=== PATIENT | female | born 1940 | race Caucasian/White ===

== ENCOUNTER 2017-11-23 08:22 | Day surgery (SDC) | payer MEDICARE, OTHER ==
[~2017-11-23] VITALS: Ht 154.9 cm; Wt 75.7 kg
[~2017-11-23 08:22] MED LIST: ACET500T33 PO; ALEN70TA5 PO; AMLO10TA6 PO; ASPI-482 PO; ATEN25TA PO; CALC-98 PO; CARV3.122 PO; CYAN50004 PO; DOCU100C28 PO; FERR325T14 PO; FERROUS GLUCON325 M1 PO; FLUT16SP NS; FURO20TA3 PO; HYDROmorphone 2 MG/ML VIAL IV PRN; IV RINGERS,LACTATED 1000ML 1,000 ML IV SCH; LEVO75TA5 PO; LIDOCAINE 1% PF 2 ML VIAL. ID PRN; LORA10TA3 PO; MAGN250T2 PO; MORPHINE SULFATE 2 MG/ML VIAL. IV PRN; OMEP20CA9 PO; ONDANSETRON PF 4 MG/2 ML VIAL. IV PRN; POTA10TA12 PO; PROCHLORPERAZINE 10 MG/2 ML VIAL. IV PRN; TRAM50TA PO; TYLENOL ARTHRITIS PO; fentaNYL PF VIAL 100 MCG/2 ML VIAL IV PRN
--- NOTE | 2017-11-23 08:47 | DISCH ---
DISCHARGE INSTRUCTIONS Condition on Discharge Condition on Discharge: Stable Activity After Discharge Activity Instructions for Disc: Activity as tolerated Other activity instructions: wiggle fingers Bathing Instructions: Shower-keep dressing dry Weight Bearing Status after Di: No restrictions, As tolerated Diet after Discharge Diet after Discharge: Cardiac Diet Texture: Regular Liquid Texture: Thin Liquid Swallowing Supervision: None needed Wound Incision Care Wound/Incision Care: Ice to area for comfort, Keep wound/cast CDI, Change dressing Contacting the DR. after DC Call your doctor for: Concerns you may have Follow-Up Follow up with: Kimmie in 2 wks IBIS CAMPBELL II, MD Nov 23, 2017 08:47
[2017-11-23] MEDS ORDERED: BUPIVACAINE MPF 0.5% 30 ML VIAL. ONE (08:54)
[2017-11-23] MEDS ORDERED: LIDOCAINE 1% PF 30 ML VIAL. ONE (08:54)
[2017-11-23] MEDS ORDERED: fentaNYL PF VIAL 100 MCG/2 ML VIAL ONE (09:22)
[2017-11-23] MEDS ORDERED: MIDAZOLAM HCL/PF 2 MG/2 ML VIAL. ONE (09:22)
[2017-11-23] MEDS ORDERED: DEXAMETHASONE SOD PHOS 20 MG/5 ML VIAL. ONE (09:22)
[2017-11-23] MEDS ORDERED: ONDANSETRON PF 4 MG/2 ML VIAL. ONE (09:22)
[2017-11-23] MEDS ORDERED: PROPOFOL 20 ML IV ONE (09:22)
[2017-11-23] MEDS ORDERED: SEVOFLURANE 16 TO 30 MINUTES. IH ONE (10:32)
--- NOTE | 2017-11-23 10:46 | PDOC4 ---
Operative Note Operative Note Date of Procedure: 11/24/07 Surgeon: Elfego Campbell Pre-operative Diagnosis: Left carpal tunnel syndrome Post-operative diagnosis: Same Procedure performed: Open left carpal tunnel release Anesthesia: Gen. Findings: Normal-appearing median nerve Tourniquet time: 10min Blood loss: 2mL Reason for procedure: Patient is very pleasant female who is several weeks out from her open right carpal tunnel release with myself for her bilateral carpal tunnel syndrome that was consistent with her clinical and electromyographic examination. She had tried and failed conservative therapies including anti- inflammatories, wrist splints and injections. These provided her only temporary relief and despite these interventions, she felt like her symptoms were worsening and therefore we had a discussion of the risks, benefits, and alternatives and she wished to proceed with surgery on her left side Description of procedure: Patient was greeted in the preoperative holding area by myself for the correct extremity was verified and marked. She is taken back to the operative suite and antibiotics were started as she was brought back. Once in the operating room, she was transferred gently supine to the operating room table and secured to bed with all pressure points padded and had successful induction of a general anesthetic. We attached the arm board attachment to the operating room table. Nonsterile tourniquet was applied to her left upper extremity. Left upper extremity was prepped and draped in our usual sterile fashion. We conducted our standard preoperative timeout. I then made an incision from her distal wrist crease and do her hand through a palmar wrist crease. I incised skin with a scalpel and dissected subcutaneous tissues tissue and cauterized bleeders with bipolar cautery. I used a small curved hemostat to dissect down to the palmar fascia. This was incised in line with the skin incision. I then placed myself retaining retractor and identified the transverse carpal ligament and release this sharply with a scalpel. I then introduced a Ragnell retractor and the distal extent of the incision, spread above and below small portion of the remainder of the transverse carpal ligament and transected this with a tenotomy scissors. I then repeated this maneuver and an ulnar directed fashion to release the distal antebrachial fascia in the proximal portion of the incision. After this, I used the tip of the tenotomy scissors to palpate along the course of the nerve to ensure that accomplished a complete release. I then irrigated out the operative field, and closed skin with 3-0 nylon in a horizontal mattress fashion. The arm was cleansed and dried after injected about 6 mL of a local anesthetic mixture. Xeroform, sterile gauze, sterile soft roll and an [place] wrap were then applied for a bulky soft tissue dressing. Tourniquet was let down, patient was awakened from anesthesia and transferred gently supine to the recovery room cart and taken to PACU in a stable and extubated condition. All counts correct 2 prior to wound closure. Postoperative plan is to leave the dressing in place for 2-3 days. I encouraged active range of motion in her fingers. I discussed postop instructions with her family, these were also provided written form. She will follow up with me in 2 weeks, sooner should a problem arise. ELFEGO CAMPBELL II, MD Nov 23, 2017 10:46
[2017-11-23] MEDS ORDERED: HYDR-971 PO (10:59)
[2017-11-23] MEDS ORDERED: ONDA4TAB10 SL (11:00)
[2017-11-23] MEDS ORDERED: DOCU-109 PO (11:00)
[2017-11-23] MEDS ORDERED: HYDROcodone/APAP 5/325MG 1 TAB TABLET ONE (11:14)
[2017-11-23 11:25] VITALS: BP 138/96
[2017-11-23] MEDS ORDERED: HYDROcodone/APAP 5/325MG 1 TAB TABLET PO ONE (11:30)
== END 2017-11-23 11:58 | disposition home or self-care (01) ==
LOC: SURG 08:22
PROVIDERS: ATTEND Orthopaedic Surgery Sports Medicine
DX: G56.02 Carpal tunnel syndrome, left upper limb (principal); M19.042 Primary osteoarthritis, left hand; M19.041 Primary osteoarthritis, right hand; I10 Essential (primary) hypertension; E03.9 Hypothyroidism, unspecified; Z88.0 Allergy status to penicillin; Z98.42 Cataract extraction status, left eye; Z98.41 Cataract extraction status, right eye; Z79.899 Other long term (current) drug therapy; Z88.8 Allergy status to other drugs, medicaments and biological substances; Z88.1 Allergy status to other antibiotic agents; Z91.040 Latex allergy status; Z98.890 Other specified postprocedural states; Z87.891 Personal history of nicotine dependence
CPT/HCPCS: 64721; A7015; J1100; J1956; J2250; J2405; J2704; J3010; J3490; J7120

== ENCOUNTER → 2018-05-08 | Outpatient (CLI) | payer MEDICARE, OTHER ==
[~2018-05-08] MED LIST changes: -ALEN70TA5 PO; +ALEN70TA6 PO; -AMLO10TA6 PO; +AMLO10TA8 PO; +CARV3.1210 PO; -CARV3.122 PO; +DOCU-109 PO; +HYDR-3164 PO; -HYDROmorphone 2 MG/ML VIAL IV PRN; -IV RINGERS,LACTATED 1000ML 1,000 ML IV SCH; -LIDOCAINE 1% PF 2 ML VIAL. ID PRN; -MORPHINE SULFATE 2 MG/ML VIAL. IV PRN; +OMEP20CA10 PO; -OMEP20CA9 PO; +ONDA4TAB10 SL; -ONDANSETRON PF 4 MG/2 ML VIAL. IV PRN; -PROCHLORPERAZINE 10 MG/2 ML VIAL. IV PRN; -fentaNYL PF VIAL 100 MCG/2 ML VIAL IV PRN
--- NOTE | 2018-05-08 11:33 | CARD ---
MR#: [id number] Date of Study: 05/08/2018 Ordering Physician: CODY RIDDLE, Referring Physician: CODY RIDDLE, Tech: Tracey Cole PATRICE APPROVED REPORT EXAM: Two-dimensional and M-mode echocardiogram with Doppler and color Doppler. Other Information Quality : Good INDICATION Pulmonary Hypertention 2D DIMENSIONS RVDd3.3 (2.9-3.5cm)Left Atrium(2D)3.6 (1.6-4.0cm) IVSd1.2 (0.7-1.1cm)Aortic Root(2D)2.9 (2.0-3.7cm) LVDd4.5 (3.9-5.9cm)LVOT Diameter2.2 (1.8-2.4cm) PWd1.2 (0.7-1.1cm)LVDs3.0 (2.5-4.0cm) FS (%) 34.0 %SV58.9 ml LVEF(%)63.0 (>50%) Aortic Valve AoV Peak Cholo.217.1cm/sAoV VTI41.5cm AO Peak GR.18.9mmHgLVOT Peak Cholo.179.1cm/s AO Mean GR.9mmHgAVA (VMAX)3.18cm2 SUE (VTI)3.22ad0CZ P 1/2 Rylw670ov Mitral Valve MV E Nwhxomxp507.6cm/sMV DECEL LXYX757en MV A Dpslbrzj843.5cm/sE/A Ratio0.9 Tricuspid Valve TR P. Metcwnrd795dp/sRAP ODFWEPPC1qxXi TR Peak Gr.78tlKoYEFX41htTg Pulmonary Vein S1 Feysymby37.0cm/sD2 Dgdpcdlq94.1cm/s LEFT VENTRICLE The left ventricle is normal size. There is mild concentric left ventricular hypertrophy. The left ve ntricular systolic function is normal and the ejection fraction is within normal range. The Ejection Fraction is 55-60%. There is normal LV segmental wall motion. Transmitral Doppler flow pattern is Gra de I-abnormal relaxation pattern. RIGHT VENTRICLE The right ventricle is normal size. The right ventricular systolic function is normal. ATRIA The left atrium size is normal. The right atrium size is normal. The interatrial septum is intact wit h no evidence for an atrial septal defect or patent foramen ovale as noted on 2-D or Doppler imaging. AORTIC VALVE The aortic valve is calcified but opens well. Doppler and Color Flow revealed trace to mild aortic re gurgitation. There is no significant aortic valvular stenosis. MITRAL VALVE The mitral valve is calcified but opens well. Mitral annular calcification is moderate. The anterior mitral valve is redundant. There is no mitral valve stenosis. Doppler and Color-flow revealed trace t o mild mitral regurgitation. TRICUSPID VALVE The tricuspid valve is normal in structure and function. Doppler and Color Flow revealed mild to mode rate tricuspid regurgitation. There is moderate pulmonary hypertension. The PA pressure was estimated at 55 mmHg. There is no tricuspid valve stenosis. PULMONIC VALVE The pulmonic valve is not well visualized. Doppler and Color Flow revealed trace pulmonic valvular re gurgitation. There is no pulmonic valvular stenosis. GREAT VESSELS The aortic root is normal in size. The ascending aorta is normal in size. The IVC is dilated and rosalba apses >50% with inspiration. PERICARDIAL EFFUSION There is no evidence of significant pericardial effusion. Critical Notification Critical Value: No <Conclusion> The left ventricular systolic function is normal and the ejection fraction is within normal range. Th e Ejection Fraction is 55-60%. There is normal LV segmental wall motion. Doppler and Color Flow revealed mild to moderate tricuspid regurgitation. There is moderate pulmonary hypertension. The PA pressure was estimated at 55 mmHg. Signed by : Biju Gilliam, Electronically Approved : 05/08/2018 11:33:02
== END | disposition home or self-care (01) ==
LOC: ECHO 10:08
PROVIDERS: ATTEND Internal Medicine Cardiovascular Disease
DX: I08.1 Rheumatic disorders of both mitral and tricuspid valves (principal); I27.20 Pulmonary hypertension, unspecified; I25.10 Atherosclerotic heart disease of native coronary artery without angina pectoris; R00.8 Other abnormalities of heart beat
CPT/HCPCS: 93306

== ENCOUNTER 2019-01-20 12:50 | Emergency (ER) | payer MEDICARE, OTHER ==
[~2019-01-20] VITALS: Ht 154.9 cm; Wt 78.9 kg
[~2019-01-20 12:50] MED LIST changes: +OMEP-229 PO; -OMEP20CA10 PO; -POTA10TA12 PO; +POTASSIUM CHLO10 ME1 PO
[2019-01-20 13:16] LABS: BILIRUBIN,URINE NEGATIVE (NEG); CLARITY,URINE CLEAR; COLOR,URINE YELLOW; NITRITE,URINE NEGATIVE (NEG); PROTEIN,URINE NEGATIVE (NEG-TRACE); UROBILINOGEN,URINE 0.2 mg/dL (0.2 mg/dL)
[2019-01-20 13:26] LABS: BASO # 0.1 x10^3/uL (0.0-0.2); BASO % 1 % (0-3); EOS # 0.3 x10^3/uL (0.0-0.7); EOS % 4 % (0-3); HEMATOCRIT 32.8 % (36.0-47.0); HEMOGLOBIN 10.6 g/dL (12.0-15.5); LYMPH # 1.2 x10^3/uL (1.0-4.8); LYMPH % 15 % (24-48); MEAN CORPUSCULAR HEMOGLOBIN 31 pg (25-35); MEAN CORPUSCULAR HGB CONC 32 g/dL (31-37); MEAN CORPUSCULAR VOLUME 97 fL (79-100); MONO # 0.5 x10^3/uL (0.0-1.1); MONO % 7 % (0-9); NEUT # 5.8 x10^3/uL (1.8-7.7); NEUT % 73 % (31-73); PLATELET COUNT 412 x10^3/uL (140-400); RED BLOOD COUNT 3.39 x10^6/uL (3.50-5.40); RED CELL DISTRIBUTION WIDTH 15.5 % (11.5-14.5)
[2019-01-20 13:33] LABS: BACTERIA,URINE MANY /HPF (0-FEW); RBC,URINE RARE /HPF (0-2); SQUAMOUS EPITHELIAL CELL,UR OCC /LPF
[2019-01-20 13:38] LABS: CALCIUM 8.6 mg/dL (8.5-10.1); CREATININE 0.7 mg/dL (0.6-1.0); GFR 80.7; POTASSIUM 4.1 mmol/L (3.5-5.1)
[2019-01-20 13:44] LABS: ALBUMIN 3.3 g/dL (3.4-5.0); ALBUMIN/GLOBULIN RATIO 0.8 (1.0-1.7); TOTAL BILIRUBIN 0.2 mg/dL (0.2-1.0); TOTAL PROTEIN 7.3 g/dL (6.4-8.2)
--- NOTE | 2019-01-20 14:05 | PHYS DOC ---
Past Medical History Past Medical History: Anemia, CHF, GERD, Hypertension, Hypothyroid Additional Past Medical Histor: "leaky heart valve" Past Surgical History: Other Additional Past Surgical Histo: cataract, ear Alcohol Use: None Drug Use: None Adult General Chief Complaint Chief Complaint: SHORTNESS OF BREATH HPI HPI Patient is a 78 year old female presents with epigastric pain radiating to her back. Symptom onset began 2 days ago. Pain is continuous worse with supine and after eating along with mid upper abdominal pain worse with palpation. Patient also reports nausea and states she has not been able to eat for the past 2 days. No vomiting. No hematemesis coffee-ground emesis or melena. Denies history of CAD. No fever chills or sweats. Patient does report mild dyspnea. No fever, cough, sore throat. Previous cholecystectomy. [] Review of Systems Review of Systems ROS as per HPI All other systems were reviewed and found to be within normal limits, except as documented in this note. Current Medications Current Medications Current Medications Medications (Trade) Dose Ordered Sig/Farhan Start Time Stop Time Status Last Admin Dose Admin Furosemide (Lasix) 40 mg 1X ONCE 01/20/19 15:30 01/20/19 15:31 DC 01/20/19 15:33 40 MG Allergies Allergies Allergies Coded Allergies Type Severity Reaction Last Updated Verified Penicillins Allergy Intermediate Hives 11/23/17 Yes clindamycin Allergy Intermediate THROAT CLOSING 11/23/17 Yes erythromycin base Allergy Intermediate 11/23/17 Yes latex Allergy Intermediate itching, broke out w/ hives 11/23/17 Yes metoprolol Allergy Intermediate 11/23/17 Yes Physical Exam Physical Exam Constitutional: Well developed, well nourished, no acute distress, non-toxic appearance. [] HENT: Normocephalic, atraumatic, bilateral external ears normal, oropharynx moist, nose normal. [] Eyes: PERRLA, EOMI, conjunctiva normal, no discharge. [] Neck: Normal range of motion, no tenderness. [] Cardiovascular:Heart rate regular rhythm, no murmur [] Lungs & Thorax: Bilateral breath sounds clear to auscultation. [] Abdomen: Bowel sounds normal, soft, epigastric tenderness. [] Skin: Warm, dry. [] Back: No tenderness. [] Extremities: No tenderness, no edema. [] Neurologic: Alert and oriented X 3, normal motor function, normal sensory function, no focal deficits noted. [] Psychologic: Affect normal, judgement normal, mood normal. [] Current Patient Data Vital Signs Vital Signs Date Time Temp Pulse Resp B/P (MAP) Pulse Ox O2 Delivery O2 Flow Rate FiO2 01/20/19 16:00 75 149/69 (95) 01/20/19 15:30 24 93 Nasal Cannula 2.0 01/20/19 13:03 97.6 97.6 Lab Values Laboratory Tests Test 01/20/19 13:00 01/20/19 13:17 Urine Collection Type Unknown Urine Color Yellow Urine Clarity Clear Urine pH 7.0 Urine Specific [place] 1.015 Urine Protein Negative mg/dL (NEG-TRACE) Urine Glucose (UA) Negative mg/dL (NEG) Urine Ketones (Stick) Negative mg/dL (NEG) Urine Blood Negative (NEG) Urine Nitrite Negative (NEG) Urine Bilirubin Negative (NEG) Urine Urobilinogen Dipstick 0.2 mg/dL (0.2 mg/dL) Urine Leukocyte Esterase Small (NEG) Urine RBC Rare /HPF (0-2) Urine WBC 1-4 /HPF (0-4) Urine Squamous Epithelial Cells Occ /LPF Urine Bacteria Many /HPF (0-FEW) White Blood Count 8.0 x10^3/uL (4.0-11.0) Red Blood Count 3.39 x10^6/uL (3.50-5.40) L Hemoglobin 10.6 g/dL (12.0-15.5) L Hematocrit 32.8 % (36.0-47.0) L Mean Corpuscular Volume 97 fL (79-100) Mean Corpuscular Hemoglobin 31 pg (25-35) Mean Corpuscular Hemoglobin Concent 32 g/dL (31-37) Red Cell Distribution Width 15.5 % (11.5-14.5) H Platelet Count 412 x10^3/uL (140-400) H Neutrophils (%) (Auto) 73 % (31-73) Lymphocytes (%) (Auto) 15 % (24-48) L Monocytes (%) (Auto) 7 % (0-9) Eosinophils (%) (Auto) 4 % (0-3) H Basophils (%) (Auto) 1 % (0-3) Neutrophils # (Auto) 5.8 x10^3/uL (1.8-7.7) Lymphocytes # (Auto) 1.2 x10^3/uL (1.0-4.8) Monocytes # (Auto) 0.5 x10^3/uL (0.0-1.1) Eosinophils # (Auto) 0.3 x10^3/uL (0.0-0.7) Basophils # (Auto) 0.1 x10^3/uL (0.0-0.2) Sodium Level 141 mmol/L (136-145) Potassium Level 4.1 mmol/L (3.5-5.1) Chloride Level 105 mmol/L (98-107) Carbon Dioxide Level 24 mmol/L (21-32) Anion Gap 12 (6-14) Blood Urea Nitrogen 15 mg/dL (7-20) Creatinine 0.7 mg/dL (0.6-1.0) Estimated GFR (Cockcroft-Gault) 80.7 BUN/Creatinine Ratio 21 (6-20) H Glucose Level 102 mg/dL (70-99) H Lactic Acid Level 1.0 mmol/L (0.4-2.0) Calcium Level 8.6 mg/dL (8.5-10.1) Total Bilirubin 0.2 mg/dL (0.2-1.0) Aspartate Amino Transferase (AST) 22 U/L (15-37) Alanine Aminotransferase (ALT) 21 U/L (14-59) Alkaline Phosphatase 191 U/L (46-116) H Troponin I Quantitative < 0.017 ng/mL (0.000-0.055) AY-Aha-R-Type Natriuretic Peptide 743 pg/mL (0-449) H Total Protein 7.3 g/dL (6.4-8.2) Albumin 3.3 g/dL (3.4-5.0) L Albumin/Globulin Ratio 0.8 (1.0-1.7) L Laboratory Tests 01/20/19 13:17 Laboratory Tests 01/20/19 13:17 EKG EKG [EKG: reviewed] Radiology/Procedures Radiology/Procedures [CXR; gestational markings consistent with congestive heart failure. Right clavicle fx.] Course & Med Decision Making Course & Med Decision Making Pertinent Labs and Imaging studies reviewed. (See chart for details) [IV lasix with motion of symptoms. Patient requesting discharge home. Will increase daily Lasix for the next 2 days with recommendations of daily weights with PCP follow-up. Return precautions reviewed.] Dragon Disclaimer Dragon Disclaimer This electronic medical record was generated, in whole or in part, using a voice recognition dictation system. Departure Departure Impression: Primary Impression: Congestive heart failure, acute Disposition: ADMITTED INPATIENT Condition: STABLE Referrals: NATALIE GONCALVES APRN (PCP) JENNIFER LOPEZ DO Jan 20, 2019 14:05
--- NOTE | 2019-01-20 14:05 | RAD ---
CHEST AP ONLY Clinical Indication: Shortness of air Comparison: AP chest February 23, 2015. Findings: Atherosclerotic and tortuous thoracic aorta. Stable mild cardiomegaly. Interstitial markings are upper limits of normal but unchanged and therefore may be chronic. There is minimal bibasilar atelectasis or scarring. There is no pneumothorax. No pleural effusion is appreciated. Irregularity of the distal right clavicle. Cannot exclude fracture. Correlate to any point tenderness. IMPRESSION: 1. Interstitial markings are upper limits of normal but unchanged. Considerations include recurrent interstitial edema versus chronic interstitial changes. 2. Irregularity of the distal right clavicle. Electronically signed by: Liborio Dodson MD (01/20/2019 2:02 PM) [id number]
[2019-01-20] MEDS ORDERED: FUROSEMIDE 40 MG/4 ML VIAL. IVP ONE (15:30)
[2019-01-20 16:00] VITALS: BP 149/69
--- NOTE | 2019-01-22 13:54 | EKG ---
[facility] [address] [place] [address] Test Date: 2019-01-20 Test Time: 13:02:01 Pat Name: NASH PAULSON Department: Room: Gender: F [employer]: : 1940 Requested By: JENNIFER LOPEZ Order Number: [id number] Reading MD: Biju Gilliam MD Measurements Intervals [place] Rate: 86 P: 90 AL: 144 QRS: -10 QRSD: 78 T: 44 QT: 356 QTc: 429 Interpretive Statements SINUS RHYTHM ATRIAL PREMATURE COMPLEX(ES) NON-SPECIFIC ST/T CHANGES Electronically Signed On 01-23-2019 10:53:41 [employer]ERIC[employer]URIST by Biju Gilliam MD
== END 2019-01-20 16:32 | disposition home or self-care (01) ==
LOC: ER 12:50
DX: I11.0 Hypertensive heart disease with heart failure (principal); I50.9 Heart failure, unspecified; K21.9 Gastro-esophageal reflux disease without esophagitis; E03.9 Hypothyroidism, unspecified; Z88.0 Allergy status to penicillin; Z88.1 Allergy status to other antibiotic agents; Z91.040 Latex allergy status
CPT/HCPCS: 36415; 71045; 80053; 81001; 83605; 83880; 84484; 85025; 87086; 87186; 93005; 96374; 99285; J1940

== ENCOUNTER → 2019-02-26 | Outpatient (CLI) | payer MEDICARE, OTHER ==
[2019-02-14 14:16] VITALS: BP 115/55
[~2019-02-26] MED LIST changes: +AMOX1TAB61 PO; +CONTRAST GIVEN. MC PRN; +DILT120C99 PO; +FLUC200T PO; +LACT1CAP19 PO; +OM3-1CAP PO; -OMEP-229 PO; +OMEP20CA16 PO; +OXYQ113. VG
[2019-02-26] MEDS: IOHEXOL 300 MG/ML 100ML VIAL. IV ONE (11:30)
[2019-02-26] MEDS: IOHEXOL 240 MG/ML 50ML VIAL. PO ONE (11:30)
--- NOTE | 2019-02-26 13:32 | RAD ---
EXAM: CT Abdomen and Pelvis with IV contrast CLINICAL HISTORY: Follow up, diverticulitis, post placement COMPARISON: 02/12/2019, 02/07/2019, 02/03/2019 TECHNIQUE: Helical CT of the abdomen and pelvis was performed following the administration of intravenous contrast Axial, coronal and sagittal reformatted images were generated. PQRS compliance statement - One or more of the following individualized dose reduction techniques were utilized for this study: 1. Automated exposure control 2. Adjustment of the mA and/or kV according to patient size 3. Use of iterative reconstruction technique FINDINGS: Lower chest: Dependent opacities in the lingula and left lung base likely atelectasis. Coronary artery and mitral annular calcifications are seen. Trace right pleural effusion. Abdomen and Pelvis: A drain is seen in the left lower quadrant adjacent to the descending/sigmoid colon. No definite associated loculated fluid collection or free intraperitoneal gas is seen. The previously seen collection has since resolved. Extensive colonic diverticulosis without evidence for acute diverticulitis.No bowel obstruction. Pessary device is seen. Bladder is unremarkable. The liver, spleen, adrenal glands and pancreas are normal. Symmetric nephrograms. Subcentimeter hypodense left interpolar renal lesion is too small to accurately characterize. No hydronephrosis or hydroureter. Aortic calcifications are seen. No abdominal or pelvic ascites. No abdominal or pelvic lymphadenopathy. Small segment of small bowel is seen within a right inguinal hernia. Bones: Osseous structures are stable height loss of the L2 vertebral body IMPRESSION: 1. Interval resolution of the known left lower quadrant pericolonic collection. The previously seen sigmoid diverticulitis is also since essentially resolved. 2. Trace right pleural effusion, intervally decreased. Electronically signed by: Ravinder Cota MD (02/26/2019 1:29 PM) [id number]
== END | disposition home or self-care (01) ==
LOC: CT 10:38
PROVIDERS: ATTEND Surgery
DX: K57.20 Diverticulitis of large intestine with perforation and abscess without bleeding (principal); K40.90 Unilateral inguinal hernia, without obstruction or gangrene, not specified as recurrent; I25.10 Atherosclerotic heart disease of native coronary artery without angina pectoris; I70.0 Atherosclerosis of aorta; I10 Essential (primary) hypertension; Z90.89 Acquired absence of other organs
CPT/HCPCS: 74177; Q9966; Q9967

== ENCOUNTER → 2019-05-01 | Outpatient (CLI) | payer MEDICARE, OTHER ==
[2019-02-14 14:16] VITALS: BP 115/55
[~2019-05-01] MED LIST changes: -CONTRAST GIVEN. MC PRN
--- NOTE | 2019-05-01 16:34 | RAD ---
HAND BILAT 3V, FOOT BILAT 3V History: Polyarthralgia. Right foot: Bone demineralization. Mild degenerative changes at the first MTP joint. Limited visualization of the DIP joints but there also appear to be some degenerative changes. Focal loss of cortical definition at the lateral fifth metatarsal head, possibly a small erosion. No evidence of acute fracture. No aggressive bone destruction. No definite soft tissue abnormality. Small calcaneal spur. Left foot: Mild degenerative changes at the first MTP joint with hallux valgus. There are also some degenerative changes at DIP joints. Similar to the contralateral foot, there is loss of definition of the lateral cortex of the fifth metatarsal head. No aggressive bone destruction. No evidence of acute fracture. Bone demineralization. IMPRESSION: 1. Degenerative changes of both feet. 2. Mild loss of cortex at the lateral fifth metatarsal head bilaterally, uncertain significance but conceivably due to marginal erosion as can be seen with inflammatory arthropathy. However, note that no other inflammatory type changes are seen. Right hand: Bone demineralization. Severe narrowing of the first, second, third and fourth MCP joints. Milder degenerative change and IP joints. Severe degenerative change at the first carpometacarpal joint. Milder degenerative change at the wrist, particularly the scaphomultangular joint. There is some lucency at the proximal hamate bone suspicious for an erosion. Small lucency or erosion is seen at the adjacent medial proximal capitate bone. Left hand: Bone demineralization. Severe narrowing of the second and third MP joints, milder narrowing of the other MP joints and IP joints. At least mild degenerative changes of the first carpometacarpal joint. Narrowing of the joint space between the lunate and the hamate. Broad chronic appearing smooth erosion of the medial distal radius, with settling of the medial ulnar head into the defect. No evidence of acute fracture. IMPRESSION: 1. Severe bone demineralization. 2. Small erosions at the proximal hamate and capitate of the right wrist, could be related to inflammatory arthropathy such as rheumatoid arthritis. 3. Broad erosion at the distal medial left radius, could also be related to inflammatory arthropathy such as rheumatoid arthritis. 4. Narrowing of the MP joints bilaterally is nonspecific. This could be related to inflammatory/rheumatoid arthritis. 5. Narrowing of the left lunate and hamate joint. Electronically signed by: Vicente Patrick MD (05/01/2019 4:31 PM) [id number]
== END ==
LOC: RAD 11:30
PROVIDERS: ATTEND Internal Medicine Rheumatology
DX: M81.0 Age-related osteoporosis without current pathological fracture (principal); M85.88 Other specified disorders of bone density and structure, other site
CPT/HCPCS: 73130; 73630

== ENCOUNTER 2019-05-24 12:35 | Inpatient (IN) | payer MEDICARE, OTHER ==
[~2019-05-24] VITALS: Ht 154.9 cm; Wt 87.1 kg
[2019-05-24 13:12] LABS: BASO % 1 % (0-3); EOS # 0.1 x10^3/uL (0.0-0.7); EOS % 2 % (0-3); HEMOGLOBIN 12.3 g/dL (12.0-15.5); LYMPH # 0.7 x10^3/uL (1.0-4.8); LYMPH % 18 % (24-48); MEAN CORPUSCULAR HEMOGLOBIN 31 pg (25-35); MEAN CORPUSCULAR HGB CONC 32 g/dL (31-37); MEAN CORPUSCULAR VOLUME 94 fL (79-100); MONO # 0.2 x10^3/uL (0.0-1.1); MONO % 6 % (0-9); NEUT # 2.8 x10^3/uL (1.8-7.7); NEUT % 74 % (31-73); PLATELET COUNT 213 x10^3/uL (140-400); RED BLOOD COUNT 4.03 x10^6/uL (3.50-5.40); RED CELL DISTRIBUTION WIDTH 18.1 % (11.5-14.5); WHITE BLOOD COUNT 3.7 x10^3/uL (4.0-11.0)
--- NOTE | 2019-05-24 13:14 | EKG ---
[facility] [address] [place] [address] Test Date: 2019-05-24 Test Time: 13:03:23 Pat Name: NASH PAULSON Department: Room: Gender: F [employer]: : 1940 Requested By: GERA CHE Order Number: [id number] Reading MD: Biju Gilliam MD Measurements Intervals [place] Rate: 86 P: 0 ID: 100 QRS: -14 QRSD: 72 T: 49 QT: 346 QTc: 417 Interpretive Statements SINUS RHYTHM ATRIAL PREMATURE COMPLEX NON-SPECIFIC ST/T CHANGES Electronically Signed On 05-24-2019 14:39:45 CDT by Biju Gilliam MD
[2019-05-24 13:21] LABS: CALCIUM 8.7 mg/dL (8.5-10.1); CREATININE 0.6 mg/dL (0.6-1.0); GFR 96.4
--- NOTE | 2019-05-24 13:21 | RAD ---
Examination: CHEST AP ONLY History: Shortness of breath Comparison: 02/03/2019 AP view of the chest. Findings: AP portable upright frontal view of the chest was obtained. The cardiomediastinal silhouette is normal. Subtle pulmonary interstitial thickening is again seen. There is no pneumothorax. Small pleural effusions are present. Minimal adjacent atelectasis at the right lung base is noted. No acute bone abnormality. IMPRESSION: Small pleural effusions with minimal adjacent atelectasis. Borderline pulmonary vasculature. Electronically signed by: Howie Metcalf MD (05/24/2019 1:18 PM) [id number]
[2019-05-24 13:27] LABS: ALBUMIN 2.8 g/dL (3.4-5.0); ALBUMIN/GLOBULIN RATIO 0.6 (1.0-1.7); TOTAL BILIRUBIN 0.3 mg/dL (0.2-1.0); TOTAL PROTEIN 7.2 g/dL (6.4-8.2)
[2019-05-24 14:08] LABS: INFLUENZA A PATIENT NEGATIVE (NEGATIVE)
[2019-05-24 14:09] LABS: INFLUENZA B PATIENT POSITIVE (NEGATIVE)
--- NOTE | 2019-05-24 14:09 | PHYS DOC ---
Past Medical History Past Medical History: Anemia, CHF, GERD, Hypertension, Hypothyroid Additional Past Medical Histor: "leaky heart valve" Past Surgical History: Other Additional Past Surgical Histo: cataract, ear Smoking Status: Never Smoker Alcohol Use: None Drug Use: None Adult General Chief Complaint Chief Complaint: SHORTNESS OF BREATH HPI HPI Patient is a 78 year old female who presents to ED with CC of fever, cough and SOB. EMS say that patient is on 4 L oxygen and is at 94 % oxygen saturation. Patient says that she took Tylenol 1000mg this morning. Patient says that she has cough and SOB for a few days. Patient says she has history of cardiac disease, CHF and lung disease. Patient says she is a former smoker. Review of Systems Review of Systems Patient does complain of fever, cough, shortness of breath. Patient denies nausea, vomiting, diarrhea, dysuria, abdominal pain, chest pain. All other systems were reviewed and found to be within normal limits, except as documented in this note. Allergies Allergies Allergies Coded Allergies Type Severity Reaction Last Updated Verified clindamycin Allergy Severe THROAT CLOSING 02/07/19 Yes Penicillins Allergy Intermediate Hives 02/03/19 Yes erythromycin base Allergy Intermediate 02/03/19 Yes latex Allergy Intermediate itching, broke out w/ hives 02/03/19 Yes metoprolol Allergy Intermediate 02/03/19 Yes Physical Exam Physical Exam Constitutional: Well developed, well nourished, no acute distress, non-toxic appearance. [] HENT: Normocephalic, atraumatic Eyes: PERRLA, EOMI Neck: Normal range of motion Cardiovascular:Heart rate regular rhythm Lungs & Thorax: Bilateral rhonchi Abdomen: Soft, nontender, nondistended, no focal abdominal tenderness Extremities: No tenderness, ROM intac Neurologic: Alert and oriented X 3 Current Patient Data Vital Signs Vital Signs Date Time Temp Pulse Resp B/P (MAP) Pulse Ox O2 Delivery O2 Flow Rate FiO2 05/24/19 13:00 98.2 96 20 160/70 (100) 93 Nasal Cannula 3.0 98.2 Lab Values Laboratory Tests Test 05/24/19 12:55 05/24/19 13:33 White Blood Count 3.7 x10^3/uL (4.0-11.0) L Red Blood Count 4.03 x10^6/uL (3.50-5.40) Hemoglobin 12.3 g/dL (12.0-15.5) Hematocrit 38.0 % (36.0-47.0) Mean Corpuscular Volume 94 fL (79-100) Mean Corpuscular Hemoglobin 31 pg (25-35) Mean Corpuscular Hemoglobin Concent 32 g/dL (31-37) Red Cell Distribution Width 18.1 % (11.5-14.5) H Platelet Count 213 x10^3/uL (140-400) Neutrophils (%) (Auto) 74 % (31-73) H Lymphocytes (%) (Auto) 18 % (24-48) L Monocytes (%) (Auto) 6 % (0-9) Eosinophils (%) (Auto) 2 % (0-3) Basophils (%) (Auto) 1 % (0-3) Neutrophils # (Auto) 2.8 x10^3/uL (1.8-7.7) Lymphocytes # (Auto) 0.7 x10^3/uL (1.0-4.8) L Monocytes # (Auto) 0.2 x10^3/uL (0.0-1.1) Eosinophils # (Auto) 0.1 x10^3/uL (0.0-0.7) Basophils # (Auto) 0.0 x10^3/uL (0.0-0.2) Sodium Level 134 mmol/L (136-145) L Potassium Level 4.0 mmol/L (3.5-5.1) Chloride Level 102 mmol/L (98-107) Carbon Dioxide Level 21 mmol/L (21-32) Anion Gap 11 (6-14) Blood Urea Nitrogen 14 mg/dL (7-20) Creatinine 0.6 mg/dL (0.6-1.0) Estimated GFR (Cockcroft-Gault) 96.4 BUN/Creatinine Ratio 23 (6-20) H Glucose Level 95 mg/dL (70-99) Lactic Acid Level 1.1 mmol/L (0.4-2.0) Calcium Level 8.7 mg/dL (8.5-10.1) Total Bilirubin 0.3 mg/dL (0.2-1.0) Aspartate Amino Transferase (AST) 27 U/L (15-37) Alanine Aminotransferase (ALT) 16 U/L (14-59) Alkaline Phosphatase 200 U/L (46-116) H Troponin I Quantitative < 0.017 ng/mL (0.000-0.055) JS-Zjs-[id number]-Type Natriuretic Peptide 576 pg/mL (0-449) H Total Protein 7.2 g/dL (6.4-8.2) Albumin 2.8 g/dL (3.4-5.0) L Albumin/Globulin Ratio 0.6 (1.0-1.7) L Influenza Type A Antigen Negative (NEGATIVE) Influenza Type B Antigen Positive (NEGATIVE) Laboratory Tests 05/24/19 12:55 Laboratory Tests 05/24/19 12:55 EKG EKG EKG interpretation: HR: 86 Sinus rhythm Regular intervals Left axis deviation Nonspecific ST changes [] Radiology/Procedures Radiology/Procedures [] Impressions: Chest xray shows borderline vascular congestion. Small pleural effusion seen. Course & Med Decision Making Course & Med Decision Making Pertinent Labs and Imaging studies reviewed. (See chart for details) Ordered labs, chest x-ray, EKG, flu screen, troponin Chest x-ray shows borderline vascular congestion and small pleural effusions. Labs are within normal limits. Troponin is negative. IV antibiotic started in the ED secondary to patient's presentation and symptoms. Also will test patient for the coronavirus as she has fever, cough and shortness of breath. Patient has flu be positive. Patient needs oxygen due to hypoxia and so patient will be admitted for further evaluation and treatment. There have been many cases where there has been coinfection with coronavirus and influenza. Discussed case with Dr. Wang who accepts admission. Discussed results and plan of care with patient. Dragon Disclaimer Dragon Disclaimer This electronic medical record was generated, in whole or in part, using a voice recognition dictation system. Departure Departure Impression: Primary Impression: Acute dyspnea Additional Impressions: Hypoxia Influenza B Disposition: ADMITTED INPATIENT Condition: GUARDED Referrals: NATALIE GONCALVES APRN (PCP) Problem Qualifiers GERA CHE DO May 24, 2019 14:09
--- NOTE | 2019-05-24 14:37 | PDOC1 ---
History and Physical Date of Admission Date of Admission DATE: 05/24/19 TIME: 14:27 Identification/Chief Complaint Chief Complaint Fevers Source Source: Patient History of Present Illness History of Present Illness Ms Salgado is a 78 yo F w/ PMHx CHF, ex-smoker (quit 2007), GERD, HTN, Hypothyroidism, anemia who presents with complaint of feeling feverish for a week and a slight cough starting 2 days ago. Temp was 100.8F today and she awakened short of breath today and came to ED. She tooke 1000mg acetaminophen before arrival. She did a phone visit with her PCP and was given keflex earlier this week for presumptive otitis media. Of note she was diagnosed with rheumatoid arthritis 3 weeks ago and started on weekly methotrexate to treat this. Labs: WBC 3.7, Hb 12.3, Na 134, K 4, BUN 14, Cr 0.6, Glucose 95. Albumin 2.8, BNP 576. Trop 0. Lactate 1.1. Positive for Influenza B. COVID-19 CRITERIA: The patient was evaluated during the global COVID-19 pandemic, and that diagnosis was suspected/considered upon their initial presentation. Their evaluation, treatment and testing was consistent with current guidelines for patients who present with complaints or symptoms that may be related to COVID-19. In ED noted with CXR with pulmonary vascular congestion EKG - Sinus rhythm, Regular intervals, Left axis deviation, Nonspecific ST changes Past Medical History Cardiovascular: CHF, HTN Pulmonary: No pertinent hx CENTRAL NERVOUS SYSTEM: Carpal Tunnel Syndrome GI: Constipation, GERD Heme/Onc: Anemia NOS Hepatobiliary: No pertinent hx Psych: No pertinent hx Musculoskeletal: Osteoarthritis Rheumatologic: No pertinent hx Infectious disease: No pertinent hx Endocrine: Hypothyroidism, Osteopenia Past Surgical History Past Surgical History: Cataract Removal, Other Family History Family History: Coronary Artery Disease Social History Smoke: Quit (2007) ALCOHOL: none Drugs: None Current Problem List Problem List Problems Medical Problems: (1) Acute dyspnea Status: Acute (2) Hypoxia Status: Acute (3) Influenza B Status: Acute Current Medications Current Medications Active Scripts Active Reported Diflucan (Fluconazole) 200 Mg Tablet 1 Tab PO DAILY 7 Days Augmentin 875-125 Tablet (Amoxicillin/Potassium Clav) 1 Each Tablet 1 Tab PO BID 5 Days Diltiazem 24HR Cd (Diltiazem Hcl) 120 Mg Cap.er.24h 1 Cap PO DAILY 30 Days Culturelle (Lactobacillus Rhamnosus Gg) 1 Each Cap.sprink 1 Cap PO DAILY 30 Days Trimo-Kaminski Jelly (Oxyquinoline/Sod.lauryl Sulfat) 113.4 Gm Jelly.appl 1 Appful VG TWICE WEEKLY 7 Days Eye Gillespie Advantage Softgel (Om3-Dha/Epa/D3/Lutein/Zeazanth) 1 Each Capsule 1 Each PO BID Zofran Odt (Ondansetron) 4 Mg Tab.rapdis 1 Tab SL Q8HRS Colace (Docusate Sodium) 100 Mg Capsule 1 Cap PO TID Ferrous Sulfate 325 Mg Tablet 1 Tab PO TID Fluticasone Propionate Nasal Mentone (Fluticasone Propionate) 16 Gm Mentone.susp 2 [place]one NS PRN DAILY PRN Loratadine 10 Mg Tablet 1 Tab PO PRN DAILY PRN Tramadol Hcl 50 Mg Tablet 50 Mg PO PRN BID PRN [Tylenol Arthritis] 1 Tab 2 Tab PO BID Vitamin B-12 (Cyanocobalamin (Vitamin B-12)) 5,000 Mcg Tab.rapdis 5,000 Mcg PO QODAY Calcium + Vitamin D Tablet (Calcium Carbonate/Vitamin D3) 1 Each Tablet 1 Each PO DAILY Omeprazole 20 Mg Capsule.dr 1 Cap PO DAILY Levothyroxine Sodium 75 Mcg Tablet 1 Tab PO DAILY Allergies Allergies: Coded Allergies: clindamycin (Verified Allergy, Severe, THROAT CLOSING, 02/07/19) Penicillins (Verified Allergy, Intermediate, Hives, 02/03/19) erythromycin base (Verified Allergy, Intermediate, 02/03/19) latex (Verified Allergy, Intermediate, itching, broke out w/ hives, 02/03/19) metoprolol (Verified Allergy, Intermediate, 02/03/19) ROS General: YES: Chills, Night Sweats, Fatigue, Malaise; No: Appetite, Other PSYCHOLOGICAL ROS: YES: Anxiety; No: Behavioral Disorder, Concentration difficultie, Decreased libido, Depression, Disorientation, Hallucinations, Hostility, Irritablity, Memory difficulties, Mood Swings, Obsessive thoughts, Physical abuse, Sexual abuse, Sleep disturbances, Suicidal ideation, Other Eyes: No Blurry vision, No Decreased vision, No Double vision, No Dry eyes, No Excessive tearing, No Eye Pain, No Itchy Eyes, No Loss of vision, No Photophobia , No Scotomata, No Uses contacts, No Uses glasses, No Other HEENT: No: Heacaches, Visual Changes, Hearing change, Nasal congestion, Nasal discharge, Oral lesions, Sinus pain, Sore Throat, Epistaxis, Sneezing, Snoring, Tinnitus, Vertigo, Vocal changes, Other ALLERGY AND IMMUNOLOGY: No: Hives, Insect Bite Sensitivity, Itchy/Watery Eyes, Nasal Congestion, Post Nasal Drip, Seasonal Allergies, Other Hematological and Lymphatic: No: Bleeding Problems, Blood Clots, Blood Transfusions, Brusing, Night Sweats, Pallor, Swollen Lymph Nodes, Other ENDOCRINE: No: Breast Changes, Galactorrhea, Hair Pattern Changes, Hot Flashes, Malaise/lethargy, Mood Swings, Palpitations, Polydipsia/polyuria, Skin Changes, Temperature Intolerance, Unexpected Weight Changes, Other Breast: No New/Changing Breast Lumps, No Nipple changes, No Nipple discharge, No Other Respiratory: YES: Cough, Shortness of breath, SOB with excertion; No: Hemoptysis, Orthopnea, Pleuritic Pain, Sputum Changes, Stridor, Tachypnea, Wheezing, Other Cardiovascular: No Chest Pain, No Palpitations, No Orthopnea, No Paroxysmal Noc. Dyspnea, No Edema, No Lt Headedness, No Other Gastrointestinal: Yes Nausea; No Vomiting, No Abdominal Pain, No Diarrhea, No Constipation, No Melena, No Hematochezia, No Other Genitourinary: No Dysuria, No Frequency, No Incontinence, No Hematuria, No Retention, No Discharge, No Urgency, No Pain, No Flank Pain, No Other, No , No , No , No , No , No , No Musculoskeletal: No Gait Disturbance, No Joint Pain, No Joint Stiffness, No Joint Swelling, No Muscle Pain, No Muscular Weakness, No Pain In:, No Swelling In:, No Other Neurological: No Behavorial Changes, No Bowel/Bladder ControlChng, No Confusion, No Dizziness, No Gait Disturbance, No Headaches, No Impaired Coord/balance, No Memory Loss, No Numbness/Tingling, No Seizures, No Speech Problems, No Tremors, No Visual Changes, No Weakness, No Other Skin: No Dry Skin, No Eczema, No Hair Changes, No Lumps, No Mole Changes, No Mottling, No Nail Changes, No Pruritus, No Rash, No Skin Lesion Changes, No Other, No Acne Physical Exam General: Alert, Oriented X3, Cooperative, mild distress HEENT: Atraumatic, PERRLA, EOMI, Mucous membr. moist/pink Lungs: Other (Bilateral wheezing and mild rhonchi) Heart: S1S2, RRR, no thrills, no rubs, no gallops, no murmurs Abdomen: Normal bowel sounds, Soft, No tenderness, No hepatosplenomegaly, No masses Extremities: No clubbing, No cyanosis, No edema, Normal pulses, No tenderness/swelling Skin: No rashes, No breakdown, No significant lesion Neuro: Normal gait, Normal speech, Strength at 5/5 X4 ext, Normal tone, Sensation intact, Cranial nerves 3-12 NL, Reflexes 2+ Psych/Mental Status: Mental status NL, Mood NL Vitals Vitals Vital Signs Date Time Temp Pulse Resp B/P (MAP) Pulse Ox O2 Delivery O2 Flow Rate FiO2 05/24/19 13:00 98.2 96 20 160/70 (100) 93 Nasal Cannula 3.0 98.2 Labs Labs Laboratory Tests Test 05/24/19 12:55 05/24/19 13:33 White Blood Count 3.7 x10^3/uL (4.0-11.0) Red Blood Count 4.03 x10^6/uL (3.50-5.40) Hemoglobin 12.3 g/dL (12.0-15.5) Hematocrit 38.0 % (36.0-47.0) Mean Corpuscular Volume 94 fL (79-100) Mean Corpuscular Hemoglobin 31 pg (25-35) Mean Corpuscular Hemoglobin Concent 32 g/dL (31-37) Red Cell Distribution Width 18.1 % (11.5-14.5) Platelet Count 213 x10^3/uL (140-400) Neutrophils (%) (Auto) 74 % (31-73) Lymphocytes (%) (Auto) 18 % (24-48) Monocytes (%) (Auto) 6 % (0-9) Eosinophils (%) (Auto) 2 % (0-3) Basophils (%) (Auto) 1 % (0-3) Neutrophils # (Auto) 2.8 x10^3/uL (1.8-7.7) Lymphocytes # (Auto) 0.7 x10^3/uL (1.0-4.8) Monocytes # (Auto) 0.2 x10^3/uL (0.0-1.1) Eosinophils # (Auto) 0.1 x10^3/uL (0.0-0.7) Basophils # (Auto) 0.0 x10^3/uL (0.0-0.2) Sodium Level 134 mmol/L (136-145) Potassium Level 4.0 mmol/L (3.5-5.1) Chloride Level 102 mmol/L (98-107) Carbon Dioxide Level 21 mmol/L (21-32) Anion Gap 11 (6-14) Blood Urea Nitrogen 14 mg/dL (7-20) Creatinine 0.6 mg/dL (0.6-1.0) Estimated GFR (Cockcroft-Gault) 96.4 BUN/Creatinine Ratio 23 (6-20) Glucose Level 95 mg/dL (70-99) Lactic Acid Level 1.1 mmol/L (0.4-2.0) Calcium Level 8.7 mg/dL (8.5-10.1) Total Bilirubin 0.3 mg/dL (0.2-1.0) Aspartate Amino Transf (AST/SGOT) 27 U/L (15-37) Alanine Aminotransferase (ALT/SGPT) 16 U/L (14-59) Alkaline Phosphatase 200 U/L (46-116) Troponin I Quantitative < 0.017 ng/mL (0.000-0.055) PF-[id number]-Type Natriuretic Peptide 576 pg/mL (0-449) Total Protein 7.2 g/dL (6.4-8.2) Albumin 2.8 g/dL (3.4-5.0) Albumin/Globulin Ratio 0.6 (1.0-1.7) Influenza Type A Antigen Negative (NEGATIVE) Influenza Type B Antigen Positive (NEGATIVE) Laboratory Tests Test 05/24/19 12:55 05/24/19 13:33 White Blood Count 3.7 x10^3/uL (4.0-11.0) Red Blood Count 4.03 x10^6/uL (3.50-5.40) Hemoglobin 12.3 g/dL (12.0-15.5) Hematocrit 38.0 % (36.0-47.0) Mean Corpuscular Volume 94 fL (79-100) Mean Corpuscular Hemoglobin 31 pg (25-35) Mean Corpuscular Hemoglobin Concent 32 g/dL (31-37) Red Cell Distribution Width 18.1 % (11.5-14.5) Platelet Count 213 x10^3/uL (140-400) Neutrophils (%) (Auto) 74 % (31-73) Lymphocytes (%) (Auto) 18 % (24-48) Monocytes (%) (Auto) 6 % (0-9) Eosinophils (%) (Auto) 2 % (0-3) Basophils (%) (Auto) 1 % (0-3) Neutrophils # (Auto) 2.8 x10^3/uL (1.8-7.7) Lymphocytes # (Auto) 0.7 x10^3/uL (1.0-4.8) Monocytes # (Auto) 0.2 x10^3/uL (0.0-1.1) Eosinophils # (Auto) 0.1 x10^3/uL (0.0-0.7) Basophils # (Auto) 0.0 x10^3/uL (0.0-0.2) Sodium Level 134 mmol/L (136-145) Potassium Level 4.0 mmol/L (3.5-5.1) Chloride Level 102 mmol/L (98-107) Carbon Dioxide Level 21 mmol/L (21-32) Anion Gap 11 (6-14) Blood Urea Nitrogen 14 mg/dL (7-20) Creatinine 0.6 mg/dL (0.6-1.0) Estimated GFR (Cockcroft-Gault) 96.4 BUN/Creatinine Ratio 23 (6-20) Glucose Level 95 mg/dL (70-99) Lactic Acid Level 1.1 mmol/L (0.4-2.0) Calcium Level 8.7 mg/dL (8.5-10.1) Total Bilirubin 0.3 mg/dL (0.2-1.0) Aspartate Amino Transf (AST/SGOT) 27 U/L (15-37) Alanine Aminotransferase (ALT/SGPT) 16 U/L (14-59) Alkaline Phosphatase 200 U/L (46-116) Troponin I Quantitative < 0.017 ng/mL (0.000-0.055) YA-Lyi-F-Type Natriuretic Peptide 576 pg/mL (0-449) Total Protein 7.2 g/dL (6.4-8.2) Albumin 2.8 g/dL (3.4-5.0) Albumin/Globulin Ratio 0.6 (1.0-1.7) Influenza Type A Antigen Negative (NEGATIVE) Influenza Type B Antigen Positive (NEGATIVE) Images Images CXR - AP portable upright frontal view of the chest was obtained. The cardiomediastinal silhouette is normal. Subtle pulmonary interstitial thickening is again seen. There is no pneumothorax. Small pleural effusions are present. Minimal adjacent atelectasis at the right lung base is noted. No acute bone abnormality. IMPRESSION: Small pleural effusions with minimal adjacent atelectasis. Borderline pulmonary vasculature. VTE Prophylaxis Ordered VTE Prophylaxis Devices: Yes VTE Pharmacological Prophylaxi: Yes Assessment/Plan Assessment/Plan A/P: Acute hypoxic respiratory failure - likely 2/2 influenza. Concern for COVID 19 in ED, was tested. Down-titrate O2 as tolerated Influenza B - start tamiflu, will give supportive measures otherwise Shortness of breath - likely related to influenza. 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 COVID-19 CRITERIA: The patient was evaluated during the global COVID-19 pandemic, and that diagnosis was suspected/considered upon their initial presentation. Their evaluation, treatment and testing was consistent with current guidelines for patients who present with complaints or symptoms that may be related to COVID-19. KALYN LONG MD May 24, 2019 14:37
[2019-05-24] MEDS ORDERED: ONDANSETRON PF 4 MG/2 ML VIAL. IV PRN (15:15)
[2019-05-24 15:30] VITALS: BP 162/77
[2019-05-24] MEDS ORDERED: POTA10TA6 PO (16:32)
[2019-05-24] MEDS ORDERED: PSYL0.4C2 PO (16:32)
[2019-05-24] MEDS ORDERED: DILT180C2 PO (16:32)
[2019-05-24] MEDS ORDERED: MAGN250T9 PO (16:32)
[2019-05-24] MEDS ORDERED: FOLI20CA PO (16:32)
[2019-05-24] MEDS ORDERED: FURO-69 PO (16:32)
[2019-05-24] MEDS ORDERED: METH2.5T PO (16:32)
[2019-05-24] MEDS ORDERED: traMADol 50 MG TABLET PO PRN (16:45)
[2019-05-24] MEDS: OSELTAMIVIR 30 MG CAPSULE PO SCH ×2 (17:53→20:37)
[2019-05-24 19:05] VITALS: BP 144/64
[2019-05-24] MEDS: ENOXAPARIN 40 MG/0.4 ML SYRINGE. SQ SCH (20:36)
[2019-05-24] MEDS: FERROUS SULFATE 325 MG TABLET. PO SCH (20:37)
[2019-05-24 23:05] VITALS: BP 127/73
[2019-05-25] MEDS: ACETAMINOPHEN 325 MG TABLET. PO PRN ×2 (00:03→20:05)
[2019-05-25 03:05] VITALS: BP 133/84
[2019-05-25] MEDS: LEVOTHYROXINE 75 MCG TABLET PO SCH (05:42)
[2019-05-25 07:00] VITALS: BP 156/68
[2019-05-25] MEDS: DOCUSATE SODIUM 100 MG CAPSULE. PO SCH (08:28)
[2019-05-25] MEDS: FOLIC ACID 1 MG TABLET. PO SCH (08:28)
[2019-05-25] MEDS: MAGNESIUM OXIDE 400 MG TABLET PO SCH (08:29)
[2019-05-25] MEDS: CYANOCOBALAMIN (VITAMIN B-12) 1,000 MCG TABLET. PO SCH (08:29)
[2019-05-25] MEDS: PANTOPRAZOLE 40 MG TABLET.DR. PO SCH (08:29)
[2019-05-25] MEDS: FERROUS SULFATE 325 MG TABLET. PO SCH ×3 (08:29→20:05)
[2019-05-25] MEDS: FUROSEMIDE 20 MG TABLET PO SCH (08:29)
[2019-05-25] MEDS: LACTOBACILLUS RHAMNOSUS GG 1 CAPSULE. PO SCH (08:30)
[2019-05-25] MEDS: OSELTAMIVIR 30 MG CAPSULE PO SCH ×2 (08:30→20:05)
--- NOTE | 2019-05-25 08:40 | PDOC ---
PROGRESS NOTES Chief Complaint Chief Complaint A/P: Acute hypoxic respiratory failure - likely 2/2 influenza. Concern for COVID 19 in ED, was tested. Down-titrate O2 as tolerated Influenza B - start tamiflu, will give supportive measures otherwise Shortness of breath - likely related to influenza. 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 I have advised her to avoid methotrexate for now as her symptoms were only relegated to her left hand. FEN - Cardiac PPX - lovenox FULL CODE Dispo - inpatient for above. COVID-19 CRITERIA: The patient was evaluated during the global COVID-19 pandemic, and that diagnosis was suspected/considered upon their initial presentation. Their evaluation, treatment and testing was consistent with current guidelines for patients who present with complaints or symptoms that may be related to COVID-19. History of Present Illness History of Present Illness Ms Salgado is a 78 yo F w/ PMHx CHF, ex-smoker (quit 2007), GERD, HTN, Hypothyroidism, anemia who presents with complaint of feeling feverish for a week and a slight cough starting 2 days ago. Temp was 100.8F today and she awakened short of breath today and came to ED. She tooke 1000mg acetaminophen before arrival. She did a phone visit with her PCP and was given keflex earlier this week for presumptive otitis media. Of note she was diagnosed with rheumatoid arthritis 3 weeks ago and started on weekly methotrexate to treat this. Labs: WBC 3.7, Hb 12.3, Na 134, K 4, BUN 14, Cr 0.6, Glucose 95. Albumin 2.8, BNP 576. Trop 0. Lactate 1.1. Positive for Influenza B. COVID-19 CRITERIA: The patient was evaluated during the global COVID-19 pandemic, and that diagnosis was suspected/considered upon their initial presentation. Their evaluation, treatment and testing was consistent with current guidelines for patients who present with complaints or symptoms that may be related to COVID-19. In ED noted with CXR with pulmonary vascular congestion EKG - Sinus rhythm, Regular intervals, Left axis deviation, Nonspecific ST changes Afebrile overnight. Now on 2l NCO2 due to overnight desaturations. She is feeling about the same with regard to shortness of breath and cough. No CP. Vitals Vitals Vital Signs Date Time Temp Pulse Resp B/P (MAP) Pulse Ox O2 Delivery O2 Flow Rate FiO2 05/25/19 08:30 73 133/84 05/25/19 03:05 98.1 19 92 Nasal Cannula 3.0 98.1 Physical Exam General: Alert, Oriented X3, Cooperative, mild distress Lungs: Clear Abdomen: Normal bowel sounds, Soft, No tenderness, No hepatosplenomegaly, No masses Extremities: No clubbing, No cyanosis, No edema, Normal pulses, No tenderness/swelling Skin: No rashes, No breakdown, No significant lesion Labs LABS Laboratory Tests Test 05/24/19 12:55 05/24/19 13:33 White Blood Count 3.7 x10^3/uL (4.0-11.0) Red Blood Count 4.03 x10^6/uL (3.50-5.40) Hemoglobin 12.3 g/dL (12.0-15.5) Hematocrit 38.0 % (36.0-47.0) Mean Corpuscular Volume 94 fL (79-100) Mean Corpuscular Hemoglobin 31 pg (25-35) Mean Corpuscular Hemoglobin Concent 32 g/dL (31-37) Red Cell Distribution Width 18.1 % (11.5-14.5) Platelet Count 213 x10^3/uL (140-400) Neutrophils (%) (Auto) 74 % (31-73) Lymphocytes (%) (Auto) 18 % (24-48) Monocytes (%) (Auto) 6 % (0-9) Eosinophils (%) (Auto) 2 % (0-3) Basophils (%) (Auto) 1 % (0-3) Neutrophils # (Auto) 2.8 x10^3/uL (1.8-7.7) Lymphocytes # (Auto) 0.7 x10^3/uL (1.0-4.8) Monocytes # (Auto) 0.2 x10^3/uL (0.0-1.1) Eosinophils # (Auto) 0.1 x10^3/uL (0.0-0.7) Basophils # (Auto) 0.0 x10^3/uL (0.0-0.2) Sodium Level 134 mmol/L (136-145) Potassium Level 4.0 mmol/L (3.5-5.1) Chloride Level 102 mmol/L (98-107) Carbon Dioxide Level 21 mmol/L (21-32) Anion Gap 11 (6-14) Blood Urea Nitrogen 14 mg/dL (7-20) Creatinine 0.6 mg/dL (0.6-1.0) Estimated GFR (Cockcroft-Gault) 96.4 BUN/Creatinine Ratio 23 (6-20) Glucose Level 95 mg/dL (70-99) Lactic Acid Level 1.1 mmol/L (0.4-2.0) Calcium Level 8.7 mg/dL (8.5-10.1) Total Bilirubin 0.3 mg/dL (0.2-1.0) Aspartate Amino Transf (AST/SGOT) 27 U/L (15-37) Alanine Aminotransferase (ALT/SGPT) 16 U/L (14-59) Alkaline Phosphatase 200 U/L (46-116) Troponin I Quantitative < 0.017 ng/mL (0.000-0.055) NB-Nde-A-Type Natriuretic Peptide 576 pg/mL (0-449) Total Protein 7.2 g/dL (6.4-8.2) Albumin 2.8 g/dL (3.4-5.0) Albumin/Globulin Ratio 0.6 (1.0-1.7) Influenza Type A Antigen Negative (NEGATIVE) Influenza Type B Antigen Positive (NEGATIVE) Assessment and Plan Assessmemt and Plan Problems Medical Problems: (1) Acute dyspnea Status: Acute (2) Hypoxia Status: Acute (3) Influenza B Status: Acute Comment Review of Relevant I have reviewed the following items messi (where applicable) has been applied. Labs Laboratory Tests Test 05/24/19 12:55 05/24/19 13:33 White Blood Count 3.7 x10^3/uL (4.0-11.0) Red Blood Count 4.03 x10^6/uL (3.50-5.40) Hemoglobin 12.3 g/dL (12.0-15.5) Hematocrit 38.0 % (36.0-47.0) Mean Corpuscular Volume 94 fL (79-100) Mean Corpuscular Hemoglobin 31 pg (25-35) Mean Corpuscular Hemoglobin Concent 32 g/dL (31-37) Red Cell Distribution Width 18.1 % (11.5-14.5) Platelet Count 213 x10^3/uL (140-400) Neutrophils (%) (Auto) 74 % (31-73) Lymphocytes (%) (Auto) 18 % (24-48) Monocytes (%) (Auto) 6 % (0-9) Eosinophils (%) (Auto) 2 % (0-3) Basophils (%) (Auto) 1 % (0-3) Neutrophils # (Auto) 2.8 x10^3/uL (1.8-7.7) Lymphocytes # (Auto) 0.7 x10^3/uL (1.0-4.8) Monocytes # (Auto) 0.2 x10^3/uL (0.0-1.1) Eosinophils # (Auto) 0.1 x10^3/uL (0.0-0.7) Basophils # (Auto) 0.0 x10^3/uL (0.0-0.2) Sodium Level 134 mmol/L (136-145) Potassium Level 4.0 mmol/L (3.5-5.1) Chloride Level 102 mmol/L (98-107) Carbon Dioxide Level 21 mmol/L (21-32) Anion Gap 11 (6-14) Blood Urea Nitrogen 14 mg/dL (7-20) Creatinine 0.6 mg/dL (0.6-1.0) Estimated GFR (Cockcroft-Gault) 96.4 BUN/Creatinine Ratio 23 (6-20) Glucose Level 95 mg/dL (70-99) Lactic Acid Level 1.1 mmol/L (0.4-2.0) Calcium Level 8.7 mg/dL (8.5-10.1) Total Bilirubin 0.3 mg/dL (0.2-1.0) Aspartate Amino Transf (AST/SGOT) 27 U/L (15-37) Alanine Aminotransferase (ALT/SGPT) 16 U/L (14-59) Alkaline Phosphatase 200 U/L (46-116) Troponin I Quantitative < 0.017 ng/mL (0.000-0.055) ZV-Bwm-M-Type Natriuretic Peptide 576 pg/mL (0-449) Total Protein 7.2 g/dL (6.4-8.2) Albumin 2.8 g/dL (3.4-5.0) Albumin/Globulin Ratio 0.6 (1.0-1.7) Influenza Type A Antigen Negative (NEGATIVE) Influenza Type B Antigen Positive (NEGATIVE) Laboratory Tests Test 05/24/19 12:55 05/24/19 13:33 White Blood Count 3.7 x10^3/uL (4.0-11.0) Red Blood Count 4.03 x10^6/uL (3.50-5.40) Hemoglobin 12.3 g/dL (12.0-15.5) Hematocrit 38.0 % (36.0-47.0) Mean Corpuscular Volume 94 fL (79-100) Mean Corpuscular Hemoglobin 31 pg (25-35) Mean Corpuscular Hemoglobin Concent 32 g/dL (31-37) Red Cell Distribution Width 18.1 % (11.5-14.5) Platelet Count 213 x10^3/uL (140-400) Neutrophils (%) (Auto) 74 % (31-73) Lymphocytes (%) (Auto) 18 % (24-48) Monocytes (%) (Auto) 6 % (0-9) Eosinophils (%) (Auto) 2 % (0-3) Basophils (%) (Auto) 1 % (0-3) Neutrophils # (Auto) 2.8 x10^3/uL (1.8-7.7) Lymphocytes # (Auto) 0.7 x10^3/uL (1.0-4.8) Monocytes # (Auto) 0.2 x10^3/uL (0.0-1.1) Eosinophils # (Auto) 0.1 x10^3/uL (0.0-0.7) Basophils # (Auto) 0.0 x10^3/uL (0.0-0.2) Sodium Level 134 mmol/L (136-145) Potassium Level 4.0 mmol/L (3.5-5.1) Chloride Level 102 mmol/L (98-107) Carbon Dioxide Level 21 mmol/L (21-32) Anion Gap 11 (6-14) Blood Urea Nitrogen 14 mg/dL (7-20) Creatinine 0.6 mg/dL (0.6-1.0) Estimated GFR (Cockcroft-Gault) 96.4 BUN/Creatinine Ratio 23 (6-20) Glucose Level 95 mg/dL (70-99) Lactic Acid Level 1.1 mmol/L (0.4-2.0) Calcium Level 8.7 mg/dL (8.5-10.1) Total Bilirubin 0.3 mg/dL (0.2-1.0) Aspartate Amino Transf (AST/SGOT) 27 U/L (15-37) Alanine Aminotransferase (ALT/SGPT) 16 U/L (14-59) Alkaline Phosphatase 200 U/L (46-116) Troponin I Quantitative < 0.017 ng/mL (0.000-0.055) CM-Flt-X-Type Natriuretic Peptide 576 pg/mL (0-449) Total Protein 7.2 g/dL (6.4-8.2) Albumin 2.8 g/dL (3.4-5.0) Albumin/Globulin Ratio 0.6 (1.0-1.7) Influenza Type A Antigen Negative (NEGATIVE) Influenza Type B Antigen Positive (NEGATIVE) Medications Current Medications Oseltamivir Phosphate (Tamiflu) 30 mg BID PO Last administered on 05/25/19at 08:30; Start 05/24/19 at 15:30; Stop 05/29/19 at 15:29 Ondansetron HCl (Zofran) 4 mg PRN Q4HRS PRN IV NAUSEA/VOMITING; Start 05/24/19 at 15:15 Acetaminophen (Tylenol) 650 mg PRN Q4HRS PRN PO TEMP OVER 100.4F OR MILD PAIN Last administered on 05/25/19at 00:03; Start 05/24/19 at 15:15 Enoxaparin Sodium (Lovenox 40mg Syringe) 40 mg Q24H SQ Last administered on 05/24/19at 20:36; Start 05/24/19 at 21:00 Diltiazem HCl (Cardizem 24hr Cd) 180 mg DAILY PO Last administered on 05/25/19at 08:30; Start 05/25/19 at 09:00 Docusate Sodium (Colace) 100 mg DAILY PO Last administered on 05/25/19at 08:28; Start 05/25/19 at 09:00 Ferrous Sulfate (Feosol) 325 mg TID PO Last administered on 05/25/19 08:29; Start 05/24/19 at 21:00 Furosemide (Lasix) 20 mg DAILY PO Last administered on 05/25/19 08:29; Start 05/25/19 at 09:00 Lactobacillus Rhamnosus (Culturelle) 1 cap DAILY PO Last administered on 05/25/19 08:30; Start 05/25/19 at 09:00 Levothyroxine Sodium (Synthroid) 75 mcg DAILY06 PO Last administered on 05/25/19 05:42; Start 05/25/19 at 06:00 Tramadol HCl (Ultram) 50 mg PRN BID PRN PO PAIN; Start 05/24/19 at 16:45 Cyanocobalamin (Vitamin B-12) 5,000 mcg QODAY PO Last administered on 05/25/19 08:29; Start 05/25/19 at 09:00 Folic Acid (Folic Acid) 1 mg DAILY PO Last administered on 05/25/19 08:28; Start 05/25/19 at 09:00 Cetirizine HCl (ZyrTEC) 10 mg PRN DAILY PRN PO ALLERGIES; Start 05/25/19 at 09:00 Magnesium Oxide (Magnesium Oxide) 400 mg DAILY PO Last administered on 05/25/19 08:29; Start 05/25/19 at 09:00 Pantoprazole Sodium (Protonix) 40 mg DAILYAC PO Last administered on 05/25/19 08:29; Start 05/25/19 at 07:30 Active Scripts Active Reported Methotrexate (Methotrexate Sodium) 2.5 Mg Tablet 7 Tab PO WEEKLY Metamucil (Psyllium Husk) 0.4 Gm Capsule 0.4 Gm PO DAILY Klor-Con 10 (Potassium Chloride) 10 Meq Tablet.er 10 Meq PO DAILY Magnesium Oxide 250 Mg Tablet 1 Tab PO DAILY 30 Days Lasix (Furosemide) 20 Mg Tablet 1 Tab PO DAILY 30 Days Folic Acid 20 Mg Capsule 400 Mg PO DAILY 30 Days Cardizem Cd (Diltiazem Hcl) 180 Mg Cap.er.24h 1 Cap PO DAILY Culturelle (Lactobacillus Rhamnosus Gg) 1 Each Cap.sprink 1 Cap PO DAILY 30 Days Eye [place] Advantage Softgel (Om3-Dha/Epa/D3/Lutein/Zeazanth) 1 Each Capsule 1 Each PO BID Colace (Docusate Sodium) 100 Mg Capsule 1 Cap PO DAILY Ferrous Sulfate 325 Mg Tablet 1 Tab PO TID Loratadine 10 Mg Tablet 1 Tab PO PRN DAILY PRN Tramadol Hcl 50 Mg Tablet 50 Mg PO PRN BID PRN [Tylenol Arthritis] 1 Tab 2 Tab PO BID Vitamin B-12 (Cyanocobalamin (Vitamin B-12)) 5,000 Mcg Tab.rapdis 5,000 Mcg PO QODAY Omeprazole 20 Mg Capsule.dr 1 Cap PO DAILY Levothyroxine Sodium 75 Mcg Tablet 1 Tab PO DAILY Vitals/I & O Vital Sign - Last 24 Hours 05/24/19 05/24/19 05/24/19 05/24/19 13:00 15:30 16:20 19:05 Temp 98.2 98.3 100.4 98.2 98.3 100.4 Pulse 96 86 92 Resp 19 B/P (MAP) 160/70 (100) 162/77 (105) 144/64 (90) Pulse Ox 93 98 92 O2 Delivery Nasal Cannula Nasal Cannula Nasal Cannula Nasal Cannula O2 Flow Rate 3.0 3.0 3.0 3.0 05/24/19 05/24/19 05/25/19 05/25/19 20:13 23:05 03:05 08:30 Temp 101.5 98.1 101.5 98.1 Pulse 58 73 73 Resp 19 B/P (MAP) 127/73 (91) 133/84 (100) 133/84 Pulse Ox 92 O2 Delivery Nasal Cannula Nasal Cannula Nasal Cannula O2 Flow Rate 3.0 3.0 3.0 Intake and Output 05/24/19 05/24/19 05/25/19 15:00 23:00 07:00 Intake Total 120 ml 0 ml Balance 120 ml 0 ml KALYN LONG MD May 25, 2019 08:40
[2019-05-25] MEDS ORDERED: CETIRIZINE HCL 10 MG TABLET. PO PRN (09:00)
--- NOTE | 2019-05-25 10:07 | NUR ---
SW following. Discussed with RN, pt lives at [facility]. Pt Flu B positive, Covid-19 test pending. RN advised pt gets around fine. Pt currently requiring oxygen (3L) which she does not use at home. Pt may benefit from home health at discharge. SW will continue to follow to determine if pt needing o2 upon discharge.
[2019-05-25 11:00] VITALS: BP 143/76
[2019-05-25 15:00] VITALS: BP 129/63
[2019-05-25 19:00] VITALS: BP 135/63
[2019-05-25] MEDS: ENOXAPARIN 40 MG/0.4 ML SYRINGE. SQ SCH (20:05)
[2019-05-25 23:00] VITALS: BP 115/56
[2019-05-26 03:30] VITALS: BP 144/67
[2019-05-26] MEDS: LEVOTHYROXINE 75 MCG TABLET PO SCH (03:44)
[2019-05-26 07:00] VITALS: BP 160/71
[2019-05-26] MEDS: PANTOPRAZOLE 40 MG TABLET.DR. PO SCH (07:40)
[2019-05-26] MEDS: FOLIC ACID 1 MG TABLET. PO SCH (09:12)
[2019-05-26] MEDS: LACTOBACILLUS RHAMNOSUS GG 1 CAPSULE. PO SCH (09:12)
[2019-05-26] MEDS: FUROSEMIDE 20 MG TABLET PO SCH (09:13)
[2019-05-26] MEDS: FERROUS SULFATE 325 MG TABLET. PO SCH ×3 (09:13→21:04)
[2019-05-26] MEDS: DOCUSATE SODIUM 100 MG CAPSULE. PO SCH (09:13)
[2019-05-26] MEDS: MAGNESIUM OXIDE 400 MG TABLET PO SCH (09:13)
[2019-05-26] MEDS: OSELTAMIVIR 30 MG CAPSULE PO SCH ×2 (09:13→21:04)
--- NOTE | 2019-05-26 09:24 | PDOC ---
PROGRESS NOTES Chief Complaint Chief Complaint A/P: Acute hypoxic respiratory failure - likely 2/2 influenza. Concern for COVID 19 in ED, was tested. Down-titrate O2 as tolerated Influenza B - start tamiflu, will give supportive measures otherwise Shortness of breath - likely related to influenza. 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 I have advised her to avoid methotrexate for now as her symptoms were only relegated to her left hand. FEN - Cardiac PPX - lovenox FULL CODE Dispo - inpatient for above. COVID-19 CRITERIA: The patient was evaluated during the global COVID-19 pandemic, and that diagnosis was suspected/considered upon their initial presentation. Their evaluation, treatment and testing was consistent with current guidelines for patients who present with complaints or symptoms that may be related to COVID-19. History of Present Illness History of Present Illness Ms Salgado is a 78 yo F w/ PMHx CHF, ex-smoker (quit 2007), GERD, HTN, Hypothyroidism, anemia who presents with complaint of feeling feverish for a week and a slight cough starting 2 days ago. Temp was 100.8F today and she awakened short of breath today and came to ED. She tooke 1000mg acetaminophen before arrival. She did a phone visit with her PCP and was given keflex earlier this week for presumptive otitis media. Of note she was diagnosed with rheumatoid arthritis 3 weeks ago and started on weekly methotrexate to treat this. Labs: WBC 3.7, Hb 12.3, Na 134, K 4, BUN 14, Cr 0.6, Glucose 95. Albumin 2.8, BNP 576. Trop 0. Lactate 1.1. Positive for Influenza B. COVID-19 CRITERIA: The patient was evaluated during the global COVID-19 pandemic, and that diagnosis was suspected/considered upon their initial presentation. Their evaluation, treatment and testing was consistent with current guidelines for patients who present with complaints or symptoms that may be related to COVID-19. In ED noted with CXR with pulmonary vascular congestion EKG - Sinus rhythm, Regular intervals, Left axis deviation, Nonspecific ST changes 4/3: Afebrile overnight. Now on 2l NCO2 due to overnight desaturations on 1L. She is feeling about the same with regard to shortness of breath and cough. No CP. Overnight Tmax 100.9F. Now on 3L NCO2. No CP. Has some cough, wishes for cough suppressant Vitals Vitals Vital Signs Date Time Temp Pulse Resp B/P (MAP) Pulse Ox O2 Delivery O2 Flow Rate FiO2 05/26/19 09:12 88 160/71 05/26/19 07:45 Nasal Cannula 3.0 05/26/19 07:00 100.3 20 90 100.3 Physical Exam General: Alert, Oriented X3, Cooperative, mild distress Lungs: Clear Abdomen: Normal bowel sounds, Soft, No tenderness, No hepatosplenomegaly, No masses Extremities: No clubbing, No cyanosis, No edema, Normal pulses, No tenderness/swelling Skin: No rashes, No breakdown, No significant lesion Assessment and Plan Assessmemt and Plan Problems Medical Problems: (1) Acute dyspnea Status: Acute (2) Hypoxia Status: Acute (3) Influenza B Status: Acute Comment Review of Relevant I have reviewed the following items messi (where applicable) has been applied. Labs Laboratory Tests Test 05/24/19 12:55 05/24/19 13:33 White Blood Count 3.7 x10^3/uL (4.0-11.0) Red Blood Count 4.03 x10^6/uL (3.50-5.40) Hemoglobin 12.3 g/dL (12.0-15.5) Hematocrit 38.0 % (36.0-47.0) Mean Corpuscular Volume 94 fL (79-100) Mean Corpuscular Hemoglobin 31 pg (25-35) Mean Corpuscular Hemoglobin Concent 32 g/dL (31-37) Red Cell Distribution Width 18.1 % (11.5-14.5) Platelet Count 213 x10^3/uL (140-400) Neutrophils (%) (Auto) 74 % (31-73) Lymphocytes (%) (Auto) 18 % (24-48) Monocytes (%) (Auto) 6 % (0-9) Eosinophils (%) (Auto) 2 % (0-3) Basophils (%) (Auto) 1 % (0-3) Neutrophils # (Auto) 2.8 x10^3/uL (1.8-7.7) Lymphocytes # (Auto) 0.7 x10^3/uL (1.0-4.8) Monocytes # (Auto) 0.2 x10^3/uL (0.0-1.1) Eosinophils # (Auto) 0.1 x10^3/uL (0.0-0.7) Basophils # (Auto) 0.0 x10^3/uL (0.0-0.2) Sodium Level 134 mmol/L (136-145) Potassium Level 4.0 mmol/L (3.5-5.1) Chloride Level 102 mmol/L (98-107) Carbon Dioxide Level 21 mmol/L (21-32) Anion Gap 11 (6-14) Blood Urea Nitrogen 14 mg/dL (7-20) Creatinine 0.6 mg/dL (0.6-1.0) Estimated GFR (Cockcroft-Gault) 96.4 BUN/Creatinine Ratio 23 (6-20) Glucose Level 95 mg/dL (70-99) Lactic Acid Level 1.1 mmol/L (0.4-2.0) Calcium Level 8.7 mg/dL (8.5-10.1) Total Bilirubin 0.3 mg/dL (0.2-1.0) Aspartate Amino Transf (AST/SGOT) 27 U/L (15-37) Alanine Aminotransferase (ALT/SGPT) 16 U/L (14-59) Alkaline Phosphatase 200 U/L (46-116) Troponin I Quantitative < 0.017 ng/mL (0.000-0.055) FR-Nze-H-Type Natriuretic Peptide 576 pg/mL (0-449) Total Protein 7.2 g/dL (6.4-8.2) Albumin 2.8 g/dL (3.4-5.0) Albumin/Globulin Ratio 0.6 (1.0-1.7) Influenza Type A Antigen Negative (NEGATIVE) Influenza Type B Antigen Positive (NEGATIVE) Medications Current Medications Oseltamivir Phosphate (Tamiflu) 30 mg BID PO Last administered on 05/26/19at 09:13; Start 05/24/19 at 15:30; Stop 05/29/19 at 15:29 Ondansetron HCl (Zofran) 4 mg PRN Q4HRS PRN IV NAUSEA/VOMITING; Start 05/24/19 at 15:15 Acetaminophen (Tylenol) 650 mg PRN Q4HRS PRN PO TEMP OVER 100.4F OR MILD PAIN Last administered on 05/25/19 20:05; Start 05/24/19 at 15:15 Enoxaparin Sodium (Lovenox 40mg Syringe) 40 mg Q24H SQ Last administered on 05/25/19 20:05; Start 05/24/19 at 21:00 Diltiazem HCl (Cardizem 24hr Cd) 180 mg DAILY PO Last administered on 05/26/19 09:12; Start 05/25/19 at 09:00 Docusate Sodium (Colace) 100 mg DAILY PO Last administered on 05/26/19 09:13; Start 05/25/19 at 09:00 Ferrous Sulfate (Feosol) 325 mg TID PO Last administered on 05/26/19 09:13; Start 05/24/19 at 21:00 Furosemide (Lasix) 20 mg DAILY PO Last administered on 05/26/19 09:13; Start 05/25/19 at 09:00 Lactobacillus Rhamnosus (Culturelle) 1 cap DAILY PO Last administered on 05/26/19 09:12; Start 05/25/19 at 09:00 Levothyroxine Sodium (Synthroid) 75 mcg DAILY06 PO Last administered on 05/26/19 03:44; Start 05/25/19 at 06:00 Tramadol HCl (Ultram) 50 mg PRN BID PRN PO PAIN; Start 05/24/19 at 16:45 Cyanocobalamin (Vitamin B-12) 5,000 mcg QODAY PO Last administered on 05/25/19 08:29; Start 05/25/19 at 09:00 Folic Acid (Folic Acid) 1 mg DAILY PO Last administered on 05/26/19 09:12; Start 05/25/19 at 09:00 Cetirizine HCl (ZyrTEC) 10 mg PRN DAILY PRN PO ALLERGIES; Start 05/25/19 at 09:00 Magnesium Oxide (Magnesium Oxide) 400 mg DAILY PO Last administered on 05/26/19 09:13; Start 05/25/19 at 09:00 Pantoprazole Sodium (Protonix) 40 mg DAILYAC PO Last administered on 4/4/20at 07:40; Start 05/25/19 at 07:30 Active Scripts Active Reported Methotrexate (Methotrexate Sodium) 2.5 Mg Tablet 7 Tab PO WEEKLY Metamucil (Psyllium Husk) 0.4 Gm Capsule 0.4 Gm PO DAILY Klor-Con 10 (Potassium Chloride) 10 Meq Tablet.er 10 Meq PO DAILY Magnesium Oxide 250 Mg Tablet 1 Tab PO DAILY 30 Days Lasix (Furosemide) 20 Mg Tablet 1 Tab PO DAILY 30 Days Folic Acid 20 Mg Capsule 400 Mg PO DAILY 30 Days Cardizem Cd (Diltiazem Hcl) 180 Mg Cap.er.24h 1 Cap PO DAILY Culturelle (Lactobacillus Rhamnosus Gg) 1 Each Cap.sprink 1 Cap PO DAILY 30 Days Eye [place] Advantage Softgel (Om3-Dha/Epa/D3/Lutein/Zeazanth) 1 Each Capsule 1 Each PO BID Colace (Docusate Sodium) 100 Mg Capsule 1 Cap PO DAILY Ferrous Sulfate 325 Mg Tablet 1 Tab PO TID Loratadine 10 Mg Tablet 1 Tab PO PRN DAILY PRN Tramadol Hcl 50 Mg Tablet 50 Mg PO PRN BID PRN [Tylenol Arthritis] 1 Tab 2 Tab PO BID Vitamin B-12 (Cyanocobalamin (Vitamin B-12)) 5,000 Mcg Tab.rapdis 5,000 Mcg PO QODAY Omeprazole 20 Mg Capsule. 1 Cap PO DAILY Levothyroxine Sodium 75 Mcg Tablet 1 Tab PO DAILY Vitals/I & O Vital Sign - Last 24 Hours 05/25/19 05/25/19 05/25/19 05/25/19 11:00 15:00 19:00 19:30 Temp 97.9 99.5 100.9 97.9 99.5 100.9 Pulse 98 74 72 Resp 22 18 B/P (MAP) 143/76 (98) 129/63 (85) 135/63 (87) Pulse Ox 90 92 91 O2 Delivery Nasal Cannula Nasal Cannula Nasal Cannula O2 Flow Rate 2.0 3.0 3.0 05/25/19 05/26/19 05/26/19 05/26/19 23:00 03:30 07:00 07:45 Temp 98.2 99.1 100.3 98.2 99.1 100.3 Pulse 80 85 88 Resp 20 20 20 B/P (MAP) 115/56 (75) 144/67 (92) 160/71 (100) Pulse Ox 92 91 90 O2 Delivery Nasal Cannula Nasal Cannula Nasal Cannula Nasal Cannula O2 Flow Rate 3.0 2.0 2.0 3.0 05/26/19 09:12 Pulse 88 B/P (MAP) 160/71 Intake and Output 05/25/19 05/25/19 05/26/19 15:00 23:00 07:00 Intake Total 240 ml 300 ml Balance 240 ml 300 ml KALYN LONG MD May 26, 2019 09:24
[2019-05-26 11:00] VITALS: BP 130/69
[2019-05-26 15:00] VITALS: BP 154/63
[2019-05-26] MEDS ORDERED: guaiFENesin DM 200MG/20MG 10 ML SYRUP PO PRN (15:30)
[2019-05-26] MEDS: ACETAMINOPHEN 325 MG TABLET. PO PRN ×2 (15:45→23:36)
[2019-05-26 19:00] VITALS: BP 133/74
[2019-05-26] MEDS: ENOXAPARIN 40 MG/0.4 ML SYRINGE. SQ SCH (21:04)
[2019-05-26 23:00] VITALS: BP 163/81
[2019-05-27 03:00] VITALS: BP 112/58
[2019-05-27] MEDS: LEVOTHYROXINE 75 MCG TABLET PO SCH (06:12)
[2019-05-27 07:00] VITALS: BP 115/57
[2019-05-27] MEDS: HYDROXYCHLOROQUINE (PROGRAM) 200 MG TABLET PO SCH ×2 (08:33→21:46)
[2019-05-27] MEDS: FOLIC ACID 1 MG TABLET. PO SCH (08:33)
[2019-05-27] MEDS: PANTOPRAZOLE 40 MG TABLET.DR. PO SCH (08:33)
[2019-05-27] MEDS: CYANOCOBALAMIN (VITAMIN B-12) 1,000 MCG TABLET. PO SCH (08:34)
[2019-05-27] MEDS: MAGNESIUM OXIDE 400 MG TABLET PO SCH (08:34)
[2019-05-27] MEDS: LACTOBACILLUS RHAMNOSUS GG 1 CAPSULE. PO SCH (08:34)
[2019-05-27] MEDS: FERROUS SULFATE 325 MG TABLET. PO SCH ×3 (08:34→21:45)
[2019-05-27] MEDS: FUROSEMIDE 20 MG TABLET PO SCH (08:34)
[2019-05-27] MEDS: ACETAMINOPHEN 325 MG TABLET. PO PRN ×2 (08:35→15:54)
[2019-05-27] MEDS: DOCUSATE SODIUM 100 MG CAPSULE. PO SCH (08:35)
[2019-05-27] MEDS: OSELTAMIVIR 30 MG CAPSULE PO SCH ×2 (08:35→21:45)
[2019-05-27] MEDS ORDERED: AZITHROMYCIN 250 MG TABLET. PO SCH (09:00)
--- NOTE | 2019-05-27 09:44 | PDOC ---
PROGRESS NOTES Chief Complaint Chief Complaint A/P: Acute hypoxic respiratory failure - likely 2/2 influenza. Concern for COVID 19 in ED, was tested. Down-titrate O2 as tolerated Influenza B - start tamiflu, will give supportive measures otherwise Shortness of breath - likely related to influenza. 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 I have advised her to avoid methotrexate for now as her symptoms were only relegated to her left hand. FEN - Cardiac PPX - lovenox FULL CODE Dispo - inpatient for above. COVID-19 CRITERIA: The patient was evaluated during the global COVID-19 pandemic, and that diagnosis was suspected/considered upon their initial presentation. Their evaluation, treatment and testing was consistent with current guidelines for patients who present with complaints or symptoms that may be related to COVID-19. History of Present Illness History of Present Illness Ms Salgado is a 78 yo F w/ PMHx CHF, ex-smoker (quit 2007), GERD, HTN, Hypothyroidism, anemia who presents with complaint of feeling feverish for a week and a slight cough starting 2 days ago. Temp was 100.8F today and she awakened short of breath today and came to ED. She tooke 1000mg acetaminophen before arrival. She did a phone visit with her PCP and was given keflex earlier this week for presumptive otitis media. Of note she was diagnosed with rheumatoid arthritis 3 weeks ago and started on weekly methotrexate to treat this. Labs: WBC 3.7, Hb 12.3, Na 134, K 4, BUN 14, Cr 0.6, Glucose 95. Albumin 2.8, BNP 576. Trop 0. Lactate 1.1. Positive for Influenza B. COVID-19 CRITERIA: The patient was evaluated during the global COVID-19 pandemic, and that diagnosis was suspected/considered upon their initial presentation. Their evaluation, treatment and testing was consistent with current guidelines for patients who present with complaints or symptoms that may be related to COVID-19. In ED noted with CXR with pulmonary vascular congestion EKG - Sinus rhythm, Regular intervals, Left axis deviation, Nonspecific ST changes 4/3: Afebrile overnight. Now on 2l NCO2 due to overnight desaturations on 1L. She is feeling about the same with regard to shortness of breath and cough. No CP. 05/25: Overnight Tmax 100.9F. Now on 3L NCO2. No CP. Has some cough, wishes for cough suppressant SARS-CoV-2 (COVID 19) positive. Still with cough today. Had a BM. O2 needs stab le at 3L NCO2. She is actually feeling a little improved. Vitals Vitals Vital Signs Date Time Temp Pulse Resp B/P (MAP) Pulse Ox O2 Delivery O2 Flow Rate FiO2 05/27/19 08:34 89 115/57 05/27/19 08:00 Nasal Cannula 2.0 05/27/19 07:00 99.9 20 92 99.9 Physical Exam General: Alert, Oriented X3, Cooperative, mild distress Lungs: Clear Abdomen: Normal bowel sounds, Soft, No tenderness, No hepatosplenomegaly, No masses Extremities: No clubbing, No cyanosis, No edema, Normal pulses, No tenderness/swelling Skin: No rashes, No breakdown, No significant lesion Assessment and Plan Assessmemt and Plan Problems Medical Problems: (1) Acute dyspnea Status: Acute (2) Hypoxia Status: Acute (3) Influenza B Status: Acute Comment Review of Relevant I have reviewed the following items messi (where applicable) has been applied. Medications Current Medications Oseltamivir Phosphate (Tamiflu) 30 mg BID PO Last administered on 05/27/19 08:35; Start 05/24/19 at 15:30; Stop 05/29/19 at 15:29 Ondansetron HCl (Zofran) 4 mg PRN Q4HRS PRN IV NAUSEA/VOMITING; Start 05/24/19 at 15:15 Acetaminophen (Tylenol) 650 mg PRN Q4HRS PRN PO TEMP OVER 100.4F OR MILD PAIN Last administered on 05/27/19at 08:35; Start 05/24/19 at 15:15 Enoxaparin Sodium (Lovenox 40mg Syringe) 40 mg Q24H SQ Last administered on 05/26/19at 21:04; Start 05/24/19 at 21:00 Diltiazem HCl (Cardizem 24hr Cd) 180 mg DAILY PO Last administered on 05/27/19 08:34; Start 05/25/19 at 09:00 Docusate Sodium (Colace) 100 mg DAILY PO Last administered on 05/27/19 08:35; Start 05/25/19 at 09:00 Ferrous Sulfate (Feosol) 325 mg TID PO Last administered on 05/27/19 08:34; Start 05/24/19 at 21:00 Furosemide (Lasix) 20 mg DAILY PO Last administered on 05/27/19 08:34; Start 05/25/19 at 09:00 Lactobacillus Rhamnosus (Culturelle) 1 cap DAILY PO Last administered on 05/27/19 08:34; Start 05/25/19 at 09:00 Levothyroxine Sodium (Synthroid) 75 mcg DAILY06 PO Last administered on 05/27/19 06:12; Start 05/25/19 at 06:00 Tramadol HCl (Ultram) 50 mg PRN BID PRN PO MODEARTE - SEVERE PAIN; Start 05/24/19 at 16:45 Cyanocobalamin (Vitamin B-12) 5,000 mcg QODAY PO Last administered on 05/27/19 08:34; Start 05/25/19 at 09:00 Folic Acid (Folic Acid) 1 mg DAILY PO Last administered on 05/27/19 08:33; Start 05/25/19 at 09:00 Cetirizine HCl (ZyrTEC) 10 mg PRN DAILY PRN PO ALLERGIES; Start 05/25/19 at 09:00 Magnesium Oxide (Magnesium Oxide) 400 mg DAILY PO Last administered on 05/27/19 08:34; Start 05/25/19 at 09:00 Pantoprazole Sodium (Protonix) 40 mg DAILYAC PO Last administered on 05/27/19 08:33; Start 05/25/19 at 07:30 Guaifenesin (Robitussin Dm) 10 ml PRN Q6HRS PRN PO COUGH; Start 05/26/19 at 15:30 Hydroxychloroquine Sulfate (Plaquenil (Med Program)) 400 mg BID PO Last administered on 05/27/19 08:33; Start 05/27/19 at 09:00; Stop 05/27/19 at 21:01 Hydroxychloroquine Sulfate (Plaquenil (Med Program)) 200 mg BID PO ; Start 05/28/19 at 09:00; Stop 05/31/19 at 21:01 Azithromycin (Zithromax) 500 mg DAILY PO Last administered on 05/27/19at 08:35; Start 05/27/19 at 09:00; Stop 05/27/19 at 09:01; Status DC Azithromycin (Zithromax) 250 mg DAILY PO ; Start 05/28/19 at 09:00; Stop 05/31/19 at 09:01 Active Scripts Active Reported Methotrexate (Methotrexate Sodium) 2.5 Mg Tablet 7 Tab PO WEEKLY Metamucil (Psyllium Husk) 0.4 Gm Capsule 0.4 Gm PO DAILY Klor-Con 10 (Potassium Chloride) 10 Meq Tablet.er 10 Meq PO DAILY Magnesium Oxide 250 Mg Tablet 1 Tab PO DAILY 30 Days Lasix (Furosemide) 20 Mg Tablet 1 Tab PO DAILY 30 Days Folic Acid 20 Mg Capsule 400 Mg PO DAILY 30 Days Cardizem Cd (Diltiazem Hcl) 180 Mg Cap.er.24h 1 Cap PO DAILY Culturelle (Lactobacillus Rhamnosus Gg) 1 Each Cap.sprink 1 Cap PO DAILY 30 Days Eye Tow Advantage Softgel (Om3-Dha/Epa/D3/Lutein/Zeazanth) 1 Each Capsule 1 Each PO BID Colace (Docusate Sodium) 100 Mg Capsule 1 Cap PO DAILY Ferrous Sulfate 325 Mg Tablet 1 Tab PO TID Loratadine 10 Mg Tablet 1 Tab PO PRN DAILY PRN Tramadol Hcl 50 Mg Tablet 50 Mg PO PRN BID PRN [Tylenol Arthritis] 1 Tab 2 Tab PO BID Vitamin B-12 (Cyanocobalamin (Vitamin B-12)) 5,000 Mcg Tab.rapdis 5,000 Mcg PO QODAY Omeprazole 20 Mg Capsule. 1 Cap PO DAILY Levothyroxine Sodium 75 Mcg Tablet 1 Tab PO DAILY Vitals/I & O Vital Sign - Last 24 Hours 05/26/19 05/26/19 05/26/19 05/26/19 11:00 15:00 19:00 21:04 Temp 101.1 98.7 101.1 98.7 Pulse 90 79 83 Resp 20 20 18 B/P (MAP) 130/69 (89) 154/63 (93) 133/74 (93) Pulse Ox 92 94 94 O2 Delivery Nasal Cannula Nasal Cannula Nasal Cannula O2 Flow Rate 2.0 2.0 3.0 405/27/19 05/27/19 05/27/19 23:00 03:00 07:00 08:00 Temp 100.1 98.9 99.9 100.1 98.9 99.9 Pulse 80 78 86 Resp 18 20 B/P (MAP) 163/81 (108) 112/58 (76) 115/57 (76) Pulse Ox 93 94 92 O2 Delivery Nasal Cannula Nasal Cannula O2 Flow Rate 2.0 2.0 05/27/19 08:34 Pulse 89 B/P (MAP) 115/57 KALYN LONG MD May 27, 2019 09:44
[2019-05-27 10:55] VITALS: BP 158/67
--- NOTE | 2019-05-27 11:26 | NUR ---
IP: Pt is COVID + requiring airborne/contact precautions using a face shield.
[2019-05-27 15:00] VITALS: BP 130/60
[2019-05-27 19:00] VITALS: BP 139/67
[2019-05-27] MEDS: ENOXAPARIN 40 MG/0.4 ML SYRINGE. SQ SCH (21:46)
[2019-05-27 23:00] VITALS: BP 143/63
[2019-05-28 03:00] VITALS: BP 120/67
[2019-05-28] MEDS: LEVOTHYROXINE 75 MCG TABLET PO SCH (04:34)
[2019-05-28] MEDS: ACETAMINOPHEN 325 MG TABLET. PO PRN ×2 (04:35→22:57)
[2019-05-28 07:00] VITALS: BP 126/59
[2019-05-28] MEDS: PANTOPRAZOLE 40 MG TABLET.DR. PO SCH (09:17)
[2019-05-28] MEDS: LACTOBACILLUS RHAMNOSUS GG 1 CAPSULE. PO SCH (09:17)
[2019-05-28] MEDS: HYDROXYCHLOROQUINE (PROGRAM) 200 MG TABLET PO SCH ×2 (09:17→21:25)
[2019-05-28] MEDS: DOCUSATE SODIUM 100 MG CAPSULE. PO SCH (09:17)
[2019-05-28] MEDS: OSELTAMIVIR 30 MG CAPSULE PO SCH ×2 (09:17→21:25)
[2019-05-28] MEDS: MAGNESIUM OXIDE 400 MG TABLET PO SCH (09:18)
[2019-05-28] MEDS: AZITHROMYCIN 250 MG TABLET. PO SCH (09:18)
[2019-05-28] MEDS: FUROSEMIDE 20 MG TABLET PO SCH (09:18)
[2019-05-28] MEDS: FERROUS SULFATE 325 MG TABLET. PO SCH ×3 (09:18→21:25)
[2019-05-28] MEDS: FOLIC ACID 1 MG TABLET. PO SCH (09:18)
--- NOTE | 2019-05-28 10:35 | NUR ---
SW following. Chart reviewed, pt still requiring o2. Pt is COVID-19 positive. Pt is from an [facility]. SW will continue to follow.
[2019-05-28 11:00] VITALS: BP 134/60
[2019-05-28] MEDS ORDERED: levOFLOXacin PER PHARMACY. MC PRN (12:15)
--- NOTE | 2019-05-28 12:17 | PDOC ---
[facility] [facility] PROGRESS NOTE Chief Complaint Chief Complaint Respiratory failure Covid 19 positive Influenza B positive Sepsis CHF GERD Hypertension Debility Hypothyroidism Rheumatoid arthritis Anemia COVID-19 CRITERIA: The patient was evaluated during the global COVID-19 pandemic, and that diagnosis was suspected/considered upon their initial presentation. Their evaluation, treatment and testing was consistent with current guidelines for patients who present with complaints or symptoms that may be related to COVID-19. History of Present Illness History of Present Illness [id number] Patient seen and examined on the Covid 19 units She remains in respiratory isolation Chart reviewed Discussed with RN Ms Salgado is a 78 yo F w/ PMHx CHF, ex-smoker (quit 2007), GERD, HTN, Hypothyroidism, anemia who presents with complaint of feeling feverish for a week and a slight cough starting 2 days ago. Temp was 100.8F today and she awakened short of breath today and came to ED. She tooke 1000mg acetaminophen before arrival. She did a phone visit with her PCP and was given keflex earlier this week for presumptive otitis media. Of note she was diagnosed with rheumatoid arthritis 3 weeks ago and started on weekly methotrexate to treat this. Labs: WBC 3.7, Hb 12.3, Na 134, K 4, BUN 14, Cr 0.6, Glucose 95. Albumin 2.8, BNP 576. Trop 0. Lactate 1.1. Positive for Influenza B. COVID-19 CRITERIA: The patient was evaluated during the global COVID-19 pandemic, and that diagnosis was suspected/considered upon their initial presentation. Their evaluation, treatment and testing was consistent with current guidelines for patients who present with complaints or symptoms that may be related to COVID-19. In ED noted with CXR with pulmonary vascular congestion EKG - Sinus rhythm, Regular intervals, Left axis deviation, Nonspecific ST changes 05/24: Afebrile overnight. Now on 2l NCO2 due to overnight desaturations on 1L. She is feeling about the same with regard to shortness of breath and cough. No CP. 05/25: Overnight Tmax 100.9F. Now on 3L NCO2. No CP. Has some cough, wishes for cough suppressant SARS-CoV-2 (COVID 19) positive. Still with cough today. Had a BM. O2 needs stable at 3L NCO2. She is actually feeling a little improved. Vitals/I&O Vitals/I&O: Vital Signs Date Time Temp Pulse Resp B/P (MAP) Pulse Ox O2 Delivery O2 Flow Rate FiO2 05/28/19 11:00 97.6 69 134/60 (84) 94 Nasal Cannula 2.0 97.6 05/28/19 03:00 18 I & O 05/27/19 05/27/19 05/28/19 15:00 23:00 07:00 Intake Total 100 ml 100 ml Output Total 1 ml 300 ml Balance -1 ml 100 ml -200 ml Physical Exam General: Alert, Oriented X3, Cooperative, mild distress Heart: Regular rate Lungs: Clear Abdomen: Normal bowel sounds, Soft, No tenderness, No hepatosplenomegaly, No m asses Extremities: No clubbing, No cyanosis, No edema, Normal pulses, No tenderness/swelling Skin: No rashes, No breakdown, No significant lesion Assessment and Plan Assessmemt and Plan Problems Medical Problems: (1) Acute dyspnea Status: Acute (2) Hypoxia Status: Acute (3) Influenza B Status: Acute Acute hypoxic respiratory failure - likely 2/2 influenza. Concern for COVID 19 in ED, was tested. Down-titrate O2 as tolerated I added and Levaquin will continue azithromycin Plaquenil Home meds DVT prophylaxis Full code Influenza B - start tamiflu, will give supportive measures otherwise Shortness of breath - likely related to influenza. 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 Their evaluation, treatment and testing was consistent with current guidelines for patients who present with complaints or symptoms that may be related to COVID-19 Total time 32 minutes Comment Review of Relevant I have reviewed the following items messi (where applicable) has been applied. Medications: Current Medications Medications (Trade) Dose Ordered Sig/Farhan Route PRN Reason Start Time Stop Time Status Last Admin Dose Admin Hydroxychloroquine Sulfate (Plaquenil (Med Program)) 200 mg BID PO 05/28/19 09:00 05/31/19 21:01 05/28/19 09:17 Azithromycin (Zithromax) 250 mg DAILY PO 05/28/19 09:00 05/31/19 09:01 05/28/19 09:18 JAMILA CURRIE III DO May 28, 2019 12:17
[2019-05-28 15:00] VITALS: BP 112/56
[2019-05-28 19:00] VITALS: BP 137/63
[2019-05-28] MEDS: ENOXAPARIN 40 MG/0.4 ML SYRINGE. SQ SCH (21:26)
[2019-05-28 23:00] VITALS: BP 157/64
[2019-05-29 03:00] VITALS: BP 123/56
[2019-05-29] MEDS: LEVOTHYROXINE 75 MCG TABLET PO SCH (06:24)
[2019-05-29 07:00] VITALS: BP 131/60
[2019-05-29] MEDS: PANTOPRAZOLE 40 MG TABLET.DR. PO SCH (08:27)
[2019-05-29] MEDS: OSELTAMIVIR 30 MG CAPSULE PO SCH (08:27)
[2019-05-29] MEDS: HYDROXYCHLOROQUINE (PROGRAM) 200 MG TABLET PO SCH ×2 (08:27→20:12)
[2019-05-29] MEDS: DOCUSATE SODIUM 100 MG CAPSULE. PO SCH (08:27)
[2019-05-29] MEDS: CYANOCOBALAMIN (VITAMIN B-12) 1,000 MCG TABLET. PO SCH (08:28)
[2019-05-29] MEDS: LACTOBACILLUS RHAMNOSUS GG 1 CAPSULE. PO SCH (08:28)
[2019-05-29] MEDS: AZITHROMYCIN 250 MG TABLET. PO SCH (08:28)
[2019-05-29] MEDS: FOLIC ACID 1 MG TABLET. PO SCH (08:28)
[2019-05-29] MEDS: FERROUS SULFATE 325 MG TABLET. PO SCH ×3 (08:28→20:12)
[2019-05-29] MEDS: FUROSEMIDE 20 MG TABLET PO SCH (08:29)
[2019-05-29] MEDS: MAGNESIUM OXIDE 400 MG TABLET PO SCH (08:29)
[2019-05-29] MEDS: MULTIVITAMIN with MINERAL TABLET. PO SCH (08:29)
--- NOTE | 2019-05-29 10:05 | NUR ---
SW following. Discussed with RN, pt is up independent in room. Wearing 3L oxygen, RN confirming if pt wears oxygen at home. RN anticipates possible discharge home today. SW will continue to follow.
[2019-05-29 10:38] VITALS: BP 119/57
--- NOTE | 2019-05-29 12:39 | PDOC ---
[employer] [facility] PROGRESS NOTE Chief Complaint Chief Complaint Respiratory failure Covid 19 positive Influenza B positive Sepsis CHF GERD Hypertension Debility Hypothyroidism Rheumatoid arthritis Anemia COVID-19 CRITERIA: The patient was evaluated during the global COVID-19 pandemic, and that diagnosis was suspected/considered upon their initial presentation. Their evaluation, treatment and testing was consistent with current guidelines for patients who present with complaints or symptoms that may be related to COVID-19. History of Present Illness History of Present Illness 05-29-2019 Patient seen and examined on the respiratory isolation unit She is on day 14 Covid-19 positive Discussed with RN Chart reviewed [id number] Patient seen and examined on the Covid 19 units She remains in respiratory isolation Chart reviewed Discussed with RN Ms Salgado is a 78 yo F w/ PMHx CHF, ex-smoker (quit 2007), GERD, HTN, Hypothyroidism, anemia who presents with complaint of feeling feverish for a week and a slight cough starting 2 days ago. Temp was 100.8F today and she awakened short of breath today and came to ED. She tooke 1000mg acetaminophen before arrival. She did a phone visit with her PCP and was given keflex earlier this week for presumptive otitis media. Of note she was diagnosed with rheumatoid arthritis 3 weeks ago and started on weekly methotrexate to treat this. Labs: WBC 3.7, Hb 12.3, Na 134, K 4, BUN 14, Cr 0.6, Glucose 95. Albumin 2.8, BNP 576. Trop 0. Lactate 1.1. Positive for Influenza B. COVID-19 CRITERIA: The patient was evaluated during the global COVID-19 pandemic, and that diagnosis was suspected/considered upon their initial presentation. Their evaluation, treatment and testing was consistent with current guidelines for patients who present with complaints or symptoms that may be related to COVID-19. In ED noted with CXR with pulmonary vascular congestion EKG - Sinus rhythm, Regular intervals, Left axis deviation, Nonspecific ST changes 05/24: Afebrile overnight. Now on 2l NCO2 due to overnight desaturations on 1L. She is feeling about the same with regard to shortness of breath and cough. No CP. 05/25: Overnight Tmax 100.9F. Now on 3L NCO2. No CP. Has some cough, wishes for cough suppressant SARS-CoV-2 (COVID 19) positive. Still with cough today. Had a BM. O2 needs stable at 3L NCO2. She is actually feeling a little improved. Vitals/I&O Vitals/I&O: Vital Signs Date Time Temp Pulse Resp B/P (MAP) Pulse Ox O2 Delivery O2 Flow Rate FiO2 05/29/19 10:38 97.9 67 119/57 (77) 97 Nasal Cannula 3.0 97.9 I & O 05/28/19 05/28/19 05/29/19 15:00 23:00 07:00 Intake Total 100 ml 100 ml Balance 100 ml 100 ml Physical Exam General: Alert, Oriented X3, Cooperative, mild distress Heart: Regular rate Lungs: Clear Abdomen: Normal bowel sounds, Soft, No tenderness, No hepatosplenomegaly, No masses Extremities: No clubbing, No cyanosis, No edema, Normal pulses, No tenderness/swelling Skin: No rashes, No breakdown, No significant lesion Assessment and Plan Assessmemt and Plan Problems Medical Problems: (1) Acute dyspnea Status: Acute (2) Hypoxia Status: Acute (3) Influenza B Status: Acute Acute hypoxic respiratory failure - likely 2/2 influenza. Concern for COVID 19 in ED, was tested. Down-titrate O2 as tolerated I added and Levaquin will continue azithromycin Plaquenil Home meds DVT prophylaxis Full code Influenza B - start tamiflu, will give supportive measures otherwise Shortness of breath - likely related to influenza. 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 Their evaluation, treatment and testing was consistent with current guidelines for patients who present with complaints or symptoms that may be related to COVID-19 Hope to discharge by the end of the week Comment Review of Relevant I have reviewed the following items messi (where applicable) has been applied. Medications: Current Medications Medications (Trade) Dose Ordered Sig/Farhan Route PRN Reason Start Time Stop Time Status Last Admin Dose Admin Multivitamins (Thera M Plus) 1 tab DAILY PO 05/29/19 09:00 05/29/19 08:29 Levofloxacin/ Dextrose 100 ml @ 100 mls/hr Q24H IV 05/28/19 14:00 05/28/19 15:45 JAMILA CURRIE III DO May 29, 2019 12:38
[2019-05-29 14:48] VITALS: BP 130/60
[2019-05-29] MEDS: ACETAMINOPHEN 325 MG TABLET. PO PRN ×2 (14:55→20:12)
[2019-05-29 19:00] VITALS: BP 129/62
[2019-05-29] MEDS: ENOXAPARIN 40 MG/0.4 ML SYRINGE. SQ SCH (20:13)
[2019-05-29 23:00] VITALS: BP 125/64
[2019-05-30 03:00] VITALS: BP 126/65
[2019-05-30] MEDS: PANTOPRAZOLE 40 MG TABLET.DR. PO SCH (06:45)
[2019-05-30] MEDS: LEVOTHYROXINE 75 MCG TABLET PO SCH (06:45)
[2019-05-30 07:00] VITALS: BP 137/66
[2019-05-30] MEDS: ACETAMINOPHEN 325 MG TABLET. PO PRN ×2 (08:19→20:58)
[2019-05-30] MEDS: HYDROXYCHLOROQUINE (PROGRAM) 200 MG TABLET PO SCH ×2 (08:19→20:58)
[2019-05-30] MEDS: LACTOBACILLUS RHAMNOSUS GG 1 CAPSULE. PO SCH (08:19)
[2019-05-30] MEDS: MULTIVITAMIN with MINERAL TABLET. PO SCH (08:20)
[2019-05-30] MEDS: FUROSEMIDE 20 MG TABLET PO SCH (08:20)
[2019-05-30] MEDS: FERROUS SULFATE 325 MG TABLET. PO SCH ×3 (08:20→20:58)
[2019-05-30] MEDS: MAGNESIUM OXIDE 400 MG TABLET PO SCH (08:20)
[2019-05-30] MEDS: AZITHROMYCIN 250 MG TABLET. PO SCH (08:20)
[2019-05-30] MEDS: FOLIC ACID 1 MG TABLET. PO SCH (08:21)
[2019-05-30] MEDS: DOCUSATE SODIUM 100 MG CAPSULE. PO SCH (08:21)
[2019-05-30 10:50] VITALS: BP 134/94
--- NOTE | 2019-05-30 11:48 | PDOC ---
[facility] [facility] PROGRESS NOTE Chief Complaint Chief Complaint Respiratory failure Covid 19 positive Influenza B positive Sepsis CHF GERD Hypertension Debility Hypothyroidism Rheumatoid arthritis Anemia COVID-19 CRITERIA: The patient was evaluated during the global COVID-19 pandemic, and that diagnosis was suspected/considered upon their initial presentation. Their evaluation, treatment and testing was consistent with current guidelines for patients who present with complaints or symptoms that may be related to COVID-19. History of Present Illness History of Present Illness 05-30-2019 Patient seen and examined in the Covid-19 unit She is on respiratory isolation Chart reviewed Discussed with RN 05-29-2019 Patient seen and examined on the respiratory isolation unit She is on day 14 Covid-19 positive Discussed with RN Chart reviewed [id number] Patient seen and examined on the Covid 19 units She remains in respiratory isolation Chart reviewed Discussed with RN Ms Salgado is a 78 yo F w/ PMHx CHF, ex-smoker (quit 2007), GERD, HTN, Hypothyroidism, anemia who presents with complaint of feeling feverish for a week and a slight cough starting 2 days ago. Temp was 100.8F today and she awakened short of breath today and came to ED. She tooke 1000mg acetaminophen before arrival. She did a phone visit with her PCP and was given keflex earlier this week for presumptive otitis media. Of note she was diagnosed with rheumatoid arthritis 3 weeks ago and started on weekly methotrexate to treat this. Labs: WBC 3.7, Hb 12.3, Na 134, K 4, BUN 14, Cr 0.6, Glucose 95. Albumin 2.8, BNP 576. Trop 0. Lactate 1.1. Positive for Influenza B. COVID-19 CRITERIA: The patient was evaluated during the global COVID-19 pandemic, and that diagnosis was suspected/considered upon their initial presentation. Their evaluation, treatment and testing was consistent with current guidelines for patients who present with complaints or symptoms that may be related to COVID-19. In ED noted with CXR with pulmonary vascular congestion EKG - Sinus rhythm, Regular intervals, Left axis deviation, Nonspecific ST changes 05/24: Afebrile overnight. Now on 2l NCO2 due to overnight desaturations on 1L. Sh e is feeling about the same with regard to shortness of breath and cough. No CP. 05/25: Overnight Tmax 100.9F. Now on 3L NCO2. No CP. Has some cough, wishes for cough suppressant SARS-CoV-2 (COVID 19) positive. Still with cough today. Had a BM. O2 needs stable at 3L NCO2. She is actually feeling a little improved. Vitals/I&O Vitals/I&O: Vital Signs Date Time Temp Pulse Resp B/P (MAP) Pulse Ox O2 Delivery O2 Flow Rate FiO2 05/30/19 10:50 97.4 95 24 134/94 (107) 90 Nasal Cannula 1.0 97.4 I & O 05/29/19 05/29/19 05/30/19 15:00 23:00 07:00 Intake Total 860 ml 150 ml Balance 860 ml 150 ml Physical Exam General: Alert, Oriented X3, Cooperative, mild distress Heart: Regular rate Lungs: Clear Abdomen: Normal bowel sounds, Soft, No tenderness, No hepatosplenomegaly, No masses Extremities: No clubbing, No cyanosis, No edema, Normal pulses, No tenderness/swelling Skin: No rashes, No breakdown, No significant lesion Assessment and Plan Assessmemt and Plan Problems Medical Problems: (1) Acute dyspnea Status: Acute (2) Hypoxia Status: Acute (3) Influenza B Status: Acute Respiratory failure Covid 19 positive Influenza B positive Sepsis CHF GERD Hypertension Debility Hypothyroidism Rheumatoid arthritis Anemia COVID-19 CRITERIA: The patient was evaluated during the global COVID-19 pandemic, and that diagnosis was suspected/considered upon their initial presentation. Their evaluation, treatment and testing was consistent with current guidelines for patients who present with complaints or symptoms that may be related to COVID-19. Plan Plaquenil 200 p.o. twice daily IV antibiotics Duo nebs Oxygen per nasal cannula Home meds Plaquenil Home meds DVT prophylaxis Full code Tamiflu Vitamins COVID-19 CRITERIA: The patient was evaluated during the global COVID-19 pandemic, and that diagnosis was suspected/considered upon their initial presentation. Their evaluation, treatment and testing was consistent with current guidelines for patients who present with complaints or symptoms that may be related to COVID-19. Hope to discharge Tuesday once she finishes her Plaquenil Comment Review of Relevant I have reviewed the following items messi (where applicable) has been applied. JAMILA CURRIE III DO May 30, 2019 11:48
[2019-05-30 14:33] VITALS: BP 117/58
--- NOTE | 2019-05-30 16:31 | NUR ---
SS following for discharge planning. SS reviewed pt chart and discussed with pt RN. Pt is from [facility] and is currently requiring oxygen. Pt is COVID19 Positive. Per pt's RN, pt will need oxygen at discharge. SS will continue to follow for discharge planning.
[2019-05-30 19:00] VITALS: BP_SYST 133; BP_SYST 155; BP_DIAS 63; BP_DIAS 67
[2019-05-30] MEDS: ENOXAPARIN 40 MG/0.4 ML SYRINGE. SQ SCH (21:03)
[2019-05-30 23:00] VITALS: BP 133/63
[2019-05-31 03:00] VITALS: BP 135/70
[2019-05-31] MEDS: LEVOTHYROXINE 75 MCG TABLET PO SCH (06:12)
[2019-05-31] MEDS: PANTOPRAZOLE 40 MG TABLET.DR. PO SCH (06:12)
[2019-05-31 07:00] VITALS: BP 148/67
[2019-05-31] MEDS: AZITHROMYCIN 250 MG TABLET. PO SCH (09:03)
[2019-05-31] MEDS: DOCUSATE SODIUM 100 MG CAPSULE. PO SCH (09:03)
[2019-05-31] MEDS: CYANOCOBALAMIN (VITAMIN B-12) 1,000 MCG TABLET. PO SCH (09:03)
[2019-05-31] MEDS: LACTOBACILLUS RHAMNOSUS GG 1 CAPSULE. PO SCH (09:03)
[2019-05-31] MEDS: FERROUS SULFATE 325 MG TABLET. PO SCH ×3 (09:03→21:00)
[2019-05-31] MEDS: HYDROXYCHLOROQUINE (PROGRAM) 200 MG TABLET PO SCH ×2 (09:03→21:00)
[2019-05-31] MEDS: MAGNESIUM OXIDE 400 MG TABLET PO SCH (09:03)
[2019-05-31] MEDS: FUROSEMIDE 20 MG TABLET PO SCH (09:03)
[2019-05-31] MEDS: MULTIVITAMIN with MINERAL TABLET. PO SCH (09:03)
[2019-05-31] MEDS: FOLIC ACID 1 MG TABLET. PO SCH (09:03)
--- NOTE | 2019-05-31 10:49 | NUR ---
SW following. Discussed with RN, pt requiring 1L oxygen - RN will attempt to wean pt off. Anticipate possible discharge home tomorrow. SW will continue to follow.
[2019-05-31 11:00] VITALS: BP 140/65
--- NOTE | 2019-05-31 11:47 | PDOC ---
[facility] PROGRESS NOTE Chief Complaint Chief Complaint Respiratory failure Covid 19 positive Influenza B positive Sepsis CHF GERD Hypertension Debility Hypothyroidism Rheumatoid arthritis Anemia COVID-19 CRITERIA: The patient was evaluated during the global COVID-19 pandemic, and that diagnosis was suspected/considered upon their initial presentation. Their evaluation, treatment and testing was consistent with current guidelines for patients who present with complaints or symptoms that may be related to COVID-19. History of Present Illness History of Present Illness 05-31-2019 Patient seen and examined in the Covid-19 unit Discussed with RN Chart reviewed Hope to discharge in a.m. 05-30-2019 Patient seen and examined in the Covid-19 unit She is on respiratory isolation Chart reviewed Discussed with RN 05-29-2019 Patient seen and examined on the respiratory isolation unit She is on day 14 Covid-19 positive Discussed with RN Chart reviewed [id number] Patient seen and examined on the Covid 19 units She remains in respiratory isolation Chart reviewed Discussed with RN Ms Salgado is a 78 yo F w/ PMHx CHF, ex-smoker (quit 2007), GERD, HTN, Hypothyroidism, anemia who presents with complaint of feeling feverish for a week and a slight cough starting 2 days ago. Temp was 100.8F today and she awakened short of breath today and came to ED. She tooke 1000mg acetaminophen before arrival. She did a phone visit with her PCP and was given keflex earlier this week for presumptive otitis media. Of note she was diagnosed with rheumatoid arthritis 3 weeks ago and started on weekly methotrexate to treat this. Labs: WBC 3.7, Hb 12.3, Na 134, K 4, BUN 14, Cr 0.6, Glucose 95. Albumin 2.8, BNP 576. Trop 0. Lactate 1.1. Positive for Influenza B. COVID-19 CRITERIA: The patient was evaluated during the global COVID-19 pandemic, and that diagnosis was suspected/considered upon their initial presentation. Their evaluation, treatment and testing was consistent with current guidelines for patients who present with complaints or symptoms that may be related to COVID-19. In ED noted with CXR with pulmonary vascular congestion EKG - Sinus rhythm, Regular intervals, Left axis deviation, Nonspecific ST changes 05/24: Afebrile overnight. Now on 2l NCO2 due to overnight desaturations on 1L. She is feeling about the same with regard to shortness of breath and cough. No CP. 05/25: Overnight Tmax 100.9F. Now on 3L NCO2. No CP. Has some cough, wishes for cough suppressant SARS-CoV-2 (COVID 19) positive. Still with cough today. Had a BM. O2 needs st able at 3L NCO2. She is actually feeling a little improved. Vitals/I&O Vitals/I&O: Vital Signs Date Time Temp Pulse Resp B/P (MAP) Pulse Ox O2 Delivery O2 Flow Rate FiO2 05/31/19 09:04 77 148/67 05/31/19 08:00 Nasal Cannula 1.0 05/31/19 07:00 98.8 16 90 98.8 I & O 05/30/19 05/30/19 05/31/19 15:00 23:00 07:00 Intake Total 360 ml 360 ml 360 ml Output Total 250 ml Balance 360 ml 360 ml 110 ml Physical Exam General: Alert, Oriented X3, Cooperative, mild distress Heart: Regular rate Lungs: Clear Abdomen: Normal bowel sounds, Soft, No tenderness, No hepatosplenomegaly, No masses Extremities: No clubbing, No cyanosis, No edema, Normal pulses, No tenderness/swelling Skin: No rashes, No breakdown, No significant lesion Assessment and Plan Assessmemt and Plan Problems Medical Problems: (1) Acute dyspnea Status: Acute (2) Hypoxia Status: Acute (3) Influenza B Status: Acute Respiratory failure Covid 19 positive Influenza B positive Sepsis CHF GERD Hypertension Debility Hypothyroidism Rheumatoid arthritis Anemia COVID-19 CRITERIA: The patient was evaluated during the global COVID-19 pandemic, and that diagnosis was suspected/considered upon their initial presentation. Their evaluation, treatment and testing was consistent with current guidelines for patients who present with complaints or symptoms that may be related to COVID-19. Plan Plaquenil 200 p.o. twice daily IV antibiotics Duo nebs Oxygen per nasal cannula Home meds Home meds DVT prophylaxis Full code Tamiflu Vitamins COVID-19 CRITERIA: The patient was evaluated during the global COVID-19 pandemic, and that diagnosis was suspected/considered upon their initial presentation. Their evaluation, treatment and testing was consistent with current guidelines for patients who present with complaints or symptoms that may be related to COVID-19. Discharge in a.m. if stable Comment Review of Relevant I have reviewed the following items messi (where applicable) has been applied. JAMILA CURRIE III DO May 31, 2019 11:47
[2019-05-31] MEDS: ACETAMINOPHEN 325 MG TABLET. PO PRN (12:48)
[2019-05-31 15:00] VITALS: BP 148/65
[2019-05-31 19:47] VITALS: BP 153/69
[2019-05-31] MEDS: ENOXAPARIN 40 MG/0.4 ML SYRINGE. SQ SCH (21:00)
[2019-05-31 23:02] VITALS: BP 138/72
[2019-06-01 03:56] VITALS: BP 136/65
[2019-06-01] MEDS: LEVOTHYROXINE 75 MCG TABLET PO SCH (06:00)
[2019-06-01 07:00] VITALS: BP 181/78
[2019-06-01] MEDS: MAGNESIUM OXIDE 400 MG TABLET PO SCH (09:06)
[2019-06-01] MEDS: LACTOBACILLUS RHAMNOSUS GG 1 CAPSULE. PO SCH (09:06)
[2019-06-01] MEDS: MULTIVITAMIN with MINERAL TABLET. PO SCH (09:06)
[2019-06-01] MEDS: FERROUS SULFATE 325 MG TABLET. PO SCH (09:06)
[2019-06-01] MEDS: FUROSEMIDE 20 MG TABLET PO SCH (09:06)
[2019-06-01] MEDS: DOCUSATE SODIUM 100 MG CAPSULE. PO SCH (09:06)
[2019-06-01] MEDS: PANTOPRAZOLE 40 MG TABLET.DR. PO SCH (09:07)
[2019-06-01] MEDS: FOLIC ACID 1 MG TABLET. PO SCH (09:07)
--- NOTE | 2019-06-01 10:42 | NUR ---
PRAMOD following. Discussed with RN, will try to wean pt off oxygen today. Probable discharge home back to [facility], in [place]. PRAMOD spoke with pt's daughter, Krystal ([phone]) to determine if she would be able to let oxygen company in pt's home prior to pt coming home, if pt needs the oxygen. Krystal reported she does not have the belle card to get into her mother's home. SW awaiting confirmation of whether pt will need oxygen or not. No 6 minute walk needed as Medicare not requiring testing for COVID-19 + patients, as COVID-19 is a qualifying diagnosis. PRAMOD will continue to follow. Addendum: 06/01/19 at 1212 by AMRIT BENAVIDEZ RN was unable to wean pt off oxygen. PRAMOD attempted to call pt in room twice, with no answer so was not able to have choice form verbally signed. Per RN, pt advised the area loss prevention manager [place] would be able to let oxygen company into her apartment to set up prior to pt going home. PRAMOD was unable to reach anyone at pt's [place]. PRAMOD faxed referral to [facility], as there are tanks available to provide to pt to discharge home with. Awaiting acceptance decision and confirmation PRAMOD can provide tank to RN to give to pt. PRAMOD notified [facility] there would not be anyone who can let them in pt's apartment prior to pt being there. PRAMOD will continue to follow.
[2019-06-01] MEDS: ACETAMINOPHEN 325 MG TABLET. PO PRN (10:58)
[2019-06-01 11:00] VITALS: BP 160/83
--- NOTE | 2019-06-01 14:20 | NUR ---
Pt discharged to home with daughter. Pt instructed to quarantine for 14 days. She verbalized understanding.
--- NOTE | 2019-06-01 19:19 | DS ---
DATE OF DISCHARGE: 06/01/2019 ADMISSION DIAGNOSIS: Pneumonia. DISCHARGE DIAGNOSIS: COVID-19 pneumonia, resolving. HOSPITAL COURSE: The patient is a pleasant 78-year-old female who presented with shortness of breath and fever, was noted to have pneumonia. We admitted her. She checked out COVID-19 positive. We gave her Plaquenil, IV antibiotics, breathing treatments and vitamins. Consulted Pulmonary, Infectious Disease. Over the past few days, she has returned to baseline. Today, I saw her and examined her. PHYSICAL EXAMINATION: HEART: Tones are normal. LUNGS: Clear. ABDOMEN: Soft. EXTREMITIES: No edema. We plan to discharge home. DISPOSITION: Home. ACTIVITY: As tolerated. DIET: Low sodium. MEDICATIONS: Please see MRAD. TOTAL TIME: 33 minutes. NORML Terry CURRIE DO DR: KAMILA/rene JOB#: [id number] / [id number]
== END 2019-06-01 15:09 | disposition home or self-care (01) | DRG 871 ==
LOC: ER 12:35 → 6 SOUTH 14:05
PROVIDERS: ADMIT Internal Medicine; ATTEND Internal Medicine
DX: A41.89 Other specified sepsis (principal); J96.01 Acute respiratory failure with hypoxia; J10.08 Influenza due to other identified influenza virus with other specified pneumonia; J12.89 Other viral pneumonia; U07.1 COVID-19; E43 Unspecified severe protein-calorie malnutrition; I50.32 Chronic diastolic (congestive) heart failure; D64.9 Anemia, unspecified; E03.9 Hypothyroidism, unspecified; I11.0 Hypertensive heart disease with heart failure; K21.9 Gastro-esophageal reflux disease without esophagitis; M06.9 Rheumatoid arthritis, unspecified; Z78.9 Other specified health status; Z82.49 Family history of ischemic heart disease and other diseases of the circulatory system; Z87.891 Personal history of nicotine dependence; G56.00 Carpal tunnel syndrome, unspecified upper limb; M19.90 Unspecified osteoarthritis, unspecified site; Z88.8 Allergy status to other drugs, medicaments and biological substances; Z88.1 Allergy status to other antibiotic agents; Z91.040 Latex allergy status; Z91.010 Allergy to peanuts; Z88.0 Allergy status to penicillin; Z98.49 Cataract extraction status, unspecified eye; Z68.36 Body mass index [BMI] 36.0-36.9, adult
CPT/HCPCS: 36415; 71045; 80053; 83605; 83880; 84484; 85025; 87804; 93005; J1650; J1956; 99285-25; G0378

== ENCOUNTER 2021-04-15 11:10 | Inpatient (IN) | payer MEDICARE ==
[~2021-04-15] VITALS: Ht 154.9 cm; Wt 65.4 kg
[~2021-04-15 11:10] MED LIST changes: +ACET325T9 PO; -ALEN70TA6 PO; +ALEN70TA71 PO; +AMLO-187 PO; -AMLO10TA8 PO; +APIX2.5T PO; +ASPI-630 PO; +DIGO125T3 PO; +DILT180C2 PO; +DOXY100C3 PO; +ESCITALOPRAM OX10 MG PO; +FOLIC ACID20 MG PO; +FURO-69 PO; -MAGN250T2 PO; +MAGN250T4 PO; +MAGN250T9 PO; +METH2.5T PO; +METH4TAB2 PO; +POTA-112 PO; +PSYL0.4C2 PO
--- NOTE | 2021-04-15 11:19 | ED.ADGEN ---
Past Medical History Past Medical History: Anemia, CHF, COPD, GERD, Hypertension, Hypothyroid Additional Past Medical Histor: "leaky heart valve", O2 dependant Past Surgical History: Other Additional Past Surgical Histo: cataract, ear Smoking Status: Former Smoker Alcohol Use: None Drug Use: None General Adult EDM: Chief Complaint: NAUSEA/VOMITING/DIARRHEA HPI: HPI: Patient is a 80-year-old female who arrives via EMS complaining of a 1 month history of loose stools. Patient states in addition to this she has had a 1 month history of dysuria. Patient also states she has some generalized abdominal discomfort of the lower abdomen. Patient reports she talked to her primary care physician who decided she needed evaluation in the emergency department. Patient states that when she does have bowel movements they are loose in nature with very minimal form. Patient states she has been on antibiotics recently however she has not had any fevers. Patient further denies any nausea or vomiting. She further denies any shortness of air or chest pain. She is awake, alert and nontoxic-appearing Review of Systems: Review of Systems: Constitutional: Denies fever or chills. [] Eyes: Denies change in visual acuity. [] HENT: Denies nasal congestion or sore throat. [] Respiratory: Denies cough or shortness of breath. [] Cardiovascular: Denies chest pain or edema. [] GI: Reports abdominal pain with loose stools. Denies nausea, vomiting or bloody stools. [] : Reports dysuria [] Musculoskeletal: Denies back pain or joint pain. [] Integument: Denies rash. [] Neurologic: Denies headache, focal weakness or sensory changes. [] Endocrine: Denies polyuria or polydipsia. [] Lymphatic: Denies swollen glands. [] Psychiatric: Denies depression or anxiety. [] Current Medications: Current Medications Medications (Trade) Dose Ordered Sig/Farhan Start Time Stop Time Status Last Admin Dose Admin Ceftriaxone Sodium (Rocephin) 1 gm 1X ONCE 04/15/21 13:30 04/15/21 13:31 DC 04/15/21 14:00 1 GM Info (CONTRAST GIVEN -- Rx MONITORING) 1 each PRN DAILY PRN 04/15/21 12:30 04/17/21 12:29 Iohexol (Omnipaque 300 Mg/ml) 75 ml 1X ONCE 04/15/21 12:30 2/23/22 12:31 DC 04/15/21 12:38 75 ML Allergies: Allergies: Allergies Coded Allergies Type Severity Reaction Last Updated Verified clindamycin Allergy Severe THROAT CLOSING 02/07/19 Yes Penicillins Allergy Intermediate Hives 02/03/19 Yes erythromycin base Allergy Intermediate 02/03/19 Yes latex Allergy Intermediate itching, broke out w/ hives 02/03/19 Yes metoprolol Allergy Intermediate 02/03/19 Yes Physical Exam: PE: Constitutional: Well developed, well nourished, no acute distress, non-toxic appearance. [] HENT: Normocephalic, atraumatic, bilateral external ears normal, oropharynx moist, no oral exudates, nose normal. [] Eyes: PERRLA, EOMI, conjunctiva normal, no discharge. [] Neck: Normal range of motion, no tenderness, supple, no stridor. [] Cardiovascular:Heart rate regular rhythm, no murmur [] Lungs & Thorax: Bilateral breath sounds clear to auscultation [] Abdomen: Minimal tenderness to palpation of the left lower quadrant. Bowel sounds normal, soft, no masses, no pulsatile masses. [] Skin: Warm, dry, no erythema, no rash. [] Back: No tenderness, no CVA tenderness. [] Extremities: No tenderness, no cyanosis, no clubbing, ROM intact, no edema. [] Neurologic: Alert and oriented X 3, normal motor function, normal sensory function, no focal deficits noted. [] Psychologic: Affect normal, judgement normal, mood normal. [] Current Patient Data: Labs: Laboratory Tests Test 04/15/21 11:30 04/15/21 12:18 White Blood Count 8.4 x10^3/uL (4.0-11.0) Red Blood Count 3.43 x10^6/uL (3.50-5.40) L Hemoglobin 9.1 g/dL (12.0-15.5) L Hematocrit 29.9 % (36.0-47.0) L Mean Corpuscular Volume 87 fL (79-100) Mean Corpuscular Hemoglobin 26 pg (25-35) Mean Corpuscular Hemoglobin Concent 30 g/dL (31-37) L Red Cell Distribution Width 22.2 % (11.5-14.5) H Platelet Count 378 x10^3/uL (140-400) Neutrophils (%) (Auto) 79 % (31-73) H Lymphocytes (%) (Auto) 12 % (24-48) L Monocytes (%) (Auto) 7 % (0-9) Eosinophils (%) (Auto) 1 % (0-3) Basophils (%) (Auto) 1 % (0-3) Neutrophils # (Auto) 6.6 x10^3/uL (1.8-7.7) Lymphocytes # (Auto) 1.0 x10^3/uL (1.0-4.8) Monocytes # (Auto) 0.6 x10^3/uL (0.0-1.1) Eosinophils # (Auto) 0.1 x10^3/uL (0.0-0.7) Basophils # (Auto) 0.1 x10^3/uL (0.0-0.2) Platelet Estimate Adequate (ADEQUATE) Anisocytosis Mod Ovalocytes Few Sodium Level 134 mmol/L (136-145) L Potassium Level 4.2 mmol/L (3.5-5.1) Chloride Level 102 mmol/L (98-107) Carbon Dioxide Level 24 mmol/L (21-32) Anion Gap 8 (6-14) Blood Urea Nitrogen 16 mg/dL (7-20) Creatinine 0.9 mg/dL (0.6-1.0) Estimated GFR (Cockcroft-Gault) 60.1 BUN/Creatinine Ratio 18 (6-20) Glucose Level 117 mg/dL (70-99) H Calcium Level 8.2 mg/dL (8.5-10.1) L Total Bilirubin 0.4 mg/dL (0.2-1.0) Aspartate Amino Transferase (AST) 25 U/L (15-37) Alanine Aminotransferase (ALT) 16 U/L (14-59) Alkaline Phosphatase 198 U/L (46-116) H VC-Iwa-O-Type Natriuretic Peptide 5084 pg/mL (0-449) H Total Protein 6.9 g/dL (6.4-8.2) Albumin 2.6 g/dL (3.4-5.0) L Albumin/Globulin Ratio 0.6 (1.0-1.7) L Urine Collection Type Unknown Urine Color Kayla Urine Clarity Cloudy Urine pH 5.5 (<5.0-8.0) Urine Specific [place] 1.020 (1.000-1.030) Urine Protein 100 mg/dL (NEG-TRACE) Urine Glucose (UA) Negative mg/dL (NEG) Urine Ketones (Stick) Trace mg/dL (NEG) Urine Blood Negative (NEG) Urine Nitrite Negative (NEG) Urine Bilirubin Negative (NEG) Urine Urobilinogen Dipstick 0.2 mg/dL (0.2 mg/dL) Urine Leukocyte Esterase Large (NEG) Urine RBC Field obscured /HPF (0-2) Urine WBC Tntc /HPF (0-4) Urine Squamous Epithelial Cells Few /LPF Urine Transitional Epithelial Cells Occ /LPF Urine Bacteria Many /HPF (0-FEW) Laboratory Tests 04/15/21 11:30 Laboratory Tests 04/15/21 11:30 Vital Signs: Vital Signs Date Time Temp Pulse Resp B/P (MAP) Pulse Ox O2 Delivery O2 Flow Rate FiO2 04/15/21 11:15 97.7 75 16 137/71 (93) 98 Room Air 97.7 EKG: EKG: EKG was obtained at 1401 hrs. and reveals an irregular rhythm most likely consistent with atrial fibrillation. There is a right bundle branch block present. There are no acute ST/T wave changes to denote ischemia. No STEMI is present. Heart Score: C/O Chest Pain: No Risk Factors: Risk Factors: DM, Current or recent (<one month) smoker, HTN, HLP, family history of CAD, obesity. Risk Scores: Score 0 - 3: 2.5% MACE over next 6 weeks - Discharge Home Score 4 - 6: 20.3% MACE over next 6 weeks - Admit for Clinical Observation Score 7 - 10: 72.7% MACE over next 6 weeks - Early Invasive Strategies Radiology/Procedures: Radiology/Procedures: [][facility] [address] [place], [place] [id number] IMAGING REPORT Signed PATIENT: NASH PAULSON ACCOUNT: [id number] : 1940 LOCATION: ER AGE: 80 SEX: F EXAM STATUS: REG ER ORD. PHYSICIAN: MADDIE VELASCO DO REASON: Left lower quadrant abdominal pain, loose stools PROCEDURE: CT ABD PELV W/ IV CONTRST ONLY Exam: CT abdomen/pelvis with intravenous contrast Indication: Left lower quadrant pain Comparison: CT abdomen pelvis 02/26/2019 Technique: Helical CT imaging performed of the abdomen and pelvis after the intravenous administration of 75 mL Omnipaque 300 contrast. Sagittal and coronal reformats were obtained. One or more of the following individualized dose reduction techniques were utilized for this examination: 1. Automated exposure control 2. Adjustment of the mA and/or kV according to patient size 3. Use of iterative reconstruction technique. Findings: Lower chest: The heart is enlarged. There are coronary artery calcifications. New small pericardial effusion and trace bilateral pleural effusions. Mild subpleural confluent opacities in the posterior right lower lobe, likely atelectasis. New mild interlobular septal thickening in the lung bases suspicious for mild interstitial pulmonary edema. Liver: Liver is unchanged in appearance with mildly nodular contour. No focal liver lesion. Gallbladder/Biliary Tree: Gallbladder is contracted. There is cholelithiasis or sludge in the gallbladder lumen. Others are normal. Pancreas: Normal Spleen: Normal. Adrenal Glands: Normal. Kidneys/Ureters/Bladder: Normal. No hydronephrosis. Reproductive Organs: Uterus is atrophic. There are prominent parametrial vessels. A pessary device is seen in the vagina. Stomach, small bowel, and colon: The stomach is decompressed, limiting evaluation. There is no small bowel obstruction. There are sigmoid diverticulosis without acute diverticulitis. Vasculature: Abdominal aorta is normal in caliber. There is moderate to severe calcified aortoiliac atherosclerosis. Lymph Nodes: No lymphadenopathy. Peritoneum and retroperitoneum: Trace ascites anterior to the liver and in the pelvis. No free air. Bones: No acute osseous abnormality. Unchanged L2 compression fracture. Mild lumbar scoliosis. Mild degenerative joint disease of the hips. Miscellaneous: Mild anasarca. IMPRESSION: 1. Findings suspicious for volume overload with new small volume of ascites, small pericardial effusion and trace bilateral pleural effusions. Mild anasarca. 2. Cardiomegaly and mild interstitial pulmonary edema. 3. Mild nodularity of the liver. Correlate for cirrhosis. 4. Sigmoid diverticulosis without acute diverticulitis. 5. Contracted gallbladder with suspected sludge or stones. Electronically signed by: Liseth Garcia MD (04/15/2021 1:05 PM) [id number] DICTATED and SIGNED BY: LISETH GARCIA MD DATE: 04/15/21 [id number] [facility] [address] [place] [address] IMAGING REPORT Signed PATIENT: NASH PAULSON ACCOUNT: [id number] : 1940 LOCATION: ER AGE: 80 SEX: F EXAM STATUS: REG ER ORD. PHYSICIAN: MADDIE VELASCO DO REASON: soa PROCEDURE: CHEST AP ONLY Exam Date: 04/15/2021 1:12 PM XR CHEST 1V Indication: Reason: soa / Spl. Instructions: / History: . Comparison: February 28, 2021 FINDINGS/ IMPRESSION: The aorta is calcified. The cardiac silhouette is enlarged. Prominent interstitial markings are again seen bilaterally which may represent interstitial edema and/or chronic lung disease. Infection is not excluded. Pleural thickening/scarring is again seen in the right lung base. Small bilateral pleural effusions are not excluded. No pneumothorax. Electronically signed by: Hayden Finch MD (04/15/2021 1:55 PM) [id number] DICTATED and SIGNED BY: HAYDEN FINCH MD DATE: 04/15/21 [id number] Course & Med Decision Making: Course & Med Decision Making Pertinent Labs and Imaging studies reviewed. (See chart for details) The patient remains awake, alert and in no acute distress. Patient does have findings consistent with a urinary tract infection. Moreover she reports to ongoing weakness. Given her frail nature I do believe she would benefit from being observed in the hospital with IV antibiotic treatment. Patient continues to contend that she is never any shortness of air or chest pain. She will be admitted to the hospital service for further evaluation and treatment. She is nontoxic-appearing and stable for transport to the floor. [] [place] Disclaimer: Radha Disclaimer: This electronic medical record was generated, in whole or in part, using a voice recognition dictation system. Departure Departure Impression: Primary Impression: UTI (urinary tract infection) Additional Impressions: Generalized weakness Influenza B Disposition: ADMITTED INPATIENT Admitting Physician: ABDI Condition: STABLE Referrals: NATALIE GONCALVES APRN (PCP) Problem Qualifiers MADDIE VELASCO DO Apr 15, 2021 11:19
[2021-04-15 12:06] LABS: BASO # 0.1 x10^3/uL (0.0-0.2); BASO % 1 % (0-3); EOS # 0.1 x10^3/uL (0.0-0.7); EOS % 1 % (0-3); HEMATOCRIT 29.9 % (36.0-47.0); HEMOGLOBIN 9.1 g/dL (12.0-15.5); LYMPH % 12 % (24-48); MEAN CORPUSCULAR HEMOGLOBIN 26 pg (25-35); MEAN CORPUSCULAR HGB CONC 30 g/dL (31-37); MEAN CORPUSCULAR VOLUME 87 fL (79-100); MONO # 0.6 x10^3/uL (0.0-1.1); MONO % 7 % (0-9); NEUT # 6.6 x10^3/uL (1.8-7.7); NEUT % 79 % (31-73); PLATELET COUNT 378 x10^3/uL (140-400); RED BLOOD COUNT 3.43 x10^6/uL (3.50-5.40); RED CELL DISTRIBUTION WIDTH 22.2 % (11.5-14.5); WHITE BLOOD COUNT 8.4 x10^3/uL (4.0-11.0)
[2021-04-15 12:09] LABS: CALCIUM 8.2 mg/dL (8.5-10.1); CREATININE 0.9 mg/dL (0.6-1.0); GFR 60.1; POTASSIUM 4.2 mmol/L (3.5-5.1)
[2021-04-15 12:18] LABS: ALBUMIN 2.6 g/dL (3.4-5.0); ALBUMIN/GLOBULIN RATIO 0.6 (1.0-1.7); TOTAL BILIRUBIN 0.4 mg/dL (0.2-1.0); TOTAL PROTEIN 6.9 g/dL (6.4-8.2)
[2021-04-15] MEDS ORDERED: CONTRAST GIVEN. MC PRN (12:30)
[2021-04-15] MEDS ORDERED: IOHEXOL 300 MG/ML 100ML VIAL. IV ONE (12:30)
[2021-04-15 12:51] LABS: ANISOCYTOSIS MOD; PLT ESTIMATE ADEQUATE (ADEQUATE)
[2021-04-15 12:52] LABS: OVALOCYTES FEW
[2021-04-15 12:58] LABS: BILIRUBIN,URINE NEGATIVE (NEG); CLARITY,URINE CLOUDY; COLOR,URINE AMBER; NITRITE,URINE NEGATIVE (NEG); PH,URINE 5.5 (<5.0-8.0); PROTEIN,URINE 100 mg/dL (NEG-TRACE); UROBILINOGEN,URINE 0.2 mg/dL (0.2 mg/dL)
[2021-04-15 13:03] LABS: BACTERIA,URINE MANY /HPF (0-FEW); RBC,URINE FIELD OBSCURED /HPF (0-2); WBC,URINE TNTC /HPF (0-4)
--- NOTE | 2021-04-15 13:07 | RAD ---
Exam: CT abdomen/pelvis with intravenous contrast Indication: Left lower quadrant pain Comparison: CT abdomen pelvis 02/26/2019 Technique: Helical CT imaging performed of the abdomen and pelvis after the intravenous administratio n of 75 mL Omnipaque 300 contrast. Sagittal and coronal reformats were obtained. One or more of the following individualized dose reduction techniques were utilized for this examinat ion: 1. Automated exposure control 2. Adjustment of the mA and/or kV according to patient size 3. Use of iterative reconstruction technique. Findings: Lower chest: The heart is enlarged. There are coronary artery calcifications. New small pericardial e ffusion and trace bilateral pleural effusions. Mild subpleural confluent opacities in the posterior r ight lower lobe, likely atelectasis. New mild interlobular septal thickening in the lung bases suspic ious for mild interstitial pulmonary edema. Liver: Liver is unchanged in appearance with mildly nodular contour. No focal liver lesion. Gallbladder/Biliary Tree: Gallbladder is contracted. There is cholelithiasis or sludge in the gallbla dder lumen. Others are normal. Pancreas: Normal Spleen: Normal. Adrenal Glands: Normal. Kidneys/Ureters/Bladder: Normal. No hydronephrosis. Reproductive Organs: Uterus is atrophic. There are prominent parametrial vessels. A pessary device is seen in the vagina. Stomach, small bowel, and colon: The stomach is decompressed, limiting evaluation. There is no small bowel obstruction. There are sigmoid diverticulosis without acute diverticulitis. Vasculature: Abdominal aorta is normal in caliber. There is moderate to severe calcified aortoiliac a therosclerosis. Lymph Nodes: No lymphadenopathy. Peritoneum and retroperitoneum: Trace ascites anterior to the liver and in the pelvis. No free air. Bones: No acute osseous abnormality. Unchanged L2 compression fracture. Mild lumbar scoliosis. Mild d egenerative joint disease of the hips. Miscellaneous: Mild anasarca. IMPRESSION: 1. Findings suspicious for volume overload with new small volume of ascites, small pericardial effus ion and trace bilateral pleural effusions. Mild anasarca. 2. Cardiomegaly and mild interstitial pulmonary edema. 3. Mild nodularity of the liver. Correlate for cirrhosis. 4. Sigmoid diverticulosis without acute diverticulitis. 5. Contracted gallbladder with suspected sludge or stones. Electronically signed by: Liseth Garcia MD (04/15/2021 1:05 PM) [id number]
[2021-04-15] MEDS ORDERED: cefTRIAXone IV Push 1 GM VIAL. IVP ONE (13:30)
--- NOTE | 2021-04-15 13:57 | RAD ---
Exam Date: 04/15/2021 1:12 PM XR CHEST 1V Indication: Reason: soa / Spl. Instructions: / History: . Comparison: February 28, 2021 FINDINGS/ IMPRESSION: The aorta is calcified. The cardiac silhouette is enlarged. Prominent interstitial markings are again seen bilaterally which may represent interstitial edema and/or chronic lung disease. Infection is not excluded. Pleural t hickening/scarring is again seen in the right lung base. Small bilateral pleural effusions are not e xcluded. No pneumothorax. Electronically signed by: Haris Finch MD (04/15/2021 1:55 PM) [email or web address]
[2021-04-15] MEDS ORDERED: ONDANSETRON PF 4 MG/2 ML VIAL. IVP PRN (14:00)
[2021-04-15 15:03] LABS: INFLUENZA A PATIENT NEGATIVE (NEGATIVE); INFLUENZA B PATIENT POSITIVE (NEGATIVE)
[2021-04-15] MEDS: OSELTAMIVIR 30 MG CAPSULE PO SCH ×2 (16:12→20:14)
--- NOTE | 2021-04-15 18:00 | EKG ---
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
[2021-04-15 18:31] VITALS: BP 140/71
--- NOTE | 2021-04-15 20:13 | PDOC1 ---
History and Physical Date of Admission Date of Admission DATE: 04/15/21 TIME: 20:09 Source Source: Chart review, Patient History of Present Illness History of Present Illness Niurka is a 80-year-old female admit for abd pain. She also has a recent history of dysuria, but says she has not urinated a much as she usually does for the past few days, even with her lasix doses. . Patient also states she has some generalized abdominal discomfort of the lower abdomen. was seen at primary care today and sent to the ER. she has some recent loose bowel movement, but has very low volume lately. . Patient states she has been on antibiotics recently however she has not had any fevers and denies any nausea or vomiting. She further denies any shortness of air or chest pain. Past Medical History Cardiovascular: CHF, HTN Pulmonary: No pertinent hx CENTRAL NERVOUS SYSTEM: Carpal Tunnel Syndrome GI: Constipation, GERD Heme/Onc: Anemia NOS Hepatobiliary: No pertinent hx Psych: No pertinent hx Musculoskeletal: Osteoarthritis Rheumatologic: No pertinent hx Infectious disease: No pertinent hx Endocrine: Hypothyroidism, Osteopenia Past Surgical History Past Surgical History: Cataract Removal, Other Family History Family History: Coronary Artery Disease Social History Smoke: No ALCOHOL: none Drugs: None Current Problem List Problem List Problems Medical Problems: (1) Generalized weakness Status: Acute (2) Influenza B Status: Acute (3) UTI (urinary tract infection) Status: Acute Current Medications Current Medications Current Medications Iohexol (Omnipaque 300 Mg/ml) 75 ml 1X ONCE IV Last administered on 04/15/21at 12:38; Start 04/15/21 at 12:30; Stop 04/15/21 at 12:31; Status DC Info (CONTRAST GIVEN -- Rx MONITORING) 1 each PRN DAILY PRN MC SEE COMMENTS; Start 04/15/21 at 12:30; Stop 04/17/21 at 12:29 Ceftriaxone Sodium (Rocephin) 1 gm 1X ONCE IVP Last administered on 04/15/21at 14:00; Start 04/15/21 at 13:30; Stop 04/15/21 at 13:31; Status DC Ondansetron HCl (Zofran) 4 mg PRN Q8HRS PRN IVP NAUSEA/VOMITING; Start 04/15/21 at 14:00; Stop 04/16/21 at 13:59 Oseltamivir Phosphate (Tamiflu) 30 mg BID PO Last administered on 04/15/21at 16:12; Start 04/15/21 at 15:00; Stop 04/20/21 at 14:59 Ceftriaxone Sodium (Rocephin) 1 gm Q24H IVP ; Start 04/15/21 at 20:00 Active Scripts Active Eliquis (Apixaban) 2.5 Mg Tablet 2.5 Mg PO BID Digoxin 125 Mcg Tablet 125 Mcg PO DAILY Reported Tylenol (Acetaminophen) 325 Mg Tablet 2 Tab PO PRN Q4HRS Escitalopram Oxalate 10 Mg Tablet 0.5 Tab PO DAILY Methotrexate (Methotrexate Sodium) 2.5 Mg Tablet 7 Tab PO WEEKLY Klor-Con 10 (Potassium Chloride) 10 Meq Tablet.er 10 Meq PO DAILY Magnesium Oxide 250 Mg Tablet 1 Tab PO DAILY 30 Days Lasix (Furosemide) 20 Mg Tablet 1 Tab PO DAILY 30 Days Folic Acid 20 Mg Capsule 400 Mg PO DAILY 30 Days Cardizem Cd (Diltiazem Hcl) 180 Mg Cap.er.24h 1 Cap PO BID [facility] [place] Advantage Softgel (Om3-Dha/Epa/D3/Lutein/Zeazanth) 1 Each Capsule 1 Each PO BID Colace (Docusate Sodium) 100 Mg Capsule 1 Cap PO DAILY PRN Ferrous Sulfate 325 Mg Tablet 1 Tab PO TID Loratadine 10 Mg Tablet 1 Tab PO PRN DAILY PRN Vitamin B-12 (Cyanocobalamin (Vitamin B-12)) 5,000 Mcg Tab.rapdis 5,000 Mcg PO QODAY Omeprazole 20 Mg Capsule.dr 1 Cap PO DAILY Levothyroxine Sodium 75 Mcg Tablet 1 Tab PO DAILY Allergies Allergies: Coded Allergies: clindamycin (Verified Allergy, Severe, THROAT CLOSING, 02/07/19) Penicillins (Verified Allergy, Intermediate, Hives, 02/03/19) erythromycin base (Verified Allergy, Intermediate, 02/03/19) latex (Verified Allergy, Intermediate, itching, broke out w/ hives, 02/03/19) metoprolol (Verified Allergy, Intermediate, 02/03/19) ROS General: YES: Chills, Malaise PSYCHOLOGICAL ROS: No: Anxiety, Behavioral Disorder, Concentration difficultie, Decreased libido, Depression, Disorientation, Hallucinations, Hostility, Irritablity, Memory difficulties, Mood Swings, Obsessive thoughts, Physical abuse, Sexual abuse, Sleep disturbances, Suicidal ideation, Other Eyes: No Blurry vision, No Decreased vision, No Double vision, No Dry eyes, No Excessive tearing, No Eye Pain, No Itchy Eyes, No Loss of vision, No Photophobia, No Scotomata, No Uses contacts, No Uses glasses, No Other HEENT: No: Heacaches, Visual Changes, Hearing change, Nasal congestion, Nasal discharge, Oral lesions, Sinus pain, Sore Throat, Epistaxis, Sneezing, Snoring, Tinnitus, Vertigo, Vocal changes, Other Respiratory: YES: Shortness of breath, SOB with excertion; No: Cough, Hemoptysis, Orthopnea, Pleuritic Pain, Sputum Changes, Stridor, Tachypnea, Wheezing, Other Cardiovascular: No Chest Pain, No Palpitations, No Orthopnea, No Paroxysmal Noc. Dyspnea, No Edema, No Lt Headedness, No Other Gastrointestinal: Yes Nausea, Yes Abdominal Pain, Yes Constipation; No Vomiting, No Diarrhea, No Melena, No Hematochezia, No Other Genitourinary: No Dysuria, No Frequency, No Incontinence, No Hematuria, No Retention, No Discharge, No Urgency, No Pain, No Flank Pain, No Other, No , No , No , No , No , No , No Musculoskeletal: No Gait Disturbance, No Joint Pain, No Joint Stiffness, No Joint Swelling, No Muscle Pain, No Muscular Weakness, No Pain In:, No Swelling In:, No Other Neurological: No Behavorial Changes, No Bowel/Bladder ControlChng, No Confusion, No Dizziness, No Gait Disturbance, No Headaches, No Impaired Food And Beverage Service Manager rd/balance, No Memory Loss, No Numbness/Tingling, No Seizures, No Speech Problems, No Tremors, No Visual Changes, No Weakness, No Other Skin: Yes Dry Skin; No Eczema, No Hair Changes, No Lumps, No Mole Changes, No Mottling, No Nail Changes, No Pruritus, No Rash, No Skin Lesion Changes, No Other, No Acne Physical Exam General: Alert, Oriented X3, Cooperative, No acute distress Lungs: Clear to auscultation Heart: no murmurs, irregularly irregular Rectal Exam: not examined Extremities: No clubbing, No cyanosis, Normal pulses Neuro: Normal speech, Normal tone, Sensation intact Psych/Mental Status: Mental status NL, Mood NL Vitals Vitals Vital Signs Date Time Temp Pulse Resp B/P (MAP) Pulse Ox O2 Delivery O2 Flow Rate FiO2 04/15/21 18:31 97.6 71 28 140/71 (94) 89 Nasal Cannula 2.0 97.6 Labs Labs Laboratory Tests Test 04/15/21 11:30 04/15/21 12:18 04/15/21 14:08 04/15/21 15:00 White Blood Count 8.4 x10^3/uL (4.0-11.0) Red Blood Count 3.43 x10^6/uL (3.50-5.40) Hemoglobin 9.1 g/dL (12.0-15.5) Hematocrit 29.9 % (36.0-47.0) Mean Corpuscular Volume 87 fL (79-100) Mean Corpuscular Hemoglobin 26 pg (25-35) Mean Corpuscular Hemoglobin Concent 30 g/dL (31-37) Red Cell Distribution Width 22.2 % (11.5-14.5) Platelet Count 378 x10^3/uL (140-400) Neutrophils (%) (Auto) 79 % (31-73) Lymphocytes (%) (Auto) 12 % (24-48) Monocytes (%) (Auto) 7 % (0-9) Eosinophils (%) (Auto) 1 % (0-3) Basophils (%) (Auto) 1 % (0-3) Neutrophils # (Auto) 6.6 x10^3/uL (1.8-7.7) Lymphocytes # (Auto) 1.0 x10^3/uL (1.0-4.8) Monocytes # (Auto) 0.6 x10^3/uL (0.0-1.1) Eosinophils # (Auto) 0.1 x10^3/uL (0.0-0.7) Basophils # (Auto) 0.1 x10^3/uL (0.0-0.2) Platelet Estimate Adequate (ADEQUATE) Anisocytosis Mod Ovalocytes Few Sodium Level 134 mmol/L (136-145) Potassium Level 4.2 mmol/L (3.5-5.1) Chloride Level 102 mmol/L (98-107) Carbon Dioxide Level 24 mmol/L (21-32) Anion Gap 8 (6-14) Blood Urea Nitrogen 16 mg/dL (7-20) Creatinine 0.9 mg/dL (0.6-1.0) Estimated GFR (Cockcroft-Gault) 60.1 BUN/Creatinine Ratio 18 (6-20) Glucose Level 117 mg/dL (70-99) Calcium Level 8.2 mg/dL (8.5-10.1) Total Bilirubin 0.4 mg/dL (0.2-1.0) Aspartate Amino Transf (AST/SGOT) 25 U/L (15-37) Alanine Aminotransferase (ALT/SGPT) 16 U/L (14-59) Alkaline Phosphatase 198 U/L (46-116) SB-Aeo-J-Type Natriuretic Peptide 5084 pg/mL (0-449) Total Protein 6.9 g/dL (6.4-8.2) Albumin 2.6 g/dL (3.4-5.0) Albumin/Globulin Ratio 0.6 (1.0-1.7) Urine Collection Type Unknown Urine Color Kayla Urine Clarity Cloudy Urine pH 5.5 (<5.0-8.0) Urine Specific [place] 1.020 (1.000-1.030) Urine Protein 100 mg/dL (NEG-TRACE) Urine Glucose (UA) Negative mg/dL (NEG) Urine Ketones (Stick) Trace mg/dL (NEG) Urine Blood Negative (NEG) Urine Nitrite Negative (NEG) Urine Bilirubin Negative (NEG) Urine Urobilinogen Dipstick 0.2 mg/dL (0.2 mg/dL) Urine Leukocyte Esterase Large (NEG) Urine RBC Field obscured /HPF (0-2) Urine WBC Tntc /HPF (0-4) Urine Squamous Epithelial Cells Few /LPF Urine Transitional Epithelial Cells Occ /LPF Urine Bacteria Many /HPF (0-FEW) Influenza Type A Antigen Negative (NEGATIVE) Influenza Type B Antigen Positive (NEGATIVE) SARS-CoV-2 Antigen (Rapid) Negative (NEGATIVE) Troponin I High Sensitivity 27 ng/L (4-50) Laboratory Tests Test 04/15/21 11:30 04/15/21 12:18 04/15/21 14:08 04/15/21 15:00 White Blood Count 8.4 x10^3/uL (4.0-11.0) Red Blood Count 3.43 x10^6/uL (3.50-5.40) Hemoglobin 9.1 g/dL (12.0-15.5) Hematocrit 29.9 % (36.0-47.0) Mean Corpuscular Volume 87 fL (79-100) Mean Corpuscular Hemoglobin 26 pg (25-35) Mean Corpuscular Hemoglobin Concent 30 g/dL (31-37) Red Cell Distribution Width 22.2 % (11.5-14.5) Platelet Count 378 x10^3/uL (140-400) Neutrophils (%) (Auto) 79 % (31-73) Lymphocytes (%) (Auto) 12 % (24-48) Monocytes (%) (Auto) 7 % (0-9) Eosinophils (%) (Auto) 1 % (0-3) Basophils (%) (Auto) 1 % (0-3) Neutrophils # (Auto) 6.6 x10^3/uL (1.8-7.7) Lymphocytes # (Auto) 1.0 x10^3/uL (1.0-4.8) Monocytes # (Auto) 0.6 x10^3/uL (0.0-1.1) Eosinophils # (Auto) 0.1 x10^3/uL (0.0-0.7) Basophils # (Auto) 0.1 x10^3/uL (0.0-0.2) Platelet Estimate Adequate (ADEQUATE) Anisocytosis Mod Ovalocytes Few Sodium Level 134 mmol/L (136-145) Potassium Level 4.2 mmol/L (3.5-5.1) Chloride Level 102 mmol/L (98-107) Carbon Dioxide Level 24 mmol/L (21-32) Anion Gap 8 (6-14) Blood Urea Nitrogen 16 mg/dL (7-20) Creatinine 0.9 mg/dL (0.6-1.0) Estimated GFR (Cockcroft-Gault) 60.1 BUN/Creatinine Ratio 18 (6-20) Glucose Level 117 mg/dL (70-99) Calcium Level 8.2 mg/dL (8.5-10.1) Total Bilirubin 0.4 mg/dL (0.2-1.0) Aspartate Amino Transf (AST/SGOT) 25 U/L (15-37) Alanine Aminotransferase (ALT/SGPT) 16 U/L (14-59) Alkaline Phosphatase 198 U/L (46-116) EZ-Fpe-R-Type Natriuretic Peptide 5084 pg/mL (0-449) Total Protein 6.9 g/dL (6.4-8.2) Albumin 2.6 g/dL (3.4-5.0) Albumin/Globulin Ratio 0.6 (1.0-1.7) Urine Collection Type Unknown Urine Color Kayla Urine Clarity Cloudy Urine pH 5.5 (<5.0-8.0) Urine Specific [place] 1.020 (1.000-1.030) Urine Protein 100 mg/dL (NEG-TRACE) Urine Glucose (UA) Negative mg/dL (NEG) Urine Ketones (Stick) Trace mg/dL (NEG) Urine Blood Negative (NEG) Urine Nitrite Negative (NEG) Urine Bilirubin Negative (NEG) Urine Urobilinogen Dipstick 0.2 mg/dL (0.2 mg/dL) Urine Leukocyte Esterase Large (NEG) Urine RBC Field obscured /HPF (0-2) Urine WBC Tntc /HPF (0-4) Urine Squamous Epithelial Cells Few /LPF Urine Transitional Epithelial Cells Occ /LPF Urine Bacteria Many /HPF (0-FEW) Influenza Type A Antigen Negative (NEGATIVE) Influenza Type B Antigen Positive (NEGATIVE) SARS-CoV-2 Antigen (Rapid) Negative (NEGATIVE) Troponin I High Sensitivity 27 ng/L (4-50) VTE Prophylaxis Ordered VTE Prophylaxis Devices: Yes VTE Pharmacological Prophylaxi: Yes Assessment/Plan Assessment/Plan sepsis UTI - rocephin acute influenza B weakness, hard od hearing rheumatoid arthritis, off mtx for prior lung injury atrial fib, on dig Justifications for Admission Other Justification Failure to thrive GABY BURDEN MD Apr 15, 2021 20:13
[2021-04-15] MEDS: cefTRIAXone IV Push 1 GM VIAL. IVP SCH (20:14)
[2021-04-15 23:00] VITALS: BP 122/63
[2021-04-15] MEDS ORDERED: ANTI-COAG MONITOR BY PHARMACY. MC PRN (23:45)
[2021-04-15] MEDS ORDERED: DOCUSATE SODIUM 100 MG CAPSULE. PO PRN (23:45)
[2021-04-15] MEDS ORDERED: CETIRIZINE HCL 10 MG TABLET. PO PRN (23:45)
[2021-04-15] MEDS ORDERED: ACETAMINOPHEN 325 MG TABLET. PO PRN (23:45)
[2021-04-16] MEDS ORDERED: ZOLPIDEM 5 MG TABLET. PO PRN (00:45)
[2021-04-16 03:00] VITALS: BP 154/64
[2021-04-16] MEDS: LEVOTHYROXINE 75 MCG TABLET PO SCH (05:37)
[2021-04-16 07:00] VITALS: BP 137/86
[2021-04-16] MEDS: OSELTAMIVIR 30 MG CAPSULE PO SCH ×2 (08:55→21:34)
[2021-04-16] MEDS: FERROUS SULFATE 325 MG TABLET. PO SCH ×3 (08:55→17:09)
[2021-04-16] MEDS: MAGNESIUM OXIDE 400 MG TABLET PO SCH (08:55)
[2021-04-16] MEDS: CITALOPRAM 10 MG TABLET. PO SCH (08:55)
[2021-04-16] MEDS: FOLIC ACID 1 MG TABLET. PO SCH (08:55)
[2021-04-16] MEDS: PANTOPRAZOLE 40 MG TABLET.DR. PO SCH (08:56)
[2021-04-16] MEDS: FUROSEMIDE 20 MG TABLET PO SCH (08:56)
[2021-04-16] MEDS: POTASSIUM CHLORIDE 10 MEQ TABLET.ER. PO SCH (08:56)
[2021-04-16] MEDS: DIGOXIN 125 MCG TABLET. PO SCH (08:57)
[2021-04-16] MEDS: MULTIVITAMIN I-VITE TABLET. PO SCH (08:57)
[2021-04-16] MEDS: APIXABAN 2.5 MG TABLET. PO SCH ×2 (09:00→21:30)
[2021-04-16 11:00] VITALS: BP 121/59
--- NOTE | 2021-04-16 12:30 | PDOC ---
[employer] PROGRESS NOTE Date of Service DOS: DATE: 04/16/21 TIME: 12:29 Chief Complaint Chief Complaint sepsis UTI - rocephin acute influenza B weakness, hard od hearing rheumatoid arthritis, off mtx for prior lung injury atrial fib, on dig History of Present Illness History of Present Illness weakness and mylagia from flu symptoms today start PT and OT she feels too weak to go home, feels unsafe, fall risk due to acute illness Vitals/I&O Vitals/I&O: Vital Signs Date Time Temp Pulse Resp B/P (MAP) Pulse Ox O2 Delivery O2 Flow Rate FiO2 04/16/21 11:00 97.8 74 20 121/59 (79) 98 Nasal Cannula 2.0 97.8 I & O 04/15/21 04/15/21 04/16/21 15:00 23:00 07:00 Intake Total 300 ml 300 ml Output Total 100 ml Balance 200 ml 300 ml Physical Exam General: Alert, Oriented X3, Cooperative, No acute distress Heart: Regular rate Lungs: Clear, Crackles Abdomen: Normal bowel sounds, Soft Extremities: No clubbing, No cyanosis, Normal pulses Skin: No rashes Labs Labs: Laboratory Tests Test 04/15/21 14:08 04/15/21 15:00 Coronavirus (COVID-19)(PCR) Not detected (NOT DETECTD) Influenza Type A Antigen Negative (NEGATIVE) Influenza Type B Antigen Positive (NEGATIVE) SARS-CoV-2 Antigen (Rapid) Negative (NEGATIVE) Troponin I High Sensitivity 27 ng/L (4-50) Assessment and Plan Assessmemt and Plan Problems Medical Problems: (1) Generalized weakness Status: Acute (2) Influenza B Status: Acute (3) UTI (urinary tract infection) Status: Acute Comment Review of Relevant I have reviewed the following items messi (where applicable) has been applied. Medications: Current Medications Medications (Trade) Dose Ordered Sig/Farhan Route PRN Reason Start Time Stop Time Status Last Admin Dose Admin Iohexol (Omnipaque 300 Mg/ml) 75 ml 1X ONCE IV 04/15/21 12:30 04/15/21 12:31 DC 04/15/21 12:38 Ceftriaxone Sodium (Rocephin) 1 gm 1X ONCE IVP 04/15/21 13:30 04/15/21 13:31 DC 04/15/21 14:00 Oseltamivir Phosphate (Tamiflu) 30 mg BID PO 04/15/21 15:00 04/20/21 14:59 04/16/21 08:55 Ceftriaxone Sodium (Rocephin) 1 gm Q24H IVP 04/15/21 20:00 04/15/21 20:14 Digoxin (Lanoxin) 125 mcg DAILY PO 04/16/21 09:00 04/16/21 08:57 Diltiazem HCl (Cardizem 24hr Cd) 180 mg DAILY PO 04/16/21 09:00 04/16/21 08:56 Ferrous Sulfate (Feosol) 325 mg TIDWMEALS PO 04/16/21 08:00 04/16/21 12:19 Furosemide (Lasix) 20 mg DAILY PO 04/16/21 09:00 04/16/21 08:56 Levothyroxine Sodium (Synthroid) 75 mcg DAILY06 PO 04/16/21 06:00 04/16/21 05:37 Potassium Chloride (Klor-Con) 10 meq DAILY PO 04/16/21 09:00 04/16/21 08:56 Citalopram Hydrobromide (CeleXA) 10 mg DAILY PO 04/16/21 09:00 04/16/21 08:55 Folic Acid (Folic Acid) 0.5 mg DAILY PO 04/16/21 09:00 04/16/21 08:55 Magnesium Oxide (Magnesium Oxide) 400 mg DAILY PO 04/16/21 09:00 04/16/21 08:55 Multivitamins/ Minerals (I-Jatin) 1 tab DAILY PO 04/16/21 09:00 04/16/21 08:57 Pantoprazole Sodium (Protonix) 40 mg DAILYAC PO 04/16/21 07:30 04/16/21 08:56 Info (Anti-Coagulation Monitoring By Pharmacy) 1 each PRN DAILY PRN MC PER PROTOCOL 04/15/21 23:45 04/16/21 03:07 Zolpidem Tartrate (Ambien) 5 mg PRN QHS PRN PO INSOMNIA 04/16/21 00:45 04/16/21 00:49 Justifications for Admission Other Justification Failure to thrive GABY BURDEN MD Apr 16, 2021 12:30
--- NOTE | 2021-04-16 12:56 | NUR ---
SW following. Discussed with RN, pt from home, 2L (uses oxygen at home), cardiac diet, COVID-19 negative, Flu B positive. Pt has [facility]. PT/OT ordered. SW will continue to follow.
[2021-04-16 15:00] VITALS: BP 123/51
[2021-04-16 19:33] VITALS: BP 108/55
[2021-04-16] MEDS: cefTRIAXone IV Push 1 GM VIAL. IVP SCH (21:34)
[2021-04-16 23:19] VITALS: BP 105/65
[2021-04-17 03:08] VITALS: BP 107/62
[2021-04-17] MEDS: LEVOTHYROXINE 75 MCG TABLET PO SCH ×2 (05:29→10:21)
[2021-04-17 07:00] VITALS: BP 123/73
[2021-04-17] MEDS ORDERED: CYANOCOBALAMIN (VITAMIN B-12) 1,000 MCG TABLET. PO SCH (09:00)
--- NOTE | 2021-04-17 09:51 | PDOC ---
[employer] PROGRESS NOTE Date of Service DOS: DATE: 04/17/21 TIME: 09:50 Chief Complaint Chief Complaint sepsis UTI - rocephin acute influenza B weakness, hard od hearing rheumatoid arthritis, off mtx for prior lung injury atrial fib, on dig History of Present Illness History of Present Illness weakness and mylagia from flu symptoms today start PT and OT she feels too weak to go home, feels unsafe, fall risk due to acute illness 04/17 Patient evaluated examined at bedside. Pretty upset that she is still having di arrhea and we are suggesting discharge later today. will try a dose Colestid and see how she does with that. If no diarrhea by mid afternoon she can probably discharge then. Vitals/I&O Vitals/I&O: Vital Signs Date Time Temp Pulse Resp B/P (MAP) Pulse Ox O2 Delivery O2 Flow Rate FiO2 04/17/21 07:00 98.1 91 18 123/73 (90) 100 Nasal Cannula 2.0 98.1 I & O 04/16/21 04/16/21 04/17/21 15:00 23:00 07:00 Intake Total 120 ml Balance 120 ml Physical Exam General: Alert, Oriented X3, Cooperative, No acute distress Heart: Regular rate Lungs: Clear, Crackles Abdomen: Normal bowel sounds, Soft Extremities: No clubbing, No cyanosis, Normal pulses Skin: No rashes Assessment and Plan Assessmemt and Plan Problems Medical Problems: (1) Generalized weakness Status: Acute (2) Influenza B Status: Acute (3) UTI (urinary tract infection) Status: Acute Comment Review of Relevant I have reviewed the following items messi (where applicable) has been applied. Justifications for Admission Other Justification Failure to thrive KALYN HERNANDEZ MD Apr 17, 2021 09:51
[2021-04-17] MEDS ORDERED: COLESTIPOL HCL 1 GM TABLET PO SCH (10:00)
[2021-04-17] MEDS: POTASSIUM CHLORIDE 10 MEQ TABLET.ER. PO SCH (10:21)
[2021-04-17] MEDS: PANTOPRAZOLE 40 MG TABLET.DR. PO SCH (10:21)
[2021-04-17] MEDS: CITALOPRAM 10 MG TABLET. PO SCH (10:21)
[2021-04-17] MEDS: OSELTAMIVIR 30 MG CAPSULE PO SCH (10:21)
[2021-04-17] MEDS: APIXABAN 2.5 MG TABLET. PO SCH (10:22)
[2021-04-17] MEDS: DIGOXIN 125 MCG TABLET. PO SCH (10:22)
[2021-04-17] MEDS: FUROSEMIDE 20 MG TABLET PO SCH (10:23)
[2021-04-17] MEDS: FOLIC ACID 1 MG TABLET. PO SCH (10:23)
[2021-04-17] MEDS: MULTIVITAMIN I-VITE TABLET. PO SCH (10:23)
[2021-04-17] MEDS: MAGNESIUM OXIDE 400 MG TABLET PO SCH (10:24)
[2021-04-17] MEDS: FERROUS SULFATE 325 MG TABLET. PO SCH ×2 (10:24→12:00)
[2021-04-17] MEDS ORDERED: COLE1TAB PO (10:43)
[2021-04-17] MEDS ORDERED: L. R1CAP2 PO (10:43)
[2021-04-17] MEDS ORDERED: FOSF3PAC4 PO (10:43)
[2021-04-17] MEDS ORDERED: OSEL30CA PO (10:43)
--- NOTE | 2021-04-17 10:46 | NUR ---
SW following. Discussed with RN, therapy recommending home health. Dr. Alcantar spoke with pt, she does not want home health anymore, has a [employer]TING [employer]NAGER that helps her. Pt wondering why her diarrhea hasn't been addressed. Possible discharge home today with self care. SW will continue to follow.
[2021-04-17 11:00] VITALS: BP 110/65
[2021-04-17 15:00] VITALS: BP 119/53
--- NOTE | 2021-04-17 16:00 | NUR ---
Patient was wheeled out to main entrance via wheelchair by Michelle ROMERO, with 2LNC to family vehicle. IV and telemonitor discontinued. Education given Sat and Sun tamiflu given to patient until her pharmacy receives them tuesday.
== END 2021-04-17 16:00 | disposition home or self-care (01) | DRG 872 ==
LOC: ER 11:10 → ED HOLD 13:36 → 5 SOUTH 14:53 → OBSVTOIN 04-16 14:25
PROVIDERS: ADMIT Internal Medicine; ATTEND Internal Medicine
DX: A41.9 Sepsis, unspecified organism (principal); N39.0 Urinary tract infection, site not specified; E03.9 Hypothyroidism, unspecified; I11.0 Hypertensive heart disease with heart failure; I48.91 Unspecified atrial fibrillation; I50.9 Heart failure, unspecified; I70.0 Atherosclerosis of aorta; J10.1 Influenza due to other identified influenza virus with other respiratory manifestations; J44.9 Chronic obstructive pulmonary disease, unspecified; K57.30 Diverticulosis of large intestine without perforation or abscess without bleeding; M06.9 Rheumatoid arthritis, unspecified; M85.80 Other specified disorders of bone density and structure, unspecified site; R62.7 Adult failure to thrive; Z82.49 Family history of ischemic heart disease and other diseases of the circulatory system; Z87.891 Personal history of nicotine dependence; Z91.81 History of falling; Z99.81 Dependence on supplemental oxygen; K21.9 Gastro-esophageal reflux disease without esophagitis; M19.90 Unspecified osteoarthritis, unspecified site
CPT/HCPCS: 36415; 71045; 74177; 80053; 81001; 83880; 84484; 85025; 87077; 87086; 87186; 87426; 87428; 93005; 96374; G0378; G0379; J0696; Q9967; U0003; 97116-GP; 97535-GO; 99285-25

== ENCOUNTER 2021-04-23 00:01 | Inpatient (IN) | payer MEDICARE ==
[~2021-04-23] VITALS: Ht 157.5 cm; Wt 60.0 kg
[~2021-04-23 00:01] MED LIST changes: +COLE1TAB PO; +FOSF3PAC4 PO; +L. R1CAP2 PO; +OSEL30CA PO
--- NOTE | 2021-04-23 01:03 | PHYS DOC ---
Past Medical History Past Medical History: Anemia, CHF, COPD, GERD, Hypertension, Hypothyroid Additional Past Medical Histor: "leaky heart valve", O2 dependant Past Surgical History: Other Additional Past Surgical Histo: cataract, ear Smoking Status: Never Smoker Alcohol Use: None Drug Use: None General Adult EDM: Chief Complaint: LOWER EXT PAIN HPI: HPI: 80-year-old female past medical history of A. fib, CHF, hypothyroidism, hypertension, GERD and osteoarthritis presents to the ED brought in by EMS with complaints of " my stomach feels hot" for the past 2 days stating she is concerned something is wrong with her bowels. Also c/o bilateral lower extremity swelling that has been progressive and worsening for the past 2 weeks. States she takes Lasix daily. Reports loose bowel due to the antibiotic she is taking currently for UTI (unsure of the name). Reports no associated constipation, melena, hematochezia or hematemesis. Review of Systems: Review of Systems: Constitutional: Denies fever or chills. [] Eyes: Denies change in visual acuity. [] HENT: Denies nasal congestion or sore throat. [] Respiratory: Denies cough or hemoptysis Cardiovascular: Denies syncope or edema. [] GI: Denies nausea or vomiting or diarrhea : Denies vaginal bleeding or hematuria Musculoskeletal: Denies back pain or joint pain. [] Integument: Denies diaphoresis or blistering lesions Neurologic: Denies headache, focal weakness or sensory changes. [] Endocrine: Denies polyuria or polydipsia. [] Lymphatic: Denies swollen glands. [] Psychiatric: Denies depression or anxiety. [] Heart Score: C/O Chest Pain: No Risk Factors: Risk Factors: DM, Current or recent (<one month) smoker, HTN, HLP, family history of CAD, obesity. Risk Scores: Score 0 - 3: 2.5% MACE over next 6 weeks - Discharge Home Score 4 - 6: 20.3% MACE over next 6 weeks - Admit for Clinical Observation Score 7 - 10: 72.7% MACE over next 6 weeks - Early Invasive Strategies Allergies: Allergies: Allergies Coded Allergies Type Severity Reaction Last Updated Verified clindamycin Allergy Severe THROAT CLOSING 02/07/19 Yes Penicillins Allergy Intermediate Hives 02/03/19 Yes erythromycin base Allergy Intermediate 02/03/19 Yes latex Allergy Intermediate itching, broke out w/ hives 02/03/19 Yes metoprolol Allergy Intermediate 02/03/19 Yes Physical Exam: PE: Constitutional: hard of hearing, no acute distress, non-toxic appearance, texting her family members during encounter HENT: Normocephalic, atraumatic, Eyes: EOMI, conjunctiva normal, no discharge. Neck: Normal range of motion, supple, Cardiovascular: S1/2 present, regular rhythm Lungs & Thorax: Speaking in full sentences, bilateral equal chest rise, no tach ypnea or increased work of breathing, requires NC Abdomen: soft, no tenderness, Skin: Warm, dry, no erythema, no rash. [] Extremities: No cyanosis, equal bilateral lower extremity pitting edema with mild circumferential erythema over posterior aspect of extremities Neurologic: Alert and oriented X 3, normal motor function, normal sensory function, no focal deficits noted. [] Psychologic: Affect normal, judgement normal, mood normal. [] EKG: EKG: Irregular rhythm, atrial fibrillation at 62 bpm, no axis deviation, unremarkable intervals, no T wave inversion, no ST elevation or ST depression, Q-wave lead III Radiology/Procedures: Radiology/Procedures: IMAGING REPORT Signed PATIENT: NASH PAULSON ACCOUNT: [id number] : 1940 LOCATION: ER AGE: 80 SEX: F EXAM STATUS: REG ER ORD. PHYSICIAN: WISAM LOMAX DO REASON: le swelling PROCEDURE: VENOUS LOWER EXT BILATERAL EXAMINATION: US BILATERAL LOWEREXTREMITY VENOUS DOPPLER, 04/23/2021 1:57 AM CLINICAL INDICATION: Lower extremity swelling COMPARISON: None Available. PROCEDURE: Multiple grayscale, color Doppler and spectral Doppler sonographic images of bilateral lower extremity were obtained. FINDINGS: There is no evidence of deep venous thrombosis in either lower extremity. The bilateral common femoral, femoral and popliteal veins are echolucent with normal flow on color Doppler imaging. The veins are fully compressible and show normal phasicity and reaction to augmentation. Visualized calf veins are also normal in appearance. IMPRESSION: No evidence of deep venous thrombosis in either lower extremity. Electronically signed by: Liseth Garcia MD (04/23/2021 3:17 AM) [facility] DICTATED and SIGNED BY: LISETH GARCIA MD DATE: 04/23/21 [id number] IMAGING REPORT Signed PATIENT: NASH PAULSON ACCOUNT: [id number] : 1940 LOCATION: ER AGE: 80 SEX: F EXAM STATUS: REG ER ORD. PHYSICIAN: WISAM LOMAX DO REASON: stomach feels hot PROCEDURE: PORTABLE CHEST 1V EXAM: XR CHEST 1V 04/23/2021 12:22 AM CLINICAL INDICATION: Stomach feels hot COMPARISON: Chest radiograph 01/22/2021 TECHNIQUE: AP upright view of the chest FINDINGS: There is moderate cardiomegaly. Calcifications in the thoracic aorta. Unchanged opacities in the right lung base. No pleural effusion, or pneumothorax. Chronic deformity of the right distal clavicle. IMPRESSION: Unchanged opacities in the right lung base which could be related to pneumonia or pulmonary edema..\\ Electronically signed by: Liseth Garcia MD (04/23/2021 3:24 AM) [facility] DICTATED and SIGNED BY: LISETH GARCIA MD DATE: 04/23/21 [id number] Course & Med Decision Making: Course & Med Decision Making Pertinent Labs and Imaging studies reviewed. (See chart for details) Concern for CHF exacerbation requiring nasal cannula, IV Lasix given in the emergency department. Venous duplex of both extremity showed no DVT. Vancomycin ordered for bilateral lower extremity cellulitis, worse over posterior aspect of lower extremities. Labs show chronic, progressive worsening normocytic anemia. Patient afebrile with no signs of sepsis. Patient is speaking in full sentences and is in no active distress. On reevaluation her abdominal pain has improved. Follows with Dr. Deras cardiology. Will admit to medicine for further medical management with cardiology consulted. I have spoken with the patient and/or caregivers. I have explained the patie nt's condition, diagnosis and treatment plan based on the information available to me at this time. I have answered the patient's and/or caregivers questions and answered any concerns. The patient and/or caregivers have as good an understanding of the patient's diagnosis, condition and treatment plan as can be expected at this point. The patient has been stabilized within the capability of the emergency department. The patient will be transported for further care and management or will be moved to an observation or inpatient service. I have communicated with the staff or medical practitioner taking over this patient's care. Radha Disclaimer: Radha Disclaimer: This electronic medical record was generated, in whole or in part, using a voice recognition dictation system. Departure Departure Impression: Primary Impression: Acute exacerbation of CHF (congestive heart failure) Additional Impressions: Bilateral cellulitis of lower leg Normocytic anemia Disposition: ADMITTED INPATIENT Admitting Physician: ABDI (Dr. Winston) Condition: STABLE Referrals: NATALIE GONCALVES APRN (PCP) WISAM LOMAX DO Apr 23, 2021 01:03
[2021-04-23 02:09] LABS: BASO # 0.1 x10^3/uL (0.0-0.2); BASO % 1 % (0-3); EOS # 0.2 x10^3/uL (0.0-0.7); EOS % 2 % (0-3); HEMATOCRIT 28.7 % (36.0-47.0); HEMOGLOBIN 8.8 g/dL (12.0-15.5); LYMPH # 0.8 x10^3/uL (1.0-4.8); LYMPH % 10 % (24-48); MEAN CORPUSCULAR HEMOGLOBIN 27 pg (25-35); MEAN CORPUSCULAR HGB CONC 31 g/dL (31-37); MEAN CORPUSCULAR VOLUME 87 fL (79-100); MONO # 0.7 x10^3/uL (0.0-1.1); MONO % 9 % (0-9); NEUT # 6.3 x10^3/uL (1.8-7.7); NEUT % 78 % (31-73); PLATELET COUNT 334 x10^3/uL (140-400); RED BLOOD COUNT 3.29 x10^6/uL (3.50-5.40); RED CELL DISTRIBUTION WIDTH 23.4 % (11.5-14.5)
[2021-04-23 02:29] LABS: CALCIUM 7.9 mg/dL (8.5-10.1); CREATININE 0.6 mg/dL (0.6-1.0); GFR 95.9; POTASSIUM 4.3 mmol/L (3.5-5.1)
[2021-04-23 02:35] LABS: ALBUMIN 2.5 g/dL (3.4-5.0); ALBUMIN/GLOBULIN RATIO 0.6 (1.0-1.7); MAGNESIUM 2.4 mg/dL (1.8-2.4); TOTAL BILIRUBIN 0.4 mg/dL (0.2-1.0); TOTAL PROTEIN 6.8 g/dL (6.4-8.2)
--- NOTE | 2021-04-23 03:19 | RAD ---
EXAMINATION: US BILATERAL LOWEREXTREMITY VENOUS DOPPLER, 04/23/2021 1:57 AM CLINICAL INDICATION: Lower extremity swelling COMPARISON: None Available. PROCEDURE: Multiple grayscale, color Doppler and spectral Doppler sonographic images of bilateral low er extremity were obtained. FINDINGS: There is no evidence of deep venous thrombosis in either lower extremity. The bilateral com mon femoral, femoral and popliteal veins are echolucent with normal flow on color Doppler imaging. Th e veins are fully compressible and show normal phasicity and reaction to augmentation. Visualized sixto f veins are also normal in appearance. IMPRESSION: No evidence of deep venous thrombosis in either lower extremity. Electronically signed by: Liseth Garcia MD (04/23/2021 3:17 AM) [facility]
--- NOTE | 2021-04-23 03:27 | RAD ---
EXAM: XR CHEST 1V 04/23/2021 12:22 AM CLINICAL INDICATION: Stomach feels hot COMPARISON: Chest radiograph 01/22/2021 TECHNIQUE: AP upright view of the chest FINDINGS: There is moderate cardiomegaly. Calcifications in the thoracic aorta. Unchanged opacities in the right lung base. No pleural effusion, or pneumothorax. Chronic deformity of the right distal c lavicle. IMPRESSION: Unchanged opacities in the right lung base which could be related to pneumonia or pulmon lewis edema..\ Electronically signed by: Liseth Garcia MD (04/23/2021 3:24 AM) [facility]
[2021-04-23] MEDS ORDERED: FUROSEMIDE 40 MG/4 ML VIAL. IVP ONE ×2 (03:45→13:00)
[2021-04-23] MEDS ORDERED: VANCOMYCIN 1.25 GM in IV NORMAL SALINE 250ML 250 ML IV ONE (04:30)
[2021-04-23] MEDS ORDERED: FAMOTIDINE 20 MG/2 ML VIAL ONE (04:34)
[2021-04-23] MEDS ORDERED: FAMOTIDINE 20 MG/2 ML VIAL IVP ONE (04:45)
[2021-04-23] MEDS ORDERED: HYDROmorphone 2 MG/ML INJ. IVP ONE (04:45)
[2021-04-23 05:05] LABS: WHITE BLOOD COUNT 8.1 x10^3/uL (4.0-11.0)
[2021-04-23 05:06] LABS: ANISOCYTOSIS MOD; PLT ESTIMATE ADEQUATE (ADEQUATE); POLYCHROMASIA SLIGHT
[2021-04-23 05:07] LABS: SCHISTOCYTES OCC; TEAR DROP CELLS OCC
[2021-04-23 06:35] VITALS: BP 123/68
[2021-04-23] MEDS: VANCOMYCIN PER PHARMACY MC PRN ×2 (06:37→12:01)
--- NOTE | 2021-04-23 06:43 | NUR ---
Pharmacy Vancomycin Dosing Note S:Consulted to monitor and dose vancomycin started 04/23/21. O:NASH PAULSON is a 80 year old F with Cellulitis . Height: 5 feet, 2 inches Weight: 59.0 kg [place] Body Weight: 50.10 Adjusted Body Weight: 53.66 Dosing Weight: Actual Other Antibiotics: LABS: Last BUN: 15 Last Creatinine: 0.6 Creatinine Clearance: 37 mL/min Last WBC: 8.1 Last Procalcitonin: Tmax (past 24 hours): 98.8 Microbiology: I/O: Drug Levels: Last level: on at Last dose given 04/23/21 at 0500 Vancomycin Dosing: Loading Dose: 1250 mg x1 Dosing Weight: Actual Target Trough: 10-20 A: Based on: WEIGHT, SUSPECTED INFECTION TYPE (CELLULITIS), RENAL FUNCTION (CRCL~37), P: 1. INITIATE Vancomycin 1000 mg IV q18h AFTER LOADING DOSE 1250 MG 2. Follow up Trough level on 04/24/21 at 1630 3. Pharmacy will continue to monitor, follow and adjust therapy as needed. JASPER HERNANDEZ [facility], 04/23/21 [id number]
[2021-04-23] MEDS ORDERED: C.DIFF MED SCREEN BY RX. MC PRN (07:15)
--- NOTE | 2021-04-23 07:41 | EKG ---
[facility] [address] [place] [address] Test Date: 2021-04-23 Test Time: 00:17:37 Pat Name: NASH PAULSON Department: Room: [facility] Gender: F Pharm Tech: : 1940 Requested By: WISAM LOMAX Order Number: [id number] Reading MD: Biju Gilliam MD Measurements Intervals [place] Rate: 62 P: AR: QRS: 86 QRSD: 90 T: -77 QT: 408 QTc: 416 Interpretive Statements CONSIDER JUNCTIONAL RHYTHM VERSYS ATRIAL FIBRILLATION LOW VOLTAGE NON-SEPCIFIC ST/T CHANGES Electronically Signed On 04-27-2021 11:15:32 BREASTER by Biju Gilliam MD
--- NOTE | 2021-04-23 08:45 | PDOC1 ---
History and Physical Date of Service: DOS: DATE: 04/23/21 TIME: 08:35 Chief Complaint: Chief Complain: Stomach feels hot History of Present Illness: HPI: History obtained from chart review 80-year-old female with past medical history of atrial fibrillation, CHF diastolic, hypothyroidism, hypertension, GERD and osteoarthritis who presents to the ED with complaints of her stomach feeling hot and some difficulty breathing. She also complains mainly of bilateral lower extremity swelling without she has worsened in the past 2 weeks. She does take Lasix daily. She also endorses loose bowel movements. She actually has been taking antibiotics for UTI. Patient does not remember the name of the antibiotic. Denies any fevers, constipation, melena, hematemesis, bloody stools, palpitations or syncope. Past Medical/Surgical History: PMH/PSH: Past Medical History: Anemia, CHF, COPD, GERD, Hypertension, Hypothyroid, "leaky heart valve", O2 dependant Past Surgical History: cataract, ear Allergies: Allergies: Coded Allergies: clindamycin (Verified Allergy, Severe, THROAT CLOSING, 04/23/21) Penicillins (Verified Allergy, Intermediate, Hives, 04/23/21) erythromycin base (Verified Allergy, Intermediate, 04/23/21) latex (Verified Allergy, Intermediate, itching, broke out w/ hives, 04/23/21 ) metoprolol (Verified Allergy, Intermediate, 04/23/21) Family History: Family History: Heart disease in the family Social History: Social History: Smoking Status: Never Smoker Alcohol Use: None Drug Use: None Current Medications: Current Medications Current Medications Furosemide (Lasix) 60 mg 1X ONCE IVP Last administered on 04/23/21at 04:02; Start 04/23/21 at 03:45; Stop 04/23/21 at 03:46; Status DC Vancomycin HCl (Vanco Per Pharmacy) 1 each PRN DAILY PRN MC SEE COMMENTS Last administered on 04/23/21at 06:37; Start 04/23/21 at 04:15 Vancomycin HCl 1.25 gm/Sodium Chloride 250 ml @ 167 mls/hr ONCE ONCE IV Last administered on 04/23/21at 05:07; Start 04/23/21 at 04:30; Stop 04/23/21 at 05:59; Status DC Famotidine (Pepcid Vial) 20 mg 1X ONCE IVP Last administered on 04/23/21at 04:39; Start 04/23/21 at 04:45; Stop 04/23/21 at 04:46; Status DC Hydromorphone HCl (Dilaudid) 0.5 mg 1X ONCE IVP Last administered on 04/23/21at 04:38; Start 04/23/21 at 04:45; Stop 04/23/21 at 04:46; Status DC Famotidine (Pepcid Vial) 20 mg STK-MED ONCE .ROUTE ; Start 04/23/21 at 04:34; Stop 04/23/21 at 04:34; Status DC Vancomycin HCl 1 gm/Sodium Chloride 250 ml @ 250 mls/hr Q18H IV ; Start 04/23/21 at 23:00 Vancomycin HCl (Vancomycin Trough Level) 1 each 1X ONCE MC ; Start 04/24/21 at 16:30; Stop 04/24/21 at 16:31 Pharmacy Consult (C.diff Med Screen By Rx) 1 each PRN 1X PRN MC SEE ADMIN INSTRUCTIONS; Start 04/23/21 at 07:15 Active Scripts Active Culturelle Capsule (L. Rhamnosus GG/Inulin) 1 Each Cap.sprink 1 Cap PO DAILY 30 Days Fosfomycin Tromethamine 3 Gm Packet 3 Gm PO ONCE 1 Days Colestid (Colestipol Hcl) 1 Gm Tablet 1 Gm PO DAILY10 30 Days Digoxin 125 Mcg Tablet 125 Mcg PO DAILY Reported Tylenol (Acetaminophen) 325 Mg Tablet 2 Tab PO PRN Q4HRS Escitalopram Oxalate 10 Mg Tablet 0.5 Tab PO DAILY Klor-Con 10 (Potassium Chloride) 10 Meq Tablet.er 10 Meq PO DAILY Magnesium Oxide 250 Mg Tablet 1 Tab PO DAILY 30 Days Lasix (Furosemide) 20 Mg Tablet 1 Tab PO DAILY 30 Days Folic Acid 20 Mg Capsule 400 Mg PO DAILY 30 Days Cardizem Cd (Diltiazem Hcl) 180 Mg Cap.er.24h 1 Cap PO BID [facility] Advantage Softgel (Om3-Dha/Epa/D3/Lutein/Zeazanth) 1 Each Capsule 1 Each PO BID Colace (Docusate Sodium) 100 Mg Capsule 1 Cap PO DAILY PRN Ferrous Sulfate 325 Mg Tablet 1 Tab PO TID Loratadine 10 Mg Tablet 1 Tab PO PRN DAILY PRN Vitamin B-12 (Cyanocobalamin (Vitamin B-12)) 5,000 Mcg Tab.rapdis 5,000 Mcg PO QODAY Omeprazole 20 Mg Capsule. 1 Cap PO DAILY Levothyroxine Sodium 75 Mcg Tablet 1 Tab PO DAILY ROS: Review of Systems Review of System REVIEW OF SYSTEMS: GENERAL: Denies weakness SKIN: No bruising, hair changes or rashes. EYES: No blurred, double or loss of vision. NOSE AND THROAT: No history of nosebleeds, hoarseness or sore throat. HEART: No history of palpitations, chest pain or shortness of breath on exertion. LUNGS: Denies cough, hemoptysis, wheezing or shortness of breath. GASTROINTESTINAL: Stomach discomfort GENITOURINARY: No history of frequency, urgency, hesitancy or nocturia. NEUROLOGIC: Denies history of numbness, tingling, or tremor. PSYCHIATRIC: No history of panic, anxiety or depression. ENDOCRINE: No history of heat or cold intolerance, polyuria or polydipsia. EXTREMITIES: Lower extremity swelling Physical Exam: Vital Signs: Vital Signs Date Time Temp Pulse Resp B/P (MAP) Pulse Ox O2 Delivery O2 Flow Rate FiO2 04/23/21 06:35 97.6 71 20 123/68 (86) 94 Nasal Cannula 97.6 04/23/21 05:52 3.0 Physcial Exam: General: Well developed, well nourished, no acute distress, well appearing HEENT: Pupils equally round and reactive to light, EOMI, no discharge, normal conjunctiva Neck: Supple, no nuchal rigidity, no JVD, trachea midline, no tenderness Cardiac: RRR, no murmurs, no gallops, no rubs Chest/Lungs: CTAB, no wheeze, no rhonchi, no crackles Abdomen: soft, non-distended, no guarding, no peritoneal signs, non-tender Back: No tenderness Extremities: Bilateral pedal edema, pulses intact, non-tender,capillary refill <3 sec bilateral upper and lower extremities, circumferential erythema, mild Neuro: Alert and oriented x 4, no focal deficits, normal speech Labs: Labs: Laboratory Tests Test 04/23/21 02:00 04/23/21 05:50 White Blood Count 8.1 x10^3/uL (4.0-11.0) Red Blood Count 3.29 x10^6/uL (3.50-5.40) Hemoglobin 8.8 g/dL (12.0-15.5) Hematocrit 28.7 % (36.0-47.0) Mean Corpuscular Volume 87 fL (79-100) Mean Corpuscular Hemoglobin 27 pg (25-35) Mean Corpuscular Hemoglobin Concent 31 g/dL (31-37) Red Cell Distribution Width 23.4 % (11.5-14.5) Platelet Count 334 x10^3/uL (140-400) Neutrophils (%) (Auto) 78 % (31-73) Lymphocytes (%) (Auto) 10 % (24-48) Monocytes (%) (Auto) 9 % (0-9) Eosinophils (%) (Auto) 2 % (0-3) Basophils (%) (Auto) 1 % (0-3) Neutrophils # (Auto) 6.3 x10^3/uL (1.8-7.7) Lymphocytes # (Auto) 0.8 x10^3/uL (1.0-4.8) Monocytes # (Auto) 0.7 x10^3/uL (0.0-1.1) Eosinophils # (Auto) 0.2 x10^3/uL (0.0-0.7) Basophils # (Auto) 0.1 x10^3/uL (0.0-0.2) Platelet Estimate Adequate (ADEQUATE) Giant Platelets Occ Polychromasia Slight Anisocytosis Mod Tear Drop Cells Occ Schistocytes Occ Sodium Level 136 mmol/L (136-145) Potassium Level 4.3 mmol/L (3.5-5.1) Chloride Level 99 mmol/L (98-107) Carbon Dioxide Level 25 mmol/L (21-32) Anion Gap 12 (6-14) Blood Urea Nitrogen 15 mg/dL (7-20) Creatinine 0.6 mg/dL (0.6-1.0) Estimated GFR (Cockcroft-Gault) 95.9 BUN/Creatinine Ratio 25 (6-20) Glucose Level 99 mg/dL (70-99) Calcium Level 7.9 mg/dL (8.5-10.1) Magnesium Level 2.4 mg/dL (1.8-2.4) Total Bilirubin 0.4 mg/dL (0.2-1.0) Aspartate Amino Transf (AST/SGOT) 36 U/L (15-37) Alanine Aminotransferase (ALT/SGPT) 17 U/L (14-59) Alkaline Phosphatase 214 U/L (46-116) Troponin I High Sensitivity 23 ng/L (4-50) 21 ng/L (4-50) IL-Hxb-L-Type Natriuretic Peptide 4140 pg/mL (0-449) Total Protein 6.8 g/dL (6.4-8.2) Albumin 2.5 g/dL (3.4-5.0) Albumin/Globulin Ratio 0.6 (1.0-1.7) Lipase 160 U/L (73-393) Laboratory Tests Test 04/23/21 02:00 04/23/21 05:50 White Blood Count 8.1 x10^3/uL (4.0-11.0) Red Blood Count 3.29 x10^6/uL (3.50-5.40) Hemoglobin 8.8 g/dL (12.0-15.5) Hematocrit 28.7 % (36.0-47.0) Mean Corpuscular Volume 87 fL (79-100) Mean Corpuscular Hemoglobin 27 pg (25-35) Mean Corpuscular Hemoglobin Concent 31 g/dL (31-37) Red Cell Distribution Width 23.4 % (11.5-14.5) Platelet Count 334 x10^3/uL (140-400) Neutrophils (%) (Auto) 78 % (31-73) Lymphocytes (%) (Auto) 10 % (24-48) Monocytes (%) (Auto) 9 % (0-9) Eosinophils (%) (Auto) 2 % (0-3) Basophils (%) (Auto) 1 % (0-3) Neutrophils # (Auto) 6.3 x10^3/uL (1.8-7.7) Lymphocytes # (Auto) 0.8 x10^3/uL (1.0-4.8) Monocytes # (Auto) 0.7 x10^3/uL (0.0-1.1) Eosinophils # (Auto) 0.2 x10^3/uL (0.0-0.7) Basophils # (Auto) 0.1 x10^3/uL (0.0-0.2) Platelet Estimate Adequate (ADEQUATE) Giant Platelets Occ Polychromasia Slight Anisocytosis Mod Tear Drop Cells Occ Schistocytes Occ Sodium Level 136 mmol/L (136-145) Potassium Level 4.3 mmol/L (3.5-5.1) Chloride Level 99 mmol/L (98-107) Carbon Dioxide Level 25 mmol/L (21-32) Anion Gap 12 (6-14) Blood Urea Nitrogen 15 mg/dL (7-20) Creatinine 0.6 mg/dL (0.6-1.0) Estimated GFR (Cockcroft-Gault) 95.9 BUN/Creatinine Ratio 25 (6-20) Glucose Level 99 mg/dL (70-99) Calcium Level 7.9 mg/dL (8.5-10.1) Magnesium Level 2.4 mg/dL (1.8-2.4) Total Bilirubin 0.4 mg/dL (0.2-1.0) Aspartate Amino Transf (AST/SGOT) 36 U/L (15-37) Alanine Aminotransferase (ALT/SGPT) 17 U/L (14-59) Alkaline Phosphatase 214 U/L (46-116) Troponin I High Sensitivity 23 ng/L (4-50) 21 ng/L (4-50) II-Zmp-J-Type Natriuretic Peptide 4140 pg/mL (0-449) Total Protein 6.8 g/dL (6.4-8.2) Albumin 2.5 g/dL (3.4-5.0) Albumin/Globulin Ratio 0.6 (1.0-1.7) Lipase 160 U/L (73-393) Images: Images PROCEDURE: VENOUS LOWER EXT BILATERAL EXAMINATION: US BILATERAL LOWEREXTREMITY VENOUS DOPPLER, 04/23/2021 1:57 AM CLINICAL INDICATION: Lower extremity swelling COMPARISON: None Available. PROCEDURE: Multiple grayscale, color Doppler and spectral Doppler sonographic images of bilateral lower extremity were obtained. FINDINGS: There is no evidence of deep venous thrombosis in either lower extremity. The bilateral common femoral, femoral and popliteal veins are echolucent with normal flow on color Doppler imaging. The veins are fully compressible and show normal phasicity and reaction to augmentation. Visualized calf veins are also normal in appearance. IMPRESSION: No evidence of deep venous thrombosis in either lower extremity. PROCEDURE: PORTABLE CHEST 1V EXAM: XR CHEST 1V 04/23/2021 12:22 AM CLINICAL INDICATION: Stomach feels hot COMPARISON: Chest radiograph 01/22/2021 TECHNIQUE: AP upright view of the chest FINDINGS: There is moderate cardiomegaly. Calcifications in the thoracic aorta. Unchanged opacities in the right lung base. No pleural effusion, or pneumothorax. Chronic deformity of the right distal clavicle. IMPRESSION: Unchanged opacities in the right lung base which could be related to pneumonia or pulmonary edema..\\ Assessment/Plan Assessment/Plan Acute hypoxic respiratory failure Acute on chronic diastolic heart failure Paroxysmal atrial fibrillation Recent treatment for UTI Concern for cellulitis in the lower extremities Hypertension Hypothyroidism: Continue levothyroxine Rheumatoid arthritis: On methotrexate COPD on home oxygen therapy. Clinically stable. Hyponatremia, generalized weakness, failure to thrive: Admit to hospitalist service for further management O2 supplementation to maintain O2 saturations greater than 90% Lasix IV diuresis as needed Pending digoxin levels Continue telemetry monitoring Cardiology consult Resume home cardiac medications Wound consult Continue empiric IV antibiotics Lovenox for DVT prophylaxis ADA/cardiac diet CODE STATUS full Discussed with RN and SW Disposition inpatient management as above DPOA: Daughter In addition to my E/M visit, advance care planning done with A total time of 20 minutes was spent from 11:00 to 1120 face to face in discussion regarding the patient's goals of care, CODE STATUS. Justifications for Admission Other Justification Failure to thrive OSMANI GOMEZ MD Apr 23, 2021 08:45
[2021-04-23 11:00] VITALS: BP 135/69
--- NOTE | 2021-04-23 11:27 | PDOC2 ---
CARDIAC CONSULT DATE OF CONSULT Date of Consult DATE: 04/23/21 TIME: 11:13 REASON FOR CONSULT Reason for Consult: CHF REFERRING PHYSICIAN Referring Physician: [place] SOURCE Source: Chart review, Patient HISTORY OF PRESENT ILLNESS HISTORY OF PRESENT ILLNESS This is an 80 yo female admitted for complains abdominal discomfort and also some leg swelling in the past 2 weeks. Complains of SOA. No chest pain but occasionally has some palpitations. No nausea or vomiting. Presently her SOA is better. She is no longer on eliquis due to prior GI bleed and prior epistaxis. She remains on ASA. No recent falls or injury. PAST MEDICAL HISTORY Cardiovascular: AFIB, CHF, HTN, Pulmonary hypertension Pulmonary: Pneumonia CENTRAL NERVOUS SYSTEM: Carpal Tunnel Syndrome GI: GI bleed Heme/Onc: Anemia NOS Musculoskeletal: Osteoarthritis ENT: Allergic Rhinitis Renal/: UTI Endocrine: Hypothyroidism PAST SURGICAL HISTORY Past Surgical History: Cataract Removal, Other (carpal tunnel surgery bilateral) FAMILY HISTORY Family History: Coronary Artery Disease SOCIAL HISTORY Smoke: Quit ALCOHOL: none Drugs: None Lives: Alone CURRENT MEDICATIONS CURRENT MEDICATIONS Current Medications Medications (Trade) Dose Ordered Sig/Farhan Route PRN Reason Start Time Stop Time Status Last Admin Dose Admin Furosemide (Lasix) 60 mg 1X ONCE IVP 04/23/21 03:45 04/23/21 03:46 DC 04/23/21 04:02 Vancomycin HCl (Vanco Per Pharmacy) 1 each PRN DAILY PRN MC SEE COMMENTS 04/23/21 04:15 04/23/21 06:37 Vancomycin HCl 1.25 gm/Sodium Chloride 250 ml @ 167 mls/hr ONCE ONCE IV 04/23/21 04:30 04/23/21 05:59 DC 04/23/21 05:07 Famotidine (Pepcid Vial) 20 mg 1X ONCE IVP 04/23/21 04:45 04/23/21 04:46 DC 04/23/21 04:39 Hydromorphone HCl (Dilaudid) 0.5 mg 1X ONCE IVP 04/23/21 04:45 04/23/21 04:46 DC 04/23/21 04:38 ALLERGIES ALLERGIES: Coded Allergies: clindamycin (Verified Allergy, Severe, THROAT CLOSING, 04/23/21) Penicillins (Verified Allergy, Intermediate, Hives, 04/23/21) erythromycin base (Verified Allergy, Intermediate, 04/23/21) latex (Verified Allergy, Intermediate, itching, broke out w/ hives, 04/23/21) metoprolol (Verified Allergy, Intermediate, 04/23/21) ROS Review of System 14 point ROS evaluated with pertinent positives noted per HPI PHYSICAL EXAM General: Alert, Oriented X3, Cooperative, No acute distress HEENT: Mucous membr. moist/pink Lungs: Other (basilar crackles) Heart: Other (AFIB, 3/6 systolic murmur to LLS border) Extremities: No cyanosis, Other (3+ bilateral LE pitting edema) Skin: No breakdown, No significant lesion Neuro: Normal speech, Sensation intact Psych/Mental Status: Mental status NL, Mood NL MUSCULOSKELETAL: Osteoarthritic changes both hands VITALS/I&O VITALS/I&O: Vital Signs Date Time Temp Pulse Resp B/P (MAP) Pulse Ox O2 Delivery O2 Flow Rate FiO2 04/23/21 06:35 97.6 71 20 123/68 (86) 94 Nasal Cannula 97.6 04/23/21 05:52 3.0 I & O 04/22/21 04/22/21 04/23/21 14:59 22:59 06:59 Output Total 200 ml Balance -200 ml LABS Lab: Laboratory Tests Test 04/23/21 02:00 04/23/21 05:50 White Blood Count 8.1 x10^3/uL (4.0-11.0) Red Blood Count 3.29 x10^6/uL (3.50-5.40) L Hemoglobin 8.8 g/dL (12.0-15.5) L Hematocrit 28.7 % (36.0-47.0) L Mean Corpuscular Volume 87 fL (79-100) Mean Corpuscular Hemoglobin 27 pg (25-35) Mean Corpuscular Hemoglobin Concent 31 g/dL (31-37) Red Cell Distribution Width 23.4 % (11.5-14.5) H Platelet Count 334 x10^3/uL (140-400) Neutrophils (%) (Auto) 78 % (31-73) H Lymphocytes (%) (Auto) 10 % (24-48) L Monocytes (%) (Auto) 9 % (0-9) Eosinophils (%) (Auto) 2 % (0-3) Basophils (%) (Auto) 1 % (0-3) Neutrophils # (Auto) 6.3 x10^3/uL (1.8-7.7) Lymphocytes # (Auto) 0.8 x10^3/uL (1.0-4.8) L Monocytes # (Auto) 0.7 x10^3/uL (0.0-1.1) Eosinophils # (Auto) 0.2 x10^3/uL (0.0-0.7) Basophils # (Auto) 0.1 x10^3/uL (0.0-0.2) Platelet Estimate Adequate (ADEQUATE) Giant Platelets Occ Polychromasia Slight Anisocytosis Mod Tear Drop Cells Occ Schistocytes Occ Sodium Level 136 mmol/L (136-145) Potassium Level 4.3 mmol/L (3.5-5.1) Chloride Level 99 mmol/L (98-107) Carbon Dioxide Level 25 mmol/L (21-32) Anion Gap 12 (6-14) Blood Urea Nitrogen 15 mg/dL (7-20) Creatinine 0.6 mg/dL (0.6-1.0) Estimated GFR (Cockcroft-Gault) 95.9 BUN/Creatinine Ratio 25 (6-20) H Glucose Level 99 mg/dL (70-99) Calcium Level 7.9 mg/dL (8.5-10.1) L Magnesium Level 2.4 mg/dL (1.8-2.4) Total Bilirubin 0.4 mg/dL (0.2-1.0) Aspartate Amino Transferase (AST) 36 U/L (15-37) Alanine Aminotransferase (ALT) 17 U/L (14-59) Alkaline Phosphatase 214 U/L (46-116) H Troponin I High Sensitivity 23 ng/L (4-50) 21 ng/L (4-50) UR-Txd-[id number]-Type Natriuretic Peptide 4140 pg/mL (0-449) H Total Protein 6.8 g/dL (6.4-8.2) Albumin 2.5 g/dL (3.4-5.0) L Albumin/Globulin Ratio 0.6 (1.0-1.7) L Lipase 160 U/L (73-393) Laboratory Tests 04/23/21 02:00 Laboratory Tests 04/23/21 02:00 ECHOCARDIOGRAM ECHOCARDIOGRAM <Conclusion> The left ventricular sytolic function is normal. The ejection fraction is 55%. There is normal LV segmental wall motion. The right ventricle is moderately dilated. Moderate biatrial dilation. Moderate tricuspid regurgitation. Estimated PAP 63-68 mmHg. There is no evidence of significant pericardial effusion. DATE: 03/02/21 [id number] ASSESSMENT/PLAN ASSESSMENT/PLAN 1. Persistent AFIB: rate controlled 2. Acute on chronic diastolic CHF 3. Hypertension: controlled 4. Hypothyroidism: on replacement 5. Rheumatoid arthritis: On phome methotrexate 6. COPD on home oxygen therapy 7. Chronic anemia: Hgb at 8.8 8. Severe pulmonary HTN Recommendations 1. Dig level 2. Lasix therapy 3. Restart home cardizem 4. ASA for stroke prevention. no longer on eliquis due to hx of GI bleed, anemia and epistaxis 5. LAAO referral HOME ALDANA APRN Apr 23, 2021 11:26
[2021-04-23 12:01] LABS: DIG 0.9 ng/mL (0.9-2.0)
[2021-04-23] MEDS ORDERED: diphenhydrAMINE 50 MG/ML VIAL IVP PRN (12:15)
[2021-04-23] MEDS ORDERED: diphenhydrAMINE HCL 25 MG CAPSULE PO PRN ×2 (12:15)
[2021-04-23] MEDS ORDERED: DEXTROSE 50% 25 GM / 50ML DISP.SYRIN. IV PRN (12:15)
[2021-04-23] MEDS ORDERED: PROCHLORPERAZINE 10 MG/2 ML VIAL. IV PRN (12:15)
[2021-04-23] MEDS ORDERED: ONDANSETRON PF 4 MG/2 ML VIAL. IVP PRN (12:15)
[2021-04-23] MEDS ORDERED: SENNOSIDES 8.6 MG TABLET PO PRN (12:15)
[2021-04-23] MEDS ORDERED: DOCUSATE SODIUM 100 MG CAPSULE. PO PRN (12:15)
[2021-04-23] MEDS ORDERED: ACETAMINOPHEN 325 MG TABLET. PO PRN (12:15)
[2021-04-23] MEDS ORDERED: LORazepam 0.5 MG TABLET PO PRN (12:15)
[2021-04-23] MEDS ORDERED: ZOLPIDEM 5 MG TABLET. PO PRN (12:15)
[2021-04-23] MEDS: ASPIRIN ENTERIC COATED 81 MG TABLET.DR. PO SCH (12:30)
[2021-04-23] MEDS: DIGOXIN 125 MCG TABLET. PO SCH (14:42)
[2021-04-23] MEDS: FOLIC ACID 1 MG TABLET. PO SCH (14:42)
[2021-04-23] MEDS: CYANOCOBALAMIN (VITAMIN B-12) 1,000 MCG TABLET. PO SCH (14:42)
[2021-04-23] MEDS: LEVOTHYROXINE 75 MCG TABLET PO SCH (14:42)
[2021-04-23] MEDS: CITALOPRAM 10 MG TABLET. PO SCH (14:42)
[2021-04-23] MEDS: ENOXAPARIN 40 MG/0.4 ML SYRINGE. SQ SCH (14:43)
[2021-04-23 15:00] VITALS: BP 175/64
[2021-04-23 19:00] VITALS: BP 134/62
[2021-04-23] MEDS: VANCOMYCIN 1 GM in IV NORMAL SALINE 250ML 250 ML IV SCH (22:24)
[2021-04-23 23:00] VITALS: BP 114/61
[2021-04-24 03:00] VITALS: BP 108/58
[2021-04-24 06:57] LABS: BASO # 0.1 x10^3/uL (0.0-0.2); BASO % 1 % (0-3); EOS # 0.2 x10^3/uL (0.0-0.7); EOS % 2 % (0-3); HEMATOCRIT 30.8 % (36.0-47.0); HEMOGLOBIN 9.4 g/dL (12.0-15.5); LYMPH # 0.9 x10^3/uL (1.0-4.8); LYMPH % 10 % (24-48); MEAN CORPUSCULAR HEMOGLOBIN 27 pg (25-35); MEAN CORPUSCULAR HGB CONC 30 g/dL (31-37); MEAN CORPUSCULAR VOLUME 88 fL (79-100); MONO # 0.6 x10^3/uL (0.0-1.1); MONO % 7 % (0-9); NEUT # 7.1 x10^3/uL (1.8-7.7); NEUT % 80 % (31-73); PLATELET COUNT 328 x10^3/uL (140-400); RED CELL DISTRIBUTION WIDTH 23.4 % (11.5-14.5); WHITE BLOOD COUNT 8.9 x10^3/uL (4.0-11.0)
[2021-04-24 07:00] VITALS: BP 116/78
[2021-04-24 07:11] LABS: CALCIUM 8.1 mg/dL (8.5-10.1); CREATININE 0.7 mg/dL (0.6-1.0); GFR 80.3; MAGNESIUM 2.3 mg/dL (1.8-2.4); POTASSIUM 3.7 mmol/L (3.5-5.1)
[2021-04-24] MEDS: FUROSEMIDE 40 MG/4 ML VIAL. IVP SCH (08:21)
[2021-04-24] MEDS: CITALOPRAM 10 MG TABLET. PO SCH (08:22)
[2021-04-24] MEDS: LEVOTHYROXINE 75 MCG TABLET PO SCH (08:22)
[2021-04-24] MEDS: FOLIC ACID 1 MG TABLET. PO SCH (08:22)
[2021-04-24] MEDS: DIGOXIN 125 MCG TABLET. PO SCH (08:22)
[2021-04-24] MEDS: ASPIRIN ENTERIC COATED 81 MG TABLET.DR. PO SCH (08:22)
[2021-04-24 11:00] VITALS: BP 108/61
--- NOTE | 2021-04-24 11:06 | PDOC ---
CARDIO Progress Notes Date and Time Date of Service 04/24/2021 Time of Evaluation 1100 Subjective Subjective: No Chest Pain, No shortness of breath, No Palpitations Vitals Vitals Vital Signs Date Time Temp Pulse Resp B/P (MAP) Pulse Ox O2 Delivery O2 Flow Rate FiO2 04/24/21 08:25 68 116/68 04/24/21 08:00 Nasal Cannula 4.0 04/24/21 07:00 97.9 18 92 97.9 Weight Weight [ ] Input and Output Intake and Output Intake and Output 04/24/21 06:59 Intake Total 610 ml Output Total 700 ml Balance -90 ml Intake Oral 360 ml IV Total 250 ml Output Urine Total 700 ml # Voids 4 # Bowel Movements 5 Laboratory Labs Laboratory Tests Test 04/24/21 05:15 White Blood Count 8.9 x10^3/uL (4.0-11.0) Red Blood Count 3.50 x10^6/uL (3.50-5.40) Hemoglobin 9.4 g/dL (12.0-15.5) Hematocrit 30.8 % (36.0-47.0) Mean Corpuscular Volume 88 fL (79-100) Mean Corpuscular Hemoglobin 27 pg (25-35) Mean Corpuscular Hemoglobin Concent 30 g/dL (31-37) Red Cell Distribution Width 23.4 % (11.5-14.5) Platelet Count 328 x10^3/uL (140-400) Neutrophils (%) (Auto) 80 % (31-73) Lymphocytes (%) (Auto) 10 % (24-48) Monocytes (%) (Auto) 7 % (0-9) Eosinophils (%) (Auto) 2 % (0-3) Basophils (%) (Auto) 1 % (0-3) Neutrophils # (Auto) 7.1 x10^3/uL (1.8-7.7) Lymphocytes # (Auto) 0.9 x10^3/uL (1.0-4.8) Monocytes # (Auto) 0.6 x10^3/uL (0.0-1.1) Eosinophils # (Auto) 0.2 x10^3/uL (0.0-0.7) Basophils # (Auto) 0.1 x10^3/uL (0.0-0.2) Sodium Level 137 mmol/L (136-145) Potassium Level 3.7 mmol/L (3.5-5.1) Chloride Level 101 mmol/L (98-107) Carbon Dioxide Level 24 mmol/L (21-32) Anion Gap 12 (6-14) Blood Urea Nitrogen 11 mg/dL (7-20) Creatinine 0.7 mg/dL (0.6-1.0) Estimated GFR (Cockcroft-Gault) 80.3 Glucose Level 82 mg/dL (70-99) Calcium Level 8.1 mg/dL (8.5-10.1) Phosphorus Level 3.2 mg/dL (2.6-4.7) Magnesium Level 2.3 mg/dL (1.8-2.4) Physical Exam HEENT: Neck Supple W Full Motion Chest: Symmetric LUNGS: Other (diminished bases) Heart: irregularly irregular (AFIB) Abdomen: Soft N/T Extremities: Other (2+ bilateral LE pitting edema) Neurology: alert, oriented, follow commands Assessment Assessment 1. Persistent AFIB: rate controlled 2. Acute on chronic diastolic CHF: appears compensated 3. Hypertension: controlled 4. Hypothyroidism: on replacement 5. Rheumatoid arthritis: On phome methotrexate 6. COPD on home oxygen therapy 7. Chronic anemia: Hgb at 9.4 8. Severe pulmonary HTN Recommendations 1. Continue cardizem and digoxin for rate control 2. Lasix therapy 3. ASA for stroke prevention. no longer on eliquis due to hx of GI bleed, anemia and epistaxis 4. LAAO referral Justicifation of Admission Dx: Justifications for Admission: Justification of Admission Dx: Yes CHF: Cardiac Arrhythmias HOME ALDANA APRN Apr 24, 2021 11:05
[2021-04-24] MEDS: ENOXAPARIN 40 MG/0.4 ML SYRINGE. SQ SCH (13:35)
--- NOTE | 2021-04-24 14:42 | PDOC ---
[employer] PROGRESS NOTE Date of Service DOS: DATE: 04/24/21 TIME: 14:39 Chief Complaint Chief Complaint Assessment/Plan Acute hypoxic respiratory failure Acute on chronic diastolic heart failure Paroxysmal atrial fibrillation Recent treatment for UTI Concern for cellulitis in the lower extremities Hypertension Hypothyroidism: Continue levothyroxine Rheumatoid arthritis: On methotrexate COPD on home oxygen therapy. Clinically stable. Hyponatremia, generalized weakness, failure to thrive: Admit to hospitalist service for further management O2 supplementation to maintain O2 saturations greater than 90% Lasix IV diuresis as needed Pending digoxin levels Continue telemetry monitoring Cardiology consult Resume home cardiac medications Wound consult Continue empiric IV antibiotics Lovenox for DVT prophylaxis ADA/cardiac diet CODE STATUS full Discussed with RN and SW Disposition inpatient management as above DPOA: Daughter History of Present Illness History of Present Illness 80-year-old female with past medical history of atrial fibrillation, CHF diastolic, hypothyroidism, hypertension, GERD and osteoarthritis who presents to the ED with complaints of her stomach feeling hot and some difficulty breathing. She also complains mainly of bilateral lower extremity swelling without she has worsened in the past 2 weeks. She does take Lasix daily. She also endorses loose bowel movements. She actually has been taking antibiotics for UTI. Patient does not remember the name of the antibiotic. Denies any fevers, constipation, melena, hematemesis, bloody stools, palpitations or syncope. 04/24/2021 No acute events overnight. Patient seen examined bedside. Still having some pain in her lower extremities. Pending wound care evaluation. Continue with diuresis with cardiology. Patient's chart, labs, images were reviewed and discussed with RN Vitals/I&O Vitals/I&O: Vital Signs Date Time Temp Pulse Resp B/P (MAP) Pulse Ox O2 Delivery O2 Flow Rate FiO2 04/24/21 11:00 98.0 73 18 108/61 (77) 93 Nasal Cannula 4.0 98.0 I & O 04/23/21 04/23/21 04/24/21 15:00 23:00 07:00 Intake Total 360 ml 250 ml Output Total 300 ml 400 ml Balance 60 ml -150 ml Physical Exam General: Alert, Oriented X3, Cooperative, No acute distress Heart: Other (AFIB, 3/6 systolic murmur to LLS border) Lungs: Clear, Crackles Extremities: No cyanosis, Other (3+ bilateral LE pitting edema) Skin: No breakdown, No significant lesion Labs Labs: Laboratory Tests Test 04/24/21 05:15 White Blood Count 8.9 x10^3/uL (4.0-11.0) Red Blood Count 3.50 x10^6/uL (3.50-5.40) Hemoglobin 9.4 g/dL (12.0-15.5) Hematocrit 30.8 % (36.0-47.0) Mean Corpuscular Volume 88 fL (79-100) Mean Corpuscular Hemoglobin 27 pg (25-35) Mean Corpuscular Hemoglobin Concent 30 g/dL (31-37) Red Cell Distribution Width 23.4 % (11.5-14.5) Platelet Count 328 x10^3/uL (140-400) Neutrophils (%) (Auto) 80 % (31-73) Lymphocytes (%) (Auto) 10 % (24-48) Monocytes (%) (Auto) 7 % (0-9) Eosinophils (%) (Auto) 2 % (0-3) Basophils (%) (Auto) 1 % (0-3) Neutrophils # (Auto) 7.1 x10^3/uL (1.8-7.7) Lymphocytes # (Auto) 0.9 x10^3/uL (1.0-4.8) Monocytes # (Auto) 0.6 x10^3/uL (0.0-1.1) Eosinophils # (Auto) 0.2 x10^3/uL (0.0-0.7) Basophils # (Auto) 0.1 x10^3/uL (0.0-0.2) Sodium Level 137 mmol/L (136-145) Potassium Level 3.7 mmol/L (3.5-5.1) Chloride Level 101 mmol/L (98-107) Carbon Dioxide Level 24 mmol/L (21-32) Anion Gap 12 (6-14) Blood Urea Nitrogen 11 mg/dL (7-20) Creatinine 0.7 mg/dL (0.6-1.0) Estimated GFR (Cockcroft-Gault) 80.3 Glucose Level 82 mg/dL (70-99) Calcium Level 8.1 mg/dL (8.5-10.1) Phosphorus Level 3.2 mg/dL (2.6-4.7) Magnesium Level 2.3 mg/dL (1.8-2.4) Assessment and Plan Assessmemt and Plan Problems Medical Problems: (1) Acute exacerbation of CHF (congestive heart failure) Status: Acute (2) Bilateral cellulitis of lower leg Status: Acute (3) Normocytic anemia Status: Acute Comment Review of Relevant I have reviewed the following items messi (where applicable) has been applied. Medications: Current Medications Medications (Trade) Dose Ordered Sig/Farhan Route PRN Reason Start Time Stop Time Status Last Admin Dose Admin Vancomycin HCl 1 gm/Sodium Chloride 250 ml @ 250 mls/hr Q18H IV 04/23/21 23:00 04/23/21 22:24 Furosemide (Lasix) 40 mg DAILY IVP 04/24/21 09:00 04/24/21 08:21 Justifications for Admission Other Justification Failure to thrive OSMANI GOMEZ MD Apr 24, 2021 14:42
[2021-04-24 15:00] VITALS: BP 130/65
--- NOTE | 2021-04-24 15:21 | NUR ---
Wound Care Wound Type/Assessment: 80y/o female seen for Wound Consult. Patient is awake and alert. Patient states history of CHF with increase in bilateral leg edema and lower leg pain over the past week. Upon exam both lower extremities are warm and dry with dry flakey skin bilaterally. Legs are not erythematous nor show active signs of cellulitis. Small amount of Grade 1 edema noted primarily in area around knees and thighs. No significant edema present in either lower legs or feet. Patient complains of no pain at this time. No active wounds present. Pedal pulses, posterior tibial pulses are present bilaterally by hand held Doppler. Venous Doppler study was negative for DVT. Treatment Recommendations/Plan: Recommend elevation of both extremities when seated. Continued evaluation by Cardiology for treatment of her exacerbation of CHF. Education provided: Explained to patient the importance of elevation when lower legs become edematous. Offloading surface/device: None Recommended Referrals/Tests: None Discharge Recommendations for dressings: None needed at this time.
[2021-04-24] MEDS: VANCOMYCIN 1 GM in IV NORMAL SALINE 250ML 250 ML IV SCH (16:31)
[2021-04-24 19:00] VITALS: BP 118/65
[2021-04-24 23:00] VITALS: BP 115/43
[2021-04-25 03:00] VITALS: BP 107/53
[2021-04-25 07:00] VITALS: BP 124/48
[2021-04-25] MEDS: CYANOCOBALAMIN (VITAMIN B-12) 1,000 MCG TABLET. PO SCH (09:01)
[2021-04-25] MEDS: ASPIRIN ENTERIC COATED 81 MG TABLET.DR. PO SCH (09:01)
[2021-04-25] MEDS: LEVOTHYROXINE 75 MCG TABLET PO SCH (09:02)
[2021-04-25] MEDS: CITALOPRAM 10 MG TABLET. PO SCH (09:05)
[2021-04-25] MEDS: DIGOXIN 125 MCG TABLET. PO SCH (09:06)
[2021-04-25] MEDS: FOLIC ACID 1 MG TABLET. PO SCH (09:06)
[2021-04-25] MEDS: FUROSEMIDE 40 MG/4 ML VIAL. IVP SCH (09:07)
--- NOTE | 2021-04-25 09:41 | PDOC ---
PROGRESS NOTES Date of Service: DATE: 04/25/21 TIME: 09:41 Subjective Subjective No new complaints Objective Objective Vital Signs Date Time Temp Pulse Resp B/P (MAP) Pulse Ox O2 Delivery O2 Flow Rate FiO2 04/25/21 09:06 65 124/48 04/25/21 07:00 97.8 20 97 Nasal Cannula 4.0 97.8 Intake and Output 04/25/21 07:00 Intake Total 120 ml Balance 120 ml Intake Oral 120 ml # Voids 6 # Bowel Movements 2 Physical Exam Heart: Other (AFIB, 3/6 systolic murmur to LLS border) Extremities: No cyanosis, Other (3+ bilateral LE pitting edema) General: Alert, Oriented X3, Cooperative, No acute distress HEENT: Mucous membr. moist/pink Lungs: Other (basilar crackles) MUSCULOSKELETAL: Osteoarthritic changes both hands Neuro: Normal speech, Sensation intact Psych/Mental Status: Mental status NL, Mood NL Skin: No breakdown, No significant lesion Assessment Assessment 1. Persistent AFIB: rate controlled 2. Acute on chronic diastolic CHF: appears compensated 3. Hypertension: controlled 4. Hypothyroidism: on replacement 5. Rheumatoid arthritis: On phome methotrexate 6. COPD on home oxygen therapy 7. Chronic anemia: Hgb at 9.4 8. Severe pulmonary HTN Recommendations 1. Continue cardizem and digoxin for rate control 2. Lasix therapy 3. ASA for stroke prevention. no longer on eliquis due to hx of GI bleed, anemia and epistaxis 4. LAAO referral as an outpatient Plan Plan of Care Problems Medical Problems: (1) Acute exacerbation of CHF (congestive heart failure) Status: Acute (2) Bilateral cellulitis of lower leg Status: Acute (3) Normocytic anemia Status: Acute Comment Review of Relevant I have reviewed the following items messi (where applicable) has been applied. Medications Current Medications Vancomycin HCl (Vancomycin Trough Level) 1 each 1X ONCE MC ; Start 04/24/21 at 16:30; Stop 04/24/21 at 16:31; Status DC Vancomycin HCl (Vancomycin Trough Level) 1 each 1X ONCE MC ; Start 04/25/21 at 10:30; Stop 04/25/21 at 10:31 Vitals/I & O Vital Sign - Last 24 Hours 04/24/21 04/24/21 04/24/21 04/24/21 11:00 15:00 19:00 20:00 Temp 98.0 97.7 97.8 98.0 97.7 97.8 Pulse 73 74 61 Resp 18 18 18 B/P (MAP) 108/61 (77) 130/65 (86) 118/65 (82) Pulse Ox 93 95 95 O2 Delivery Nasal Cannula Nasal Cannula Nasal Cannula Nasal Cannula O2 Flow Rate 4.0 4.0 4.0 4.0 04/24/21 04/25/21 04/25/21 04/25/21 23:00 03:00 07:00 09:06 Temp 98.1 97.7 97.8 98.1 97.7 97.8 Pulse 68 50 65 65 Resp 20 18 20 B/P (MAP) 115/43 (67) 107/53 (71) 124/48 (73) 124/48 Pulse Ox 98 97 97 O2 Delivery Nasal Cannula Nasal Cannula Nasal Cannula O2 Flow Rate 4.0 4.0 4.0 04/25/21 09:06 Pulse 65 B/P (MAP) 124/48 Intake and Output 04/24/21 04/24/21 04/25/21 15:00 23:00 07:00 Intake Total 120 ml Balance 120 ml SHAYE DELANEY MD Apr 25, 2021 09:41
[2021-04-25] MEDS ORDERED: DOXYCYCLINE HYCLATE 100 MG TABLET PO SCH (10:00)
[2021-04-25 11:00] VITALS: BP 116/69
[2021-04-25 12:00] LABS: BASO # 0.1 x10^3/uL (0.0-0.2); BASO % 1 % (0-3); EOS # 0.1 x10^3/uL (0.0-0.7); EOS % 2 % (0-3); HEMATOCRIT 31.6 % (36.0-47.0); HEMOGLOBIN 9.9 g/dL (12.0-15.5); LYMPH # 0.6 x10^3/uL (1.0-4.8); LYMPH % 8 % (24-48); MEAN CORPUSCULAR HEMOGLOBIN 27 pg (25-35); MEAN CORPUSCULAR HGB CONC 31 g/dL (31-37); MEAN CORPUSCULAR VOLUME 86 fL (79-100); MONO # 0.4 x10^3/uL (0.0-1.1); MONO % 5 % (0-9); NEUT % 85 % (31-73); PLATELET COUNT 352 x10^3/uL (140-400); RED BLOOD COUNT 3.68 x10^6/uL (3.50-5.40); RED CELL DISTRIBUTION WIDTH 23.3 % (11.5-14.5); WHITE BLOOD COUNT 8.2 x10^3/uL (4.0-11.0)
[2021-04-25] MEDS ORDERED: ASPI-886 PO (12:02)
[2021-04-25] MEDS ORDERED: DOXY100T PO (12:02)
--- NOTE | 2021-04-25 12:07 | DISCH ---
DISCHARGE INSTRUCTIONS Condition on Discharge Condition on Discharge: Stable Activity After Discharge Activity Instructions for Disc: No restrictions, Activity as tolerated Bathing Instructions: Shower-keep dressing dry, No Tub Bath until see Lifting Instructions after Dis: No heavy lifting, No pulling or pushing, Do not lift >10 pounds Weight Bearing Status after Di: No restrictions Diet after Discharge Diet after Discharge: Regular Diet Texture: Regular Liquid Texture: Thin Liquid Swallowing Supervision: None needed Wound Incision Care Wound/Incision Care: Ice to area for comfort, Keep wound/cast CDI, Change dressing Wound Care Equipment: Dressings Checks after Discharge Checks after discharge: Check blood press - daily, Weigh Yourself Daily Contacting the DRKranthi after DC Call your doctor for: Concerns you may have Follow-Up Follow up with: PCP within 2 weeks of discharge Follow Up With: Cardiology as needed or as scheduled Treatment/Equipment after DC Adaptive Equipment Issued: None Discharge Respiratory Equipmen: Oxygen OSMANI GOMEZ MD Apr 25, 2021 12:07
[2021-04-25 12:14] LABS: VANC TR 14.7 mcg/mL (10.0-20.0)
[2021-04-25] MEDS: ENOXAPARIN 40 MG/0.4 ML SYRINGE. SQ SCH (13:06)
[2021-04-25 15:01] LABS: CREATININE 0.6 mg/dL (0.6-1.0); GFR 95.9
== END 2021-04-25 15:20 | disposition home or self-care (01) | DRG 291 ==
LOC: ER 00:01 → 5 NORTH 04:08
PROVIDERS: ADMIT Internal Medicine; ATTEND Internal Medicine
DX: I11.0 Hypertensive heart disease with heart failure (principal); I50.33 Acute on chronic diastolic (congestive) heart failure; J96.01 Acute respiratory failure with hypoxia; L03.115 Cellulitis of right lower limb; E87.1 Hypo-osmolality and hyponatremia; I48.19 Other persistent atrial fibrillation; N39.0 Urinary tract infection, site not specified; L03.116 Cellulitis of left lower limb; D64.9 Anemia, unspecified; E03.9 Hypothyroidism, unspecified; I27.20 Pulmonary hypertension, unspecified; J44.9 Chronic obstructive pulmonary disease, unspecified; M06.9 Rheumatoid arthritis, unspecified; R62.7 Adult failure to thrive; Z79.82 Long term (current) use of aspirin; Z79.899 Other long term (current) drug therapy; Z82.49 Family history of ischemic heart disease and other diseases of the circulatory system; Z99.81 Dependence on supplemental oxygen; K21.9 Gastro-esophageal reflux disease without esophagitis; M19.90 Unspecified osteoarthritis, unspecified site; Z88.0 Allergy status to penicillin; Z88.8 Allergy status to other drugs, medicaments and biological substances; Z91.040 Latex allergy status
CPT/HCPCS: 36415; 71045; 80048; 80053; 80162; 80202; 82565; 83690; 83735; 83880; 84100; 84484; 85025; 93005; 93970; 96365; 96375; J1170; J1650; J1940; J3370; J3490; J7050; 97110-GP; 97116-GP; 97535-GO; 99285-25; G0378; J7030

== ENCOUNTER 2021-06-03 14:03 | Inpatient (IN) | payer MEDICARE ==
[~2021-06-03] VITALS: Ht 154.9 cm; Wt 70.2 kg
[~2021-06-03 14:03] MED LIST changes: +ASPI-886 PO; +DOXY100T PO
[2021-06-03 15:01] LABS: BASE EXCESS ABG 2 mmol/L (-3-3); HCO3 ABG 25 mmol/L (21-28); PCO2 ABG 32 mmHg (35-46); PO2 ABG 79 mmHg (65-108); SAT O2 ABG 95 % (92-99)
--- NOTE | 2021-06-03 15:12 | RAD ---
XR CHEST 1V History: Short of breath Comparison: 04/23/2021, 04/15/2021 Technique: Portable AP radiograph of the chest. Findings: There is marked cardiomegaly similar to comparisons. Calcified aorta. Small bilateral effusions with diffuse interstitial opacities. No pneumothorax. Osseous structures and soft tissues are unremarkable . Impression: 1. Cardiomegaly with small bilateral effusions and diffuse interstitial opacities most consistent wi th interstitial edema. No Electronically signed by: Yoel Tse MD (06/03/2021 3:10 PM) [id number]
[2021-06-03 15:33] LABS: INFLUENZA B PATIENT NEGATIVE (NEGATIVE)
[2021-06-03 15:34] LABS: INFLUENZA A PATIENT POSITIVE (NEGATIVE)
[2021-06-03 18:40] LABS: BASO % 0 % (0-3); EOS # 0.2 x10^3/uL (0.0-0.7); EOS % 2 % (0-3); HEMATOCRIT 29.4 % (36.0-47.0); HEMOGLOBIN 9.2 g/dL (12.0-15.5); LYMPH # 0.9 x10^3/uL (1.0-4.8); LYMPH % 10 % (24-48); MEAN CORPUSCULAR HEMOGLOBIN 28 pg (25-35); MEAN CORPUSCULAR HGB CONC 31 g/dL (31-37); MEAN CORPUSCULAR VOLUME 90 fL (79-100); MONO # 0.6 x10^3/uL (0.0-1.1); MONO % 7 % (0-9); NEUT # 7.4 x10^3/uL (1.8-7.7); NEUT % 81 % (31-73); PLATELET COUNT 234 x10^3/uL (140-400); RED BLOOD COUNT 3.26 x10^6/uL (3.50-5.40); RED CELL DISTRIBUTION WIDTH 21.2 % (11.5-14.5); WHITE BLOOD COUNT 9.1 x10^3/uL (4.0-11.0)
[2021-06-03 19:05] LABS: AMORPHOUS SEDIMENT,UR PRESENT /HPF; HYALINE CASTS, URINE MODERATE /HPF
[2021-06-03 19:06] LABS: BACTERIA,URINE 0 /HPF (0-FEW); RBC,URINE 0 /HPF (0-2); WBC,URINE 0 /HPF (0-4)
[2021-06-03 19:13] LABS: CALCIUM 8.4 mg/dL (8.5-10.1); CREATININE 0.7 mg/dL (0.6-1.0); GFR 80.3; POTASSIUM 3.9 mmol/L (3.5-5.1)
[2021-06-03 19:20] LABS: ALBUMIN 2.5 g/dL (3.4-5.0); ALBUMIN/GLOBULIN RATIO 0.5 (1.0-1.7); TOTAL BILIRUBIN 0.6 mg/dL (0.2-1.0); TOTAL PROTEIN 7.1 g/dL (6.4-8.2)
[2021-06-03 19:27] LABS: ANISOCYTOSIS MOD; PLT ESTIMATE ADEQUATE (ADEQUATE)
[2021-06-03 19:28] LABS: POIKILOCYTOSIS SLIGHT; POLYCHROMASIA SLIGHT
[2021-06-03 19:29] LABS: OVALOCYTES FEW
[2021-06-03] MEDS ORDERED: cefTRIAXone IV Push 1 GM VIAL. IVP ONE (19:30)
--- NOTE | 2021-06-03 19:53 | PHYS DOC ---
Past Medical History Past Medical History: Anemia, CHF, COPD, GERD, Hypertension, Hypothyroid Additional Past Medical Histor: "leaky heart valve", O2 dependant Past Surgical History: Other Additional Past Surgical Histo: cataract, ear Smoking Status: Former Smoker Alcohol Use: None Drug Use: None General Adult EDM: Chief Complaint: SHORTNESS OF BREATH HPI: HPI: Patient is a 80-year-old female who presents to the emergency department complaining of increased shortness of breath over the past 2 days. Patient states she called 911 to have her transported to the emergency department. Patient denies chest pain or chest palpitations, denies chest or nasal congestion. Does report increased shortness of breath with exertion. Denies dizziness, syncopal or near syncopal episodes, denies nausea, vomiting, diarrhea. Patient denies other physical complaints or physical concerns. Patient does have a past medical history of anemia, congestive heart failure, COPD, GERD, hypertension, hypothyroid, O2 dependent on 3 L per nasal cannula at all times, atrial fibrillation, osteoarthritis, lower extremity venous stasis. Review of Systems: Review of Systems: 14 body systems of review of systems have been reviewed. See HPI for pertinent positives and negative responses, otherwise all other systems are negative, nonpertinent or noncontributory. Constitutional: Negative except as outlined in HPI above. Skin: Negative except as outlined in HPI above. Eyes: Negative except as outlined in HPI above. HENT: Negative except as outlined in HPI above. Respiratory: Negative except as outlined in HPI above. Cardiovascular: Negative except as outlined in HPI above. GI: Negative except as outlined in HPI above. : Negative except as outlined in HPI above. Musculoskeletal: Negative except as outlined in HPI above. Integument: Negative except as outlined in HPI above. Neurologic: Negative except as outlined in HPI above. Endocrine: Negative except as outlined in HPI above. Lymphatic: Negative except as outlined in HPI above. Psychiatric: Negative except as outlined in HPI above. Heart Score: C/O Chest Pain: No Risk Factors: Risk Factors: DM, Current or recent (<one month) smoker, HTN, HLP, family history of CAD, obesity. Risk Scores: Score 0 - 3: 2.5% MACE over next 6 weeks - Discharge Home Score 4 - 6: 20.3% MACE over next 6 weeks - Admit for Clinical Observation Score 7 - 10: 72.7% MACE over next 6 weeks - Early Invasive Strategies Current Medications: Current Medications Medications (Trade) Dose Ordered Sig/Farhan Start Time Stop Time Status Last Admin Dose Admin Ceftriaxone Sodium (Rocephin) 1 gm 1X ONCE 06/03/21 19:30 06/03/21 19:31 DC Allergies: Allergies: Allergies Coded Allergies Type Severity Reaction Last Updated Verified clindamycin Allergy Severe THROAT CLOSING 04/23/21 Yes Penicillins Allergy Intermediate Hives 04/23/21 Yes erythromycin base Allergy Intermediate 04/23/21 Yes latex Allergy Intermediate itching, broke out w/ hives 04/23/21 Yes metoprolol Allergy Intermediate 04/23/21 Yes Physical Exam: PE: Constitutional: Well developed, well nourished, no acute distress, non-toxic appearance. 80-year-old female in no apparent distress. Patient is currently on 4 L per nasal cannula, O2 saturation 94%. HENT: Normocephalic, atraumatic. Oropharynx moist, pink, no deep tissue infectious process appreciated, bilateral TMs intact and within normal limits, no lymphadenopathy of the head or neck appreciated. Eyes: Conjunctiva normal, no discharge. No scleral icterus. Neck: Normal range of motion, no stridor. No meningismus signs, no nuchal rigidity. Cardiovascular: No cyanosis appreciated, distal cap refill less than 2 seconds. Irregular heart rhythm per auscultation, there is a controlled rate atrial fibrillation on bedside shelter monitor. Lungs & Thorax: Patient is in no respiratory distress, no audible adventitious lung sounds appreciated. Diminished lung sounds bilateral bases per auscultation. Normal work of breathing, no accessory muscle use appreciated. Abdomen: Nontender, no abnormalities noted. Skin: Warm, dry, no erythema, no rash. Back: No tenderness, no deformities. Extremities: No tenderness, no cyanosis, no clubbing, ROM intact, no edema. Except for bilateral lower extremities, erythematous and warm to touch from mid calf down to ankles, dried crusted alligator type skin over erythematous areas, there is no skin weeping, there is no edema appreciated Neurologic: Alert and oriented X 3, normal motor function, normal sensory function, no focal deficits noted. Psychologic: Affect normal, judgement normal, mood normal. Current Patient Data: Labs: Laboratory Tests Test 06/03/21 14:50 06/03/21 14:53 06/03/21 18:00 06/03/21 18:40 O2 Saturation 95 % (92-99) Arterial Blood pH 7.50 (7.35-7.45) H Arterial Blood pCO2 at Patient Temp 32 mmHg (35-46) L Arterial Blood pO2 at Patient Temp 79 mmHg (65-108) Arterial Blood HCO3 25 mmol/L (21-28) Arterial Blood Base Excess 2 mmol/L (-3-3) FiO2 4 lpm nc Influenza Type A Antigen Positive (NEGATIVE) Influenza Type B Antigen Negative (NEGATIVE) SARS-CoV-2 Antigen (Rapid) Positive (NEGATIVE) *A White Blood Count 9.1 x10^3/uL (4.0-11.0) Red Blood Count 3.26 x10^6/uL (3.50-5.40) L Hemoglobin 9.2 g/dL (12.0-15.5) L Hematocrit 29.4 % (36.0-47.0) L Mean Corpuscular Volume 90 fL (79-100) Mean Corpuscular Hemoglobin 28 pg (25-35) Mean Corpuscular Hemoglobin Concent 31 g/dL (31-37) Red Cell Distribution Width 21.2 % (11.5-14.5) H Platelet Count 234 x10^3/uL (140-400) Neutrophils (%) (Auto) 81 % (31-73) H Lymphocytes (%) (Auto) 10 % (24-48) L Monocytes (%) (Auto) 7 % (0-9) Eosinophils (%) (Auto) 2 % (0-3) Basophils (%) (Auto) 0 % (0-3) Neutrophils # (Auto) 7.4 x10^3/uL (1.8-7.7) Lymphocytes # (Auto) 0.9 x10^3/uL (1.0-4.8) L Monocytes # (Auto) 0.6 x10^3/uL (0.0-1.1) Eosinophils # (Auto) 0.2 x10^3/uL (0.0-0.7) Basophils # (Auto) 0.0 x10^3/uL (0.0-0.2) Platelet Estimate Adequate (ADEQUATE) Polychromasia Slight Poikilocytosis Slight Anisocytosis Mod Ovalocytes Few Sodium Level 134 mmol/L (136-145) L Potassium Level 3.9 mmol/L (3.5-5.1) Chloride Level 101 mmol/L (98-107) Carbon Dioxide Level 23 mmol/L (21-32) Anion Gap 10 (6-14) Blood Urea Nitrogen 14 mg/dL (7-20) Creatinine 0.7 mg/dL (0.6-1.0) Estimated GFR (Cockcroft-Gault) 80.3 BUN/Creatinine Ratio 20 (6-20) Glucose Level 94 mg/dL (70-99) Calcium Level 8.4 mg/dL (8.5-10.1) L Magnesium Level 2.0 mg/dL (1.8-2.4) Total Bilirubin 0.6 mg/dL (0.2-1.0) Aspartate Amino Transferase (AST) 29 U/L (15-37) Alanine Aminotransferase (ALT) 9 U/L (14-59) L Alkaline Phosphatase 228 U/L (46-116) H Troponin I High Sensitivity 34 ng/L (4-50) Total Protein 7.1 g/dL (6.4-8.2) Albumin 2.5 g/dL (3.4-5.0) L Albumin/Globulin Ratio 0.5 (1.0-1.7) L UY-Eat-B-Type Natriuretic Peptide 4876 pg/mL (0-449) H Test 06/03/21 18:43 Urine Collection Type U cath Urine Color (Auto) Light yellow Urine Turbidity Clear Urine pH (Auto) 6.5 (<5.0-8.0) Urine Specific [place] 1.012 (1.000-1.030) Urine Protein (Auto) Negative mg/dL (Negative) Urine Glucose (Auto)(UA) Negative mg/dL (Negative) Urine Ketones (Auto) Negative mg/dL (Negative) Urine Blood (Auto) Negative (Negative) Urine Nitrite Negative (Negative) Urine Bilirubin (Auto) Negative (Negative) Urine Urobilinogen (Auto) Normal mg/dL (Normal) Urine Leukocyte Esterase (Auto) Negative (Negative) Urine RBC 0 /HPF (0-2) Urine WBC 0 /HPF (0-4) Urine Transitional Epithelial Cells Occ /LPF Urine Amorphous Sediment Present /HPF Urine Bacteria 0 /HPF (0-FEW) Urine Hyaline Casts Moderate /HPF Urine Mucus Marked /LPF Laboratory Tests 06/03/21 18:00 Laboratory Tests 06/03/21 18:00 Vital Signs: Vital Signs Date Time Temp Pulse Resp B/P (MAP) Pulse Ox O2 Delivery O2 Flow Rate FiO2 06/03/21 18:42 66 123/62 (82) 100 Nasal Cannula 4.0 06/03/21 14:03 97.8 24 97.8 EKG: EKG: EKG performed at 1430 by ED nursing staff shows a controlled atrial fibrillation rate of 63 bpm, QTc interval 0.470, no acute STEMI, no ACS, no acute ischemia appreciated, EKG interpreted by ED attending physician Dr. Grande. Radiology/Procedures: Radiology/Procedures: REASON: Short of breath PROCEDURE: CHEST AP ONLY XR CHEST 1V History: Short of breath Comparison: 04/23/2021, 04/15/2021 Technique: Portable AP radiograph of the chest. Findings: There is marked cardiomegaly similar to comparisons. Calcified aorta. Small bilateral effusions with diffuse interstitial opacities. No pneumothorax. Osseous structures and soft tissues are unremarkable. Impression: 1. Cardiomegaly with small bilateral effusions and diffuse interstitial opacities most consistent with interstitial edema. No Electronically signed by: Yoel Tse MD (06/03/2021 3:10 PM) [id number] Course & Med Decision Making: Course & Med Decision Making Pertinent Labs and Imaging studies reviewed. (See chart for details) 80-year-old female, vital signs reviewed, presents to the emergency department concerning increased shortness of breath at home. Physical examination concerning for acute pulmonary process. Also concerning for cellulitis bilateral lower extremities. Will order cardiac monitoring, continuous pulse ox, blood pressure monitoring, saline lock, twelve-lead EKG, chest x-ray, CBC, blood cultures x2, rapid Covid and rapid flu testing, high-sensitivity troponin I, mag museum level, NT proBNP, urinalysis assay, ABG on 4 L per nasal cannula, CMP. Patient's rapid flu a is positive, rapid Covid test is positive, with underlying suspicion of cellulitis of bilateral lower extremities, will cover with Rocephin IV 1 g, 6 mg IV Decadron. Will withhold azithromycin for now related to penicillin allergy clindamycin and erythromycin allergy. Discussed with patient recommendation for admission to hospital, patient is amenable to ED admission planning Called and discussed patient case and ED work-up with inpatient management physician Dr. Winston who agrees patient case warrants admission to the telemetry unit. 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 Patient remains hemodynamically stable at time of admission. Dragon Disclaimer: Dragon Disclaimer: This electronic medical record was generated, in whole or in part, using a voice recognition dictation system. Departure Departure Impression: Primary Impression: Acute on chronic respiratory failure with hypoxemia Additional Impressions: Shortness of breath COVID-19 Influenza A Disposition: ADMITTED INPATIENT Admitting Physician: ABDI (Admit to telemetry unit to Dr. Winston) Condition: GUARDED Referrals: NATALIE GONCALVES APRN (PCP) SUMAN SHAW APRN Jun 03, 2021 19:52
[2021-06-03] MEDS ORDERED: DEXAMETHASONE SOD PHOS 4 MG/ML VIAL IVP ONE (20:15)
--- NOTE | 2021-06-04 02:30 | NUR ---
ADMISSION NOTE Pt admitted to room 510 from ER. Pt transferred to bed with 3 assist. Pts oxygen level at 87% on 4L, turned up to 6L/NC with an oxygen level of 92%. Pt SOA with exertion. Pt has purse, phone and conveyor line battery charger at bedside. Explained POC to pt, call light in reach, pt denies any pain or needs at this time. Will monitor.
[2021-06-04 03:47] VITALS: BP 123/75
[2021-06-04] MEDS ORDERED: C.DIFF MED SCREEN BY RX. MC ONE (05:30)
[2021-06-04 07:00] VITALS: BP 127/87
[2021-06-04] MEDS ORDERED: ONDANSETRON PF 4 MG/2 ML VIAL. IVP PRN (07:45)
[2021-06-04] MEDS ORDERED: fentaNYL PF VIAL 100 MCG/2 ML VIAL IVP PRN (07:45)
[2021-06-04] MEDS ORDERED: ACETAMINOPHEN 325 MG TABLET. PO PRN (07:45)
[2021-06-04] MEDS ORDERED: guaiFENesin DM 200MG/20MG 10 ML SYRUP PO PRN (07:45)
--- NOTE | 2021-06-04 08:02 | PDOC1 ---
History and Physical Date of Admission Date of Admission DATE: 06/04/21 TIME: 07:38 Identification/Chief Complaint Chief Complaint Shortness of breath and cough Source Source: Patient History of Present Illness History of Present Illness Ms Salgado is an 80yo female with PMHx CHF, ex-smoker (quit 2007), GERD, HTN, Hypothyroidism, afib (stopped OAC 2/2 GI bleed), COPD on 3L NCO2 at home, and anemia who presents to the ED via EMS for worsening shortness of breath and cough starting 2 days ago. She notes subjective fever and chills weakness. She noted increased urinary output. She is worried because one of her neighbors came back from [place] after a trip 7 days ago and had a cough. Chest radiograph with cardiomegaly diffuse interstitial opacities. Labs with WBC 9.1, Hb 9.2, platelets 234, NA 134, K3.9, BUN 14, CR 0.7, glucose 94, calcium 8.4, magnesium 2, bilirubin 0.6, AST 29, ALT 9, alk phos 228, high- sensitivity troponin is 34, albumin is 2.5, NT proBNP is 4876 ABG on 4 L nasal cannula oxygen seven-point , urinalysis bland, rapid influenza a positive, rapid COVID-19 positive. EKG rate controlled A. fib approximately [address] elevation or TWI Past Medical History Cardiovascular: AFIB, CHF, HTN, Pulmonary hypertension Pulmonary: Pneumonia CENTRAL NERVOUS SYSTEM: Carpal Tunnel Syndrome GI: GI bleed Heme/Onc: Anemia NOS Hepatobiliary: No pertinent hx Psych: No pertinent hx Musculoskeletal: Osteoarthritis Rheumatologic: No pertinent hx Infectious disease: No pertinent hx Renal/: UTI Endocrine: Hypothyroidism Past Surgical History Past Surgical History: Cataract Removal, Other Family History Family History: Coronary Artery Disease Social History Smoke: No ALCOHOL: none Drugs: None Current Problem List Problem List Problems Medical Problems: (1) Acute on chronic respiratory failure with hypoxemia Status: Acute (2) COVID-19 Status: Acute (3) Influenza A Status: Acute (4) Shortness of breath Status: Acute Current Medications Current Medications Current Medications Ceftriaxone Sodium (Rocephin) 1 gm 1X ONCE IVP Last administered on 06/03/21at 20:13; Start 06/03/21 at 19:30; Stop 06/03/21 at 19:31; Status DC Dexamethasone Sodium Phosphate (Decadron) 6 mg 1X ONCE IVP Last administered on 06/03/21at 20:14; Start 06/03/21 at 20:15; Stop 06/03/21 at 20:16; Status DC Pharmacy Consult (C.diff Med Screen By Rx) 1 each 1X ONCE [facility] ; Start 06/04/21 at 05:30; Stop 06/04/21 at 05:35; Status DC Active Scripts Active Doxycycline Hyclate 100 Mg Tablet 100 Mg PO BID 3 Days Aspirin Ec (Aspirin) 81 Mg Tablet.dr 81 Mg PO DAILYWBKFT 30 Days Culturelle Capsule (L. Rhamnosus GG/Inulin) 1 Each Cap.sprink 1 Cap PO DAILY 30 Days Digoxin 125 Mcg Tablet 125 Mcg PO DAILY Reported Tylenol (Acetaminophen) 325 Mg Tablet 2 Tab PO PRN Q4HRS Escitalopram Oxalate 10 Mg Tablet 0.5 Tab PO DAILY Klor-Con 10 (Potassium Chloride) 10 Meq Tablet.er 10 Meq PO DAILY Magnesium Oxide 250 Mg Tablet 1 Tab PO DAILY 30 Days Lasix (Furosemide) 20 Mg Tablet 1 Tab PO DAILY 30 Days Folic Acid 20 Mg Capsule 400 Mg PO DAILY 30 Days Cardizem Cd (Diltiazem Hcl) 180 Mg Cap.er.24h 1 Cap PO BID [place] Advantage Softgel (Om3-Dha/Epa/D3/Lutein/Zeazanth) 1 Each Capsule 1 E ach PO BID Colace (Docusate Sodium) 100 Mg Capsule 1 Cap PO DAILY PRN Ferrous Sulfate 325 Mg Tablet 1 Tab PO TID Loratadine 10 Mg Tablet 1 Tab PO PRN DAILY PRN Vitamin B-12 (Cyanocobalamin (Vitamin B-12)) 5,000 Mcg Tab.rapdis 5,000 Mcg PO QODAY Omeprazole 20 Mg Capsule. 1 Cap PO DAILY Levothyroxine Sodium 75 Mcg Tablet 1 Tab PO DAILY Allergies Allergies: Coded Allergies: clindamycin (Verified Allergy, Severe, THROAT CLOSING, 04/23/21) Penicillins (Verified Allergy, Intermediate, Hives, 04/23/21) erythromycin base (Verified Allergy, Intermediate, 04/23/21) latex (Verified Allergy, Intermediate, itching, broke out w/ hives, 04/23/21) metoprolol (Verified Allergy, Intermediate, 04/23/21) Physical Exam General: Alert, Oriented X3, Cooperative, moderate distress HEENT: Atraumatic, PERRLA, EOMI, Mucous membr. moist/pink Lungs: Other (Bilateral crackles) Heart: S1S2, RRR, no thrills, no rubs, no gallops, no murmurs Abdomen: Normal bowel sounds, Soft, No tenderness, No hepatosplenomegaly, No masses Rectal Exam: not examined Extremities: No clubbing, No cyanosis, No edema, Normal pulses, No tenderness/swelling Skin: No rashes, No breakdown, No significant lesion, Other (Xerosis bilateral lower extremities) Neuro: Normal speech, Strength at 5/5 X4 ext, Normal tone, Sensation intact, Cranial nerves 3-12 NL, Reflexes 2+ Psych/Mental Status: Mental status NL, Mood NL Vitals Vitals Vital Signs Date Time Temp Pulse Resp B/P (MAP) Pulse Ox O2 Delivery O2 Flow Rate FiO2 06/04/21 03:47 97.6 82 20 123/75 (91) 92 Nasal Cannula 97.6 06/04/21 02:30 6.0 Labs Labs Laboratory Tests Test 06/03/21 14:50 06/03/21 14:53 06/03/21 18:00 06/03/21 18:40 O2 Saturation 95 % (92-99) Arterial Blood pH 7.50 (7.35-7.45) Arterial Blood pCO2 at Patient Temp 32 mmHg (35-46) Arterial Blood pO2 at Patient Temp 79 mmHg (65-108) Arterial Blood HCO3 25 mmol/L (21-28) Arterial Blood Base Excess 2 mmol/L (-3-3) FiO2 4 lpm nc Influenza Type A Antigen Positive (NEGATIVE) Influenza Type B Antigen Negative (NEGATIVE) SARS-CoV-2 Antigen (Rapid) Positive (NEGATIVE) White Blood Count 9.1 x10^3/uL (4.0-11.0) Red Blood Count 3.26 x10^6/uL (3.50-5.40) Hemoglobin 9.2 g/dL (12.0-15.5) Hematocrit 29.4 % (36.0-47.0) Mean Corpuscular Volume 90 fL (79-100) Mean Corpuscular Hemoglobin 28 pg (25-35) Mean Corpuscular Hemoglobin Concent 31 g/dL (31-37) Red Cell Distribution Width 21.2 % (11.5-14.5) Platelet Count 234 x10^3/uL (140-400) Neutrophils (%) (Auto) 81 % (31-73) Lymphocytes (%) (Auto) 10 % (24-48) Monocytes (%) (Auto) 7 % (0-9) Eosinophils (%) (Auto) 2 % (0-3) Basophils (%) (Auto) 0 % (0-3) Neutrophils # (Auto) 7.4 x10^3/uL (1.8-7.7) Lymphocytes # (Auto) 0.9 x10^3/uL (1.0-4.8) Monocytes # (Auto) 0.6 x10^3/uL (0.0-1.1) Eosinophils # (Auto) 0.2 x10^3/uL (0.0-0.7) Basophils # (Auto) 0.0 x10^3/uL (0.0-0.2) Platelet Estimate Adequate (ADEQUATE) Polychromasia Slight Poikilocytosis Slight Anisocytosis Mod Ovalocytes Few Sodium Level 134 mmol/L (136-145) Potassium Level 3.9 mmol/L (3.5-5.1) Chloride Level 101 mmol/L (98-107) Carbon Dioxide Level 23 mmol/L (21-32) Anion Gap 10 (6-14) Blood Urea Nitrogen 14 mg/dL (7-20) Creatinine 0.7 mg/dL (0.6-1.0) Estimated GFR (Cockcroft-Gault) 80.3 BUN/Creatinine Ratio 20 (6-20) Glucose Level 94 mg/dL (70-99) Calcium Level 8.4 mg/dL (8.5-10.1) Magnesium Level 2.0 mg/dL (1.8-2.4) Total Bilirubin 0.6 mg/dL (0.2-1.0) Aspartate Amino Transf (AST/SGOT) 29 U/L (15-37) Alanine Aminotransferase (ALT/SGPT) 9 U/L (14-59) Alkaline Phosphatase 228 U/L (46-116) Troponin I High Sensitivity 34 ng/L (4-50) Total Protein 7.1 g/dL (6.4-8.2) Albumin 2.5 g/dL (3.4-5.0) Albumin/Globulin Ratio 0.5 (1.0-1.7) IP-Vof-P-Type Natriuretic Peptide 4876 pg/mL (0-449) Test 06/03/21 18:43 Urine Collection Type U cath Urine Color (Auto) Light yellow Urine Turbidity Clear Urine pH (Auto) 6.5 (<5.0-8.0) Urine Specific [place] 1.012 (1.000-1.030) Urine Protein (Auto) Negative mg/dL (Negative) Urine Glucose (Auto)(UA) Negative mg/dL (Negative) Urine Ketones (Auto) Negative mg/dL (Negative) Urine Blood (Auto) Negative (Negative) Urine Nitrite Negative (Negative) Urine Bilirubin (Auto) Negative (Negative) Urine Urobilinogen (Auto) Normal mg/dL (Normal) Urine Leukocyte Esterase (Auto) Negative (Negative) Urine RBC 0 /HPF (0-2) Urine WBC 0 /HPF (0-4) Urine Transitional Epithelial Cells Occ /LPF Urine Amorphous Sediment Present /HPF Urine Bacteria 0 /HPF (0-FEW) Urine Hyaline Casts Moderate /HPF Urine Mucus Marked /LPF Laboratory Tests Test 06/03/21 14:50 06/03/21 14:53 06/03/21 18:00 06/03/21 18:40 O2 Saturation 95 % (92-99) Arterial Blood pH 7.50 (7.35-7.45) Arterial Blood pCO2 at Patient Temp 32 mmHg (35-46) Arterial Blood pO2 at Patient Temp 79 mmHg (65-108) Arterial Blood HCO3 25 mmol/L (21-28) Arterial Blood Base Excess 2 mmol/L (-3-3) FiO2 4 lpm nc Influenza Type A Antigen Positive (NEGATIVE) Influenza Type B Antigen Negative (NEGATIVE) SARS-CoV-2 Antigen (Rapid) Positive (NEGATIVE) White Blood Count 9.1 x10^3/uL (4.0-11.0) Red Blood Count 3.26 x10^6/uL (3.50-5.40) Hemoglobin 9.2 g/dL (12.0-15.5) Hematocrit 29.4 % (36.0-47.0) Mean Corpuscular Volume 90 fL (79-100) Mean Corpuscular Hemoglobin 28 pg (25-35) Mean Corpuscular Hemoglobin Concent 31 g/dL (31-37) Red Cell Distribution Width 21.2 % (11.5-14.5) Platelet Count 234 x10^3/uL (140-400) Neutrophils (%) (Auto) 81 % (31-73) Lymphocytes (%) (Auto) 10 % (24-48) Monocytes (%) (Auto) 7 % (0-9) Eosinophils (%) (Auto) 2 % (0-3) Basophils (%) (Auto) 0 % (0-3) Neutrophils # (Auto) 7.4 x10^3/uL (1.8-7.7) Lymphocytes # (Auto) 0.9 x10^3/uL (1.0-4.8) Monocytes # (Auto) 0.6 x10^3/uL (0.0-1.1) Eosinophils # (Auto) 0.2 x10^3/uL (0.0-0.7) Basophils # (Auto) 0.0 x10^3/uL (0.0-0.2) Platelet Estimate Adequate (ADEQUATE) Polychromasia Slight Poikilocytosis Slight Anisocytosis Mod Ovalocytes Few Sodium Level 134 mmol/L (136-145) Potassium Level 3.9 mmol/L (3.5-5.1) Chloride Level 101 mmol/L (98-107) Carbon Dioxide Level 23 mmol/L (21-32) Anion Gap 10 (6-14) Blood Urea Nitrogen 14 mg/dL (7-20) Creatinine 0.7 mg/dL (0.6-1.0) Estimated GFR (Cockcroft-Gault) 80.3 BUN/Creatinine Ratio 20 (6-20) Glucose Level 94 mg/dL (70-99) Calcium Level 8.4 mg/dL (8.5-10.1) Magnesium Level 2.0 mg/dL (1.8-2.4) Total Bilirubin 0.6 mg/dL (0.2-1.0) Aspartate Amino Transf (AST/SGOT) 29 U/L (15-37) Alanine Aminotransferase (ALT/SGPT) 9 U/L (14-59) Alkaline Phosphatase 228 U/L (46-116) Troponin I High Sensitivity 34 ng/L (4-50) Total Protein 7.1 g/dL (6.4-8.2) Albumin 2.5 g/dL (3.4-5.0) Albumin/Globulin Ratio 0.5 (1.0-1.7) LG-Vno-W-Type Natriuretic Peptide 4876 pg/mL (0-449) Test 06/03/21 18:43 Urine Collection Type U cath Urine Color (Auto) Light yellow Urine Turbidity Clear Urine pH (Auto) 6.5 (<5.0-8.0) Urine Specific [place] 1.012 (1.000-1.030) Urine Protein (Auto) Negative mg/dL (Negative) Urine Glucose (Auto)(UA) Negative mg/dL (Negative) Urine Ketones (Auto) Negative mg/dL (Negative) Urine Blood (Auto) Negative (Negative) Urine Nitrite Negative (Negative) Urine Bilirubin (Auto) Negative (Negative) Urine Urobilinogen (Auto) Normal mg/dL (Normal) Urine Leukocyte Esterase (Auto) Negative (Negative) Urine RBC 0 /HPF (0-2) Urine WBC 0 /HPF (0-4) Urine Transitional Epithelial Cells Occ /LPF Urine Amorphous Sediment Present /HPF Urine Bacteria 0 /HPF (0-FEW) Urine Hyaline Casts Moderate /HPF Urine Mucus Marked /LPF Images Images Chest radiograph: There is marked cardiomegaly similar to comparisons. Calcified aorta. Small bilateral effusions with diffuse interstitial opacities. No pneumothorax. Osseous structures and soft tissues are unremarkable. Impression: 1. Cardiomegaly with small bilateral effusions and diffuse interstitial opacities most consistent with interstitial edema. No VTE Prophylaxis Ordered VTE Prophylaxis Devices: Yes VTE Pharmacological Prophylaxi: Yes Assessment/Plan Assessment/Plan A/P: Acute hypoxic respiratory failure - likely 2/2 influenza, COVID 19, COPD/CHF COVID-19 pneumonia -she has been able to get 2 vaccines but never had a booster due to frequent hospitalizations. 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 Actually seems euvolemic but may be worsened due to her acute COVID-19 and influenza. GERD - PPI HTN - cont meds Hypothyroidism - cont meds Anemia - likely related to chronic CHF/RA/COPD Rheumatoid arthritis - unknown serology. I have advised her to avoid methotrexate for now as her symptoms were only relegated to her left hand. Acute on chronic diastolic CHF COPD on home oxygen therapy Severe pulmonary HTN - with cor pulmonale FEN - Cardiac PPX - lovenox FULL CODE Dispo - inpatient for above. Justifications for Admission Other Justification Failure to thrive KALYN LONG MD Jun 04, 2021 08:02
--- NOTE | 2021-06-04 08:43 | EKG ---
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
[2021-06-04] MEDS ORDERED: REMDESIVIR LOAD in IV NORMAL SALINE 250ML TV IV ONE (09:00)
[2021-06-04] MEDS: ENOXAPARIN 40 MG/0.4 ML SYRINGE. SQ SCH (09:19)
[2021-06-04] MEDS: OSELTAMIVIR 30 MG CAPSULE PO SCH ×2 (09:19→20:55)
[2021-06-04 10:54] VITALS: BP 152/73
--- NOTE | 2021-06-04 12:06 | NUR ---
second lovenox pulled from [facility] and administered to patient because this nurse dropped dose pulled this am on floor.
[2021-06-04] MEDS ORDERED: FERR-36 PO (13:53)
[2021-06-04] MEDS ORDERED: MAGN250T9 PO (13:53)
[2021-06-04 15:00] VITALS: BP 135/70
--- NOTE | 2021-06-04 15:02 | NUR ---
SS following for discharge planning. SS reviewed pt chart and discussed with pt RN. Pt is from independent living facility and is currently requiring oxygen at six liters nasal canula. COVID19 and Flu A positive. Pt has home oxygen. Pt on IV Remdesivir. SS will continue to follow for discharge planning.
[2021-06-04 19:00] VITALS: BP 140/57
[2021-06-04] MEDS: FERROUS SULFATE 325 MG TABLET. PO SCH (20:55)
[2021-06-04] MEDS: MAGNESIUM OXIDE 400 MG TABLET PO SCH (20:55)
[2021-06-04 23:00] VITALS: BP 141/72
[2021-06-05 03:00] VITALS: BP 140/71
[2021-06-05 05:25] LABS: BASO % 0 % (0-3); EOS # 0.1 x10^3/uL (0.0-0.7); EOS % 1 % (0-3); HEMOGLOBIN 9.5 g/dL (12.0-15.5); LYMPH % 11 % (24-48); MEAN CORPUSCULAR HEMOGLOBIN 28 pg (25-35); MEAN CORPUSCULAR HGB CONC 30 g/dL (31-37); MONO # 0.7 x10^3/uL (0.0-1.1); MONO % 7 % (0-9); NEUT # 7.5 x10^3/uL (1.8-7.7); NEUT % 80 % (31-73); PLATELET COUNT 260 x10^3/uL (140-400); RED BLOOD COUNT 3.38 x10^6/uL (3.50-5.40); WHITE BLOOD COUNT 9.3 x10^3/uL (4.0-11.0)
[2021-06-05 05:27] LABS: MEAN CORPUSCULAR VOLUME 94 fL (79-100)
[2021-06-05 06:00] LABS: ALBUMIN 2.4 g/dL (3.4-5.0); ALBUMIN/GLOBULIN RATIO 0.6 (1.0-1.7); CALCIUM 8.2 mg/dL (8.5-10.1); CREATININE 0.7 mg/dL (0.6-1.0); GFR 80.3; POTASSIUM 3.4 mmol/L (3.5-5.1); TOTAL BILIRUBIN 0.4 mg/dL (0.2-1.0); TOTAL PROTEIN 6.7 g/dL (6.4-8.2)
[2021-06-05] MEDS: PANTOPRAZOLE 40 MG TABLET.DR. PO SCH (06:20)
[2021-06-05] MEDS: LEVOTHYROXINE 75 MCG TABLET PO SCH (06:20)
[2021-06-05 07:00] VITALS: BP 161/67
--- NOTE | 2021-06-05 07:53 | PDOC ---
[employer] PROGRESS NOTE Date of Service DOS: DATE: 06/05/21 TIME: 07:50 Chief Complaint Chief Complaint Acute hypoxic respiratory failure - likely 2/2 influenza, COVID 19, COPD/CHF COVID-19 pneumonia -she has been able to get 2 vaccines but never had a booster due to frequent hospitalizations. 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 Actually seems euvolemic but may be worsened due to her acute COVID-19 and influenza. GERD - PPI HTN - cont meds Hypothyroidism - cont meds Anemia - likely related to chronic CHF/RA/COPD Rheumatoid arthritis - unknown serology. I have advised her to avoid methotrexate for now as her symptoms were only relegated to her left hand. Acute on chronic diastolic CHF COPD on home oxygen therapy Severe pulmonary HTN - with cor pulmonale FEN - Cardiac PPX - lovenox FULL CODE Dispo - inpatient for above. History of Present Illness History of Present Illness Ms Salgado is an 80yo female with PMHx CHF, ex-smoker (quit 2007), GERD, HTN, Hypothyroidism, afib (stopped OAC 2/2 GI bleed), COPD on 3L NCO2 at home, and anemia who presents to the ED via EMS for worsening shortness of breath and cough starting 2 days ago. She notes subjective fever and chills weakness. She noted increased urinary out put. She is worried because one of her neighbors came back from [place] after a trip 7 days ago and had a cough. Chest radiograph with cardiomegaly diffuse interstitial opacities. Labs with WBC 9.1, Hb 9.2, platelets 234, NA 134, K3.9, BUN 14, CR 0.7, glucose 94, calcium 8.4, magnesium 2, bilirubin 0.6, AST 29, ALT 9, alk phos 228, high- sensitivity troponin is 34, albumin is 2.5, NT proBNP is 4876 ABG on 4 L nasal cannula oxygen 7.5/32/79, urinalysis bland, rapid influenza a positive, rapid COVID-19 positive. EKG rate controlled A. fib approximately [address] elevation or TWI. 06/05: Potassium 3.4. Profoundly weak. O2 needs increased to 8 L/min. Still with a cough minimally productive Vitals/I&O Vitals/I&O: Vital Signs Date Time Temp Pulse Resp B/P (MAP) Pulse Ox O2 Delivery O2 Flow Rate FiO2 06/05/21 03:00 97.6 62 20 140/71 (94) 98 Nasal Cannula 6.0 97.6 I & O 06/04/21 06/04/21 06/05/21 15:00 23:00 07:00 Intake Total 480 ml 440 ml 120 ml Balance 480 ml 440 ml 120 ml Physical Exam General: Alert, Oriented X3, Cooperative, moderate distress Lungs: Clear, Crackles Abdomen: Normal bowel sounds, Soft, No tenderness, No hepatosplenomegaly, No masses Extremities: No clubbing, No cyanosis, No edema, Normal pulses, No tenderness/swelling Skin: No rashes, No breakdown, No significant lesion, Other (Xerosis bilateral lower extremities) Labs Labs: Laboratory Tests Test 06/05/21 05:00 White Blood Count 9.3 x10^3/uL (4.0-11.0) Red Blood Count 3.38 x10^6/uL (3.50-5.40) Hemoglobin 9.5 g/dL (12.0-15.5) Hematocrit 32.0 % (36.0-47.0) Mean Corpuscular Volume 94 fL (79-100) Mean Corpuscular Hemoglobin 28 pg (25-35) Mean Corpuscular Hemoglobin Concent 30 g/dL (31-37) Red Cell Distribution Width 22.0 % (11.5-14.5) Platelet Count 260 x10^3/uL (140-400) Neutrophils (%) (Auto) 80 % (31-73) Lymphocytes (%) (Auto) 11 % (24-48) Monocytes (%) (Auto) 7 % (0-9) Eosinophils (%) (Auto) 1 % (0-3) Basophils (%) (Auto) 0 % (0-3) Neutrophils # (Auto) 7.5 x10^3/uL (1.8-7.7) Lymphocytes # (Auto) 1.0 x10^3/uL (1.0-4.8) Monocytes # (Auto) 0.7 x10^3/uL (0.0-1.1) Eosinophils # (Auto) 0.1 x10^3/uL (0.0-0.7) Basophils # (Auto) 0.0 x10^3/uL (0.0-0.2) Sodium Level 133 mmol/L (136-145) Potassium Level 3.4 mmol/L (3.5-5.1) Chloride Level 101 mmol/L (98-107) Carbon Dioxide Level 25 mmol/L (21-32) Anion Gap 7 (6-14) Blood Urea Nitrogen 16 mg/dL (7-20) Creatinine 0.7 mg/dL (0.6-1.0) Estimated GFR (Cockcroft-Gault) 80.3 BUN/Creatinine Ratio 23 (6-20) Glucose Level 82 mg/dL (70-99) Calcium Level 8.2 mg/dL (8.5-10.1) Total Bilirubin 0.4 mg/dL (0.2-1.0) Aspartate Amino Transf (AST/SGOT) 24 U/L (15-37) Alanine Aminotransferase (ALT/SGPT) 9 U/L (14-59) Alkaline Phosphatase 201 U/L (46-116) Total Protein 6.7 g/dL (6.4-8.2) Albumin 2.4 g/dL (3.4-5.0) Albumin/Globulin Ratio 0.6 (1.0-1.7) Assessment and Plan Assessmemt and Plan Problems Medical Problems: (1) Acute on chronic respiratory failure with hypoxemia Status: Acute (2) COVID-19 Status: Acute (3) Influenza A Status: Acute (4) Shortness of breath Status: Acute Comment Review of Relevant I have reviewed the following items messi (where applicable) has been applied. Medications: Current Medications Medications (Trade) Dose Ordered Sig/Farhan Route PRN Reason Start Time Stop Time Status Last Admin Dose Admin Enoxaparin Sodium (Lovenox 40mg Syringe) 40 mg Q24H SQ 06/04/21 08:00 06/04/21 09:19 Oseltamivir Phosphate (Tamiflu) 30 mg BID PO 06/04/21 09:00 06/09/21 08:59 06/04/21 20:55 Remdesivir 200 mg/ Sodium Chloride 210 ml @ 210 mls/hr 1X ONCE IV 06/04/21 09:00 06/04/21 09:59 DC 06/04/21 09:20 Ferrous Sulfate (Feosol) 325 mg HS PO 06/04/21 21:00 06/04/21 20:55 Levothyroxine Sodium (Synthroid) 75 mcg DAILY06 PO 06/05/21 06:00 06/05/21 06:20 Magnesium Oxide (Magnesium Oxide) 200 mg HS PO 06/04/21 21:00 06/04/21 20:55 Pantoprazole Sodium (Protonix) 40 mg DAILYAC PO 06/05/21 07:30 06/05/21 06:20 Justifications for Admission Other Justification Failure to thrive KALYN LONG MD Jun 05, 2021 07:53
[2021-06-05] MEDS ORDERED: POTASSIUM CHLORIDE 20 MEQ TABLET.ER. PO ONE (08:00)
[2021-06-05] MEDS: CITALOPRAM 10 MG TABLET. PO SCH (09:30)
[2021-06-05] MEDS: LACTOBACILLUS RHAMNOSUS GG 1 CAPSULE. PO SCH (09:30)
[2021-06-05] MEDS: OSELTAMIVIR 30 MG CAPSULE PO SCH ×2 (09:30→21:00)
[2021-06-05] MEDS: ASPIRIN ENTERIC COATED 81 MG TABLET.DR. PO SCH (09:30)
[2021-06-05] MEDS: DEXAMETHASONE SOD PHOS 4 MG/ML VIAL IVP SCH ×2 (09:31→11:35)
[2021-06-05] MEDS: CYANOCOBALAMIN (VITAMIN B-12) 1,000 MCG TABLET. PO SCH (09:31)
[2021-06-05] MEDS: ENOXAPARIN 40 MG/0.4 ML SYRINGE. SQ SCH (09:31)
[2021-06-05] MEDS: REMDESIVIR 100mg in NORMAL SALINE 250ML X 4 DAYS IV SCH ×2 (09:32→11:34)
[2021-06-05 11:00] VITALS: BP 154/71
--- NOTE | 2021-06-05 11:55 | NUR ---
SS following up with discharge planning. SS reviewed pt chart and discussed with pt RN. Pt is currently requiring oxygen at six liters nasal canula. COVID19 and Flu A positive. Pt has home oxygen. Pt on IV Remdesivir and IV Decadron. PT/OT ordered. SS will continue to follow for discharge planning.
[2021-06-05 15:00] VITALS: BP 147/64
[2021-06-05 19:00] VITALS: BP 135/67
[2021-06-05] MEDS: FERROUS SULFATE 325 MG TABLET. PO SCH (21:00)
[2021-06-05] MEDS: MAGNESIUM OXIDE 400 MG TABLET PO SCH (21:00)
[2021-06-05 23:00] VITALS: BP 136/61
[2021-06-06 03:00] VITALS: BP 135/62
[2021-06-06] MEDS: PANTOPRAZOLE 40 MG TABLET.DR. PO SCH (06:21)
[2021-06-06] MEDS: LEVOTHYROXINE 75 MCG TABLET PO SCH (06:21)
[2021-06-06 07:00] VITALS: BP 127/64
[2021-06-06 08:02] LABS: BASO % 0 % (0-3); EOS % 0 % (0-3); HEMATOCRIT 28.8 % (36.0-47.0); HEMOGLOBIN 9.1 g/dL (12.0-15.5); LYMPH # 0.7 x10^3/uL (1.0-4.8); LYMPH % 13 % (24-48); MEAN CORPUSCULAR HEMOGLOBIN 28 pg (25-35); MEAN CORPUSCULAR HGB CONC 32 g/dL (31-37); MEAN CORPUSCULAR VOLUME 90 fL (79-100); MONO # 0.4 x10^3/uL (0.0-1.1); MONO % 8 % (0-9); NEUT # 4.3 x10^3/uL (1.8-7.7); NEUT % 79 % (31-73); PLATELET COUNT 340 x10^3/uL (140-400); RED BLOOD COUNT 3.21 x10^6/uL (3.50-5.40); RED CELL DISTRIBUTION WIDTH 21.2 % (11.5-14.5); WHITE BLOOD COUNT 5.4 x10^3/uL (4.0-11.0)
[2021-06-06 08:23] LABS: ALBUMIN 2.3 g/dL (3.4-5.0); ALBUMIN/GLOBULIN RATIO 0.5 (1.0-1.7); CALCIUM 7.9 mg/dL (8.5-10.1); CREATININE 0.6 mg/dL (0.6-1.0); GFR 95.9; POTASSIUM 3.6 mmol/L (3.5-5.1); TOTAL BILIRUBIN 0.4 mg/dL (0.2-1.0); TOTAL PROTEIN 6.5 g/dL (6.4-8.2)
[2021-06-06] MEDS: ASPIRIN ENTERIC COATED 81 MG TABLET.DR. PO SCH (09:50)
[2021-06-06] MEDS: CITALOPRAM 10 MG TABLET. PO SCH (09:51)
[2021-06-06] MEDS: OSELTAMIVIR 30 MG CAPSULE PO SCH ×2 (09:51→20:41)
[2021-06-06] MEDS: LACTOBACILLUS RHAMNOSUS GG 1 CAPSULE. PO SCH (09:51)
[2021-06-06] MEDS: ENOXAPARIN 40 MG/0.4 ML SYRINGE. SQ SCH (09:52)
[2021-06-06] MEDS: REMDESIVIR 100mg in NORMAL SALINE 250ML X 4 DAYS IV SCH (09:53)
[2021-06-06] MEDS: DEXAMETHASONE SOD PHOS 4 MG/ML VIAL IVP SCH (09:54)
[2021-06-06 11:00] VITALS: BP 153/63
--- NOTE | 2021-06-06 13:34 | PDOC ---
[employer] PROGRESS NOTE Date of Service DOS: DATE: 06/06/21 TIME: 13:25 Chief Complaint Chief Complaint Acute hypoxic respiratory failure - likely 2/2 influenza, COVID 19, COPD/CHF COVID-19 pneumonia -she has been able to get 2 vaccines but never had a booster due to frequent hospitalizations. 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 Actually seems euvolemic but may be worsened due to her acute COVID-19 and influenza. GERD - PPI HTN - cont meds Hypothyroidism - cont meds Anemia - likely related to chronic CHF/RA/COPD Rheumatoid arthritis - unknown serology. I have advised her to avoid methotrexate for now as her symptoms were only relegated to her left hand. Acute on chronic diastolic CHF COPD on home oxygen therapy Severe pulmonary HTN - with cor pulmonale FEN - Cardiac PPX - lovenox FULL CODE Dispo - inpatient for above. History of Present Illness History of Present Illness Ms Salgado is an 80yo female with PMHx CHF, ex-smoker (quit 2007), GERD, HTN, Hypothyroidism, afib (stopped OAC 2/2 GI bleed), COPD on 3L NCO2 at home, and anemia who presents to the ED via EMS for worsening shortness of breath and cough starting 2 days ago. She notes subjective fever and chills weakness. She noted increased urinary out put. She is worried because one of her neighbors came back from [place] after a trip 7 days ago and had a cough. Chest radiograph with cardiomegaly diffuse interstitial opacities. Labs with WBC 9.1, Hb 9.2, platelets 234, NA 134, K3.9, BUN 14, CR 0.7, glucose 94, calcium 8.4, magnesium 2, bilirubin 0.6, AST 29, ALT 9, alk phos 228, high- sensitivity troponin is 34, albumin is 2.5, NT proBNP is 4876 ABG on 4 L nasal cannula oxygen 7.5/32/79, urinalysis bland, rapid influenza a positive, rapid COVID-19 positive. EKG rate controlled A. fib approximately [address] elevation or TWI. 06/05: Potassium 3.4. Profoundly weak. O2 needs increased to 8 L/min. Still with a cough minimally productive 06/06: Still weak but able to get up to chair with assistance O2 at 6 L/min still with cough minimally productive. Will restart her furosemide IV today given CHF may be playing a role and reassess after diuresis and reinitiate her potassium. Check digoxin level Vitals/I&O Vitals/I&O: Vital Signs Date Time Temp Pulse Resp B/P (MAP) Pulse Ox O2 Delivery O2 Flow Rate FiO2 06/06/21 09:51 59 135/62 06/06/21 08:00 Nasal Cannula 5.0 06/06/21 07:00 97.5 16 97 97.5 I & O 06/05/21 06/05/21 06/06/21 15:00 23:00 07:00 Intake Total 710 ml 360 ml 400 ml Balance 710 ml 360 ml 400 ml Physical Exam General: Alert, Oriented X3, Cooperative, moderate distress Lungs: Clear, Crackles Abdomen: Normal bowel sounds, Soft, No tenderness, No hepatosplenomegaly, No masses Extremities: No clubbing, No cyanosis, No edema, Normal pulses, No tenderness/swelling Skin: No rashes, No breakdown, No significant lesion, Other (Xerosis bilateral lower extremities) Labs Labs: Laboratory Tests Test 06/06/21 06:10 White Blood Count 5.4 x10^3/uL (4.0-11.0) Red Blood Count 3.21 x10^6/uL (3.50-5.40) Hemoglobin 9.1 g/dL (12.0-15.5) Hematocrit 28.8 % (36.0-47.0) Mean Corpuscular Volume 90 fL (79-100) Mean Corpuscular Hemoglobin 28 pg (25-35) Mean Corpuscular Hemoglobin Concent 32 g/dL (31-37) Red Cell Distribution Width 21.2 % (11.5-14.5) Platelet Count 340 x10^3/uL (140-400) Neutrophils (%) (Auto) 79 % (31-73) Lymphocytes (%) (Auto) 13 % (24-48) Monocytes (%) (Auto) 8 % (0-9) Eosinophils (%) (Auto) 0 % (0-3) Basophils (%) (Auto) 0 % (0-3) Neutrophils # (Auto) 4.3 x10^3/uL (1.8-7.7) Lymphocytes # (Auto) 0.7 x10^3/uL (1.0-4.8) Monocytes # (Auto) 0.4 x10^3/uL (0.0-1.1) Eosinophils # (Auto) 0.0 x10^3/uL (0.0-0.7) Basophils # (Auto) 0.0 x10^3/uL (0.0-0.2) Sodium Level 138 mmol/L (136-145) Potassium Level 3.6 mmol/L (3.5-5.1) Chloride Level 103 mmol/L (98-107) Carbon Dioxide Level 26 mmol/L (21-32) Anion Gap 9 (6-14) Blood Urea Nitrogen 16 mg/dL (7-20) Creatinine 0.6 mg/dL (0.6-1.0) Estimated GFR (Cockcroft-Gault) 95.9 BUN/Creatinine Ratio 27 (6-20) Glucose Level 90 mg/dL (70-99) Calcium Level 7.9 mg/dL (8.5-10.1) Total Bilirubin 0.4 mg/dL (0.2-1.0) Aspartate Amino Transf (AST/SGOT) 22 U/L (15-37) Alanine Aminotransferase (ALT/SGPT) 13 U/L (14-59) Alkaline Phosphatase 181 U/L (46-116) Total Protein 6.5 g/dL (6.4-8.2) Albumin 2.3 g/dL (3.4-5.0) Albumin/Globulin Ratio 0.5 (1.0-1.7) Assessment and Plan Assessmemt and Plan Problems Medical Problems: (1) Acute on chronic respiratory failure with hypoxemia Status: Acute (2) COVID-19 Status: Acute (3) Influenza A Status: Acute (4) Shortness of breath Status: Acute Comment Review of Relevant I have reviewed the following items messi (where applicable) has been applied. Justifications for Admission Other Justification Failure to thrive KALYN LONG MD Jun 06, 2021 13:34
[2021-06-06] MEDS ORDERED: FUROSEMIDE 20 MG/2 ML VIAL. IVP ONE (14:00)
[2021-06-06 15:00] VITALS: BP 117/70
[2021-06-06] MEDS: FUROSEMIDE 20 MG TABLET PO SCH (15:16)
[2021-06-06] MEDS: POTASSIUM CHLORIDE 10 MEQ TABLET.ER. PO SCH (15:17)
[2021-06-06 16:02] LABS: DIG 0.8 ng/mL (0.9-2.0)
[2021-06-06 19:58] VITALS: BP 133/62
[2021-06-06] MEDS: FERROUS SULFATE 325 MG TABLET. PO SCH (20:41)
[2021-06-06] MEDS: MAGNESIUM OXIDE 400 MG TABLET PO SCH (20:41)
[2021-06-06 23:46] VITALS: BP 131/70
[2021-06-07 03:53] VITALS: BP 166/69
[2021-06-07] MEDS: LEVOTHYROXINE 75 MCG TABLET PO SCH (06:09)
[2021-06-07] MEDS: PANTOPRAZOLE 40 MG TABLET.DR. PO SCH (06:10)
[2021-06-07 07:00] VITALS: BP 124/61
[2021-06-07 08:14] LABS: BASO % 0 % (0-3); EOS % 0 % (0-3); HEMATOCRIT 30.2 % (36.0-47.0); HEMOGLOBIN 9.3 g/dL (12.0-15.5); LYMPH # 0.9 x10^3/uL (1.0-4.8); LYMPH % 14 % (24-48); MEAN CORPUSCULAR HEMOGLOBIN 28 pg (25-35); MEAN CORPUSCULAR HGB CONC 31 g/dL (31-37); MEAN CORPUSCULAR VOLUME 90 fL (79-100); MONO # 0.5 x10^3/uL (0.0-1.1); MONO % 8 % (0-9); NEUT % 78 % (31-73); PLATELET COUNT 346 x10^3/uL (140-400); RED BLOOD COUNT 3.36 x10^6/uL (3.50-5.40); RED CELL DISTRIBUTION WIDTH 20.8 % (11.5-14.5); WHITE BLOOD COUNT 6.4 x10^3/uL (4.0-11.0)
[2021-06-07 08:42] LABS: ALBUMIN 2.4 g/dL (3.4-5.0); ALBUMIN/GLOBULIN RATIO 0.6 (1.0-1.7); CALCIUM 8.1 mg/dL (8.5-10.1); CREATININE 0.6 mg/dL (0.6-1.0); GFR 95.9; POTASSIUM 3.8 mmol/L (3.5-5.1); TOTAL BILIRUBIN 0.4 mg/dL (0.2-1.0); TOTAL PROTEIN 6.7 g/dL (6.4-8.2)
[2021-06-07] MEDS: CITALOPRAM 10 MG TABLET. PO SCH (09:21)
[2021-06-07] MEDS: ASPIRIN ENTERIC COATED 81 MG TABLET.DR. PO SCH (09:21)
[2021-06-07] MEDS: LACTOBACILLUS RHAMNOSUS GG 1 CAPSULE. PO SCH (09:21)
[2021-06-07] MEDS: POTASSIUM CHLORIDE 10 MEQ TABLET.ER. PO SCH (09:22)
[2021-06-07] MEDS: DEXAMETHASONE SOD PHOS 4 MG/ML VIAL IVP SCH (09:22)
[2021-06-07] MEDS: FUROSEMIDE 20 MG TABLET PO SCH (09:22)
[2021-06-07] MEDS: OSELTAMIVIR 30 MG CAPSULE PO SCH (09:22)
[2021-06-07] MEDS: ENOXAPARIN 40 MG/0.4 ML SYRINGE. SQ SCH (09:27)
[2021-06-07] MEDS: REMDESIVIR 100mg in NORMAL SALINE 250ML X 4 DAYS IV SCH (09:28)
[2021-06-07] MEDS: CYANOCOBALAMIN (VITAMIN B-12) 1,000 MCG TABLET. PO SCH (09:30)
[2021-06-07 11:00] VITALS: BP 118/57
[2021-06-07] MEDS ORDERED: DEXA4TAB PO (11:12)
--- NOTE | 2021-06-07 11:14 | PDOC ---
[employer] PROGRESS NOTE Date of Service DOS: DATE: 06/07/21 TIME: 11:12 Chief Complaint Chief Complaint Acute hypoxic respiratory failure - likely 2/2 influenza, COVID 19, COPD/CHF COVID-19 pneumonia -she has been able to get 2 vaccines but never had a booster due to frequent hospitalizations. 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 Actually seems euvolemic but may be worsened due to her acute COVID-19 and influenza. GERD - PPI HTN - cont meds Hypothyroidism - cont meds Anemia - likely related to chronic CHF/RA/COPD Rheumatoid arthritis - unknown serology. I have advised her to avoid methotrexate for now as her symptoms were only relegated to her left hand. Acute on chronic diastolic CHF COPD on home oxygen therapy Severe pulmonary HTN - with cor pulmonale FEN - Cardiac PPX - lovenox FULL CODE Dispo - inpatient for above. History of Present Illness History of Present Illness Ms Salgado is an 80yo female with PMHx CHF, ex-smoker (quit 2007), GERD, HTN, Hypothyroidism, afib (stopped OAC 2/2 GI bleed), COPD on 3L NCO2 at home, and anemia who presents to the ED via EMS for worsening shortness of breath and cough starting 2 days ago. She notes subjective fever and chills weakness. She noted increased urinary out put. She is worried because one of her neighbors came back from [place] after a trip 7 days ago and had a cough. Chest radiograph with cardiomegaly diffuse interstitial opacities. Labs with WBC 9.1, Hb 9.2, platelets 234, NA 134, K3.9, BUN 14, CR 0.7, glucose 94, calcium 8.4, magnesium 2, bilirubin 0.6, AST 29, ALT 9, alk phos 228, high- sensitivity troponin is 34, albumin is 2.5, NT proBNP is 4876 ABG on 4 L nasal cannula oxygen 7.5/32/79, urinalysis bland, rapid influenza a positive, rapid COVID-19 positive. EKG rate controlled A. fib approximately [address] elevation or TWI. 06/05: Potassium 3.4. Profoundly weak. O2 needs increased to 8 L/min. Still with a cough minimally productive 06/06: Still weak but able to get up to chair with assistance O2 at 6 L/min still with cough minimally productive. Will restart her furosemide IV today given CHF may be playing a role and reassess after diuresis and reinitiate her potassium. Check digoxin level 06/07: A little stronger today now on 3 to 4 L of O2 as she is on home. Back on home dosing of furosemide and holding digoxin for level 0.8 will complete back on meds at home and take 6 days of Decadron. Vitals/I&O Vitals/I&O: Vital Signs Date Time Temp Pulse Resp B/P (MAP) Pulse Ox O2 Delivery O2 Flow Rate FiO2 06/07/21 09:22 66 166/69 06/07/21 03:53 97.4 20 98 Nasal Cannula 6.0 97.4 I & O 06/06/21 06/06/21 06/07/21 15:00 23:00 07:00 Intake Total 480 ml 360 ml 300 ml Balance 480 ml 360 ml 300 ml Physical Exam General: Alert, Oriented X3, Cooperative, moderate distress Lungs: Clear, Crackles Abdomen: Normal bowel sounds, Soft, No tenderness, No hepatosplenomegaly, No masses Extremities: No clubbing, No cyanosis, No edema, Normal pulses, No t enderness/swelling Skin: No rashes, No breakdown, No significant lesion, Other (Xerosis bilateral lower extremities) Labs Labs: Laboratory Tests Test 06/06/21 15:15 06/07/21 07:50 Digoxin Level 0.8 ng/mL (0.9-2.0) Digoxin Last Dose Date Digoxin Last Dose Time White Blood Count 6.4 x10^3/uL (4.0-11.0) Red Blood Count 3.36 x10^6/uL (3.50-5.40) Hemoglobin 9.3 g/dL (12.0-15.5) Hematocrit 30.2 % (36.0-47.0) Mean Corpuscular Volume 90 fL (79-100) Mean Corpuscular Hemoglobin 28 pg (25-35) Mean Corpuscular Hemoglobin Concent 31 g/dL (31-37) Red Cell Distribution Width 20.8 % (11.5-14.5) Platelet Count 346 x10^3/uL (140-400) Neutrophils (%) (Auto) 78 % (31-73) Lymphocytes (%) (Auto) 14 % (24-48) Monocytes (%) (Auto) 8 % (0-9) Eosinophils (%) (Auto) 0 % (0-3) Basophils (%) (Auto) 0 % (0-3) Neutrophils # (Auto) 5.0 x10^3/uL (1.8-7.7) Lymphocytes # (Auto) 0.9 x10^3/uL (1.0-4.8) Monocytes # (Auto) 0.5 x10^3/uL (0.0-1.1) Eosinophils # (Auto) 0.0 x10^3/uL (0.0-0.7) Basophils # (Auto) 0.0 x10^3/uL (0.0-0.2) Sodium Level 136 mmol/L (136-145) Potassium Level 3.8 mmol/L (3.5-5.1) Chloride Level 103 mmol/L (98-107) Carbon Dioxide Level 24 mmol/L (21-32) Anion Gap 9 (6-14) Blood Urea Nitrogen 19 mg/dL (7-20) Creatinine 0.6 mg/dL (0.6-1.0) Estimated GFR (Cockcroft-Gault) 95.9 BUN/Creatinine Ratio 32 (6-20) Glucose Level 94 mg/dL (70-99) Calcium Level 8.1 mg/dL (8.5-10.1) Total Bilirubin 0.4 mg/dL (0.2-1.0) Aspartate Amino Transf (AST/SGOT) 23 U/L (15-37) Alanine Aminotransferase (ALT/SGPT) 20 U/L (14-59) Alkaline Phosphatase 186 U/L (46-116) Total Protein 6.7 g/dL (6.4-8.2) Albumin 2.4 g/dL (3.4-5.0) Albumin/Globulin Ratio 0.6 (1.0-1.7) Assessment and Plan Assessmemt and Plan Problems Medical Problems: (1) Acute on chronic respiratory failure with hypoxemia Status: Acute (2) COVID-19 Status: Acute (3) Influenza A Status: Acute (4) Shortness of breath Status: Acute Comment Review of Relevant I have reviewed the following items messi (where applicable) has been applied. Medications: Current Medications Medications (Trade) Dose Ordered Sig/Farhan Route PRN Reason Start Time Stop Time Status Last Admin Dose Admin Furosemide (Lasix) 20 mg DAILY PO 06/06/21 13:30 06/07/21 09:22 Potassium Chloride (Klor-Con) 10 meq DAILY PO 06/06/21 13:30 06/07/21 09:22 Furosemide (Lasix) 20 mg 1X ONCE IVP 06/06/21 14:00 06/06/21 14:01 DC 06/06/21 15:17 Justifications for Admission Other Justification Failure to thrive KALYN LONG MD Jun 07, 2021 11:14
--- NOTE | 2021-06-07 11:16 | PDOC3 ---
Discharge Summary Visit Information Date of Admission: Jun 03, 2021 Date of Discharge: Jun 07, 2021 Admitting Diagnosis: COVID 19, hypoxic respiratory failure Final Diagnosis Problems Medical Problems: (1) Acute on chronic respiratory failure with hypoxemia Status: Acute (2) COVID-19 Status: Acute (3) Influenza A Status: Acute (4) Shortness of breath Status: Acute Brief Hospital Course Allergies Allergies Coded Allergies Type Severity Reaction Last Updated Verified clindamycin Allergy Severe THROAT CLOSING 04/23/21 Yes Penicillins Allergy Intermediate Hives 04/23/21 Yes erythromycin base Allergy Intermediate 04/23/21 Yes latex Allergy Intermediate itching, broke out w/ hives 04/23/21 Yes metoprolol Allergy Intermediate 04/23/21 Yes Vital Signs Vital Signs Date Time Temp Pulse Resp B/P (MAP) Pulse Ox O2 Delivery O2 Flow Rate FiO2 06/07/21 09:22 66 166/69 06/07/21 03:53 97.4 20 98 Nasal Cannula 6.0 97.4 Lab Results Laboratory Tests Test 06/06/21 06:10 06/06/21 15:15 06/07/21 07:50 White Blood Count 5.4 x10^3/uL (4.0-11.0) 6.4 x10^3/uL (4.0-11.0) Red Blood Count 3.21 x10^6/uL (3.50-5.40) 3.36 x10^6/uL (3.50-5.40) Hemoglobin 9.1 g/dL (12.0-15.5) 9.3 g/dL (12.0-15.5) Hematocrit 28.8 % (36.0-47.0) 30.2 % (36.0-47.0) Mean Corpuscular Volume 90 fL (79-100) 90 fL (79-100) Mean Corpuscular Hemoglobin 28 pg (25-35) 28 pg (25-35) Mean Corpuscular Hemoglobin Concent 32 g/dL (31-37) 31 g/dL (31-37) Red Cell Distribution Width 21.2 % (11.5-14.5) 20.8 % (11.5-14.5) Platelet Count 340 x10^3/uL (140-400) 346 x10^3/uL (140-400) Neutrophils (%) (Auto) 79 % (31-73) 78 % (31-73) Lymphocytes (%) (Auto) 13 % (24-48) 14 % (24-48) Monocytes (%) (Auto) 8 % (0-9) 8 % (0-9) Eosinophils (%) (Auto) 0 % (0-3) 0 % (0-3) Basophils (%) (Auto) 0 % (0-3) 0 % (0-3) Neutrophils # (Auto) 4.3 x10^3/uL (1.8-7.7) 5.0 x10^3/uL (1.8-7.7) Lymphocytes # (Auto) 0.7 x10^3/uL (1.0-4.8) 0.9 x10^3/uL (1.0-4.8) Monocytes # (Auto) 0.4 x10^3/uL (0.0-1.1) 0.5 x10^3/uL (0.0-1.1) Eosinophils # (Auto) 0.0 x10^3/uL (0.0-0.7) 0.0 x10^3/uL (0.0-0.7) Basophils # (Auto) 0.0 x10^3/uL (0.0-0.2) 0.0 x10^3/uL (0.0-0.2) Sodium Level 138 mmol/L (136-145) 136 mmol/L (136-145) Potassium Level 3.6 mmol/L (3.5-5.1) 3.8 mmol/L (3.5-5.1) Chloride Level 103 mmol/L (98-107) 103 mmol/L (98-107) Carbon Dioxide Level 26 mmol/L (21-32) 24 mmol/L (21-32) Anion Gap 9 (6-14) 9 (6-14) Blood Urea Nitrogen 16 mg/dL (7-20) 19 mg/dL (7-20) Creatinine 0.6 mg/dL (0.6-1.0) 0.6 mg/dL (0.6-1.0) Estimated GFR (Cockcroft-Gault) 95.9 95.9 BUN/Creatinine Ratio 27 (6-20) 32 (6-20) Glucose Level 90 mg/dL (70-99) 94 mg/dL (70-99) Calcium Level 7.9 mg/dL (8.5-10.1) 8.1 mg/dL (8.5-10.1) Total Bilirubin 0.4 mg/dL (0.2-1.0) 0.4 mg/dL (0.2-1.0) Aspartate Amino Transf (AST/SGOT) 22 U/L (15-37) 23 U/L (15-37) Alanine Aminotransferase (ALT/SGPT) 13 U/L (14-59) 20 U/L (14-59) Alkaline Phosphatase 181 U/L (46-116) 186 U/L (46-116) Total Protein 6.5 g/dL (6.4-8.2) 6.7 g/dL (6.4-8.2) Albumin 2.3 g/dL (3.4-5.0) 2.4 g/dL (3.4-5.0) Albumin/Globulin Ratio 0.5 (1.0-1.7) 0.6 (1.0-1.7) Digoxin Level 0.8 ng/mL (0.9-2.0) Digoxin Last Dose Date Digoxin Last Dose Time Laboratory Tests Test 06/06/21 15:15 06/07/21 07:50 Digoxin Level 0.8 ng/mL (0.9-2.0) Digoxin Last Dose Date Digoxin Last Dose Time White Blood Count 6.4 x10^3/uL (4.0-11.0) Red Blood Count 3.36 x10^6/uL (3.50-5.40) Hemoglobin 9.3 g/dL (12.0-15.5) Hematocrit 30.2 % (36.0-47.0) Mean Corpuscular Volume 90 fL (79-100) Mean Corpuscular Hemoglobin 28 pg (25-35) Mean Corpuscular Hemoglobin Concent 31 g/dL (31-37) Red Cell Distribution Width 20.8 % (11.5-14.5) Platelet Count 346 x10^3/uL (140-400) Neutrophils (%) (Auto) 78 % (31-73) Lymphocytes (%) (Auto) 14 % (24-48) Monocytes (%) (Auto) 8 % (0-9) Eosinophils (%) (Auto) 0 % (0-3) Basophils (%) (Auto) 0 % (0-3) Neutrophils # (Auto) 5.0 x10^3/uL (1.8-7.7) Lymphocytes # (Auto) 0.9 x10^3/uL (1.0-4.8) Monocytes # (Auto) 0.5 x10^3/uL (0.0-1.1) Eosinophils # (Auto) 0.0 x10^3/uL (0.0-0.7) Basophils # (Auto) 0.0 x10^3/uL (0.0-0.2) Sodium Level 136 mmol/L (136-145) Potassium Level 3.8 mmol/L (3.5-5.1) Chloride Level 103 mmol/L (98-107) Carbon Dioxide Level 24 mmol/L (21-32) Anion Gap 9 (6-14) Blood Urea Nitrogen 19 mg/dL (7-20) Creatinine 0.6 mg/dL (0.6-1.0) Estimated GFR (Cockcroft-Gault) 95.9 BUN/Creatinine Ratio 32 (6-20) Glucose Level 94 mg/dL (70-99) Calcium Level 8.1 mg/dL (8.5-10.1) Total Bilirubin 0.4 mg/dL (0.2-1.0) Aspartate Amino Transf (AST/SGOT) 23 U/L (15-37) Alanine Aminotransferase (ALT/SGPT) 20 U/L (14-59) Alkaline Phosphatase 186 U/L (46-116) Total Protein 6.7 g/dL (6.4-8.2) Albumin 2.4 g/dL (3.4-5.0) Albumin/Globulin Ratio 0.6 (1.0-1.7) Brief Hospital Course Ms Salgado is an 80yo female with PMHx CHF, ex-smoker (quit 2007), GERD, HTN, Hypothyroidism, afib (stopped OAC 2/2 GI bleed), COPD on 3L NCO2 at home, and anemia who presents to the ED via EMS for worsening shortness of breath and cough starting 2 days ago. She notes subjective fever and chills weakness. She noted increased urinary output. She is worried because one of her neighbors came back from [place] after a trip 7 days ago and had a cough. Chest radiograph with cardiomegaly diffuse interstitial opacities. Labs with WBC 9.1, Hb 9.2, platelets 234, NA 134, K3.9, BUN 14, CR 0.7, glucose 94, calcium 8.4, magnesium 2, bilirubin 0.6, AST 29, ALT 9, alk phos 228, high- sensitivity troponin is 34, albumin is 2.5, NT proBNP is 4876 ABG on 4 L nasal cannula oxygen 7.5/, urinalysis bland, rapid influenza a positive, rapid COVID-19 positive. EKG rate controlled A. fib approximately [address] elevation or TWI. 06/05: Potassium 3.4. Profoundly weak. O2 needs increased to 8 L/min. Still with a cough minimally productive 06/06: Still weak but able to get up to chair with assistance O2 at 6 L/min still with cough minimally productive. Will restart her furosemide IV today given CHF may be playing a role and reassess after diuresis and reinitiate her potassium. Check digoxin level 06/07: A little stronger today now on 3 to 4 L of O2 as she is on home. Back on home dosing of furosemide and holding digoxin for level 0.8 will complete back on meds at home and take 6 days of Decadron. Problem list: Acute hypoxic respiratory failure - likely 2/2 influenza, COVID 19, COPD/CHF COVID-19 pneumonia -she has been able to get 2 vaccines but never had a booster due to frequent hospitalizations. 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 Actually seems euvolemic but may be worsened due to her acute COVID-19 and influenza. GERD - PPI HTN - cont meds Hypothyroidism - cont meds Anemia - likely related to chronic CHF/RA/COPD Rheumatoid arthritis - unknown serology. I have advised her to avoid methotrexate for now as her symptoms were only relegated to her left hand. Acute on chronic diastolic CHF COPD on home oxygen therapy Severe pulmonary HTN - with cor pulmonale Greater than 30 minutes spent on d/c home Discharge Information Condition at Discharge: Improved Follow Up: Weeks Disposition/Orders: D/C to Home Scheduled Aspirin (Aspirin Ec) 81 Mg Tablet.dr, 81 MG PO DAILYWBKFT for heart disease prevention for 30 Days, #30 Ref 2 Prescribed by: OSMANI GOMEZ MD on 04/25/21 1202 Last Action: Continued on 06/04/211626 by KALYN LONG MD Cyanocobalamin (Vitamin B-12) (Vitamin B-12) 5,000 Mcg Tab.rapdis, 5,000 MCG PO QODAY for anemia, (Reported) Entered as Reported by: ANASTASIA MONSIVAIS on 02/23/15 1359 Last Action: Converted on 06/04/211626 by KALYN LONG MD Dexamethasone (Dexamethasone) 4 Mg Tablet, 1 TAB PO DAILY for COVID for 6 Days, #6 Prescribed by: KALYN LONG MD on 06/07/21 1112 Digoxin (Digoxin) 125 Mcg Tablet, 125 MCG PO DAILY for AFIB/HEART FAILURE, #30 Prescribed by: GABY BURDEN on 03/03/21 1053 Last Action: Reviewed on 06/04/211352 by JH RUANO RN Diltiazem Hcl (Cardizem Cd) 180 Mg Cap.er.24h, 1 CAP PO BID for HTN, #90 Ref 1 (Reported) Entered as Reported by: JH LIU on 05/24/191631 Last Action: Continued on 06/04/211626 by KALYN LONG MD Escitalopram Oxalate (Escitalopram Oxalate) 10 Mg Tablet, 0.5 TAB PO DAILY for , #30 Ref 3 (Reported) Entered as Reported by: Shreyas Aranda on 02/28/21 2317 Last Action: Converted on 06/04/211626 by KALYN LONG MD Ferrous Sulfate (Iron) 325 Mg Tablet, 1 TAB PO HS for supplement for 30 Days, #30 Ref 0 (Reported) Entered as Reported by: JH RUANO RN on 06/04/21 135 Last Taken: UNKNOWN on Unknown Date & Time Last Action: Continued on 06/04/211626 by KALYN LONG MD Furosemide (Lasix) 20 Mg Tablet, 1 TAB PO DAILY for CHF for 30 Days, #30 Ref 0 (Reported) Entered as Reported by: JH LIU on 4/2/20 1632 Last Action: Continued on 06/06/21 1325 by KALYN LONG MD L. Rhamnosus GG/Inulin (Culturelle Capsule) 1 Each Cap.sprink, 1 CAP PO DAILY for gi upset for 30 Days, #30 Ref 0 Prescribed by: KALYN HERNANDEZ MD on 04/17/21 1043 Last Action: Converted on 06/04/211626 by KALYN LONG MD Levothyroxine Sodium (Levothyroxine Sodium) 75 Mcg Tablet, 1 TAB PO DAILY, #30 Ref 5 (Reported) Entered as Reported by: ALEC FLORES on 02/19/14 183 Last Action: Continued on 06/04/211626 by KALYN LONG MD Magnesium Oxide (Magnesium Oxide) 250 Mg Tablet, 1 TAB PO HS for supplement for 30 Days, #30 Ref 0 (Reported) Entered as Reported by: JH RUANO RN on 06/04/21 1353 Last Taken: UNKNOWN on Unknown Date & Time Last Action: Converted on 06/04/211626 by KALYN LONG MD Omeprazole (Omeprazole) 20 Mg Capsule.dr, 1 CAP PO DAILY, #30 Ref 5 (Reported) Entered as Reported by: ALEC FLORES on 02/19/141838 Last Action: Converted on 06/04/211626 by KALYN LONG MD Potassium Chloride (Klor-Con 10) 10 Meq Tablet.er, 10 MEQ PO DAILY for CHF, (Reported) Entered as Reported by: JH LIU on 05/24/19 1632 Last Action: Continued on 06/06/21 132 by KALYN LONG MD Discontinued Medications Acetaminophen (Tylenol) 325 Mg Tablet, 2 TAB PO PRN Q4HRS for , #30 (Reported) Entered as Reported by: Shreyas Aranda on 02/28/21 2321 Last Action: Discontinued on 06/04/21 135 by JH RUANO RN Docusate Sodium (Colace) 100 Mg Capsule, 1 CAP PO DAILY PRN for CONSTIPATION, #50 (Reported) Entered as Reported by: CHE WALLACE on 11/23/17 1100 Last Action: Discontinued on 06/04/21 135 by JH RUANO RN Ferrous Sulfate (Ferrous Sulfate) 325 Mg Tablet, 1 TAB PO TID, #30 Ref 3 (Reported) Entered as Reported by: NIK RICK on 10/21/178 Last Action: Discontinued on 06/04/211352 by JH RUANO RN Folic Acid (Folic Acid) 20 Mg Capsule, 400 MG PO DAILY for PPX for 30 Days, #600 Ref 0 (Reported) Entered as Reported by: JH LIU on 05/24/191631 Last Action: Discontinued on 06/04/211352 by JH RUANO RN Loratadine (Loratadine) 10 Mg Tablet, 1 TAB PO PRN DAILY PRN for ALLERGIES, #30 Ref 5 (Reported) Entered as Reported by: NIK RICK on 10/21/171714 Last Action: Discontinued on 06/04/211352 by JH RUANO RN Magnesium Oxide (Magnesium Oxide) 250 Mg Tablet, 1 TAB PO DAILY for HH for 30 Days, #30 Ref 0 (Reported) Entered as Reported by: JH LIU on 05/24/191631 Last Action: Discontinued on 06/04/211352 by JH RUANO RN Om3-Dha/Epa/D3/Lutein/Zeazanth (Eye Ross Advantage Softgel) 1 Each Capsule, 1 EACH PO BID for eye supplement, (Reported) Entered as Reported by: Mine Cordova on 02/03/19 1830 Last Action: Discontinued on 06/04/211352 by JH RUANO RN Justicifation of Admission Dx: Justifications for Admission: Justification of Admission Dx: Yes CHF: Cardiac Arrhythmias KALYN LONG MD Jun 07, 2021 11:16
== END 2021-06-07 16:10 | disposition home or self-care (01) | DRG 177 ==
LOC: ER 14:03 → ED HOLD 20:00 → 5 NORTH 06-04 02:20
PROVIDERS: ADMIT Internal Medicine; ATTEND Internal Medicine
PROC: XW033E5 Introduction of Remdesivir Anti-infective into Peripheral Vein, Percutaneous Approach, New Technology Group 5 (ICD-10-PCS; principal; 2021-06-05)
DX: U07.1 COVID-19 (principal); J96.01 Acute respiratory failure with hypoxia; E43 Unspecified severe protein-calorie malnutrition; I50.33 Acute on chronic diastolic (congestive) heart failure; J12.82 Pneumonia due to coronavirus disease 2019; J10.08 Influenza due to other identified influenza virus with other specified pneumonia; J96.21 Acute and chronic respiratory failure with hypoxia; J44.0 Chronic obstructive pulmonary disease with (acute) lower respiratory infection; I27.20 Pulmonary hypertension, unspecified; J44.9 Chronic obstructive pulmonary disease, unspecified; J10.1 Influenza due to other identified influenza virus with other respiratory manifestations; D64.9 Anemia, unspecified; E03.9 Hypothyroidism, unspecified; I11.0 Hypertensive heart disease with heart failure; I27.29 Other secondary pulmonary hypertension; I27.81 Cor pulmonale (chronic); I48.91 Unspecified atrial fibrillation; I87.8 Other specified disorders of veins; K21.9 Gastro-esophageal reflux disease without esophagitis; Z82.49 Family history of ischemic heart disease and other diseases of the circulatory system; Z87.891 Personal history of nicotine dependence; M19.90 Unspecified osteoarthritis, unspecified site; Z88.0 Allergy status to penicillin; Z88.8 Allergy status to other drugs, medicaments and biological substances; Z91.040 Latex allergy status; Z68.29 Body mass index [BMI] 29.0-29.9, adult; M06.9 Rheumatoid arthritis, unspecified
CPT/HCPCS: 36415; 36600; 71045; 80053; 80162; 81001; 82805; 83735; 83880; 84484; 85025; 87040; 87428; 93005; 96374; 96375; J0696; J1100; J1650; J1940; J7050; 99285-25; G0378; J7030

== ENCOUNTER 2021-06-24 18:14 | Inpatient (IN) | payer MEDICARE ==
[~2021-06-24] VITALS: Ht 154.9 cm; Wt 66.4 kg
[~2021-06-24 18:14] MED LIST changes: +DEXA4TAB PO; +FERR-36 PO
[2021-06-24] MEDS ORDERED: IPRATRPIUM/ALBUTEROL 0.5/2.5MG 3 ML NEBU. ONE (18:28)
[2021-06-24] MEDS ORDERED: IPRATRPIUM/ALBUTEROL 0.5/2.5MG 3 ML NEBU. NEB ONE (18:30)
--- NOTE | 2021-06-24 18:51 | PHYS DOC ---
Past Medical History Past Medical History: Anemia, CHF, COPD, GERD, Hypertension, Hypothyroid Additional Past Medical Histor: THYROID Past Surgical History: No Surgical History Additional Past Surgical Histo: cataract, ear Smoking Status: Never Smoker Alcohol Use: None Drug Use: None General Adult EDM: Chief Complaint: SHORTNESS OF BREATH HPI: HPI: Patient is a 80 year old female with PMHx CHF, ex-smoker (quit 2007), GERD, HTN, Hypothyroidism, afib (stopped OAC 2/2 GI bleed), COPD on 4L NCO2 at home, and anemia who presents to the ED via EMS for worsening shortness of breath and cough starting 2 days ago. Patient was admitted here on June 03, 2021 for the same problem. Patient was diagnosed with COVID-19 pneumonia and influenza A. Patient was vaccinated for COVID-19, however she did not receive the booster shot. Patient denies any fever, no chest pain, no abdominal pain, no nausea vomiting Review of Systems: Review of Systems: Constitutional: Denies fever or chills. [] Eyes: Denies change in visual acuity. [] HENT: Denies nasal congestion or sore throat. [] Respiratory: Positive for cough and shortness of breath. [] Cardiovascular: Denies chest pain or edema. [] GI: Denies abdominal pain, nausea, vomiting, bloody stools or diarrhea. [] : Denies dysuria. [] Musculoskeletal: Denies back pain or joint pain. [] Integument: Denies rash. [] Neurologic: Denies headache, focal weakness or sensory changes. [] Endocrine: Denies polyuria or polydipsia. [] Lymphatic: Denies swollen glands. [] Psychiatric: Denies depression or anxiety. [] Heart Score: C/O Chest Pain: N/A Risk Factors: Risk Factors: DM, Current or recent (<one month) smoker, HTN, HLP, family history of CAD, obesity. Risk Scores: Score 0 - 3: 2.5% MACE over next 6 weeks - Discharge Home Score 4 - 6: 20.3% MACE over next 6 weeks - Admit for Clinical Observation Score 7 - 10: 72.7% MACE over next 6 weeks - Early Invasive Strategies Current Medications: Current Medications Medications (Trade) Dose Ordered Sig/Farhan Start Time Stop Time Status Last Admin Dose Admin Albuterol/ Ipratropium (Duoneb) 3 ml 1X ONCE 06/24/21 18:30 06/24/21 18:32 DC 06/24/21 18:37 3 ML Allergies: Allergies: Allergies Coded Allergies Type Severity Reaction Last Updated Verified clindamycin Allergy Severe THROAT CLOSING 06/24/21 Yes Penicillins Allergy Intermediate Hives 06/24/21 Yes erythromycin base Allergy Intermediate 06/24/21 Yes latex Allergy Intermediate itching, broke out w/ hives 06/24/21 Yes metoprolol Allergy Intermediate 06/24/21 Yes Physical Exam: PE: Constitutional: Well developed, well nourished, no acute distress, non-toxic appearance. [] HENT: Normocephalic, atraumatic, bilateral external ears normal, oropharynx moist, no oral exudates, nose normal. [] Eyes: PERRLA, EOMI, conjunctiva PALE, no discharge. [] Neck: Normal range of motion, no tenderness, supple, no stridor. [] Cardiovascular:Heart rate regular rhythm, LOUD SYSTOLIC HEART MURMUR. Lungs & Thorax: Bilateral breath sounds COURSE to auscultation [] Abdomen: Bowel sounds normal, soft, no tenderness, no masses, no pulsatile masses. [] Skin: Warm, dry, no erythema, no rash. PALE Back: No tenderness, no CVA tenderness. [] Extremities: No tenderness, no cyanosis, no clubbing, ROM intact, no edema. [] Neurologic: Alert and oriented X 3, normal motor function, normal sensory function, no focal deficits noted. [] Psychologic: Affect normal, judgement normal, mood normal. [] Current Patient Data: Labs: Laboratory Tests Test 06/24/21 18:45 White Blood Count 8.2 x10^3/uL Red Blood Count 2.37 x10^6/uL Hemoglobin 6.7 g/dL Hematocrit 21.7 % Mean Corpuscular Volume 91 fL Mean Corpuscular Hemoglobin 28 pg Mean Corpuscular Hemoglobin Concent 31 g/dL Red Cell Distribution Width 19.8 % Platelet Count 306 x10^3/uL Neutrophils (%) (Auto) 79 % Lymphocytes (%) (Auto) 11 % Monocytes (%) (Auto) 8 % Eosinophils (%) (Auto) 2 % Basophils (%) (Auto) 1 % Neutrophils # (Auto) 6.4 x10^3/uL Lymphocytes # (Auto) 0.9 x10^3/uL Monocytes # (Auto) 0.6 x10^3/uL Eosinophils # (Auto) 0.1 x10^3/uL Basophils # (Auto) 0.1 x10^3/uL Sodium Level 136 mmol/L Potassium Level 4.8 mmol/L Chloride Level 105 mmol/L Carbon Dioxide Level 23 mmol/L Anion Gap 8 Blood Urea Nitrogen 21 mg/dL Creatinine 0.7 mg/dL Estimated GFR (Cockcroft-Gault) 80.3 BUN/Creatinine Ratio 30 Glucose Level 94 mg/dL Calcium Level 8.0 mg/dL Magnesium Level Pending Total Bilirubin Pending Aspartate Amino Transf (AST/SGOT) Pending Alanine Aminotransferase (ALT/SGPT) Pending Alkaline Phosphatase Pending Total Protein Pending Albumin Pending Albumin/Globulin Ratio Pending Current Medications Medications (Trade) Dose Ordered Sig/Farhan Route PRN Reason Start Time Stop Time Status Last Admin Dose Admin Albuterol/ Ipratropium (Duoneb) 3 ml 1X ONCE NEB 06/24/21 18:30 06/24/21 18:32 DC 06/24/21 18:37 Vital Signs: Vital Signs Date Time Temp Pulse Resp B/P (MAP) Pulse Ox O2 Delivery O2 Flow Rate FiO2 06/24/21 18:40 38 97 Nasal Cannula 4.0 06/24/21 18:20 97.7 69 130/63 (85) 97.7 EKG: EKG: EKG was done at 1831, heart rate of 69 bpm, atrial fibrillation, incomplete right bundle branch block, no ST segment elevation Radiology/Procedures: Radiology/Procedures: [facility] [address] [place], [place] [id number] IMAGING REPORT Signed PATIENT: NASH PAULSON ACCOUNT: [id number] : 1940 LOCATION: [facility] AGE: 80 SEX: F EXAM STATUS: ADM IN ORD. PHYSICIAN: SHERON TINAJERO DO REASON: soa PROCEDURE: PORTABLE CHEST 1V Single view chest dated 06/24/2021 7:59 PM: COMPARISON: 06/03/2021 Clinical Indication: Shortness of breath. Findings: Single upright portable exam of the chest was performed. Heart size mildly enlarged, stable. Coarsened interstitial markings, similar to slightly improved from prior study. No definite pleural effusion. No pneumothorax. IMPRESSION: 1. Cardiomegaly with mild interstitial changes, somewhat improved from prior study. Electronically signed by: Vicente Banks MD (06/24/2021 8:01 PM) [facility] [place] DICTATED and SIGNED BY: VICENTE BANKS MD DATE: 06/24/211958 Course & Med Decision Making: Course & Med Decision Making Pertinent Labs and Imaging studies reviewed. (See chart for details) Patient is an 80-year female who presented to ER due to trouble breathing. Patient has CHF exacerbation. Patient also found to have anemia. Patient was given blood transfusion in ER, she was admitted to hospital for further evaluation and treatment. Discussed with the hospitalist on-call Dr. Hernandez who agrees to admit the patient. Radha Disclaimer: Radha Disclaimer: This electronic medical record was generated, in whole or in part, using a voice recognition dictation system. Departure Departure Impression: Primary Impression: CHF exacerbation Additional Impressions: Anemia COPD exacerbation Disposition: ADMITTED INPATIENT Admitting Physician: [facility] (DR. HERNANDEZ) Condition: STABLE Referrals: NATALIE GONCALVES APRN (PCP) SHERON TINAJERO DO June 24, 2021 18:51
[2021-06-24 19:02] LABS: BASO # 0.1 x10^3/uL (0.0-0.2); BASO % 1 % (0-3); EOS # 0.1 x10^3/uL (0.0-0.7); EOS % 2 % (0-3); HEMATOCRIT 21.7 % (36.0-47.0); LYMPH # 0.9 x10^3/uL (1.0-4.8); LYMPH % 11 % (24-48); MEAN CORPUSCULAR HEMOGLOBIN 28 pg (25-35); MEAN CORPUSCULAR HGB CONC 31 g/dL (31-37); MEAN CORPUSCULAR VOLUME 91 fL (79-100); MONO # 0.6 x10^3/uL (0.0-1.1); MONO % 8 % (0-9); NEUT # 6.4 x10^3/uL (1.8-7.7); NEUT % 79 % (31-73); PLATELET COUNT 306 x10^3/uL (140-400); RED BLOOD COUNT 2.37 x10^6/uL (3.50-5.40); RED CELL DISTRIBUTION WIDTH 19.8 % (11.5-14.5); WHITE BLOOD COUNT 8.2 x10^3/uL (4.0-11.0)
[2021-06-24 19:04] LABS: HEMOGLOBIN 6.7 g/dL (12.0-15.5)
[2021-06-24 19:09] LABS: CREATININE 0.7 mg/dL (0.6-1.0); GFR 80.3; POTASSIUM 4.8 mmol/L (3.5-5.1)
[2021-06-24 19:14] LABS: DIG 1.7 ng/mL (0.9-2.0)
[2021-06-24 19:15] LABS: ALBUMIN 2.5 g/dL (3.4-5.0); ALBUMIN/GLOBULIN RATIO 0.7 (1.0-1.7); MAGNESIUM 2.4 mg/dL (1.8-2.4); TOTAL BILIRUBIN 0.6 mg/dL (0.2-1.0); TOTAL PROTEIN 5.9 g/dL (6.4-8.2)
[2021-06-24 19:22] LABS: BACTERIA,URINE FEW /HPF (0-FEW); RBC,URINE 0 /HPF (0-2)
--- NOTE | 2021-06-24 19:29 | PDOC1 ---
History and Physical Date of Service: DOS: DATE: 06/24/21 TIME: 19:26 Chief Complaint: Chief Complain: Shortness of breath History of Present Illness: HPI: Patient is an 80-year-old white female presented to the emergency room today due to 2-day history of worsening shortness of breath. Patient recently admitted for both COVID and influenza and discharged home. Patient said her breathing actually had been doing quite well until 2 days ago and that her breathing has been worsening ever since. Reports compliance with her medications. Does not know of any changes that would have brought on current shortness of breath. Patient incidentally found to have hemoglobin 6.7. Looks at her baseline is around 9-10. Does have known anemia. Denies any hematuria hematemesis hematochezia. Give unit packed red blood cells. When I evaluated the patient she was resting in bed on 4 L nasal cannula doing well. Able to provide me with history. Says SOB has improved a bit since presentation Past Medical/Surgical History: PMH/PSH: Cardiovascular: AFIB (off OAC 2/2 previous GI bleed), CHF, HTN, Pulmonary hypertension Pulmonary: Pneumonia CENTRAL NERVOUS SYSTEM: Carpal Tunnel Syndrome GI: GI bleed Heme/Onc: Anemia NOS Hepatobiliary: No pertinent hx Psych: No pertinent hx Musculoskeletal: Osteoarthritis Rheumatologic: No pertinent hx Infectious disease: No pertinent hx Renal/: UTI Endocrine: Hypothyroidism Past Surgical History Past Surgical History: Cataract Removal Family History Family History: Coronary Artery Disease Social History Smoke: No ALCOHOL: none Drugs: None Allergies: Allergies: Coded Allergies: clindamycin (Verified Allergy, Severe, THROAT CLOSING, 06/24/21) Penicillins (Verified Allergy, Intermediate, Hives, 06/24/21) erythromycin base (Verified Allergy, Intermediate, 06/24/21) latex (Verified Allergy, Intermediate, itching, broke out w/ hives, 06/24/21) metoprolol (Verified Allergy, Intermediate, 06/24/21) Current Medications: Current Medications Current Medications Albuterol/ Ipratropium (Duoneb) 3 ml 1X ONCE NEB Last administered on 06/24/21at 18:37; Start 06/24/21 at 18:30; Stop 06/24/21 at 18:32; Status DC Active Scripts Active Dexamethasone 4 Mg Tablet 1 Tab PO DAILY 6 Days Aspirin Ec (Aspirin) 81 Mg Tablet.dr 81 Mg PO DAILYWBKFT 30 Days Culturelle Capsule (L. Rhamnosus GG/Inulin) 1 Each Cap.sprink 1 Cap PO DAILY 30 Days Digoxin 125 Mcg Tablet 125 Mcg PO DAILY Reported Magnesium Oxide 250 Mg Tablet 1 Tab PO HS 30 Days Iron (Ferrous Sulfate) 325 Mg Tablet 1 Tab PO HS 30 Days Escitalopram Oxalate 10 Mg Tablet 0.5 Tab PO DAILY Klor-Con 10 (Potassium Chloride) 10 Meq Tablet.er 10 Meq PO DAILY Lasix (Furosemide) 20 Mg Tablet 1 Tab PO DAILY 30 Days Cardizem Cd (Diltiazem Hcl) 180 Mg Cap.er.24h 1 Cap PO BID Vitamin B-12 (Cyanocobalamin (Vitamin B-12)) 5,000 Mcg Tab.rapdis 5,000 Mcg PO QODAY Omeprazole 20 Mg Capsule. 1 Cap PO DAILY Levothyroxine Sodium 75 Mcg Tablet 1 Tab PO DAILY ROS: Review of Systems Review of System Unless known HPI 14 point review of systems was negative. Physical Exam: Vital Signs: Vital Signs Date Time Temp Pulse Resp B/P (MAP) Pulse Ox O2 Delivery O2 Flow Rate FiO2 06/24/21 19:21 64 25 114/66 (82) Nasal Cannula 4.0 06/24/21 18:40 97 06/24/21 18:20 97.7 97.7 Physcial Exam: GEN: No apparent distress. Alert and oriented HEENT: Normal cephalic, atraumatic, external auditory canals are patent EYES: Extraocular muscles are intact, pupil are equally round and reactive to light and accommodation MUSCULOSKELETAL: Well developed , well nourished, good range of motion ENDOCRINE: No thyromegaly was palpated LYMPHATICS: No cervical chain or axillary nodes were noted HEMATOPOIETIC: No bruising NECK: Supple, no JVD, no thyromegaly was noted LUNGS: bibasilar crackles; no apparent wheezing, on 4L NC no apparent respiratory distress HEART: RRR, systolic ejection murmur ABDOMEN: Soft, nontender. Positive bowel sounds, no organomegaly, normal bowel sounds EXTREMITIES: Without clubbing, cyanosis, or edema. Pedal pulses intact. Negative Homans sign NEUROLOGIC: Normal speech and tone. A&O x 3, moves all extremities, no obvious focal deficits PSYCHIATRIC: Normal affect, normal mood. Stable SKIN: No ulcerations or rashes, good skin turgor, no jaundice VASCULAR: Good capillary refill, neurovascular bundle appears to be intact Labs: Labs: Laboratory Tests Test 06/24/21 18:45 06/24/21 19:06 White Blood Count 8.2 x10^3/uL (4.0-11.0) Red Blood Count 2.37 x10^6/uL (3.50-5.40) Hemoglobin 6.7 g/dL (12.0-15.5) Hematocrit 21.7 % (36.0-47.0) Mean Corpuscular Volume 91 fL (79-100) Mean Corpuscular Hemoglobin 28 pg (25-35) Mean Corpuscular Hemoglobin Concent 31 g/dL (31-37) Red Cell Distribution Width 19.8 % (11.5-14.5) Platelet Count 306 x10^3/uL (140-400) Neutrophils (%) (Auto) 79 % (31-73) Lymphocytes (%) (Auto) 11 % (24-48) Monocytes (%) (Auto) 8 % (0-9) Eosinophils (%) (Auto) 2 % (0-3) Basophils (%) (Auto) 1 % (0-3) Neutrophils # (Auto) 6.4 x10^3/uL (1.8-7.7) Lymphocytes # (Auto) 0.9 x10^3/uL (1.0-4.8) Monocytes # (Auto) 0.6 x10^3/uL (0.0-1.1) Eosinophils # (Auto) 0.1 x10^3/uL (0.0-0.7) Basophils # (Auto) 0.1 x10^3/uL (0.0-0.2) Sodium Level 136 mmol/L (136-145) Potassium Level 4.8 mmol/L (3.5-5.1) Chloride Level 105 mmol/L (98-107) Carbon Dioxide Level 23 mmol/L (21-32) Anion Gap 8 (6-14) Blood Urea Nitrogen 21 mg/dL (7-20) Creatinine 0.7 mg/dL (0.6-1.0) Estimated GFR (Cockcroft-Gault) 80.3 BUN/Creatinine Ratio 30 (6-20) Glucose Level 94 mg/dL (70-99) Lactic Acid Level 1.4 mmol/L (0.4-2.0) Calcium Level 8.0 mg/dL (8.5-10.1) Magnesium Level 2.4 mg/dL (1.8-2.4) Total Bilirubin 0.6 mg/dL (0.2-1.0) Aspartate Amino Transf (AST/SGOT) 33 U/L (15-37) Alanine Aminotransferase (ALT/SGPT) 24 U/L (14-59) Alkaline Phosphatase 278 U/L (46-116) Troponin I High Sensitivity 30 ng/L (4-50) KW-Fpl-U-Type Natriuretic Peptide 3678 pg/mL (0-449) Total Protein 5.9 g/dL (6.4-8.2) Albumin 2.5 g/dL (3.4-5.0) Albumin/Globulin Ratio 0.7 (1.0-1.7) Digoxin Level 1.7 ng/mL (0.9-2.0) Digoxin Last Dose Date Digoxin Last Dose Time Urine Collection Type U cath Urine Color (Auto) Yellow Urine Turbidity Clear Urine pH (Auto) 5.5 (<5.0-8.0) Urine Specific [place] 1.023 (1.000-1.030) Urine Protein (Auto) 70 mg/dL (Negative) Urine Glucose (Auto)(UA) Negative mg/dL (Negative) Urine Ketones (Auto) Trace mg/dL (Negative) Urine Blood (Auto) Negative (Negative) Urine Nitrite Negative (Negative) Urine Bilirubin (Auto) Negative (Negative) Urine Urobilinogen (Auto) Normal mg/dL (Normal) Urine Leukocyte Esterase (Auto) Negative (Negative) Urine RBC 0 /HPF (0-2) Urine WBC 1-4 /HPF (0-4) Urine Squamous Epithelial Cells Few /LPF Urine Bacteria Few /HPF (0-FEW) Urine Mucus Mod /LPF Laboratory Tests Test 06/24/21 18:45 06/24/21 19:06 White Blood Count 8.2 x10^3/uL (4.0-11.0) Red Blood Count 2.37 x10^6/uL (3.50-5.40) Hemoglobin 6.7 g/dL (12.0-15.5) Hematocrit 21.7 % (36.0-47.0) Mean Corpuscular Volume 91 fL (79-100) Mean Corpuscular Hemoglobin 28 pg (25-35) Mean Corpuscular Hemoglobin Concent 31 g/dL (31-37) Red Cell Distribution Width 19.8 % (11.5-14.5) Platelet Count 306 x10^3/uL (140-400) Neutrophils (%) (Auto) 79 % (31-73) Lymphocytes (%) (Auto) 11 % (24-48) Monocytes (%) (Auto) 8 % (0-9) Eosinophils (%) (Auto) 2 % (0-3) Basophils (%) (Auto) 1 % (0-3) Neutrophils # (Auto) 6.4 x10^3/uL (1.8-7.7) Lymphocytes # (Auto) 0.9 x10^3/uL (1.0-4.8) Monocytes # (Auto) 0.6 x10^3/uL (0.0-1.1) Eosinophils # (Auto) 0.1 x10^3/uL (0.0-0.7) Basophils # (Auto) 0.1 x10^3/uL (0.0-0.2) Sodium Level 136 mmol/L (136-145) Potassium Level 4.8 mmol/L (3.5-5.1) Chloride Level 105 mmol/L (98-107) Carbon Dioxide Level 23 mmol/L (21-32) Anion Gap 8 (6-14) Blood Urea Nitrogen 21 mg/dL (7-20) Creatinine 0.7 mg/dL (0.6-1.0) Estimated GFR (Cockcroft-Gault) 80.3 BUN/Creatinine Ratio 30 (6-20) Glucose Level 94 mg/dL (70-99) Lactic Acid Level 1.4 mmol/L (0.4-2.0) Calcium Level 8.0 mg/dL (8.5-10.1) Magnesium Level 2.4 mg/dL (1.8-2.4) Total Bilirubin 0.6 mg/dL (0.2-1.0) Aspartate Amino Transf (AST/SGOT) 33 U/L (15-37) Alanine Aminotransferase (ALT/SGPT) 24 U/L (14-59) Alkaline Phosphatase 278 U/L (46-116) Troponin I High Sensitivity 30 ng/L (4-50) CJ-Tby-F-Type Natriuretic Peptide 3678 pg/mL (0-449) Total Protein 5.9 g/dL (6.4-8.2) Albumin 2.5 g/dL (3.4-5.0) Albumin/Globulin Ratio 0.7 (1.0-1.7) Digoxin Level 1.7 ng/mL (0.9-2.0) Digoxin Last Dose Date Digoxin Last Dose Time Urine Collection Type U cath Urine Color (Auto) Yellow Urine Turbidity Clear Urine pH (Auto) 5.5 (<5.0-8.0) Urine Specific [place] 1.023 (1.000-1.030) Urine Protein (Auto) 70 mg/dL (Negative) Urine Glucose (Auto)(UA) Negative mg/dL (Negative) Urine Ketones (Auto) Trace mg/dL (Negative) Urine Blood (Auto) Negative (Negative) Urine Nitrite Negative (Negative) Urine Bilirubin (Auto) Negative (Negative) Urine Urobilinogen (Auto) Normal mg/dL (Normal) Urine Leukocyte Esterase (Auto) Negative (Negative) Urine RBC 0 /HPF (0-2) Urine WBC 1-4 /HPF (0-4) Urine Squamous Epithelial Cells Few /LPF Urine Bacteria Few /HPF (0-FEW) Urine Mucus Mod /LPF Assessment/Plan Assessment/Plan Acute hypoxic respiratory failure secondary to acute on chronic diastolic CHF versus recurrent pneumonia in setting of influenza and COVID admission a few weeks ago, normocytic anemia; history of A. fib not on oral anticoagulation hype rtension GI bleed -Recently admitted for flu and COVID. Initially did well after discharge however last 2 days has had worsening shortness of breath. -Chest x-ray on my read looks like a bit of edema in her lungs. will give her 40 IV Lasix one-time and resume her home Lasix. will also consult cardiology for further recommendations -Given recent hospitalization will at least cover with basic Rocephin and atypical coverage with doxycycline. -Hold off steroids for now, should respiratory status worsen can consider one time 125 solumedrol -Hemoglobin incidentally found to be 6.7. Does look like baseline is around 9- 10 on previous lab work. Transfuse 1 unit. Continue to trend. No obvious source of bleeding. -With low hemoglobin we will hold off on heparin DVT prophylaxis for now. We will at least continue to give home aspirin. Can hold should hemoglobin downtrend again. Again no obvious source of bleeding anywhere. -Cardiac diet -home meds resumed as indicated -PT/OT 23min advanced care planning with patient, remains a full code Justifications for Admission Other Justification Failure to thrive KALYN HERNANDEZ MD June 24, 2021 19:29
[2021-06-24] MEDS ORDERED: ONDANSETRON PF 4 MG/2 ML VIAL. IVP PRN (19:30)
[2021-06-24] MEDS ORDERED: ELECTROLYTE (NON-ICU) PROTOCOL. MC PRN (19:30)
[2021-06-24] MEDS ORDERED: CALCIUM CARBONATE 500 MG TAB.CHEW PO PRN (19:30)
[2021-06-24] MEDS ORDERED: ACETAMINOPHEN 325 MG TABLET. PO PRN (19:30)
[2021-06-24] MEDS ORDERED: oxyCODONE/APAP 5/325 1 TAB TABLET PO PRN ×2 (19:30)
[2021-06-24] MEDS ORDERED: FUROSEMIDE 40 MG/4 ML VIAL. IVP ONE (19:45)
[2021-06-24] MEDS: IPRATRPIUM/ALBUTEROL 0.5/2.5MG 3 ML NEBU. NEB SCH (19:55)
--- NOTE | 2021-06-24 20:04 | RAD ---
Single view chest dated 06/24/2021 7:59 PM: COMPARISON: 06/03/2021 Clinical Indication: Shortness of breath. Findings: Single upright portable exam of the chest was performed. Heart size mildly enlarged, stable. Coarsene d interstitial markings, similar to slightly improved from prior study. No definite pleural effusion. No pneumothorax. IMPRESSION: 1. Cardiomegaly with mild interstitial changes, somewhat improved from prior study. Electronically signed by: Vicente Banks MD (06/24/2021 8:01 PM) JIMMY
--- NOTE | 2021-06-24 20:50 | NUR ---
Patient received on unit AOx4, with Blood Tranfusion of 1 unit of blood infusing. Pt is experiencing no blood tranfusion reaction. No sob noted. Vital signs taken and patient will be monitored q1hr vitals until blood tranfusion is complete.
[2021-06-24 20:55] VITALS: BP 121/58
[2021-06-24 20:58] VITALS: BP 121/58
[2021-06-24] MEDS: SENNOSIDES/DOCUSATE 8.6/50MG TABLET. PO SCH (21:33)
[2021-06-24] MEDS: FERROUS SULFATE 325 MG TABLET. PO SCH (21:33)
[2021-06-24] MEDS: DOXYCYCLINE HYCLATE 100 MG TABLET PO SCH (21:34)
[2021-06-24 21:55] VITALS: BP 121/58
[2021-06-24 22:07] VITALS: BP 123/65
[2021-06-24 22:55] VITALS: BP 116/56
[2021-06-24] MEDS: cefTRIAXone IV Push 1 GM VIAL. IVP SCH (23:54)
[2021-06-25 03:15] VITALS: BP 124/54
[2021-06-25 06:23] VITALS: BP 136/61
[2021-06-25] MEDS: LEVOTHYROXINE 75 MCG TABLET PO SCH (06:25)
[2021-06-25] MEDS: PANTOPRAZOLE 40 MG TABLET.DR. PO SCH (06:25)
[2021-06-25] MEDS ORDERED: SODIUM CHLORIDE 0.65% NASAL SPRAY 45ML BOTTLE. NS PRN (06:30)
[2021-06-25] MEDS: IPRATRPIUM/ALBUTEROL 0.5/2.5MG 3 ML NEBU. NEB SCH ×4 (07:34→19:41)
--- NOTE | 2021-06-25 08:08 | EKG ---
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
--- NOTE | 2021-06-25 08:29 | EKG ---
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
[2021-06-25] MEDS: CITALOPRAM 10 MG TABLET. PO SCH (08:33)
[2021-06-25] MEDS: DIGOXIN 125 MCG TABLET. PO SCH (08:35)
[2021-06-25] MEDS: DOXYCYCLINE HYCLATE 100 MG TABLET PO SCH ×2 (08:35→20:26)
[2021-06-25] MEDS: SENNOSIDES/DOCUSATE 8.6/50MG TABLET. PO SCH ×2 (08:35→20:26)
[2021-06-25] MEDS: ASPIRIN ENTERIC COATED 81 MG TABLET.DR. PO SCH (08:35)
[2021-06-25] MEDS: FUROSEMIDE 20 MG TABLET PO SCH (08:35)
--- NOTE | 2021-06-25 08:51 | PDOC2 ---
CARDIAC CONSULT DATE OF CONSULT Date of Consult DATE: 06/25/21 TIME: 08:39 REASON FOR CONSULT Reason for Consult: CHF REFERRING PHYSICIAN Referring Physician: Dr. Alcantar SOURCE Source: Chart review, Patient HISTORY OF PRESENT ILLNESS HISTORY OF PRESENT ILLNESS This is an 80 yo female who presented secondary to shortness of breath. Patient reports she has been short of breath for the last 3 days. Associated with mild L E edema. No dizziness, diaphoresis, or chest pain. Reports compliance with medications. Was noted to be anemia upon arrival. Was transfused. No obvious bleeding. PAST MEDICAL HISTORY Past Medical History Cardiovascular: AFIB, CHF, HTN, Pulmonary hypertension Pulmonary: Pneumonia CENTRAL NERVOUS SYSTEM: Carpal Tunnel Syndrome GI: GI bleed Heme/Onc: Anemia NOS Musculoskeletal: Osteoarthritis ENT: Allergic Rhinitis Renal/: UTI Endocrine: Hypothyroidism PAST SURGICAL HISTORY Past Surgical History Cataract Removal, Other (carpal tunnel surgery bilateral) FAMILY HISTORY Family History: Coronary Artery Disease SOCIAL HISTORY Social History Smoke: Quit ALCOHOL: none Drugs: None Lives: Alone CURRENT MEDICATIONS CURRENT MEDICATIONS Current Medications Medications (Trade) Dose Ordered Sig/Farhan Route PRN Reason Start Time Stop Time Status Last Admin Dose Admin Albuterol/ Ipratropium (Duoneb) 3 ml 1X ONCE NEB 06/24/21 18:30 06/24/21 18:32 DC 06/24/21 18:37 Senna/Docusate Sodium (Senna Plus) 1 tab BID PO 06/24/21 21:00 06/25/21 08:35 Aspirin (Ecotrin) 81 mg DAILYWBKFT PO 06/25/21 08:00 06/25/21 08:35 Diltiazem HCl (Cardizem 24hr Cd) 180 mg DAILY PO 06/25/21 09:00 06/25/21 08:35 Ferrous Sulfate (Feosol) 325 mg HS PO 06/24/21 21:00 06/24/21 21:33 Furosemide (Lasix) 20 mg DAILY PO 06/25/21 09:00 06/25/21 08:35 Levothyroxine Sodium (Synthroid) 75 mcg DAILY06 PO 06/25/21 06:00 06/25/21 06:25 Citalopram Hydrobromide (CeleXA) 10 mg DAILY PO 06/25/21 09:00 06/25/21 08:33 Pantoprazole Sodium (Protonix) 40 mg DAILYAC PO 06/25/21 07:30 06/25/21 06:25 Furosemide (Lasix) 40 mg 1X ONCE IVP 06/24/21 19:45 06/24/21 19:46 DC 06/24/21 23:04 Ceftriaxone Sodium (Rocephin) 1 gm Q24H IVP 06/24/21 21:00 06/24/21 23:54 Doxycycline Hyclate (Vibra-Tab) 100 mg BID PO 06/24/21 21:00 06/25/21 08:35 Albuterol/ Ipratropium (Duoneb) 3 ml RTQID NEB 06/24/21 20:00 06/25/21 07:34 ALLERGIES ALLERGIES: Coded Allergies: clindamycin (Verified Allergy, Severe, THROAT CLOSING, 06/24/21) Penicillins (Verified Allergy, Intermediate, Hives, 06/24/21) erythromycin base (Verified Allergy, Intermediate, 06/24/21) latex (Verified Allergy, Intermediate, itching, broke out w/ hives, 06/24) metoprolol (Verified Allergy, Intermediate, 06/24/21) ROS Review of System 14 point ROS evaluated with pertinent positives noted per HPI PHYSICAL EXAM PHYSICAL EXAM General: Alert, Oriented X3, Cooperative, No acute distress HEENT: Mucous membr. moist/pink Lungs: Other (basilar crackles) Heart: Other (AFIB, 3/6 systolic murmur to LLS border) Extremities: No cyanosis, Other (1+ bilateral LE pitting edema) Skin: No breakdown, No significant lesion Neuro: Normal speech, Sensation intact Psych/Mental Status: Mental status NL, Mood NL MUSCULOSKELETAL: Osteoarthritic changes both hands VITALS/I&O VITALS/I&O: Vital Signs Date Time Temp Pulse Resp B/P (MAP) Pulse Ox O2 Delivery O2 Flow Rate FiO2 06/25/21 08:35 84 136/61 06/25/21 07:35 94 Nasal Cannula 4.0 06/25/21 03:15 97.7 22 97.7 I & O 06/24/21 06/24/21 06/25/21 15:00 23:00 07:00 Intake Total 720 ml 300 ml Balance 720 ml 300 ml LABS Lab: Laboratory Tests Test 06/24/21 18:45 06/24/21 19:06 06/25/21 03:20 White Blood Count 8.2 x10^3/uL (4.0-11.0) Red Blood Count 2.37 x10^6/uL (3.50-5.40) L Hemoglobin 6.7 g/dL (12.0-15.5) *L 8.2 g/dL (12.0-15.5) L Hematocrit 21.7 % (36.0-47.0) L Mean Corpuscular Volume 91 fL (79-100) Mean Corpuscular Hemoglobin 28 pg (25-35) Mean Corpuscular Hemoglobin Concent 31 g/dL (31-37) Red Cell Distribution Width 19.8 % (11.5-14.5) H Platelet Count 306 x10^3/uL (140-400) Neutrophils (%) (Auto) 79 % (31-73) H Lymphocytes (%) (Auto) 11 % (24-48) L Monocytes (%) (Auto) 8 % (0-9) Eosinophils (%) (Auto) 2 % (0-3) Basophils (%) (Auto) 1 % (0-3) Neutrophils # (Auto) 6.4 x10^3/uL (1.8-7.7) Lymphocytes # (Auto) 0.9 x10^3/uL (1.0-4.8) L Monocytes # (Auto) 0.6 x10^3/uL (0.0-1.1) Eosinophils # (Auto) 0.1 x10^3/uL (0.0-0.7) Basophils # (Auto) 0.1 x10^3/uL (0.0-0.2) Sodium Level 136 mmol/L (136-145) Potassium Level 4.8 mmol/L (3.5-5.1) Chloride Level 105 mmol/L (98-107) Carbon Dioxide Level 23 mmol/L (21-32) Anion Gap 8 (6-14) Blood Urea Nitrogen 21 mg/dL (7-20) H Creatinine 0.7 mg/dL (0.6-1.0) Estimated GFR (Cockcroft-Gault) 80.3 BUN/Creatinine Ratio 30 (6-20) H Glucose Level 94 mg/dL (70-99) Lactic Acid Level 1.4 mmol/L (0.4-2.0) Calcium Level 8.0 mg/dL (8.5-10.1) L Magnesium Level 2.4 mg/dL (1.8-2.4) Total Bilirubin 0.6 mg/dL (0.2-1.0) Aspartate Amino Transferase (AST) 33 U/L (15-37) Alanine Aminotransferase (ALT) 24 U/L (14-59) Alkaline Phosphatase 278 U/L (46-116) H Troponin I High Sensitivity 30 ng/L (4-50) UX-Szf-F-Type Natriuretic Peptide 3678 pg/mL (0-449) H Total Protein 5.9 g/dL (6.4-8.2) L Albumin 2.5 g/dL (3.4-5.0) L Albumin/Globulin Ratio 0.7 (1.0-1.7) L Digoxin Level 1.7 ng/mL (0.9-2.0) Digoxin Last Dose Date Digoxin Last Dose Time Urine Collection Type U cath Urine Color (Auto) Yellow Urine Turbidity Clear Urine pH (Auto) 5.5 (<5.0-8.0) Urine Specific [place] 1.023 (1.000-1.030) Urine Protein (Auto) 70 mg/dL (Negative) Urine Glucose (Auto)(UA) Negative mg/dL (Negative) Urine Ketones (Auto) Trace mg/dL (Negative) Urine Blood (Auto) Negative (Negative) Urine Nitrite Negative (Negative) Urine Bilirubin (Auto) Negative (Negative) Urine Urobilinogen (Auto) Normal mg/dL (Normal) Urine Leukocyte Esterase (Auto) Negative (Negative) Urine RBC 0 /HPF (0-2) Urine WBC 1-4 /HPF (0-4) Urine Squamous Epithelial Cells Few /LPF Urine Bacteria Few /HPF (0-FEW) Urine Mucus Mod /LPF Laboratory Tests 06/24/21 18:45 06/25/21 03:20 Laboratory Tests 06/24/21 18:45 ECHOCARDIOGRAM ECHOCARDIOGRAM <Conclusion> The left ventricular sytolic function is normal. The ejection fraction is 55%. There is normal LV segmental wall motion. The right ventricle is moderately dilated. Moderate biatrial dilation. Moderate tricuspid regurgitation. Estimated PAP 63-68 mmHg. There is no evidence of significant pericardial effusion. DATE: 03/02/21 [id number] ASSESSMENT/PLAN ASSESSMENT/PLAN 1. Acute respiratory failure, multifactorial with COPD, CHF, and anemia 2. Acute on chronic diastolic CHF 3. Chronic anemia; hgb 6.7. s/p transfusion 4. Persistent AFIB; rate controlled 5. Hypertension 6. Hypothyroidism: on replacement 7. Rheumatoid arthritis: On home methotrexate 8. COPD on home oxygen therapy 9. Severe pulmonary HTN Recommendations Lasix therapy; Will give additional dose of IV Lasix today Continue Cardizem and digoxin for rate control ASA for stroke prevention. no longer on eliquis due to hx of GI bleed and anemia requiring transfusion Outpatient [facility] referral [facility] ALEC SANTANA APRN June 25, 2021 08:51
[2021-06-25] MEDS ORDERED: HEPARIN for SUB-Q USE 5,000 UNIT/ML VIAL. SQ SCH (09:00)
--- NOTE | 2021-06-25 10:12 | PDOC ---
[employer] PROGRESS NOTE Date of Service DOS: DATE: 06/25/21 TIME: 10:07 Chief Complaint Chief Complaint Acute hypoxic respiratory failure secondary to acute on chronic diastolic CHF versus recurrent pneumonia in setting of influenza and COVID admission a few weeks ago normocytic anemia history of A. fib not on oral anticoagulation hypertension GI bleed History of Present Illness History of Present Illness 06/25: Afebrile, currently breathing on 5 L nasal cannula. Very hard of hearing. Hemoglobin came up to 8.2 today, s/p 1 unit PRBC. Will order fecal occult blood. Continue antibiotics for now; will obtain morning procalcitonin. Follow cardiology recommendations. Vitals/I&O Vitals/I&O: Vital Signs Date Time Temp Pulse Resp B/P (MAP) Pulse Ox O2 Delivery O2 Flow Rate FiO2 06/25/21 08:35 84 136/61 06/25/21 07:35 94 Nasal Cannula 4.0 06/25/21 03:15 97.7 22 97.7 I & O 06/24/21 06/24/21 06/25/21 15:00 23:00 07:00 Intake Total 720 ml 300 ml Balance 720 ml 300 ml Physical Exam General: Alert Heart: Regular rate Lungs: Clear, Crackles Abdomen: Soft, No tenderness Extremities: No cyanosis Skin: No rashes Labs Labs: Laboratory Tests Test 06/24/21 18:45 06/24/21 19:06 06/25/21 03:20 White Blood Count 8.2 x10^3/uL (4.0-11.0) Red Blood Count 2.37 x10^6/uL (3.50-5.40) Hemoglobin 6.7 g/dL (12.0-15.5) 8.2 g/dL (12.0-15.5) Hematocrit 21.7 % (36.0-47.0) Mean Corpuscular Volume 91 fL (79-100) Mean Corpuscular Hemoglobin 28 pg (25-35) Mean Corpuscular Hemoglobin Concent 31 g/dL (31-37) Red Cell Distribution Width 19.8 % (11.5-14.5) Platelet Count 306 x10^3/uL (140-400) Neutrophils (%) (Auto) 79 % (31-73) Lymphocytes (%) (Auto) 11 % (24-48) Monocytes (%) (Auto) 8 % (0-9) Eosinophils (%) (Auto) 2 % (0-3) Basophils (%) (Auto) 1 % (0-3) Neutrophils # (Auto) 6.4 x10^3/uL (1.8-7.7) Lymphocytes # (Auto) 0.9 x10^3/uL (1.0-4.8) Monocytes # (Auto) 0.6 x10^3/uL (0.0-1.1) Eosinophils # (Auto) 0.1 x10^3/uL (0.0-0.7) Basophils # (Auto) 0.1 x10^3/uL (0.0-0.2) Sodium Level 136 mmol/L (136-145) Potassium Level 4.8 mmol/L (3.5-5.1) Chloride Level 105 mmol/L (98-107) Carbon Dioxide Level 23 mmol/L (21-32) Anion Gap 8 (6-14) Blood Urea Nitrogen 21 mg/dL (7-20) Creatinine 0.7 mg/dL (0.6-1.0) Estimated GFR (Cockcroft-Gault) 80.3 BUN/Creatinine Ratio 30 (6-20) Glucose Level 94 mg/dL (70-99) Lactic Acid Level 1.4 mmol/L (0.4-2.0) Calcium Level 8.0 mg/dL (8.5-10.1) Magnesium Level 2.4 mg/dL (1.8-2.4) Total Bilirubin 0.6 mg/dL (0.2-1.0) Aspartate Amino Transf (AST/SGOT) 33 U/L (15-37) Alanine Aminotransferase (ALT/SGPT) 24 U/L (14-59) Alkaline Phosphatase 278 U/L (46-116) Troponin I High Sensitivity 30 ng/L (4-50) IA-Rem-G-Type Natriuretic Peptide 3678 pg/mL (0-449) Total Protein 5.9 g/dL (6.4-8.2) Albumin 2.5 g/dL (3.4-5.0) Albumin/Globulin Ratio 0.7 (1.0-1.7) Digoxin Level 1.7 ng/mL (0.9-2.0) Digoxin Last Dose Date Digoxin Last Dose Time Urine Collection Type U cath Urine Color (Auto) Yellow Urine Turbidity Clear Urine pH (Auto) 5.5 (<5.0-8.0) Urine Specific [place] 1.023 (1.000-1.030) Urine Protein (Auto) 70 mg/dL (Negative) Urine Glucose (Auto)(UA) Negative mg/dL (Negative) Urine Ketones (Auto) Trace mg/dL (Negative) Urine Blood (Auto) Negative (Negative) Urine Nitrite Negative (Negative) Urine Bilirubin (Auto) Negative (Negative) Urine Urobilinogen (Auto) Normal mg/dL (Normal) Urine Leukocyte Esterase (Auto) Negative (Negative) Urine RBC 0 /HPF (0-2) Urine WBC 1-4 /HPF (0-4) Urine Squamous Epithelial Cells Few /LPF Urine Bacteria Few /HPF (0-FEW) Urine Mucus Mod /LPF Assessment and Plan Assessmemt and Plan Problems Medical Problems: (1) Anemia Status: Acute (2) CHF exacerbation Status: Acute (3) COPD exacerbation Status: Acute (4) Shortness of breath Status: Acute Comment Review of Relevant I have reviewed the following items messi (where applicable) has been applied. Medications: Current Medications Medications (Trade) Dose Ordered Sig/Farhan Route PRN Reason Start Time Stop Time Status Last Admin Dose Admin Albuterol/ Ipratropium (Duoneb) 3 ml 1X ONCE NEB 06/24/21 18:30 06/24/21 18:32 DC 06/24/21 18:37 Senna/Docusate Sodium (Senna Plus) 1 tab BID PO 06/24/21 21:00 06/25/21 08:35 Aspirin (Ecotrin) 81 mg DAILYWBKFT PO 06/25/21 08:00 06/25/21 08:35 Digoxin (Lanoxin) 125 mcg DAILY PO 06/25/21 09:00 06/25/21 08:35 Diltiazem HCl (Cardizem 24hr Cd) 180 mg DAILY PO 06/25/21 09:00 06/25/21 08:35 Ferrous Sulfate (Feosol) 325 mg HS PO 06/24/21 21:00 06/24/21 21:33 Furosemide (Lasix) 20 mg DAILY PO 06/25/21 09:00 06/25/21 08:35 Levothyroxine Sodium (Synthroid) 75 mcg DAILY06 PO 06/25/21 06:00 06/25/21 06:25 Citalopram Hydrobromide (CeleXA) 10 mg DAILY PO 06/25/21 09:00 06/25/21 08:33 Pantoprazole Sodium (Protonix) 40 mg DAILYAC PO 06/25/21 07:30 06/25/21 06:25 Furosemide (Lasix) 40 mg 1X ONCE IVP 06/24/21 19:45 06/24/21 19:46 DC 06/24/21 23:04 Ceftriaxone Sodium (Rocephin) 1 gm Q24H IVP 06/24/21 21:00 06/24/21 23:54 Doxycycline Hyclate (Vibra-Tab) 100 mg BID PO 06/24/21 21:00 06/25/21 08:35 Albuterol/ Ipratropium (Duoneb) 3 ml RTQID NEB 06/24/21 20:00 06/25/21 07:34 Justifications for Admission Other Justification Failure to thrive AGATA HANSON MD June 25, 2021 10:12
[2021-06-25 12:30] LABS: CREATININE 0.7 mg/dL (0.6-1.0); GFR 80.3; MAGNESIUM 2.4 mg/dL (1.8-2.4)
[2021-06-25] MEDS ORDERED: FUROSEMIDE 40 MG/4 ML VIAL. IVP ONE (13:00)
[2021-06-25 13:49] VITALS: BP 127/57
[2021-06-25 15:00] VITALS: BP 119/74
--- NOTE | 2021-06-25 15:57 | NUR ---
SS following for discharge planning. SS reviewed pt chart and discussed with pt RN. Pt is from [facility] and is currently requiring oxygen at four liters nasal canula. Pt has home oxygen. Pt on IV Rocephin and PO Doxycycline. Cardiology following. PT/OT ordered. SS will continue to follow for discharge planning.
[2021-06-25 19:28] VITALS: BP 127/61
[2021-06-25] MEDS: IPRATROPIUM/ALBUTEROL 20/100mcg/INH INHALER. INH SCH (20:00)
[2021-06-25 20:15] LABS: INFLUENZA A PATIENT NEGATIVE (NEGATIVE)
[2021-06-25 20:16] LABS: INFLUENZA B PATIENT POSITIVE (NEGATIVE)
[2021-06-25] MEDS: FERROUS SULFATE 325 MG TABLET. PO SCH (20:26)
[2021-06-25] MEDS: cefTRIAXone IV Push 1 GM VIAL. IVP SCH (20:27)
[2021-06-25] MEDS ORDERED: BENZONATATE 100 MG CAPSULE. PO PRN (20:45)
[2021-06-25] MEDS: OSELTAMIVIR 75 MG CAPSULE PO SCH (21:20)
[2021-06-25 22:59] VITALS: BP 121/71
[2021-06-26 02:56] VITALS: BP 144/65
[2021-06-26 05:04] LABS: HEMATOCRIT 26.1 % (36.0-47.0); HEMOGLOBIN 8.1 g/dL (12.0-15.5); RED BLOOD COUNT 2.87 x10^6/uL (3.50-5.40); RED CELL DISTRIBUTION WIDTH 19.4 % (11.5-14.5); WHITE BLOOD COUNT 9.8 x10^3/uL (4.0-11.0)
[2021-06-26 05:16] LABS: CALCIUM 7.8 mg/dL (8.5-10.1); CREATININE 0.8 mg/dL (0.6-1.0); GFR 68.8
[2021-06-26 05:26] LABS: POTASSIUM 2.9 mmol/L (3.5-5.1)
[2021-06-26] MEDS: POTASSIUM CHLORIDE 20 MEQ TABLET.ER. PO SCH ×2 (06:11→12:02)
[2021-06-26] MEDS: LEVOTHYROXINE 75 MCG TABLET PO SCH (06:11)
[2021-06-26] MEDS: PANTOPRAZOLE 40 MG TABLET.DR. PO SCH (06:11)
[2021-06-26 07:00] VITALS: BP 132/64
[2021-06-26] MEDS ORDERED: POTASSIUM CHLORIDE 20 MEQ TABLET.ER. PO ONE (07:30)
--- NOTE | 2021-06-26 07:59 | PDOC ---
[employer] [facility] PROGRESS NOTE Date of Service DOS: DATE: 06/26/21 TIME: 07:57 Chief Complaint Chief Complaint Acute hypoxic respiratory failure secondary to acute on chronic diastolic CHF versus recurrent pneumonia in setting of influenza and COVID admission a few weeks ago normocytic anemia history of A. fib not on oral anticoagulation hypertension GI bleed History of Present Illness History of Present Illness 06/26: Afebrile. Currently breathing on 5 L nasal cannula. Hemoglobin 8.1, fecal occult blood pending. Potassium 2.9 today, will replace. She is COVID-19 antigen positive and influenza B positive. I have initiated both Tamiflu and Decadron. Will discuss with pulmonology about further treatment with remdesivir considering I believe she is still positive from last admission 06/07. Of note on last admission (06/07) she was influenza A positive. Patient states that she is a DNI. Discussed with RN. 06/25: Afebrile, currently breathing on 5 L nasal cannula. Very hard of hearing. Hemoglobin came up to 8.2 today, s/p 1 unit PRBC. Will order fecal occult blood. Continue antibiotics for now; will obtain morning procalcitonin. Follow cardiology recommendations. Vitals/I&O Vitals/I&O: Vital Signs Date Time Temp Pulse Resp B/P (MAP) Pulse Ox O2 Delivery O2 Flow Rate FiO2 06/26/21 02:56 98.1 88 24 144/65 (91) 90 Nasal Cannula 6.0 98.1 I & O 06/25/21 06/25/21 06/26/21 15:00 23:00 07:00 Intake Total 100 ml 300 ml Output Total 400 ml Balance -300 ml 300 ml Physical Exam General: Alert Heart: Regular rate Lungs: Clear, Crackles Abdomen: Soft, No tenderness Extremities: No cyanosis Skin: No rashes Labs Labs: Laboratory Tests Test 06/25/21 16:00 06/26/21 04:00 Influenza Type A Antigen Negative (NEGATIVE) Influenza Type B Antigen Positive (NEGATIVE) SARS-CoV-2 Antigen (Rapid) Positive (NEGATIVE) White Blood Count 9.8 x10^3/uL (4.0-11.0) Red Blood Count 2.87 x10^6/uL (3.50-5.40) Hemoglobin 8.1 g/dL (12.0-15.5) Hematocrit 26.1 % (36.0-47.0) Mean Corpuscular Volume 91 fL (79-100) Mean Corpuscular Hemoglobin 28 pg (25-35) Mean Corpuscular Hemoglobin Concent 31 g/dL (31-37) Red Cell Distribution Width 19.4 % (11.5-14.5) Platelet Count 301 x10^3/uL (140-400) Sodium Level 137 mmol/L (136-145) Potassium Level 2.9 mmol/L (3.5-5.1) Chloride Level 103 mmol/L (98-107) Carbon Dioxide Level 24 mmol/L (21-32) Anion Gap 10 (6-14) Blood Urea Nitrogen 16 mg/dL (7-20) Creatinine 0.8 mg/dL (0.6-1.0) Estimated GFR (Cockcroft-Gault) 68.8 Glucose Level 99 mg/dL (70-99) Calcium Level 7.8 mg/dL (8.5-10.1) Procalcitonin 0.17 ng/mL (0.00-0.10) Assessment and Plan Assessmemt and Plan Problems Medical Problems: (1) Anemia Status: Acute (2) CHF exacerbation Status: Acute (3) COPD exacerbation Status: Acute (4) Shortness of breath Status: Acute Comment Review of Relevant I have reviewed the following items messi (where applicable) has been applied. Medications: Current Medications Medications (Trade) Dose Ordered Sig/Farhan Route PRN Reason Start Time Stop Time Status Last Admin Dose Admin Aspirin (Ecotrin) 81 mg DAILYWBKFT PO 06/25/21 08:00 06/25/21 08:35 Digoxin (Lanoxin) 125 mcg DAILY PO 06/25/21 09:00 06/25/21 08:35 Diltiazem HCl (Cardizem 24hr Cd) 180 mg DAILY PO 06/25/21 09:00 06/25/21 08:35 Furosemide (Lasix) 20 mg DAILY PO 06/25/21 09:00 06/25/21 08:35 Citalopram Hydrobromide (CeleXA) 10 mg DAILY PO 06/25/21 09:00 06/25/21 08:33 Furosemide (Lasix) 40 mg 1X ONCE IVP 06/25/21 13:00 06/25/21 13:01 DC 06/25/21 13:26 Albuterol/ Ipratropium (Combivent Respimat 20-100 Mcg) 2 puff RTQID INH 06/25/21 20:00 06/25/21 20:00 Oseltamivir Phosphate (Tamiflu) 75 mg BID PO 06/25/21 21:00 06/30/21 20:59 06/25/21 21:20 Potassium Chloride (Klor-Con) 40 meq Q4H PO 06/26/21 06:00 06/26/21 10:01 06/26/21 06:11 Justifications for Admission Other Justification Failure to thrive AGATA HANSON MD June 26, 2021 07:59
[2021-06-26] MEDS: IPRATROPIUM/ALBUTEROL 20/100mcg/INH INHALER. INH SCH ×4 (08:00→20:00)
[2021-06-26] MEDS: SENNOSIDES/DOCUSATE 8.6/50MG TABLET. PO SCH ×2 (08:10→21:20)
[2021-06-26] MEDS: OSELTAMIVIR 75 MG CAPSULE PO SCH ×2 (08:11→21:20)
[2021-06-26] MEDS: ASPIRIN ENTERIC COATED 81 MG TABLET.DR. PO SCH (08:11)
[2021-06-26] MEDS: DIGOXIN 125 MCG TABLET. PO SCH (08:11)
[2021-06-26] MEDS: CITALOPRAM 10 MG TABLET. PO SCH (08:12)
[2021-06-26] MEDS: DOXYCYCLINE HYCLATE 100 MG TABLET PO SCH ×2 (08:12→21:21)
[2021-06-26] MEDS: FUROSEMIDE 20 MG TABLET PO SCH (08:13)
[2021-06-26] MEDS: DEXAMETHASONE SOD PHOS 4 MG/ML VIAL IVP SCH (08:15)
--- NOTE | 2021-06-26 09:55 | PDOC ---
[facility] [employer] [employer] 06/26/21 0955: CARDIO Progress Notes Date and Time Date of Service 06/26/2021 Time of Evaluation 0940 Subjective Subjective: No Chest Pain, No shortness of breath, No Palpitations Vitals Vitals Vital Signs Date Time Temp Pulse Resp B/P (MAP) Pulse Ox O2 Delivery O2 Flow Rate FiO2 06/26/21 08:12 88 144/65 06/26/21 07:00 98.0 17 90 Nasal Cannula 6.0 98.0 Weight Weight [ ] Input and Output Intake and Output Intake and Output 06/26/21 07:00 Intake Total 400 ml Output Total 400 ml Balance 0 ml Intake Oral 400 ml Output Urine Total 400 ml Laboratory Labs Laboratory Tests Test 06/25/21 11:35 06/25/21 16:00 06/26/21 04:00 Coronavirus (COVID-19)(PCR) Not detected (NOT DETECTD) Influenza Type A Antigen Negative (NEGATIVE) Influenza Type B Antigen Positive (NEGATIVE) SARS-CoV-2 Antigen (Rapid) Positive (NEGATIVE) White Blood Count 9.8 x10^3/uL (4.0-11.0) Red Blood Count 2.87 x10^6/uL (3.50-5.40) Hemoglobin 8.1 g/dL (12.0-15.5) Hematocrit 26.1 % (36.0-47.0) Mean Corpuscular Volume 91 fL (79-100) Mean Corpuscular Hemoglobin 28 pg (25-35) Mean Corpuscular Hemoglobin Concent 31 g/dL (31-37) Red Cell Distribution Width 19.4 % (11.5-14.5) Platelet Count 301 x10^3/uL (140-400) Sodium Level 137 mmol/L (136-145) Potassium Level 2.9 mmol/L (3.5-5.1) Chloride Level 103 mmol/L (98-107) Carbon Dioxide Level 24 mmol/L (21-32) Anion Gap 10 (6-14) Blood Urea Nitrogen 16 mg/dL (7-20) Creatinine 0.8 mg/dL (0.6-1.0) Estimated GFR (Cockcroft-Gault) 68.8 Glucose Level 99 mg/dL (70-99) Calcium Level 7.8 mg/dL (8.5-10.1) Procalcitonin 0.17 ng/mL (0.00-0.10) Microbiology Micro Microbiology 06/24/21 Blood Culture - Preliminary, Resulted NO GROWTH AFTER 1 DAY Physical Exam HEENT: Neck Supple W Full Motion Chest: Symmetric Heart: irregularly irregular (AFIB) Abdomen: Soft N/T Extremities: No Calf Tenderness Neurology: alert, oriented, follow commands 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 Acute respiratory failure, multifactorial with COPD, CHF, and anemia 2. Acute on chronic diastolic CHF: appears compensated 3. Chronic anemia; hgb 8.1 post transfusion 4. Persistent AFIB; rate controlled 5. Hypertension: controlled 6. Hypothyroidism: on replacement 7. Rheumatoid arthritis: On home methotrexate 8. COPD on home oxygen therapy 9. Severe pulmonary HTN 10. Covid-19: vaccinated, no booster 11. Flu B Recommendations Lasix therapy, replace K Continue Cardizem and digoxin for rate control ASA for stroke prevention. no longer on eliquis due to hx of GI bleed and anemia requiring transfusion Outpatient [facility] referral Supportive care Justicifation of Admission Dx: Justifications for Admission: Justification of Admission Dx: Yes CHF: Cardiac Arrhythmias CODY RIDDLE MD 06/26/21 1628: CARDIO Progress Notes Assessment Assessment Patient seen and evaluated. She is feeling mildly better today. I agree with our nurse practitioners assessment and plan. Acute respiratory failure, multifactorial with COPD, CHF, and anemia. Mildly improved. Acute on chronic diastolic CHF: appears compensated Chronic anemia; hgb 8.1 post transfusion Persistent AFIB; rate controlled. Off anticoagulation secondary to bleeding and anemia. Cardizem and digoxin for rate control. Hypertension: controlled Hypothyroidism: on replacement Rheumatoid arthritis: On home methotrexate COPD on home oxygen therapy Severe pulmonary HTN Covid-19: vaccinated, no booster [facility] APRN June 26, 2021 09:55 CODY RIDDLE MD June 26, 2021 16:28
--- NOTE | 2021-06-26 10:42 | CONS ---
DATE OF CONSULTATION: 06/26/2021 PULMONARY CONSULTATION ATTENDING PHYSICIAN: Trent Alcantar MD REASON FOR CONSULTATION: Respiratory failure. HISTORY OF PRESENT ILLNESS: The patient is an 80-year-old female who smoked for about 40 years before quitting in 2007. She has been on home oxygen since May at 4-5 liters. The patient was diagnosed with COVID-19 in May. She also had influenza A at that time. The patient was brought into the hospital with increasing shortness of breath. She is now on 5 liters of oxygen. She has a mild cough. No chest pain, no headaches, no nausea, vomiting or diarrhea. Initial workup revealed that she is positive for influenza B now and also was positive for COVID on the rapid test, but the PCR was negative. The patient has been on dexamethasone and Tamiflu. I reviewed the patient's chest x-ray from March of this year. She has persistent bilateral interstitial infiltrates. She also had a CT chest in 01/2021. There was no evidence of interstitial lung disease. PAST MEDICAL HISTORY: Significant for history of atrial fibrillation, off of oral anticoagulation due to GI bleed, history of diastolic CHF, hypertension, pulmonary hypertension, which is secondary, history of COPD, pneumonia, history of COVID-19 in May, history of influenza A in May, hypothyroidism and osteoarthritis. PAST SURGICAL HISTORY: Cataract removal. FAMILY HISTORY: Coronary artery disease. SOCIAL HISTORY: She smoked for about 40 years before she quit in 2007. REVIEW OF SYSTEMS: Twelve-point review of systems obtained. Pertinent positives discussed in my present illness, otherwise noncontributory. All systems that were negative were reviewed as well. MEDICATIONS: Reviewed as listed in the MRAD. PHYSICAL EXAMINATION: VITAL SIGNS: Reviewed. Blood pressure stable, pulse ox 90% on 6 liters. NECK: Supple. LUNGS: With diminished breath sounds posteriorly. CARDIOVASCULAR: With a regular rate. ABDOMEN: Soft, nontender. EXTREMITIES: With trace pitting edema. LABORATORY DATA: Reviewed. She is influenza B positive and COVID antigen positive, but PCR negative. BUN is 16 and creatinine of 0.8. Procalcitonin 0.1. Potassium 2.9. White cell count 9.8, hemoglobin of 6.7 on admission, now 8.1. IMPRESSION: 1. Acute on chronic hypoxic respiratory failure secondary to multifactorial etiologies. This includes combination of ongoing interstitial infiltrates. Could be related to diastolic congestive heart failure versus residual COVID-19 viral inflammation. She has underlying chronic obstructive pulmonary disease, which is another contributing factor. Congestive heart failure is likely a concern. Influenza is another etiology 2. The patient with COVID-19 in May and she was influenza A positive as well. She received 2 doses of vaccine with COVID with no boosters. She is now influenza B positive. Currently on Tamiflu. Some of the infiltrates could be related to influenza as well. 3. Underlying chronic obstructive pulmonary disease. Smoked for 40 years. 4. Atrial fibrillation. 5. Anemia, present on admission, which may also contribute to her hypoxic respiratory failure. 6. No definite interstitial lung disease seen on CT chest from 01/2021. RECOMMENDATIONS: 1. Discussed with Dr. Rivera and the patient and RN. 2. We will continue present oxygen. 3. We will obtain noncontrast CT chest. If there is evidence of CHF, we will give diuresis. 4. Continue dexamethasone for now. 5. Continue Tamiflu for now. 6. DuoNeb. 7. Oral doxycycline and Rocephin for now. 8. At this point, she does not require remdesivir or Actemra. 9. We will follow with you and make further recommendations after review of imaging studies. CRP is also ordered. NAHOMY DR: Agustina TID: [id number] MTDD
[2021-06-26 14:08] LABS: FECAL OB PT POSITIVE (NEG)
--- NOTE | 2021-06-26 14:09 | RAD ---
EXAM: CT CHEST WITHOUT CONTRAST HISTORY: ILD versus CHF, Covid positive COMPARISON: CT chest 01/25/[address] abdomen pelvis 01/25/2021. TECHNIQUE: Helical CT of the chest performed without contrast. Coronal and sagittal reformats were o btained. One or more of the following individualized dose reduction techniques were utilized for this examinat ion: 1. Automated exposure control 2. Adjustment of the mA and/or kV according to patient size 3. Use of iterative reconstruction technique. FINDINGS: Thyroid gland and thoracic inlet: Heterogeneous thyroid. The right thyroid lobe is small. Heart and great vessels: The heart is enlarged. There is a small to moderate pericardial effusion trey suring up to 1.8 cm in thickness, mildly increased from CT abdomen pelvis 04/15/[address] c hest 01/25/2021. There are coronary artery calcifications. The thoracic aorta is normal in caliber. Mediastinum and galileo: Multiple small mediastinal and hilar lymph nodes are unchanged and likely react shira. Lungs and pleura: There are small bilateral pleural effusions, greater on the left. There are mild de pendent consolidative opacities in the posterior inferior lower lobes. Mild diffuse ground glass atte nuation. There is mild centrilobular emphysema. No honeycombing or bronchiectasis. Unchanged 4 mm sub pleural nodule in the anterior right upper lobe Chest wall and axillae: No axillary lymphadenopathy. Mild anasarca. Upper abdomen: Small amount of ascites anterior to the liver. The liver is mildly nodular in appearan ce. Bones: There is 4 mm anterolisthesis of C7 on T1. There is an L2 compression fracture with 35 percent height loss and no retropulsion, unchanged from 04/15/2021. IMPRESSION: 1. Small to moderate pericardial effusion, mildly increased from CT abdomen pelvis 04/15/2021. 2. Increased small bilateral pleural effusions. 3. Consolidations in the posterior lower lobes and mild diffuse groundglass opacities. This could rel ate to mild pulmonary edema or pneumonia. 4. Small amount of ascites. Anasarca. 5. Mildly nodular appearance of the liver. Correlate for cirrhosis. Electronically signed by: Liseth Garcia MD (06/26/2021 2:07 PM) [id number]
--- NOTE | 2021-06-26 14:12 | NUR ---
SS following up with discharge planning. SS reviewed pt chart and discussed with pt RN. Pt is currently requiring oxygen at six liters nasal canula. History of COVID19 and Flu B positive. Pt has home oxygen. Pt on IV Rocephin and IV Decadron. Pulmonology and Cardiology following. PT/OT ordered. SS will continue to follow for discharge planning.
[2021-06-26 15:00] VITALS: BP 117/72
[2021-06-26 19:27] VITALS: BP 116/56
[2021-06-26] MEDS: FERROUS SULFATE 325 MG TABLET. PO SCH (21:20)
[2021-06-26] MEDS: cefTRIAXone IV Push 1 GM VIAL. IVP SCH (21:20)
[2021-06-26 22:46] VITALS: BP 128/71
--- NOTE | 2021-06-26 22:51 | CONS ---
DATE OF CONSULTATION: 06/26/2021 REQUESTING PHYSICIAN: Trent Alcantar MD. REASON FOR CONSULTATION: Influenza B positive, COVID positive, pneumonia, etc. HISTORY OF PRESENT ILLNESS: This is an 80-year-old female who came in with shortness of breath. The patient actually month ago, she had a COVID positive. The patient is still COVID positive and influenza B came out positive. The patient also had influenza A last month. The patient denies any fever, denies any nausea, vomiting, diarrhea. She does have mild cough. Denies any chest pain, abdominal pain, urinary symptoms or bowel symptoms. PAST MEDICAL HISTORY: Positive for congestive heart failure, atrial fibrillation, COPD, hypertension, pulmonary hypertension, history of COVID in May, hypothyroidism, osteoarthritis. SOCIAL HISTORY: Negative for smoking, alcohol, or illicit drug use. ALLERGIES: LISTED ALLERGIC TO PENICILLIN, CLINDAMYCIN, AZITHROMYCIN. REVIEW OF SYSTEMS: As in HPI. All other systems reviewed are negative. CURRENT MEDICATIONS: Reviewed. The patient is on Rocephin, steroids, doxycycline. PHYSICAL EXAMINATION: GENERAL: Alert and oriented female, not in distress. VITAL SIGNS: Temperature 96.1, pulse 72, respirations 18, blood pressure 117/72, oxygen saturation 96% between 4 and 6 liters. HEENT: Both pupils are round and reacting. No conjunctival lesion, no lesion in the mouth. NECK: Supple, no JVP, no lymphadenopathy. LUNGS: Clear. HEART: S1, S2, regular. ABDOMEN: Soft, nontender, no organomegaly. EXTREMITIES: Edema present. NEUROLOGIC: The patient is alert, awake, and appropriate. No focal neurologic deficit. LABORATORY DATA: White count is 9.8. BUN and creatinine is normal. CRP is 58.5. Procalcitonin 0.17. BNP is 3678. COVID positive. Influenza B positive. CT of the chest showed small to moderate pericardial effusion. Increased small bilateral pleural effusion, consolidation in the posterior lower lobes and mild diffuse ground glass opacities. This could be related to mild pulmonary edema or pneumonia, small amount of ascites, nodular liver. Chest x-ray showed cardiomegaly with interstitial changes. IMPRESSION: 1. Shortness of breath is multifactorial, but most likely it is congestive heart failure, maybe some chronic obstructive pulmonary disease. Certainly COVID is old and just a viral particles are positive. 2. Influenza B. 3. Congestive heart failure. 4. Chronic obstructive pulmonary disease. 5. Atrial fibrillation. 6. Anemia. RECOMMENDATIONS: Continue supportive care. Continue diuresis. Steroid can be stopped unless needed for COPD, not needed for COVID. Rocephin and doxycycline for the time being, okay if there is any change in the condition, i.e., deterioration, then I would change to broaden the coverage for secondary bacterial infection appears to be not the case right now. Thank you very much, Dr. Alcantar, for giving me opportunity to participate in this patient's care. BEKAH/JOSHUA DR: Amber TID: [id number]
[2021-06-27 02:43] VITALS: BP 130/57
[2021-06-27 04:19] LABS: HEMATOCRIT 25.1 % (36.0-47.0); HEMOGLOBIN 7.9 g/dL (12.0-15.5); RED BLOOD COUNT 2.79 x10^6/uL (3.50-5.40); RED CELL DISTRIBUTION WIDTH 18.8 % (11.5-14.5); WHITE BLOOD COUNT 4.6 x10^3/uL (4.0-11.0)
[2021-06-27 04:35] LABS: CALCIUM 7.9 mg/dL (8.5-10.1); CREATININE 0.8 mg/dL (0.6-1.0); GFR 68.8; POTASSIUM 4.5 mmol/L (3.5-5.1)
[2021-06-27] MEDS: LEVOTHYROXINE 75 MCG TABLET PO SCH (05:53)
[2021-06-27 07:00] VITALS: BP 131/82
[2021-06-27] MEDS: ASPIRIN ENTERIC COATED 81 MG TABLET.DR. PO SCH ×2 (08:00→08:19)
[2021-06-27] MEDS: IPRATROPIUM/ALBUTEROL 20/100mcg/INH INHALER. INH SCH ×5 (08:00→20:00)
[2021-06-27] MEDS: OSELTAMIVIR 75 MG CAPSULE PO SCH ×2 (08:19→21:01)
[2021-06-27] MEDS: PANTOPRAZOLE 40 MG TABLET.DR. PO SCH (08:19)
[2021-06-27] MEDS: DIGOXIN 125 MCG TABLET. PO SCH (08:19)
[2021-06-27] MEDS: CITALOPRAM 10 MG TABLET. PO SCH (08:19)
[2021-06-27] MEDS: SENNOSIDES/DOCUSATE 8.6/50MG TABLET. PO SCH ×3 (08:19→21:01)
[2021-06-27] MEDS: DOXYCYCLINE HYCLATE 100 MG TABLET PO SCH ×2 (08:20→21:01)
[2021-06-27] MEDS: FUROSEMIDE 20 MG TABLET PO SCH (08:21)
[2021-06-27] MEDS: DEXAMETHASONE SOD PHOS 4 MG/ML VIAL IVP SCH (08:22)
--- NOTE | 2021-06-27 08:44 | PDOC ---
PULMONARY PROGRESS NOTES DATE: 06/27/21 TIME: 08:40 Subjective Denies any increased shortness of breath. No chest pain. Vitals Vital Signs Date Time Temp Pulse Resp B/P (MAP) Pulse Ox O2 Delivery O2 Flow Rate FiO2 06/27/21 08:20 78 131/82 06/27/21 07:00 96.5 17 100 Nasal Cannula 6.0 96.5 General: Alert, No acute distress HEENT: Other Lungs: Clear, Crackles (Basis.) Cardiovascular: S1, S2 Abdomen: Soft, Non-tender Neuro Exam: Alert Extremities: No Edema Skin: Warm Labs Laboratory Tests Test 06/25/21 11:35 06/25/21 16:00 06/26/21 04:00 06/26/21 13:30 Coronavirus (COVID-19)(PCR) Not detected (NOT DETECTD) Influenza Type A Antigen Negative (NEGATIVE) Influenza Type B Antigen Positive (NEGATIVE) SARS-CoV-2 Antigen (Rapid) Positive (NEGATIVE) White Blood Count 9.8 x10^3/uL (4.0-11.0) Red Blood Count 2.87 x10^6/uL (3.50-5.40) Hemoglobin 8.1 g/dL (12.0-15.5) Hematocrit 26.1 % (36.0-47.0) Mean Corpuscular Volume 91 fL (79-100) Mean Corpuscular Hemoglobin 28 pg (25-35) Mean Corpuscular Hemoglobin Concent 31 g/dL (31-37) Red Cell Distribution Width 19.4 % (11.5-14.5) Platelet Count 301 x10^3/uL (140-400) Sodium Level 137 mmol/L (136-145) Potassium Level 2.9 mmol/L (3.5-5.1) Chloride Level 103 mmol/L (98-107) Carbon Dioxide Level 24 mmol/L (21-32) Anion Gap 10 (6-14) Blood Urea Nitrogen 16 mg/dL (7-20) Creatinine 0.8 mg/dL (0.6-1.0) Estimated GFR (Cockcroft-Gault) 68.8 Glucose Level 99 mg/dL (70-99) Calcium Level 7.8 mg/dL (8.5-10.1) C-Reactive Protein, Quantitative 58.5 mg/L (0-3.3) Procalcitonin 0.17 ng/mL (0.00-0.10) Stool Occult Blood Positive (NEG) Test 06/27/21 04:00 White Blood Count 4.6 x10^3/uL (4.0-11.0) Red Blood Count 2.79 x10^6/uL (3.50-5.40) Hemoglobin 7.9 g/dL (12.0-15.5) Hematocrit 25.1 % (36.0-47.0) Mean Corpuscular Volume 90 fL (79-100) Mean Corpuscular Hemoglobin 28 pg (25-35) Mean Corpuscular Hemoglobin Concent 31 g/dL (31-37) Red Cell Distribution Width 18.8 % (11.5-14.5) Platelet Count 273 x10^3/uL (140-400) Sodium Level 139 mmol/L (136-145) Potassium Level 4.5 mmol/L (3.5-5.1) Chloride Level 107 mmol/L (98-107) Carbon Dioxide Level 24 mmol/L (21-32) Anion Gap 8 (6-14) Blood Urea Nitrogen 19 mg/dL (7-20) Creatinine 0.8 mg/dL (0.6-1.0) Estimated GFR (Cockcroft-Gault) 68.8 Glucose Level 115 mg/dL (70-99) Calcium Level 7.9 mg/dL (8.5-10.1) Laboratory Tests Test 06/26/21 13:30 06/27/21 04:00 Stool Occult Blood Positive (NEG) White Blood Count 4.6 x10^3/uL (4.0-11.0) Red Blood Count 2.79 x10^6/uL (3.50-5.40) Hemoglobin 7.9 g/dL (12.0-15.5) Hematocrit 25.1 % (36.0-47.0) Mean Corpuscular Volume 90 fL (79-100) Mean Corpuscular Hemoglobin 28 pg (25-35) Mean Corpuscular Hemoglobin Concent 31 g/dL (31-37) Red Cell Distribution Width 18.8 % (11.5-14.5) Platelet Count 273 x10^3/uL (140-400) Sodium Level 139 mmol/L (136-145) Potassium Level 4.5 mmol/L (3.5-5.1) Chloride Level 107 mmol/L (98-107) Carbon Dioxide Level 24 mmol/L (21-32) Anion Gap 8 (6-14) Blood Urea Nitrogen 19 mg/dL (7-20) Creatinine 0.8 mg/dL (0.6-1.0) Estimated GFR (Cockcroft-Gault) 68.8 Glucose Level 115 mg/dL (70-99) Calcium Level 7.9 mg/dL (8.5-10.1) Medications Active Scripts Medications Dose Route/Sig Max Daily Dose Days Date Category Dexamethasone 4 Mg Tablet 1 Tab PO DAILY 6 06/07/21 Rx Magnesium Oxide 250 Mg Tablet 1 Tab PO HS 30 06/04/21 Reported Iron (Ferrous Sulfate) 325 Mg Tablet 1 Tab PO HS 30 06/04/21 Reported Aspirin Ec (Aspirin) 81 Mg Tablet.dr 81 Mg PO DAILYWBKFT 30 04/25/21 Rx Culturelle Capsule (L. Rhamnosus GG/Inulin) 1 Each Cap.sprink 1 Cap PO DAILY 30 04/17/21 Rx Digoxin 125 Mcg Tablet 125 Mcg PO DAILY 03/03/21 Rx Escitalopram Oxalate 10 Mg Tablet 0.5 Tab PO DAILY 02/28/21 Reported Klor-Con 10 (Potassium Chloride) 10 Meq Tablet.er 10 Meq PO DAILY 05/24/19 Reported Lasix (Furosemide) 20 Mg Tablet 1 Tab PO DAILY 30 05/24/19 Reported Cardizem Cd (Diltiazem Hcl) 180 Mg Cap.er.24h 1 Cap PO BID 05/24/19 Reported Vitamin B-12 (Cyanocobalamin (Vitamin B-12)) 5,000 Mcg Tab.rapdis 5,000 Mcg PO QODAY 02/23/15 Reported Omeprazole 20 Mg Capsule. 1 Cap PO DAILY 02/19/14 Reported Levothyroxine Sodium 75 Mcg Tablet 1 Tab PO DAILY 02/19/[address] chest reviewed dated 06/26/2021 1. Small to moderate pericardial effusion, mildly increased from CT abdomen pelvis 04/15/2021. 2. Increased small bilateral pleural effusions. 3. Consolidations in the posterior lower lobes and mild diffuse groundglass opacities. This could relate to mild pulmonary edema or pneumonia. 4. Small amount of ascites. Anasarca. 5. Mildly nodular appearance of the liver. Correlate for cirrhosis. Impression . 1. Acute on chronic hypoxic respiratory failure secondary to multifactorial etiologies. This includes combination of ongoing interstitial infiltrates. Likely diastolic congestive heart failure, less likely residual COVID-19 viral inflammation. She has underlying chronic obstructive pulmonary disease, which is another contributing factor. 2. The patient with COVID-19 in May and she was influenza A positive as well. She received 2 doses of vaccine with COVID with no boosters. She is now influenza B positive. Currently on Tamiflu. Some of the infiltrates could be related to influenza as well. 3. Underlying chronic obstructive pulmonary disease. Smoked for 40 years. 4. Atrial fibrillation. 5. Anemia, present on admission, which may also contribute to her hypoxic respiratory failure. 6. No definite interstitial lung disease seen on CT chest from 01/2021. 7. Abnormal CT chest. Plan . RECOMMENDATIONS: 1. Discussed with the patient. CT chest findings discussed. She has increasing pleural effusions, pericardial effusion and interstitial infiltrates. These findings are suggestive of CHF. 2. We will continue present oxygen. 3. Will benefit from diuresis. 4. Continue dexamethasone for now. 5. Continue Tamiflu for now. 6. DuoNeb. 7. Oral doxycycline and Rocephin for now. 8. At this point, she does not require remdesivir or Actemra. ALEXANDRA ADEN MD June 27, 2021 08:44
[2021-06-27] MEDS ORDERED: FUROSEMIDE 40 MG/4 ML VIAL. IVP ONE (08:45)
[2021-06-27 10:40] VITALS: BP 122/77
--- NOTE | 2021-06-27 13:10 | PDOC ---
[facility] PROGRESS NOTE Date of Service DOS: DATE: 06/27/21 TIME: 13:06 Chief Complaint Chief Complaint Acute hypoxic respiratory failure secondary to acute on chronic diastolic CHF versus recurrent pneumonia in setting of influenza and COVID admission a few weeks ago normocytic anemia history of A. fib not on oral anticoagulation hypertension GI bleed History of Present Illness History of Present Illness 06/27: Afebrile, with increasing O2 requirement (6 L nasal cannula). Patient states she feels better after Lasix. Fecal occult blood positive and prior history of GI bleed, off DOAC. I do not see any reason to consult GI at this time; will continue monitoring and they will PPI. 06/26: Afebrile. Currently breathing on 5 L nasal cannula. Hemoglobin 8.1, fecal occult blood pending. Potassium 2.9 today, will replace. She is COVID-19 antigen positive and influenza B positive. I have initiated both Tamiflu and Decadron. Will discuss with pulmonology about further treatment with remdesivir considering I believe she is still positive from last admission 06/07. Of note on last admission (06/07) she was influenza A positive. Patient states that she is a DNI. Discussed with RN. 06/25: Afebrile, currently breathing on 5 L nasal cannula. Very hard of hearing. Hemoglobin came up to 8.2 today, s/p 1 unit PRBC. Will order fecal occult blood. Continue antibiotics for now; will obtain morning procalcitonin. Follow cardiology recommendations. Vitals/I&O Vitals/I&O: Vital Signs Date Time Temp Pulse Resp B/P (MAP) Pulse Ox O2 Delivery O2 Flow Rate FiO2 06/27/21 10:40 97.3 79 18 122/77 (92) 99 Nasal Cannula 6.0 97.3 I & O 06/26/21 06/26/21 06/27/21 15:00 23:00 07:00 Intake Total 500 ml 400 ml 0 ml Output Total 400 ml Balance 500 ml 400 ml -400 ml Physical Exam General: Alert Heart: Regular rate Lungs: Clear, Crackles (Basis.) Abdomen: Soft, No tenderness Extremities: No cyanosis Skin: No rashes Labs Labs: Laboratory Tests Test 06/26/21 13:30 06/27/21 04:00 Stool Occult Blood Positive (NEG) White Blood Count 4.6 x10^3/uL (4.0-11.0) Red Blood Count 2.79 x10^6/uL (3.50-5.40) Hemoglobin 7.9 g/dL (12.0-15.5) Hematocrit 25.1 % (36.0-47.0) Mean Corpuscular Volume 90 fL (79-100) Mean Corpuscular Hemoglobin 28 pg (25-35) Mean Corpuscular Hemoglobin Concent 31 g/dL (31-37) Red Cell Distribution Width 18.8 % (11.5-14.5) Platelet Count 273 x10^3/uL (140-400) Sodium Level 139 mmol/L (136-145) Potassium Level 4.5 mmol/L (3.5-5.1) Chloride Level 107 mmol/L (98-107) Carbon Dioxide Level 24 mmol/L (21-32) Anion Gap 8 (6-14) Blood Urea Nitrogen 19 mg/dL (7-20) Creatinine 0.8 mg/dL (0.6-1.0) Estimated GFR (Cockcroft-Gault) 68.8 Glucose Level 115 mg/dL (70-99) Calcium Level 7.9 mg/dL (8.5-10.1) Assessment and Plan Assessmemt and Plan Problems Medical Problems: (1) Anemia Status: Acute (2) CHF exacerbation Status: Acute (3) COPD exacerbation Status: Acute (4) Shortness of breath Status: Acute Comment Review of Relevant I have reviewed the following items messi (where applicable) has been applied. Medications: Current Medications Medications (Trade) Dose Ordered Sig/Farhan Route PRN Reason Start Time Stop Time Status Last Admin Dose Admin Furosemide (Lasix) 40 mg 1X ONCE IVP 06/27/21 08:45 06/27/21 08:49 DC 06/27/21 10:28 Justifications for Admission Other Justification Failure to thrive AGATA HANSON MD June 27, 2021 13:10
--- NOTE | 2021-06-27 13:16 | PDOC ---
PROGRESS NOTES Date of Service DATE: 06/27/21 TIME: 13:14 Subjective Subjective Patient seen and examined Objective Objective Vital Signs Date Time Temp Pulse Resp B/P (MAP) Pulse Ox O2 Delivery O2 Flow Rate FiO2 06/27/21 10:40 97.3 79 18 122/77 (92) 99 Nasal Cannula 6.0 97.3 Intake and Output 06/27/21 07:00 Intake Total 900 ml Output Total 400 ml Balance 500 ml Intake Oral 900 ml Output Urine Total 400 ml # Voids 2 # Bowel Movements 1 Physical Exam Abdomen: Normal bowel sounds Heart: Other (Irregularly irregular rhythm) General: mild distress Lungs: Other (Mildly decreased breath sounds) Assessment Assessment Problems Medical Problems: (1) Anemia Status: Acute (2) CHF exacerbation Status: Acute (3) COPD exacerbation Status: Acute (4) Shortness of breath Status: Acute 1. Acute respiratory failure, multifactorial with COPD, CHF, and anemia. Improved today. 2. Acute on chronic diastolic CHF: appears compensated. Continuing diuresis. 3. Chronic anemia; post transfusion. Monitoring lab. 4. Persistent AFIB; rate controlled. Off anticoagulation. 5. Hypertension: controlled 6. Hypothyroidism: on replacement 7. Rheumatoid arthritis: On home methotrexate 8. COPD on home oxygen therapy 9. Severe pulmonary HTN 10. Covid-19: vaccinated, no booster 11. Flu B Comment Review of Relevant I have reviewed the following items messi (where applicable) has been applied. Labs Laboratory Tests Test 06/25/21 16:00 06/26/21 04:00 06/26/21 13:30 06/27/21 04:00 Influenza Type A Antigen Negative (NEGATIVE) Influenza Type B Antigen Positive (NEGATIVE) SARS-CoV-2 Antigen (Rapid) Positive (NEGATIVE) White Blood Count 9.8 x10^3/uL (4.0-11.0) 4.6 x10^3/uL (4.0-11.0) Red Blood Count 2.87 x10^6/uL (3.50-5.40) 2.79 x10^6/uL (3.50-5.40) Hemoglobin 8.1 g/dL (12.0-15.5) 7.9 g/dL (12.0-15.5) Hematocrit 26.1 % (36.0-47.0) 25.1 % (36.0-47.0) Mean Corpuscular Volume 91 fL (79-100) 90 fL (79-100) Mean Corpuscular Hemoglobin 28 pg (25-35) 28 pg (25-35) Mean Corpuscular Hemoglobin Concent 31 g/dL (31-37) 31 g/dL (31-37) Red Cell Distribution Width 19.4 % (11.5-14.5) 18.8 % (11.5-14.5) Platelet Count 301 x10^3/uL (140-400) 273 x10^3/uL (140-400) Sodium Level 137 mmol/L (136-145) 139 mmol/L (136-145) Potassium Level 2.9 mmol/L (3.5-5.1) 4.5 mmol/L (3.5-5.1) Chloride Level 103 mmol/L (98-107) 107 mmol/L (98-107) Carbon Dioxide Level 24 mmol/L (21-32) 24 mmol/L (21-32) Anion Gap 10 (6-14) 8 (6-14) Blood Urea Nitrogen 16 mg/dL (7-20) 19 mg/dL (7-20) Creatinine 0.8 mg/dL (0.6-1.0) 0.8 mg/dL (0.6-1.0) Estimated GFR (Cockcroft-Gault) 68.8 68.8 Glucose Level 99 mg/dL (70-99) 115 mg/dL (70-99) Calcium Level 7.8 mg/dL (8.5-10.1) 7.9 mg/dL (8.5-10.1) C-Reactive Protein, Quantitative 58.5 mg/L (0-3.3) Procalcitonin 0.17 ng/mL (0.00-0.10) Stool Occult Blood Positive (NEG) Laboratory Tests Test 06/26/21 13:30 06/27/21 04:00 Stool Occult Blood Positive (NEG) White Blood Count 4.6 x10^3/uL (4.0-11.0) Red Blood Count 2.79 x10^6/uL (3.50-5.40) Hemoglobin 7.9 g/dL (12.0-15.5) Hematocrit 25.1 % (36.0-47.0) Mean Corpuscular Volume 90 fL (79-100) Mean Corpuscular Hemoglobin 28 pg (25-35) Mean Corpuscular Hemoglobin Concent 31 g/dL (31-37) Red Cell Distribution Width 18.8 % (11.5-14.5) Platelet Count 273 x10^3/uL (140-400) Sodium Level 139 mmol/L (136-145) Potassium Level 4.5 mmol/L (3.5-5.1) Chloride Level 107 mmol/L (98-107) Carbon Dioxide Level 24 mmol/L (21-32) Anion Gap 8 (6-14) Blood Urea Nitrogen 19 mg/dL (7-20) Creatinine 0.8 mg/dL (0.6-1.0) Estimated GFR (Cockcroft-Gault) 68.8 Glucose Level 115 mg/dL (70-99) Calcium Level 7.9 mg/dL (8.5-10.1) Microbiology 06/24/21 Blood Culture - Preliminary, Resulted NO GROWTH AFTER 2 DAYS Medications Current Medications Albuterol/ Ipratropium (Duoneb) 3 ml 1X ONCE NEB Last administered on 06/24/21at 18:37; Start 06/24/21 at 18:30; Stop 06/24/21 at 18:32; Status DC Ondansetron HCl (Zofran) 4 mg PRN Q6HRS PRN IVP NAUSEA/VOMITING; Start 06/24/21 at 19:30 Calcium Carbonate/ Glycine (Tums) 500 mg PRN Q3HRS PRN PO UPSET STOMACH; Start 06/24/21 at 19:30 Info (Non-Icu Electrolyte Protocol) 1 ea PRN DAILY PRN MC SEE COMMENTS; Start 06/24/21 at 19:30 Oxycodone/ Acetaminophen (Percocet 5/325) 1 tab PRN Q4HRS PRN PO MILD PAIN, 1ST CHOICE; Start 06/24/21 at 19:30 Oxycodone/ Acetaminophen (Percocet 5/325) 2 tab PRN Q4HRS PRN PO MODERATE PAIN, SEVERE PAIN; Start 06/24/21 at 19:30 Acetaminophen (Tylenol) 650 mg PRN Q6HRS PRN PO Headaches, Temp > 101.5F; Start 06/24/21 at 19:30; Stop 06/26/21 at 08:15; Status DC Senna/Docusate Sodium (Senna Plus) 1 tab BID PO Last administered on 06/26/21 21:20; Start 06/24/21 at 21:00 Heparin Sodium (Porcine) (Heparin Sodium) 5,000 unit Q12HR SQ ; Start 06/25/21 at 09:00; Stop 06/24/21 at 23:25; Status DC Aspirin (Ecotrin) 81 mg DAILYWBKFT PO Last administered on 06/26/21at 08:11; Start 06/25/21 at 08:00 Digoxin (Lanoxin) 125 mcg DAILY PO Last administered on 06/27/21 08:19; Start 06/25/21 at 09:00 Diltiazem HCl (Cardizem 24hr Cd) 180 mg DAILY PO Last administered on 06/27/21 08:20; Start 06/25/21 at 09:00 Ferrous Sulfate (Feosol) 325 mg HS PO Last administered on 06/26/21 21:20; Start 06/24/21 at 21:00 Furosemide (Lasix) 20 mg DAILY PO Last administered on 06/27/21 08:21; Start 06/25/21 at 09:00 Levothyroxine Sodium (Synthroid) 75 mcg DAILY06 PO Last administered on 06/27/21at 05:53; Start 06/25/21 at 06:00 Citalopram Hydrobromide (CeleXA) 10 mg DAILY PO Last administered on 06/27/21 08:19; Start 06/25/21 at 09:00 Pantoprazole Sodium (Protonix) 40 mg DAILYAC PO Last administered on 06/27/21at 08:19; Start 06/25/21 at 07:30 Furosemide (Lasix) 40 mg 1X ONCE IVP Last administered on 06/24/21at 23:04; Start 06/24/21 at 19:45; Stop 06/24/21 at 19:46; Status DC Ceftriaxone Sodium (Rocephin) 1 gm Q24H IVP Last administered on 06/26/21 21:20; Start 06/24/21 at 21:00 Doxycycline Hyclate (Vibra-Tab) 100 mg BID PO Last administered on 06/27/21 08:20; Start 06/24/21 at 21:00 Albuterol/ Ipratropium (Duoneb) 3 ml RTQID NEB Last administered on 06/25/21at 11:54; Start 06/24/21 at 20:00; Stop 06/25/21 at 19:55; Status DC Sodium Chloride (Saline Mist Nasal) 1 frantz PRN Q1HR PRN NS NASAL CONGESTION; Start 06/25/21 at 06:30 Albuterol/ Ipratropium (Duoneb) 3 ml STK-MED ONCE .ROUTE ; Start 06/24/21 at 18:28; Stop 06/25/21 at 09:41; Status DC Furosemide (Lasix) 40 mg 1X ONCE IVP Last administered on 06/25/21at 13:26; Start 06/25/21 at 13:00; Stop 06/25/21 at 13:01; Status DC Albuterol/ Ipratropium (Combivent Respimat 20-100 Mcg) 2 puff RTQID INH Last administered on 06/26/21at 20:00; Start 06/25/21 at 20:00 Dexamethasone Sodium Phosphate (Decadron) 6 mg DAILY IVP Last administered on 06/27/21at 08:22; Start 06/26/21 at 09:00; Stop 07/06/21 at 08:59 Oseltamivir Phosphate (Tamiflu) 75 mg BID PO Last administered on 06/27/21at 08:19; Start 06/25/21 at 21:00; Stop 06/30/21 at 20:59 Acetaminophen (Tylenol) 650 mg PRN Q6HRS PRN PO MILD PAIN / TEMP > 100.3'F; Start 06/25/21 at 20:45 Benzonatate (Tessalon Perle) 100 mg PRN TID PRN PO COUGH; Start 06/25/21 at 20:45 Potassium Chloride (Klor-Con) 40 meq Q4H PO Last administered on 06/26/21at 1 2:02; Start 06/26/21 at 06:00; Stop 06/26/21 at 10:01; Status DC Potassium Chloride (Klor-Con) 40 meq 1X ONCE PO Last administered on 06/26/21at 08:12; Start 06/26/21 at 07:30; Stop 06/26/21 at 07:31; Status DC Furosemide (Lasix) 40 mg 1X ONCE IVP Last administered on 06/27/21at 10:28; Start 06/27/21 at 08:45; Stop 06/27/21 at 08:49; Status DC Active Scripts Active Dexamethasone 4 Mg Tablet 1 Tab PO DAILY 6 Days Aspirin Ec (Aspirin) 81 Mg Tablet. 81 Mg PO DAILYWBKFT 30 Days Culturelle Capsule (L. Rhamnosus GG/Inulin) 1 Each Cap.sprink 1 Cap PO DAILY 30 Days Digoxin 125 Mcg Tablet 125 Mcg PO DAILY Reported Magnesium Oxide 250 Mg Tablet 1 Tab PO HS 30 Days Iron (Ferrous Sulfate) 325 Mg Tablet 1 Tab PO HS 30 Days Escitalopram Oxalate 10 Mg Tablet 0.5 Tab PO DAILY Klor-Con 10 (Potassium Chloride) 10 Meq Tablet.er 10 Meq PO DAILY Lasix (Furosemide) 20 Mg Tablet 1 Tab PO DAILY 30 Days Cardizem Cd (Diltiazem Hcl) 180 Mg Cap.er.24h 1 Cap PO BID Vitamin B-12 (Cyanocobalamin (Vitamin B-12)) 5,000 Mcg Tab.rapdis 5,000 Mcg PO QODAY Omeprazole 20 Mg Capsule. 1 Cap PO DAILY Levothyroxine Sodium 75 Mcg Tablet 1 Tab PO DAILY Vitals/I & O Vital Sign - Last 24 Hours 06/26/21 06/26/21 06/26/21 06/26/21 15:00 19:27 20:19 22:46 Temp 96.1 98.0 98.2 96.1 98.0 98.2 Pulse 72 64 71 Resp 18 18 16 B/P (MAP) 117/72 (87) 116/56 (76) 128/71 (90) Pulse Ox 96 97 94 O2 Delivery Nasal Cannula Nasal Cannula Nasal Cannula Nasal Cannula O2 Flow Rate 6.0 6.0 6.0 6.0 06/27/21 06/27/21 06/27/21 06/27/21 02:43 07:00 08:00 08:19 Temp 98.4 96.5 98.4 96.5 Pulse 82 78 78 Resp 16 17 B/P (MAP) 130/57 (81) 131/82 (98) 131/82 Pulse Ox 98 100 O2 Delivery Nasal Cannula Nasal Cannula Nasal Cannula O2 Flow Rate 6.0 6.0 6.0 06/27/21 06/27/21 08:20 10:40 Temp 97.3 97.3 Pulse 78 79 Resp 18 B/P (MAP) 131/82 122/77 (92) Pulse Ox 99 O2 Delivery Nasal Cannula O2 Flow Rate 6.0 Intake and Output 06/26/21 06/26/21 06/27/21 15:00 23:00 07:00 Intake Total 500 ml 400 ml 0 ml Output Total 400 ml Balance 500 ml 400 ml -400 ml Justifications for Admission Other Justification Failure to thrive CODY RIDDLE MD June 27, 2021 13:16
--- NOTE | 2021-06-27 13:30 | PDOC ---
Infectious Disease Note Subjective Subjective Patient is sitting comfortably in chair feeling really good has no complaints ROS ROS No nausea vomiting diarrhea chest pain shortness of breath Vital Sign Vital Signs Vital Signs Date Time Temp Pulse Resp B/P (MAP) Pulse Ox O2 Delivery O2 Flow Rate FiO2 06/27/21 10:40 97.3 79 18 122/77 (92) 99 Nasal Cannula 6.0 97.3 Physical Exam PHYSICAL EXAM GENERAL: Alert and oriented female, not in distress. VITAL SIGNS: Stable HEENT: Both pupils are round and reacting. No conjunctival lesion, no lesion in the mouth. NECK: Supple, no JVP, no lymphadenopathy. LUNGS: Clear. HEART: S1, S2, regular. ABDOMEN: Soft, nontender, no organomegaly. EXTREMITIES: Edema present. NEUROLOGIC: The patient is alert, awake, and appropriate. No focal neurologic deficit. LABORATORY DATA: White count is 9.8. BUN and creatinine is normal. CRP is Labs Lab Laboratory Tests Test 06/27/21 04:00 White Blood Count 4.6 x10^3/uL (4.0-11.0) Red Blood Count 2.79 x10^6/uL (3.50-5.40) Hemoglobin 7.9 g/dL (12.0-15.5) Hematocrit 25.1 % (36.0-47.0) Mean Corpuscular Volume 90 fL (79-100) Mean Corpuscular Hemoglobin 28 pg (25-35) Mean Corpuscular Hemoglobin Concent 31 g/dL (31-37) Red Cell Distribution Width 18.8 % (11.5-14.5) Platelet Count 273 x10^3/uL (140-400) Sodium Level 139 mmol/L (136-145) Potassium Level 4.5 mmol/L (3.5-5.1) Chloride Level 107 mmol/L (98-107) Carbon Dioxide Level 24 mmol/L (21-32) Anion Gap 8 (6-14) Blood Urea Nitrogen 19 mg/dL (7-20) Creatinine 0.8 mg/dL (0.6-1.0) Estimated GFR (Cockcroft-Gault) 68.8 Glucose Level 115 mg/dL (70-99) Calcium Level 7.9 mg/dL (8.5-10.1) Micro Microbiology 06/24/21 Blood Culture - Preliminary, Resulted NO GROWTH AFTER 2 DAYS Objective Assessment IMPRESSION: 1. Shortness of breath is multifactorial, but most likely it is congestive heart failure, maybe some chronic obstructive pulmonary disease. Certainly COVID is old and just a viral particles are positive. 2. Influenza B. 3. Congestive heart failure. 4. Chronic obstructive pulmonary disease. 5. Atrial fibrillation. 6. Anemia. Plan Plan of Care Continue supportive care. Continue current management. TERESA PETTY MD June 27, 2021 13:30
[2021-06-27 14:04] VITALS: BP 118/66
[2021-06-27 19:20] VITALS: BP 127/67
[2021-06-27] MEDS: cefTRIAXone IV Push 1 GM VIAL. IVP SCH (21:01)
[2021-06-27] MEDS: FERROUS SULFATE 325 MG TABLET. PO SCH (21:01)
[2021-06-27 22:09] VITALS: BP 130/80
[2021-06-28 03:15] VITALS: BP 132/72
[2021-06-28] MEDS: ACETAMINOPHEN 325 MG TABLET. PO PRN ×2 (03:22→09:36)
[2021-06-28] MEDS: LEVOTHYROXINE 75 MCG TABLET PO SCH (03:22)
[2021-06-28 04:13] LABS: HEMOGLOBIN 8.1 g/dL (12.0-15.5); RED BLOOD COUNT 2.87 x10^6/uL (3.50-5.40); RED CELL DISTRIBUTION WIDTH 18.7 % (11.5-14.5); WHITE BLOOD COUNT 7.5 x10^3/uL (4.0-11.0)
[2021-06-28 04:27] LABS: CREATININE 0.7 mg/dL (0.6-1.0); GFR 80.3; POTASSIUM 3.6 mmol/L (3.5-5.1)
[2021-06-28 07:00] VITALS: BP 149/67
[2021-06-28] MEDS: ASPIRIN ENTERIC COATED 81 MG TABLET.DR. PO SCH ×2 (08:00→08:01)
[2021-06-28] MEDS: CITALOPRAM 10 MG TABLET. PO SCH (08:01)
[2021-06-28] MEDS: OSELTAMIVIR 75 MG CAPSULE PO SCH ×2 (08:01→21:13)
[2021-06-28] MEDS: PANTOPRAZOLE 40 MG TABLET.DR. PO SCH (08:02)
[2021-06-28] MEDS: FUROSEMIDE 20 MG TABLET PO SCH (08:02)
[2021-06-28] MEDS: DOXYCYCLINE HYCLATE 100 MG TABLET PO SCH ×2 (08:02→21:13)
[2021-06-28] MEDS: SENNOSIDES/DOCUSATE 8.6/50MG TABLET. PO SCH ×2 (08:03→21:13)
[2021-06-28] MEDS: DIGOXIN 125 MCG TABLET. PO SCH (08:03)
[2021-06-28] MEDS: DEXAMETHASONE SOD PHOS 4 MG/ML VIAL IVP SCH (08:04)
[2021-06-28] MEDS: IPRATROPIUM/ALBUTEROL 20/100mcg/INH INHALER. INH SCH ×4 (08:09→21:12)
--- NOTE | 2021-06-28 08:48 | PDOC ---
PULMONARY PROGRESS NOTES DATE: 06/28/21 TIME: 08:46 Subjective Denies any increased shortness of breath. No chest pain. Vitals Vital Signs Date Time Temp Pulse Resp B/P (MAP) Pulse Ox O2 Delivery O2 Flow Rate FiO2 06/28/21 08:03 68 149/67 06/28/21 07:00 96.3 17 95 Nasal Cannula 5.0 96.3 General: Alert, No acute distress HEENT: Other Lungs: Clear Cardiovascular: S1, S2 Abdomen: Soft, Non-tender Neuro Exam: Alert Extremities: No Edema Skin: Warm Labs Laboratory Tests Test 06/26/21 13:30 06/27/21 04:00 06/28/21 04:00 Stool Occult Blood Positive (NEG) White Blood Count 4.6 x10^3/uL (4.0-11.0) 7.5 x10^3/uL (4.0-11.0) Red Blood Count 2.79 x10^6/uL (3.50-5.40) 2.87 x10^6/uL (3.50-5.40) Hemoglobin 7.9 g/dL (12.0-15.5) 8.1 g/dL (12.0-15.5) Hematocrit 25.1 % (36.0-47.0) 26.0 % (36.0-47.0) Mean Corpuscular Volume 90 fL (79-100) 91 fL (79-100) Mean Corpuscular Hemoglobin 28 pg (25-35) 28 pg (25-35) Mean Corpuscular Hemoglobin Concent 31 g/dL (31-37) 31 g/dL (31-37) Red Cell Distribution Width 18.8 % (11.5-14.5) 18.7 % (11.5-14.5) Platelet Count 273 x10^3/uL (140-400) 311 x10^3/uL (140-400) Sodium Level 139 mmol/L (136-145) 137 mmol/L (136-145) Potassium Level 4.5 mmol/L (3.5-5.1) 3.6 mmol/L (3.5-5.1) Chloride Level 107 mmol/L (98-107) 104 mmol/L (98-107) Carbon Dioxide Level 24 mmol/L (21-32) 23 mmol/L (21-32) Anion Gap 8 (6-14) 10 (6-14) Blood Urea Nitrogen 19 mg/dL (7-20) 19 mg/dL (7-20) Creatinine 0.8 mg/dL (0.6-1.0) 0.7 mg/dL (0.6-1.0) Estimated GFR (Cockcroft-Gault) 68.8 80.3 Glucose Level 115 mg/dL (70-99) 102 mg/dL (70-99) Calcium Level 7.9 mg/dL (8.5-10.1) 8.0 mg/dL (8.5-10.1) Laboratory Tests Test 06/28/21 04:00 White Blood Count 7.5 x10^3/uL (4.0-11.0) Red Blood Count 2.87 x10^6/uL (3.50-5.40) Hemoglobin 8.1 g/dL (12.0-15.5) Hematocrit 26.0 % (36.0-47.0) Mean Corpuscular Volume 91 fL (79-100) Mean Corpuscular Hemoglobin 28 pg (25-35) Mean Corpuscular Hemoglobin Concent 31 g/dL (31-37) Red Cell Distribution Width 18.7 % (11.5-14.5) Platelet Count 311 x10^3/uL (140-400) Sodium Level 137 mmol/L (136-145) Potassium Level 3.6 mmol/L (3.5-5.1) Chloride Level 104 mmol/L (98-107) Carbon Dioxide Level 23 mmol/L (21-32) Anion Gap 10 (6-14) Blood Urea Nitrogen 19 mg/dL (7-20) Creatinine 0.7 mg/dL (0.6-1.0) Estimated GFR (Cockcroft-Gault) 80.3 Glucose Level 102 mg/dL (70-99) Calcium Level 8.0 mg/dL (8.5-10.1) Medications Active Scripts Medications Dose Route/Sig Max Daily Dose Days Date Category Dexamethasone 4 Mg Tablet 1 Tab PO DAILY 6 06/07/21 Rx Magnesium Oxide 250 Mg Tablet 1 Tab PO HS 30 06/04/21 Reported Iron (Ferrous Sulfate) 325 Mg Tablet 1 Tab PO HS 30 06/04/21 Reported Aspirin Ec (Aspirin) 81 Mg Tablet.dr 81 Mg PO DAILYWBKFT 30 04/25/21 Rx Culturelle Capsule (L. Rhamnosus GG/Inulin) 1 Each Cap.sprink 1 Cap PO DAILY 30 04/17/21 Rx Digoxin 125 Mcg Tablet 125 Mcg PO DAILY 03/03/21 Rx Escitalopram Oxalate 10 Mg Tablet 0.5 Tab PO DAILY 02/28/21 Reported Klor-Con 10 (Potassium Chloride) 10 Meq Tablet.er 10 Meq PO DAILY 05/24/19 Reported Lasix (Furosemide) 20 Mg Tablet 1 Tab PO DAILY 30 05/24/19 Reported Cardizem Cd (Diltiazem Hcl) 180 Mg Cap.er.24h 1 Cap PO BID 05/24/19 Reported Vitamin B-12 (Cyanocobalamin (Vitamin B-12)) 5,000 Mcg Tab.rapdis 5,000 Mcg PO QODAY 02/23/15 Reported Omeprazole 20 Mg Capsule. 1 Cap PO DAILY 02/19/14 Reported Levothyroxine Sodium 75 Mcg Tablet 1 Tab PO DAILY 02/19/[address] chest reviewed dated 06/26/2021 1. Small to moderate pericardial effusion, mildly increased from CT abdomen pelvis 04/15/2021. 2. Increased small bilateral pleural effusions. 3. Consolidations in the posterior lower lobes and mild diffuse groundglass opacities. This could relate to mild pulmonary edema or pneumonia. 4. Small amount of ascites. Anasarca. 5. Mildly nodular appearance of the liver. Correlate for cirrhosis. Impression . 1. Acute on chronic hypoxic respiratory failure secondary to multifactorial etiologies. This includes combination of ongoing interstitial infiltrates. Likely diastolic congestive heart failure, less likely residual COVID-19 viral inflammation. She has underlying chronic obstructive pulmonary disease, which is another contributing factor. 2. The patient with COVID-19 in May and she was influenza A positive as well. She received 2 doses of vaccine with COVID with no boosters. She is now influenza B positive. Currently on Tamiflu. Some of the infiltrates could be related to influenza as well. 3. Underlying chronic obstructive pulmonary disease. Smoked for 40 years. 4. Atrial fibrillation. 5. Anemia, present on admission, which may also contribute to her hypoxic respiratory failure. 6. No definite interstitial lung disease seen on CT chest from 01/2021. 7. Abnormal CT chest. Plan . RECOMMENDATIONS: 1. Discussed with the patient. CT chest findings discussed. She has increasing pleural effusions, pericardial effusion and interstitial infiltrates. These findings are suggestive of CHF. 2. We will continue present oxygen. 3. diuresis. 4. Continue dexamethasone for now. 5. Continue Tamiflu for total of 5 days.. 6. DuoNeb. 7. Oral doxycycline and Rocephin for now. 8. At this point, she does not require remdesivir or Actemra. She may remain COVID-positive for a while and does not have any active infection. ALEXANDRA ADEN MD June 28, 2021 08:48
[2021-06-28] MEDS ORDERED: FUROSEMIDE 20 MG/2 ML VIAL. IVP ONE (09:00)
[2021-06-28 10:52] VITALS: BP 141/65
--- NOTE | 2021-06-28 11:02 | PDOC ---
Infectious Disease Note Subjective: Subjective Patient lying in bed States feels a little better Still on O2 by nasal cannula No other complaints Discussed with RN Vital Signs: Vital Signs Vital Signs Date Time Temp Pulse Resp B/P (MAP) Pulse Ox O2 Delivery O2 Flow Rate FiO2 06/28/21 10:52 97.6 74 18 141/65 (90) 99 Nasal Cannula 5.0 97.6 Physical Exam: PHYSICAL EXAM GENERAL: Alert and oriented female, not in distress. VITAL SIGNS: Stable HEENT: Both pupils are round and reacting. No conjunctival lesion, no lesion in the mouth. NECK: Supple, no JVP, no lymphadenopathy. LUNGS: Clear. HEART: S1, S2, regular. ABDOMEN: Soft, nontender, no organomegaly. EXTREMITIES: Edema present. NEUROLOGIC: The patient is alert, awake, and appropriate. No focal neurologic deficit. LABORATORY DATA: White count is 9.8. BUN and creatinine is normal. CRP is Medications: Inpatient Meds: Medications reviewed. Labs: Lab Laboratory Tests Test 06/28/21 04:00 White Blood Count 7.5 x10^3/uL (4.0-11.0) Red Blood Count 2.87 x10^6/uL (3.50-5.40) Hemoglobin 8.1 g/dL (12.0-15.5) Hematocrit 26.0 % (36.0-47.0) Mean Corpuscular Volume 91 fL (79-100) Mean Corpuscular Hemoglobin 28 pg (25-35) Mean Corpuscular Hemoglobin Concent 31 g/dL (31-37) Red Cell Distribution Width 18.7 % (11.5-14.5) Platelet Count 311 x10^3/uL (140-400) Sodium Level 137 mmol/L (136-145) Potassium Level 3.6 mmol/L (3.5-5.1) Chloride Level 104 mmol/L (98-107) Carbon Dioxide Level 23 mmol/L (21-32) Anion Gap 10 (6-14) Blood Urea Nitrogen 19 mg/dL (7-20) Creatinine 0.7 mg/dL (0.6-1.0) Estimated GFR (Cockcroft-Gault) 80.3 Glucose Level 102 mg/dL (70-99) Calcium Level 8.0 mg/dL (8.5-10.1) Objective: Assessment: 1. Shortness of breath is multifactorial, but most likely it is congestive heart failure, maybe some chronic obstructive pulmonary disease. Certainly COVID is old and just a viral particles are positive. 2. Influenza B. 3. Congestive heart failure. 4. Chronic obstructive pulmonary disease. 5. Atrial fibrillation. 6. Anemia. Plan: Plan of Care Continue supportive care. Continue current management. Discussed with nursing staff SONIA PETTY MD June 28, 2021 11:01
--- NOTE | 2021-06-28 14:00 | PDOC ---
PROGRESS NOTES Date of Service DATE: 06/28/21 TIME: 13:59 Subjective Subjective Patient seen and examined Objective Objective Vital Signs Date Time Temp Pulse Resp B/P (MAP) Pulse Ox O2 Delivery O2 Flow Rate FiO2 06/28/21 10:52 97.6 74 18 141/65 (90) 99 Nasal Cannula 5.0 97.6 Intake and Output 06/28/21 07:00 Intake Total 1200 ml Balance 1200 ml Intake Oral 1200 ml # Voids 4 # Bowel Movements 1 Physical Exam Abdomen: Normal bowel sounds Heart: Other (Irregularly irregular) General: mild distress Lungs: Other (Decreased breath sounds) Assessment Assessment Problems Medical Problems: (1) Anemia Status: Acute (2) CHF exacerbation Status: Acute (3) COPD exacerbation Status: Acute (4) Shortness of breath Status: Acute 1. Acute respiratory failure, multifactorial with COPD, CHF, and anemia. Improved today. 2. Acute on chronic diastolic CHF: Additional Lasix being given today. 3. Chronic anemia; post transfusion. Monitoring lab. 4. Persistent AFIB; rate controlled. Off anticoagulation. 5. Hypertension: controlled 6. Hypothyroidism: on replacement 7. Rheumatoid arthritis: On home methotrexate 8. COPD on home oxygen therapy. Followed by the pulmonary service. 9. Severe pulmonary HTN 10. Covid-19: vaccinated, no booster 11. Flu B Comment Review of Relevant I have reviewed the following items messi (where applicable) has been applied. Labs Laboratory Tests Test 06/27/21 04:00 06/28/21 04:00 White Blood Count 4.6 x10^3/uL (4.0-11.0) 7.5 x10^3/uL (4.0-11.0) Red Blood Count 2.79 x10^6/uL (3.50-5.40) 2.87 x10^6/uL (3.50-5.40) Hemoglobin 7.9 g/dL (12.0-15.5) 8.1 g/dL (12.0-15.5) Hematocrit 25.1 % (36.0-47.0) 26.0 % (36.0-47.0) Mean Corpuscular Volume 90 fL (79-100) 91 fL (79-100) Mean Corpuscular Hemoglobin 28 pg (25-35) 28 pg (25-35) Mean Corpuscular Hemoglobin Concent 31 g/dL (31-37) 31 g/dL (31-37) Red Cell Distribution Width 18.8 % (11.5-14.5) 18.7 % (11.5-14.5) Platelet Count 273 x10^3/uL (140-400) 311 x10^3/uL (140-400) Sodium Level 139 mmol/L (136-145) 137 mmol/L (136-145) Potassium Level 4.5 mmol/L (3.5-5.1) 3.6 mmol/L (3.5-5.1) Chloride Level 107 mmol/L (98-107) 104 mmol/L (98-107) Carbon Dioxide Level 24 mmol/L (21-32) 23 mmol/L (21-32) Anion Gap 8 (6-14) 10 (6-14) Blood Urea Nitrogen 19 mg/dL (7-20) 19 mg/dL (7-20) Creatinine 0.8 mg/dL (0.6-1.0) 0.7 mg/dL (0.6-1.0) Estimated GFR (Cockcroft-Gault) 68.8 80.3 Glucose Level 115 mg/dL (70-99) 102 mg/dL (70-99) Calcium Level 7.9 mg/dL (8.5-10.1) 8.0 mg/dL (8.5-10.1) Laboratory Tests Test 06/28/21 04:00 White Blood Count 7.5 x10^3/uL (4.0-11.0) Red Blood Count 2.87 x10^6/uL (3.50-5.40) Hemoglobin 8.1 g/dL (12.0-15.5) Hematocrit 26.0 % (36.0-47.0) Mean Corpuscular Volume 91 fL (79-100) Mean Corpuscular Hemoglobin 28 pg (25-35) Mean Corpuscular Hemoglobin Concent 31 g/dL (31-37) Red Cell Distribution Width 18.7 % (11.5-14.5) Platelet Count 311 x10^3/uL (140-400) Sodium Level 137 mmol/L (136-145) Potassium Level 3.6 mmol/L (3.5-5.1) Chloride Level 104 mmol/L (98-107) Carbon Dioxide Level 23 mmol/L (21-32) Anion Gap 10 (6-14) Blood Urea Nitrogen 19 mg/dL (7-20) Creatinine 0.7 mg/dL (0.6-1.0) Estimated GFR (Cockcroft-Gault) 80.3 Glucose Level 102 mg/dL (70-99) Calcium Level 8.0 mg/dL (8.5-10.1) Microbiology 06/24/21 Blood Culture - Preliminary, Resulted NO GROWTH AFTER 3 DAYS Medications Current Medications Albuterol/ Ipratropium (Duoneb) 3 ml 1X ONCE NEB Last administered on 06/24/21at 18:37; Start 06/24/21 at 18:30; Stop 06/24/21 at 18:32; Status DC Ondansetron HCl (Zofran) 4 mg PRN Q6HRS PRN IVP NAUSEA/VOMITING; Start 06/24/21 at 19:30 Calcium Carbonate/ Glycine (Tums) 500 mg PRN Q3HRS PRN PO UPSET STOMACH; Start 06/24/21 at 19:30 Info (Non-Icu Electrolyte Protocol) 1 ea PRN DAILY PRN MC SEE COMMENTS; Start 06/24/21 at 19:30 Oxycodone/ Acetaminophen (Percocet 5/325) 1 tab PRN Q4HRS PRN PO MILD PAIN, 1ST CHOICE; Start 06/24/21 at 19:30 Oxycodone/ Acetaminophen (Percocet 5/325) 2 tab PRN Q4HRS PRN PO MODERATE PAIN, SEVERE PAIN; Start 06/24/21 at 19:30 Acetaminophen (Tylenol) 650 mg PRN Q6HRS PRN PO Headaches, Temp > 101.5F; Start 06/24/21 at 19:30; Stop 06/26/21 at 08:15; Status DC Senna/Docusate Sodium (Senna Plus) 1 tab BID PO Last administered on 06/28/21at 08:03; Start 06/24/21 at 21:00 Heparin Sodium (Porcine) (Heparin Sodium) 5,000 unit Q12HR SQ ; Start 06/25/21 at 09:00; Stop 06/24/21 at 23:25; Status DC Aspirin (Ecotrin) 81 mg DAILYWBKFT PO Last administered on 06/26/21at 08:11; Start 06/25/21 at 08:00 Digoxin (Lanoxin) 125 mcg DAILY PO Last administered on 06/28/21 08:03; Start 06/25/21 at 09:00 Diltiazem HCl (Cardizem 24hr Cd) 180 mg DAILY PO Last administered on 06/28/21at 08:02; Start 06/25/21 at 09:00 Ferrous Sulfate (Feosol) 325 mg HS PO Last administered on 06/27/21at 21:01; Start 06/24/21 at 21:00 Furosemide (Lasix) 20 mg DAILY PO Last administered on 06/28/21 08:02; Start 06/25/21 at 09:00 Levothyroxine Sodium (Synthroid) 75 mcg DAILY06 PO Last administered on 06/28/21 03:22; Start 06/25/21 at 06:00 Citalopram Hydrobromide (CeleXA) 10 mg DAILY PO Last administered on 06/28/21 08:01; Start 06/25/21 at 09:00 Pantoprazole Sodium (Protonix) 40 mg DAILYAC PO Last administered on 06/28/21 08:02; Start 06/25/21 at 07:30 Furosemide (Lasix) 40 mg 1X ONCE IVP Last administered on 06/24/21at 23:04; Start 06/24/21 at 19:45; Stop 06/24/21 at 19:46; Status DC Ceftriaxone Sodium (Rocephin) 1 gm Q24H IVP Last administered on 06/27/21at 21:01; Start 06/24/21 at 21:00 Doxycycline Hyclate (Vibra-Tab) 100 mg BID PO Last administered on 06/28/21at 08:02; Start 06/24/21 at 21:00 Albuterol/ Ipratropium (Duoneb) 3 ml RTQID NEB Last administered on 06/25/21at 11:54; Start 06/24/21 at 20:00; Stop 06/25/21 at 19:55; Status DC Sodium Chloride (Saline Mist Nasal) 1 frantz PRN Q1HR PRN NS NASAL CONGESTION; Start 06/25/21 at 06:30 Albuterol/ Ipratropium (Duoneb) 3 ml STK-MED ONCE .ROUTE ; Start 06/24/21 at 18:28; Stop 06/25/21 at 09:41; Status DC Furosemide (Lasix) 40 mg 1X ONCE IVP Last administered on 06/25/21 13:26; Start 06/25/21 at 13:00; Stop 06/25/21 at 13:01; Status DC Albuterol/ Ipratropium (Combivent Respimat 20-100 Mcg) 2 puff RTQID INH Last administered on 06/28/21 12:03; Start 06/25/21 at 20:00 Dexamethasone Sodium Phosphate (Decadron) 6 mg DAILY IVP Last administered on 06/28/21 08:04; Start 06/26/21 at 09:00; Stop 07/06/21 at 08:59 Oseltamivir Phosphate (Tamiflu) 75 mg BID PO Last administered on 06/28/21 08:01; Start 06/25/21 at 21:00; Stop 06/30/21 at 20:59 Acetaminophen (Tylenol) 650 mg PRN Q6HRS PRN PO MILD PAIN / TEMP > 100.3'F Last administered on 06/28/21at 09:36; Start 06/25/21 at 20:45 Benzonatate (Tessalon Perle) 100 mg PRN TID PRN PO COUGH; Start 06/25/21 at 20:45 Potassium Chloride (Klor-Con) 40 meq Q4H PO Last administered on 06/26/21at 12:02; Start 06/26/21 at 06:00; Stop 06/26/21 at 10:01; Status DC Potassium Chloride (Klor-Con) 40 meq 1X ONCE PO Last administered on 06/26/21at 08:12; Start 06/26/21 at 07:30; Stop 06/26/21 at 07:31; Status DC Furosemide (Lasix) 40 mg 1X ONCE IVP Last administered on 06/27/21at 10:28; Start 06/27/21 at 08:45; Stop 06/27/21 at 08:49; Status DC Furosemide (Lasix) 20 mg 1X ONCE IVP Last administered on 06/28/21 09:31; Start 06/28/21 at 09:00; Stop 06/28/21 at 09:01; Status DC Active Scripts Active Dexamethasone 4 Mg Tablet 1 Tab PO DAILY 6 Days Aspirin Ec (Aspirin) 81 Mg Tablet.dr 81 Mg PO DAILYWBKFT 30 Days Culturelle Capsule (L. Rhamnosus GG/Inulin) 1 Each Cap.sprink 1 Cap PO DAILY 30 Days Digoxin 125 Mcg Tablet 125 Mcg PO DAILY Reported Magnesium Oxide 250 Mg Tablet 1 Tab PO HS 30 Days Iron (Ferrous Sulfate) 325 Mg Tablet 1 Tab PO HS 30 Days Escitalopram Oxalate 10 Mg Tablet 0.5 Tab PO DAILY Klor-Con 10 (Potassium Chloride) 10 Meq Tablet.er 10 Meq PO DAILY Lasix (Furosemide) 20 Mg Tablet 1 Tab PO DAILY 30 Days Cardizem Cd (Diltiazem Hcl) 180 Mg Cap.er.24h 1 Cap PO BID Vitamin B-12 (Cyanocobalamin (Vitamin B-12)) 5,000 Mcg Tab.rapdis 5,000 Mcg PO QODAY Omeprazole 20 Mg Capsule. 1 Cap PO DAILY Levothyroxine Sodium 75 Mcg Tablet 1 Tab PO DAILY Vitals/I & O Vital Sign - Last 24 Hours 06/27/21 06/27/21 06/27/21 06/27/21 14:04 19:20 20:07 22:09 Temp 96.8 97.1 97.1 96.8 97.1 97.1 Pulse 61 56 68 Resp 17 24 24 B/P (MAP) 118/66 (83) 127/67 (87) 130/80 (97) Pulse Ox 100 95 95 O2 Delivery Nasal Cannula Nasal Cannula Nasal Cannula Nasal Cannula O2 Flow Rate 6.0 5.0 6.0 5.0 06/28/21 06/28/21 06/28/21 06/28/21 03:15 07:00 08:00 08:02 Temp 97.7 96.3 97.7 96.3 Pulse 107 78 66 Resp 22 17 B/P (MAP) 132/72 (92) 149/67 (94) 149/67 Pulse Ox 93 95 O2 Delivery Nasal Cannula Nasal Cannula Nasal Cannula O2 Flow Rate 5.0 5.0 4.0 06/28/21 06/28/21 08:03 10:52 Temp 97.6 97.6 Pulse 68 74 Resp 18 B/P (MAP) 149/67 141/65 (90) Pulse Ox 99 O2 Delivery Nasal Cannula O2 Flow Rate 5.0 Intake and Output 06/27/21 06/27/21 06/28/21 15:00 23:00 07:00 Intake Total 600 ml 400 ml 200 ml Balance 600 ml 400 ml 200 ml Justifications for Admission Other Justification Failure to thrive CODY RIDDLE MD June 28, 2021 14:00
--- NOTE | 2021-06-28 14:17 | PDOC ---
[facility] PROGRESS NOTE Date of Service DOS: DATE: 06/28/21 TIME: 14:16 Chief Complaint Chief Complaint Acute hypoxic respiratory failure secondary to acute on chronic diastolic CHF versus recurrent pneumonia in setting of influenza and COVID admission a few weeks ago normocytic anemia history of A. fib not on oral anticoagulation hypertension GI bleed History of Present Illness History of Present Illness 06/28: Afebrile, currently breathing on 5 L nasal cannula. Continue Tamiflu and Decadron for influenza and COVID-19 infection. Discussed with RN. 06/27: Afebrile, with increasing O2 requirement (6 L nasal cannula). Patient states she feels better after Lasix. Fecal occult blood positive and prior history of GI bleed, off DOAC. I do not see any reason to consult GI at this time; will continue monitoring and they will PPI. 06/26: Afebrile. Currently breathing on 5 L nasal cannula. Hemoglobin 8.1, fecal occult blood pending. Potassium 2.9 today, will replace. She is COVID-19 antigen positive and influenza B positive. I have initiated both Tamiflu and Decadron. Will discuss with pulmonology about further treatment with remdesivir considering I believe she is still positive from last admission 06/07. Of note on last admission (06/07) she was influenza A positive. Patient states that she is a DNI. Discussed with RN. 06/25: Afebrile, currently breathing on 5 L nasal cannula. Very hard of hearing. Hemoglobin came up to 8.2 today, s/p 1 unit PRBC. Will order fecal occult blood. Continue antibiotics for now; will obtain morning procalcitonin. Follow cardiology recommendations. Vitals/I&O Vitals/I&O: Vital Signs Date Time Temp Pulse Resp B/P (MAP) Pulse Ox O2 Delivery O2 Flow Rate FiO2 06/28/21 10:52 97.6 74 18 141/65 (90) 99 Nasal Cannula 5.0 97.6 I & O 06/27/21 06/27/21 06/28/21 15:00 23:00 07:00 Intake Total 600 ml 400 ml 200 ml Balance 600 ml 400 ml 200 ml Physical Exam Physical Exam: GENERAL: Alert and oriented female, not in distress. VITAL SIGNS: Stable HEENT: Both pupils are round and reacting. No conjunctival lesion, no lesion in the mouth. NECK: Supple, no JVP, no lymphadenopathy. LUNGS: Clear. HEART: S1, S2, regular. ABDOMEN: Soft, nontender, no organomegaly. EXTREMITIES: Edema present. NEUROLOGIC: The patient is alert, awake, and appropriate. No focal neurologic deficit. LABORATORY DATA: White count is 9.8. BUN and creatinine is normal. CRP is General: No acute distress Heart: Other (Irregularly irregular) Lungs: Clear Abdomen: Normal bowel sounds Extremities: No cyanosis Skin: No rashes Labs Labs: Laboratory Tests Test 06/28/21 04:00 White Blood Count 7.5 x10^3/uL (4.0-11.0) Red Blood Count 2.87 x10^6/uL (3.50-5.40) Hemoglobin 8.1 g/dL (12.0-15.5) Hematocrit 26.0 % (36.0-47.0) Mean Corpuscular Volume 91 fL (79-100) Mean Corpuscular Hemoglobin 28 pg (25-35) Mean Corpuscular Hemoglobin Concent 31 g/dL (31-37) Red Cell Distribution Width 18.7 % (11.5-14.5) Platelet Count 311 x10^3/uL (140-400) Sodium Level 137 mmol/L (136-145) Potassium Level 3.6 mmol/L (3.5-5.1) Chloride Level 104 mmol/L (98-107) Carbon Dioxide Level 23 mmol/L (21-32) Anion Gap 10 (6-14) Blood Urea Nitrogen 19 mg/dL (7-20) Creatinine 0.7 mg/dL (0.6-1.0) Estimated GFR (Cockcroft-Gault) 80.3 Glucose Level 102 mg/dL (70-99) Calcium Level 8.0 mg/dL (8.5-10.1) Assessment and Plan Assessmemt and Plan Problems Medical Problems: (1) Anemia Status: Acute (2) CHF exacerbation Status: Acute (3) COPD exacerbation Status: Acute (4) Shortness of breath Status: Acute Comment Review of Relevant I have reviewed the following items messi (where applicable) has been applied. Medications: Current Medications Medications (Trade) Dose Ordered Sig/Farhan Route PRN Reason Start Time Stop Time Status Last Admin Dose Admin Furosemide (Lasix) 20 mg 1X ONCE IVP 06/28/21 09:00 06/28/21 09:01 DC 06/28/21 09:31 Justifications for Admission Other Justification Failure to thrive AGATA HANSON MD June 28, 2021 14:17
[2021-06-28 15:00] VITALS: BP 113/59
[2021-06-28 19:21] VITALS: BP 122/57
[2021-06-28] MEDS: cefTRIAXone IV Push 1 GM VIAL. IVP SCH (21:13)
[2021-06-28] MEDS: FERROUS SULFATE 325 MG TABLET. PO SCH (21:13)
[2021-06-28 22:44] VITALS: BP 164/96
[2021-06-29] MEDS: ACETAMINOPHEN 325 MG TABLET. PO PRN (00:58)
[2021-06-29 02:23] VITALS: BP 121/63
[2021-06-29] MEDS: LEVOTHYROXINE 75 MCG TABLET PO SCH (05:30)
[2021-06-29 07:00] VITALS: BP 156/77
[2021-06-29 07:31] LABS: HEMATOCRIT 29.3 % (36.0-47.0); HEMOGLOBIN 8.8 g/dL (12.0-15.5); RED BLOOD COUNT 3.21 x10^6/uL (3.50-5.40); RED CELL DISTRIBUTION WIDTH 19.1 % (11.5-14.5); WHITE BLOOD COUNT 9.1 x10^3/uL (4.0-11.0)
[2021-06-29 07:42] LABS: CALCIUM 8.1 mg/dL (8.5-10.1); CREATININE 0.7 mg/dL (0.6-1.0); GFR 80.3
[2021-06-29] MEDS: CITALOPRAM 10 MG TABLET. PO SCH (09:35)
[2021-06-29] MEDS: PANTOPRAZOLE 40 MG TABLET.DR. PO SCH (09:35)
[2021-06-29] MEDS: DEXAMETHASONE SOD PHOS 4 MG/ML VIAL IVP SCH (09:35)
[2021-06-29] MEDS: ASPIRIN ENTERIC COATED 81 MG TABLET.DR. PO SCH (09:35)
[2021-06-29] MEDS: SENNOSIDES/DOCUSATE 8.6/50MG TABLET. PO SCH (09:36)
[2021-06-29] MEDS: FUROSEMIDE 20 MG TABLET PO SCH (09:36)
[2021-06-29] MEDS: OSELTAMIVIR 75 MG CAPSULE PO SCH (09:36)
[2021-06-29] MEDS: DOXYCYCLINE HYCLATE 100 MG TABLET PO SCH (09:36)
[2021-06-29] MEDS: DIGOXIN 125 MCG TABLET. PO SCH (09:37)
[2021-06-29 11:00] VITALS: BP 148/65
--- NOTE | 2021-06-29 11:07 | PDOC ---
PULMONARY PROGRESS NOTES DATE: 06/29/21 TIME: 11:05 Subjective Denies any increased shortness of breath. No chest pain. Vitals Vital Signs Date Time Temp Pulse Resp B/P (MAP) Pulse Ox O2 Delivery O2 Flow Rate FiO2 06/29/21 09:37 103 156/77 06/29/21 08:05 Nasal Cannula 5.0 06/29/21 07:00 97.2 19 97 97.2 General: Alert, No acute distress HEENT: Other Lungs: Clear Cardiovascular: S1, S2 Abdomen: Soft, Non-tender Neuro Exam: Alert Extremities: No Edema Skin: Warm Labs Laboratory Tests Test 06/28/21 04:00 06/29/21 07:16 White Blood Count 7.5 x10^3/uL (4.0-11.0) 9.1 x10^3/uL (4.0-11.0) Red Blood Count 2.87 x10^6/uL (3.50-5.40) 3.21 x10^6/uL (3.50-5.40) Hemoglobin 8.1 g/dL (12.0-15.5) 8.8 g/dL (12.0-15.5) Hematocrit 26.0 % (36.0-47.0) 29.3 % (36.0-47.0) Mean Corpuscular Volume 91 fL (79-100) 91 fL (79-100) Mean Corpuscular Hemoglobin 28 pg (25-35) 28 pg (25-35) Mean Corpuscular Hemoglobin Concent 31 g/dL (31-37) 30 g/dL (31-37) Red Cell Distribution Width 18.7 % (11.5-14.5) 19.1 % (11.5-14.5) Platelet Count 311 x10^3/uL (140-400) 355 x10^3/uL (140-400) Sodium Level 137 mmol/L (136-145) 137 mmol/L (136-145) Potassium Level 3.6 mmol/L (3.5-5.1) 4.0 mmol/L (3.5-5.1) Chloride Level 104 mmol/L (98-107) 103 mmol/L (98-107) Carbon Dioxide Level 23 mmol/L (21-32) 23 mmol/L (21-32) Anion Gap 10 (6-14) 11 (6-14) Blood Urea Nitrogen 19 mg/dL (7-20) 20 mg/dL (7-20) Creatinine 0.7 mg/dL (0.6-1.0) 0.7 mg/dL (0.6-1.0) Estimated GFR (Cockcroft-Gault) 80.3 80.3 Glucose Level 102 mg/dL (70-99) 82 mg/dL (70-99) Calcium Level 8.0 mg/dL (8.5-10.1) 8.1 mg/dL (8.5-10.1) Laboratory Tests Test 06/29/21 07:16 White Blood Count 9.1 x10^3/uL (4.0-11.0) Red Blood Count 3.21 x10^6/uL (3.50-5.40) Hemoglobin 8.8 g/dL (12.0-15.5) Hematocrit 29.3 % (36.0-47.0) Mean Corpuscular Volume 91 fL (79-100) Mean Corpuscular Hemoglobin 28 pg (25-35) Mean Corpuscular Hemoglobin Concent 30 g/dL (31-37) Red Cell Distribution Width 19.1 % (11.5-14.5) Platelet Count 355 x10^3/uL (140-400) Sodium Level 137 mmol/L (136-145) Potassium Level 4.0 mmol/L (3.5-5.1) Chloride Level 103 mmol/L (98-107) Carbon Dioxide Level 23 mmol/L (21-32) Anion Gap 11 (6-14) Blood Urea Nitrogen 20 mg/dL (7-20) Creatinine 0.7 mg/dL (0.6-1.0) Estimated GFR (Cockcroft-Gault) 80.3 Glucose Level 82 mg/dL (70-99) Calcium Level 8.1 mg/dL (8.5-10.1) Medications Active Scripts Medications Dose Route/Sig Max Daily Dose Days Date Category Dexamethasone 4 Mg Tablet 1 Tab PO DAILY 6 06/07/21 Rx Magnesium Oxide 250 Mg Tablet 1 Tab PO HS 30 06/04/21 Reported Iron (Ferrous Sulfate) 325 Mg Tablet 1 Tab PO HS 30 06/04/21 Reported Aspirin Ec (Aspirin) 81 Mg Tablet. 81 Mg PO DAILYWBKFT 30 04/25/21 Rx Culturelle Capsule (L. Rhamnosus GG/Inulin) 1 Each Cap.sprink 1 Cap PO DAILY 30 04/17/21 Rx Digoxin 125 Mcg Tablet 125 Mcg PO DAILY 03/03/21 Rx Escitalopram Oxalate 10 Mg Tablet 0.5 Tab PO DAILY 02/28/21 Reported Klor-Con 10 (Potassium Chloride) 10 Meq Tablet.er 10 Meq PO DAILY 05/24/19 Reported Lasix (Furosemide) 20 Mg Tablet 1 Tab PO DAILY 30 05/24/19 Reported Cardizem Cd (Diltiazem Hcl) 180 Mg Cap.er.24h 1 Cap PO BID 05/24/19 Reported Vitamin B-12 (Cyanocobalamin (Vitamin B-12)) 5,000 Mcg Tab.rapdis 5,000 Mcg PO QODAY 02/23/15 Reported Omeprazole 20 Mg Capsule.dr 1 Cap PO DAILY 02/19/14 Reported Levothyroxine Sodium 75 Mcg Tablet 1 Tab PO DAILY 02/19/[address] chest reviewed dated 06/26/2021 1. Small to moderate pericardial effusion, mildly increased from CT abdomen pelvis 04/15/2021. 2. Increased small bilateral pleural effusions. 3. Consolidations in the posterior lower lobes and mild diffuse groundglass opacities. This could relate to mild pulmonary edema or pneumonia. 4. Small amount of ascites. Anasarca. 5. Mildly nodular appearance of the liver. Correlate for cirrhosis. Impression . 1. Acute on chronic hypoxic respiratory failure secondary to multifactorial etiologies. This includes combination of ongoing interstitial infiltrates. Likely diastolic congestive heart failure, less likely residual COVID-19 viral inflammation. She has underlying chronic obstructive pulmonary disease, which is another contributing factor. 2. The patient with COVID-19 in May and she was influenza A positive as well. She received 2 doses of vaccine with COVID with no boosters. She is now influenza B positive. Currently on Tamiflu. Some of the infiltrates could be related to influenza as well. 3. Underlying chronic obstructive pulmonary disease. Smoked for 40 years. 4. Atrial fibrillation. 5. Anemia, present on admission, which may also contribute to her hypoxic respiratory failure. 6. No definite interstitial lung disease seen on CT chest from 01/2021. 7. Abnormal CT chest. Plan . RECOMMENDATIONS: 1. Discussed with the patient. CT chest findings discussed. She has increasing pleural effusions, pericardial effusion and interstitial infiltrates. These findings are suggestive of CHF. Clinically responded to diuresis. 2. We will continue present oxygen. 3. diuresis. 4. Taper off dexamethasone. 5. Continue Tamiflu for total of 5 days.. 6. DuoNeb. 7. Oral doxycycline and Rocephin . 8. At this point, she does not require remdesivir or Actemra. She may remain COVID-positive for a while and does not have any active infection. 9. Patient has done well with diuresis. Oxygen level at baseline 4 L. Okay with evaluation for skilled care. ALEXANDRA ADEN MD June 29, 2021 11:07
--- NOTE | 2021-06-29 11:14 | PDOC ---
CARDIO Progress Notes Date and Time Date of Service 06/29/21 Time of Evaluation 1115 Subjective Subjective: No Chest Pain, No shortness of breath, No Palpitations Vitals Vitals Vital Signs Date Time Temp Pulse Resp B/P (MAP) Pulse Ox O2 Delivery O2 Flow Rate FiO2 06/29/21 09:37 103 156/77 06/29/21 08:05 Nasal Cannula 5.0 06/29/21 07:00 97.2 19 97 97.2 Weight Weight [ ] Input and Output Intake and Output Intake and Output 06/29/21 07:00 Intake Total 1100 ml Balance 1100 ml Intake Oral 1100 ml # Voids 4 # Bowel Movements 2 Laboratory Labs Laboratory Tests Test 06/29/21 07:16 White Blood Count 9.1 x10^3/uL (4.0-11.0) Red Blood Count 3.21 x10^6/uL (3.50-5.40) Hemoglobin 8.8 g/dL (12.0-15.5) Hematocrit 29.3 % (36.0-47.0) Mean Corpuscular Volume 91 fL (79-100) Mean Corpuscular Hemoglobin 28 pg (25-35) Mean Corpuscular Hemoglobin Concent 30 g/dL (31-37) Red Cell Distribution Width 19.1 % (11.5-14.5) Platelet Count 355 x10^3/uL (140-400) Sodium Level 137 mmol/L (136-145) Potassium Level 4.0 mmol/L (3.5-5.1) Chloride Level 103 mmol/L (98-107) Carbon Dioxide Level 23 mmol/L (21-32) Anion Gap 11 (6-14) Blood Urea Nitrogen 20 mg/dL (7-20) Creatinine 0.7 mg/dL (0.6-1.0) Estimated GFR (Cockcroft-Gault) 80.3 Glucose Level 82 mg/dL (70-99) Calcium Level 8.1 mg/dL (8.5-10.1) Microbiology Micro Microbiology 06/24/21 Blood Culture - Preliminary, Resulted NO GROWTH AFTER 4 DAYS Physical Exam HEENT: Neck Supple W Full Motion Chest: Symmetric LUNGS: Other (on NC) Heart: irregularly irregular (AFIB) Abdomen: Soft N/T Extremities: No Calf Tenderness Neurology: alert, oriented, follow commands Assessment Assessment 1. Acute respiratory failure, multifactorial with COPD, CHF 2. Acute on chronic diastolic CHF: improved s/p IV diuresis 3. Chronic anemia; hgb 8.1 post transfusion 4. Persistent AFIB; rate controlled 5. Hypertension: controlled 6. Hypothyroidism: on replacement 7. Rheumatoid arthritis: On home methotrexate 8. COPD on home oxygen therapy 9. Severe pulmonary HTN 10. Flu B Recommendations Continue Cardizem and digoxin for rate control ASA for stroke prevention. no longer on eliquis due to hx of GI bleed and anemia requiring transfusion Outpatient [facility] referral Supportive care Justicifation of Admission Dx: Justifications for Admission: Justification of Admission Dx: Yes CHF: Cardiac Arrhythmias ALEC SANTANA APRN June 29, 2021 11:14
--- NOTE | 2021-06-29 11:44 | PDOC ---
[facility] PROGRESS NOTE Date of Service DOS: DATE: 06/29/21 TIME: 11:33 Chief Complaint Chief Complaint Acute hypoxic respiratory failure secondary to acute on chronic diastolic CHF also with COPD and Flu B Normocytic anemia A. 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 Advised her to avoid methotrexate for now COPD on home oxygen therapy Severe pulmonary HTN - with cor pulmonale, on home O2 History of Present Illness History of Present Illness 06/29: Afebrile. Significant diuresis noted on 4 L nasal cannula which is her home dosing. Discussed with pulmonology likely will remain COVID-positive for some time given her history of immunosuppression on methotrexate rheumatoid arthritis. We will complete Tamiflu course to home with home health 06/28: Afebrile, currently breathing on 5 L nasal cannula. Continue Tamiflu and Decadron for influenza and COVID-19 infection. Discussed with RN. 06/27: Afebrile, with increasing O2 requirement (6 L nasal cannula). Patient states she feels better after Lasix. Fecal occult blood positive and prior history of GI bleed, off DOAC. I do not see any reason to consult GI at this time; will continue monitoring and they will PPI. 06/26: Afebrile. Currently breathing on 5 L nasal cannula. Hemoglobin 8.1, fecal occult blood pending. Potassium 2.9 today, will replace. She is COVID-19 antigen positive and influenza B positive. I have initiated both Tamiflu and Decadron. Will discuss with pulmonology about further treatment with remdesivir considering I believe she is still positive from last admission 06/07. Of note on last admission (06/07) she was influenza A positive. Patient states that she is a DNI. Discussed with RN. 5: Afebrile, currently breathing on 5 L nasal cannula. Very hard of hearing. Hemoglobin came up to 8.2 today, s/p 1 unit PRBC. Will order fecal occult blood. Continue antibiotics for now; will obtain morning procalcitonin. Follow cardiology recommendations. Vitals/I&O Vitals/I&O: Vital Signs Date Time Temp Pulse Resp B/P (MAP) Pulse Ox O2 Delivery O2 Flow Rate FiO2 06/29/21 09:37 103 156/77 06/29/21 08:05 Nasal Cannula 5.0 06/29/21 07:00 97.2 19 97 97.2 I & O 06/28/21 06/28/21 06/29/21 15:00 23:00 07:00 Intake Total 800 ml 300 ml 0 ml Balance 800 ml 300 ml 0 ml Physical Exam Physical Exam: GENERAL: Alert and oriented female, not in distress. VITAL SIGNS: Stable HEENT: Both pupils are round and reacting. No conjunctival lesion, no lesion in the mouth. NECK: Supple, no JVP, no lymphadenopathy. LUNGS: Clear. HEART: S1, S2, regular. ABDOMEN: Soft, nontender, no organomegaly. EXTREMITIES: Edema present. NEUROLOGIC: The patient is alert, awake, and appropriate. No focal neurologic deficit. LABORATORY DATA: White count is 9.8. BUN and creatinine is normal. CRP is General: No acute distress Heart: Other (Irregularly irregular) Lungs: Clear Abdomen: Normal bowel sounds Extremities: No cyanosis Skin: No rashes Labs Labs: Laboratory Tests Test 06/29/21 07:16 White Blood Count 9.1 x10^3/uL (4.0-11.0) Red Blood Count 3.21 x10^6/uL (3.50-5.40) Hemoglobin 8.8 g/dL (12.0-15.5) Hematocrit 29.3 % (36.0-47.0) Mean Corpuscular Volume 91 fL (79-100) Mean Corpuscular Hemoglobin 28 pg (25-35) Mean Corpuscular Hemoglobin Concent 30 g/dL (31-37) Red Cell Distribution Width 19.1 % (11.5-14.5) Platelet Count 355 x10^3/uL (140-400) Sodium Level 137 mmol/L (136-145) Potassium Level 4.0 mmol/L (3.5-5.1) Chloride Level 103 mmol/L (98-107) Carbon Dioxide Level 23 mmol/L (21-32) Anion Gap 11 (6-14) Blood Urea Nitrogen 20 mg/dL (7-20) Creatinine 0.7 mg/dL (0.6-1.0) Estimated GFR (Cockcroft-Gault) 80.3 Glucose Level 82 mg/dL (70-99) Calcium Level 8.1 mg/dL (8.5-10.1) Assessment and Plan Assessmemt and Plan Problems Medical Problems: (1) Anemia Status: Acute (2) CHF exacerbation Status: Acute (3) COPD exacerbation Status: Acute (4) Shortness of breath Status: Acute Comment Review of Relevant I have reviewed the following items messi (where applicable) has been applied. Justifications for Admission Other Justification Failure to thrive KALYN LONG MD June 29, 2021 11:44
[2021-06-29] MEDS ORDERED: OSEL75CA PO (11:47)
[2021-06-29] MEDS ORDERED: DEXA4TAB PO (11:47)
[2021-06-29] MEDS ORDERED: DOXY100T PO (11:47)
--- NOTE | 2021-06-29 11:49 | SNU/HH DC ---
DISCHARGE WITH HOME HEALTH DISCHARGE INFORMATION: Discharge Date: June 29, 2021 Final Diagnosis: Problems Medical Problems: (1) Anemia Status: Acute (2) CHF exacerbation Status: Acute (3) COPD exacerbation Status: Acute (4) Shortness of breath Status: Acute Condition on Discharge: Stable CODE STATUS: Code Status: Other (DNI) HOME HEALTH: Face to Face: I certify this patient is under my care and that I, or a nurse practitioner or physician's processing assistant working with me, had a face to face encounter that meets the physician face to face encounter requirements with this patient on 06/29/2021. Medical Complications: CHF, COPD, DJD, Pneumonia Mcfp For: Assess Cardiopulm Status, Assess & Educate Safety, Medication Management RN For Eval/Treatment: Yes Physical Therapy For: Evalulation/Treatment Occupational Therapy For: Evaluation/Treatment Pt Meets Homebound Status: Extreme weakness w/ amb., Limited distance walking POST DISCHARGE ORDERS: Activity Instructions for Disc: Activity as tolerated Weight Bearing Status after Di: As tolerated Bathing Instructions: Shower-keep dressing dry, No Tub Bath until see DIET AFTER DISCHARGE: Cardiac Wound/Incision Care: Ice to area for comfort, Keep wound/cast CDI, Change dressing CHECKS AFTER DISCHARGE: Checks after discharge: Check blood press - daily, Weigh Yourself Daily TREATMENT/EQUIPMENT ORDERS: Adaptive Equipment Issued: None Discharge Respiratory Equipmen: Oxygen (4L/min) CERTIFICATION STATEMENT: Certification Statement: Certification Statement: Based on the above finding, I certify that this patient is confined to the home and needs intermittent [facility] care, physical therapy and/or speech therapy, or continues to need occupational therapy.~ This patient is under my care, and I have initiated the establishment of the plan of care.~ This patient will be followed by myself or a community physician who will periodically review the plan of care. Home Meds Active Scripts Doxycycline Hyclate (DOXYCYCLINE HYCLATE) 100 Mg Tablet, 100 MG PO BID for Bronchitis/Pneumonia for 4 Days, #8 TAB Prov:KALYN LONG MD 06/29/21 Oseltamivir Phosphate (TAMIFLU) 75 Mg Capsule, 75 MG PO BID for Flu B for 4 Days, #8 CAP Prov:KALYN LONG MD 06/29/21 Dexamethasone (DEXAMETHASONE) 4 Mg Tablet, 1 TAB PO DAILY for COVID for 4 Days, #4 TAB Prov:RIFFEL,CHRISTOPHER S MD 06/29/21 Aspirin (ASPIRIN EC) 81 Mg Tablet., 81 MG PO DAILYWBKFT for heart disease prevention for 30 Days, #30 TAB.SR 2 Refills Prov:OSMANI GOMEZ MD 04/25/21 L. Rhamnosus GG/Inulin (Culturelle Capsule) 1 Each Cap.sprink, 1 CAP PO DAILY for gi upset for 30 Days, #30 CAP 0 Refills Prov:KALYN HERNANDEZ MD 04/17/21 Digoxin (DIGOXIN) 125 Mcg Tablet, 125 MCG PO DAILY for AFIB/HEART FAILURE, #30 TAB Prov:GABY BURDEN MD 03/03/21 Reported Medications Magnesium Oxide (MAGNESIUM OXIDE) 250 Mg Tablet, 1 TAB PO HS for supplement for 30 Days, #30 TAB 0 Refills 06/04/21 Ferrous Sulfate (IRON) 325 Mg Tablet, 1 TAB PO HS for supplement for 30 Days, #30 TAB 0 Refills 06/04/21 Escitalopram Oxalate (ESCITALOPRAM OXALATE) 10 Mg Tablet, 0.5 TAB PO DAILY for , #30 TAB 3 Refills 02/28/21 Potassium Chloride (Klor-Con 10) 10 Meq Tablet.er, 10 MEQ PO DAILY for CHF, TAB.SR 05/24/19 Furosemide (LASIX) 20 Mg Tablet, 1 TAB PO DAILY for CHF for 30 Days, #30 TAB 0 Refills 05/24/19 Diltiazem Hcl (CARDIZEM CD) 180 Mg Cap.er.24h, 1 CAP PO BID for HTN, #90 CAP 1 Refill 05/24/19 Cyanocobalamin (Vitamin B-12) (VITAMIN B-12) 5,000 Mcg Tab.rapdis, 5000 MCG PO QODAY for anemia 02/23/15 Omeprazole (OMEPRAZOLE) 20 Mg Capsule., 1 CAP PO DAILY, #30 CAP 5 Refills 02/19/14 Levothyroxine Sodium (LEVOTHYROXINE SODIUM) 75 Mcg Tablet, 1 TAB PO DAILY, #30 TAB 5 Refills 02/19/14 KALYN LONG MD June 29, 2021 11:49
--- NOTE | 2021-06-29 11:53 | PDOC3 ---
Discharge Summary Visit Information Date of Admission: June 24, 2021 Date of Discharge: June 29, 2021 Admitting Diagnosis: Acute CHF exacerbation, anemia Final Diagnosis Problems Medical Problems: (1) Anemia Status: Acute (2) CHF exacerbation Status: Acute (3) COPD exacerbation Status: Acute (4) Shortness of breath Status: Acute Brief Hospital Course Allergies Allergies Coded Allergies Type Severity Reaction Last Updated Verified clindamycin Allergy Severe THROAT CLOSING 06/24/21 Yes Penicillins Allergy Intermediate Hives 06/24/21 Yes erythromycin base Allergy Intermediate 06/24/21 Yes latex Allergy Intermediate itching, broke out w/ hives 06/24/21 Yes metoprolol Allergy Intermediate 06/24/21 Yes Vital Signs Vital Signs Date Time Temp Pulse Resp B/P (MAP) Pulse Ox O2 Delivery O2 Flow Rate FiO2 06/29/21 09:37 103 156/77 06/29/21 08:05 Nasal Cannula 5.0 06/29/21 07:00 97.2 19 97 97.2 Lab Results Laboratory Tests Test 06/28/21 04:00 06/29/21 07:16 White Blood Count 7.5 x10^3/uL (4.0-11.0) 9.1 x10^3/uL (4.0-11.0) Red Blood Count 2.87 x10^6/uL (3.50-5.40) 3.21 x10^6/uL (3.50-5.40) Hemoglobin 8.1 g/dL (12.0-15.5) 8.8 g/dL (12.0-15.5) Hematocrit 26.0 % (36.0-47.0) 29.3 % (36.0-47.0) Mean Corpuscular Volume 91 fL (79-100) 91 fL (79-100) Mean Corpuscular Hemoglobin 28 pg (25-35) 28 pg (25-35) Mean Corpuscular Hemoglobin Concent 31 g/dL (31-37) 30 g/dL (31-37) Red Cell Distribution Width 18.7 % (11.5-14.5) 19.1 % (11.5-14.5) Platelet Count 311 x10^3/uL (140-400) 355 x10^3/uL (140-400) Sodium Level 137 mmol/L (136-145) 137 mmol/L (136-145) Potassium Level 3.6 mmol/L (3.5-5.1) 4.0 mmol/L (3.5-5.1) Chloride Level 104 mmol/L (98-107) 103 mmol/L (98-107) Carbon Dioxide Level 23 mmol/L (21-32) 23 mmol/L (21-32) Anion Gap 10 (6-14) 11 (6-14) Blood Urea Nitrogen 19 mg/dL (7-20) 20 mg/dL (7-20) Creatinine 0.7 mg/dL (0.6-1.0) 0.7 mg/dL (0.6-1.0) Estimated GFR (Cockcroft-Gault) 80.3 80.3 Glucose Level 102 mg/dL (70-99) 82 mg/dL (70-99) Calcium Level 8.0 mg/dL (8.5-10.1) 8.1 mg/dL (8.5-10.1) Laboratory Tests Test 06/29/21 07:16 White Blood Count 9.1 x10^3/uL (4.0-11.0) Red Blood Count 3.21 x10^6/uL (3.50-5.40) Hemoglobin 8.8 g/dL (12.0-15.5) Hematocrit 29.3 % (36.0-47.0) Mean Corpuscular Volume 91 fL (79-100) Mean Corpuscular Hemoglobin 28 pg (25-35) Mean Corpuscular Hemoglobin Concent 30 g/dL (31-37) Red Cell Distribution Width 19.1 % (11.5-14.5) Platelet Count 355 x10^3/uL (140-400) Sodium Level 137 mmol/L (136-145) Potassium Level 4.0 mmol/L (3.5-5.1) Chloride Level 103 mmol/L (98-107) Carbon Dioxide Level 23 mmol/L (21-32) Anion Gap 11 (6-14) Blood Urea Nitrogen 20 mg/dL (7-20) Creatinine 0.7 mg/dL (0.6-1.0) Estimated GFR (Cockcroft-Gault) 80.3 Glucose Level 82 mg/dL (70-99) Calcium Level 8.1 mg/dL (8.5-10.1) Brief Hospital Course Ms Damian is an 80yo female with PMHx CHF, ex-smoker (quit 2007), GERD, HTN, Hypothyroidism, afib (stopped OAC 2/2 GI bleed), COPD on 3L NCO2 at home, and anemia who presents to the ED via EMS for worsening shortness of breath. Required 5 liters of oxygen, cough. No chest pain, no headaches, no nausea, vomiting or diarrhea. Initial workup revealed that she is positive for influenza B now and also was positive for COVID on the rapid test, but the PCR was negative. The patient has been on dexamethasone and Tamiflu. Found with pericardial effusion and bilateral pleural effusions and diuresed for acute CHF exacerbation transfuse for acute anemia and treated for influenza B after already recovering from COVID-19 and influenza a 1 month ago. Brief hospital course: 06/29: Afebrile. Significant diuresis noted on 4 L nasal cannula which is her home dosing. Discussed with pulmonology likely will remain COVID-positive for some time given her history of immunosuppression on methotrexate rheumatoid arthritis. We will complete Tamiflu course to home with home health 06/28: Afebrile, currently breathing on 5 L nasal cannula. Continue Tamiflu and Decadron for influenza and COVID-19 infection. Discussed with RN. 06/27: Afebrile, with increasing O2 requirement (6 L nasal cannula). Patient states she feels better after Lasix. Fecal occult blood positive and prior history of GI bleed, off DOAC. I do not see any reason to consult GI at this time; will continue monitoring and they will PPI. 06/26: Afebrile. Currently breathing on 5 L nasal cannula. Hemoglobin 8.1, fecal occult blood pending. Potassium 2.9 today, will replace. She is COVID-19 antigen positive and influenza B positive. I have initiated both Tamiflu and Decadron. Will discuss with pulmonology about further treatment with remdesivir considering I believe she is still positive from last admission 06/07. Of note on last admission (06/07) she was influenza A positive. Patient states that she is a DNI. Discussed with RN. 06/25: Afebrile, currently breathing on 5 L nasal cannula. Very hard of hearing. Hemoglobin came up to 8.2 today, s/p 1 unit PRBC. Will order fecal occult blood. Continue antibiotics for now; will obtain morning procalcitonin. Follow cardiology recommendations. Consults: Cardiology, Pulmonology, Infectious Diseases Problem list: Acute hypoxic respiratory failure secondary to acute on chronic diastolic CHF also with COPD and Flu B Normocytic anemia A. 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 Advised her to avoid methotrexate for now COPD on home oxygen therapy Severe pulmonary HTN - with cor pulmonale, on home O2 Greater than 30 minutes spent on d/c home with home health Discharge Information Condition at Discharge: Improved Follow Up: Weeks (1) Disposition/Orders: D/C to Home w/ HH Scheduled Aspirin (Aspirin Ec) 81 Mg Tablet.dr, 81 MG PO [id number] for heart disease prevention for 30 Days, #30 Ref 2 Prescribed by: OSMANI GOMEZ MD on 04/25/21 1202 Last Action: Continued on 06/24/211931 by KALYN HERNANDEZ MD Cyanocobalamin (Vitamin B-12) (Vitamin B-12) 5,000 Mcg Tab.rapdis, 5,000 MCG PO QODAY for anemia, (Reported) Entered as Reported by: ANASTASIA MONSIVAIS on 02/23/15 1359 Last Action: HELD on 06/24/211931 by KALYN HERNANDEZ MD Dexamethasone (Dexamethasone) 4 Mg Tablet, 1 TAB PO DAILY for COVID for 4 Days, #4 Prescribed by: KALYN LONG MD on 06/29/21 1147 Digoxin (Digoxin) 125 Mcg Tablet, 125 MCG PO DAILY for AFIB/HEART FAILURE, #30 Prescribed by: GABY BURDEN on 03/03/21 1053 Last Action: Continued on 06/24/211931 by KALYN HERNANDEZ MD Diltiazem Hcl (Cardizem Cd) 180 Mg Cap.er.24h, 1 CAP PO BID for HTN, #90 Ref 1 (Reported) Entered as Reported by: JH LIU on 05/24/19 1632 Last Action: Continued on 06/24/211931 by KALYN HERNANDEZ MD Doxycycline Hyclate (Doxycycline Hyclate) 100 Mg Tablet, 100 MG PO BID for Bronchitis/Pneumonia for 4 Days, #8 Prescribed by: KALYN LONG MD on 06/29/21 1147 Escitalopram Oxalate (Escitalopram Oxalate) 10 Mg Tablet, 0.5 TAB PO DAILY for , #30 Ref 3 (Reported) Entered as Reported by: Shreyas Aranda on 02/28/21 2317 Last Action: Converted on 06/24/211931 by KALYN HERNANDEZ MD Ferrous Sulfate (Iron) 325 Mg Tablet, 1 TAB PO HS for supplement for 30 Days, #30 Ref 0 (Reported) Entered as Reported by: JH RUANO RN on 06/04/21 1353 Last Action: Continued on 06/24/211931 by KALYN HERNANDEZ MD Furosemide (Lasix) 20 Mg Tablet, 1 TAB PO DAILY for CHF for 30 Days, #30 Ref 0 (Reported) Entered as Reported by: JH LIU on 05/24/19 1632 Last Action: Continued on 06/24/211931 by KALYN HERNANDEZ MD L. Rhamnosus GG/Inulin (Culturelle Capsule) 1 Each Cap.sprink, 1 CAP PO DAILY for gi upset for 30 Days, #30 Ref 0 Prescribed by: KALYN HERNANDEZ MD on 04/17/21 1043 Last Action: HELD on 06/24/211931 by KALYN HERNANDEZ MD Levothyroxine Sodium (Levothyroxine Sodium) 75 Mcg Tablet, 1 TAB PO DAILY, #30 Ref 5 (Reported) Entered as Reported by: ALEC FLORES on 02/19/141838 Last Action: Continued on 06/24/211931 by KALYN HERNANDEZ MD Magnesium Oxide (Magnesium Oxide) 250 Mg Tablet, 1 TAB PO HS for supplement for 30 Days, #30 Ref 0 (Reported) Entered as Reported by: JH RUANO RN on 06/04/21 1353 Last Action: HELD on 06/24/211931 by KALYN HERNANDEZ MD Omeprazole (Omeprazole) 20 Mg Capsule.dr, 1 CAP PO DAILY, #30 Ref 5 (Reported) Entered as Reported by: ALEC FLORES on 02/19/141838 Last Action: Converted on 06/24/211931 by KALYN HERNANDEZ MD Oseltamivir Phosphate (Tamiflu) 75 Mg Capsule, 75 MG PO BID for Flu B for 4 Days, #8 Prescribed by: KALYN LONG MD on 06/29/21 1147 Potassium Chloride (Klor-Con 10) 10 Meq Tablet.er, 10 MEQ PO DAILY for CHF, (Reported) Entered as Reported by: JH LIU on 05/24/19 1632 Last Action: HELD on 06/24/211931 by KALYN HERNANDEZ MD Justicifation of Admission Dx: Justifications for Admission: Justification of Admission Dx: Yes CHF: Cardiac Arrhythmias KALYN LONG MD June 29, 2021 11:53
--- NOTE | 2021-06-29 13:30 | NUR ---
SS following up with discharge planning. SS reviewed pt chart and discussed with pt RN. Pt is currently requiring oxygen at four liters nasal canula. History of COVID19 and Flu B Positive. Pt has home oxygen. PT/OT recommended home with home healthcare. [facility], ; fax [phone], from 03/05/2021-03/27/2021. Pt's family requesting that pt make decision for home healthcare company. Pt reported that she wanted to resume services with [facility]. Discharge orders and referral sent to [facility] and pt accepted on services. Pt's RN notified.
--- NOTE | 2021-06-29 14:04 | PDOC ---
Infectious Disease Note Subjective: Subjective Patient feels a little better Still on O2 by nasal cannula but decreased to 5 L No other complaints Vital Signs: Vital Signs Vital Signs Date Time Temp Pulse Resp B/P (MAP) Pulse Ox O2 Delivery O2 Flow Rate FiO2 06/29/21 11:00 97.3 85 19 148/65 (92) 96 Nasal Cannula 5.0 97.3 Physical Exam: PHYSICAL EXAM GENERAL: Alert and oriented female, not in distress. VITAL SIGNS: Stable HEENT: Both pupils are round and reacting. No conjunctival lesion, no lesion in the mouth. NECK: Supple, no JVP, no lymphadenopathy. LUNGS: Clear. HEART: S1, S2, regular. ABDOMEN: Soft, nontender, no organomegaly. EXTREMITIES: Edema present. NEUROLOGIC: The patient is alert, awake, and appropriate. No focal neurologic deficit. LABORATORY DATA: White count is 9.8. BUN and creatinine is normal. CRP is Medications: Inpatient Meds: Medications reviewed. Labs: Lab Laboratory Tests Test 06/29/21 07:16 White Blood Count 9.1 x10^3/uL (4.0-11.0) Red Blood Count 3.21 x10^6/uL (3.50-5.40) Hemoglobin 8.8 g/dL (12.0-15.5) Hematocrit 29.3 % (36.0-47.0) Mean Corpuscular Volume 91 fL (79-100) Mean Corpuscular Hemoglobin 28 pg (25-35) Mean Corpuscular Hemoglobin Concent 30 g/dL (31-37) Red Cell Distribution Width 19.1 % (11.5-14.5) Platelet Count 355 x10^3/uL (140-400) Sodium Level 137 mmol/L (136-145) Potassium Level 4.0 mmol/L (3.5-5.1) Chloride Level 103 mmol/L (98-107) Carbon Dioxide Level 23 mmol/L (21-32) Anion Gap 11 (6-14) Blood Urea Nitrogen 20 mg/dL (7-20) Creatinine 0.7 mg/dL (0.6-1.0) Estimated GFR (Cockcroft-Gault) 80.3 Glucose Level 82 mg/dL (70-99) Calcium Level 8.1 mg/dL (8.5-10.1) Objective: Assessment: 1. Shortness of breath is multifactorial, but most likely it is congestive heart failure, maybe some chronic obstructive pulmonary disease. Certainly COVID is old and likely has viral particles which are positive 2. Influenza B. 3. Congestive heart failure. 4. Chronic obstructive pulmonary disease. 5. Atrial fibrillation. 6. Anemia. Plan: Plan of Care Continue supportive care. Continue ceftriaxone, dexamethasone and tamiflu SONIA PETTY MD June 29, 2021 14:04
--- NOTE | 2021-06-29 14:35 | NUR ---
Discharge orders reviewed with patient. Patient voices understanding et denies questions or concerns at this time. LEJ removed with cannula intact. Cardiac monitoring removed.
--- NOTE | 2021-06-29 15:13 | NUR ---
Patient assisted to main entrance via wheelchair by unit staff. Assisted into private vehicle driven by her daughter. All belongings taken with patient at time of discharge.
== END 2021-06-29 15:00 | disposition home health service (06) | DRG 291 ==
LOC: ER 18:14 → 6 SOUTH 19:00
PROVIDERS: ADMIT Student in an Organized Health Care Education/Training Program; ATTEND Student in an Organized Health Care Education/Training Program
PROC: 30233N1 Transfusion of Nonautologous Red Blood Cells into Peripheral Vein, Percutaneous Approach (ICD-10-PCS; principal; 2021-06-24)
DX: I11.0 Hypertensive heart disease with heart failure (principal); I50.33 Acute on chronic diastolic (congestive) heart failure; E43 Unspecified severe protein-calorie malnutrition; J10.08 Influenza due to other identified influenza virus with other specified pneumonia; J96.21 Acute and chronic respiratory failure with hypoxia; U07.1 COVID-19; I48.19 Other persistent atrial fibrillation; J44.0 Chronic obstructive pulmonary disease with (acute) lower respiratory infection; J44.1 Chronic obstructive pulmonary disease with (acute) exacerbation; N39.0 Urinary tract infection, site not specified; D64.9 Anemia, unspecified; E03.9 Hypothyroidism, unspecified; G56.00 Carpal tunnel syndrome, unspecified upper limb; I27.29 Other secondary pulmonary hypertension; I27.81 Cor pulmonale (chronic); K21.9 Gastro-esophageal reflux disease without esophagitis; M06.9 Rheumatoid arthritis, unspecified; M19.90 Unspecified osteoarthritis, unspecified site; R62.7 Adult failure to thrive; Z82.49 Family history of ischemic heart disease and other diseases of the circulatory system; Z87.891 Personal history of nicotine dependence; Z99.81 Dependence on supplemental oxygen; Z79.899 Other long term (current) drug therapy; Z88.0 Allergy status to penicillin; Z88.8 Allergy status to other drugs, medicaments and biological substances; Z91.040 Latex allergy status; Z68.27 Body mass index [BMI] 27.0-27.9, adult
CPT/HCPCS: 36415; 36430; 71045; 71250; 80048; 80053; 80162; 81001; 82274; 83605; 83735; 83880; 84145; 84484; 85018; 85025; 85027; 86140; 86850; 86900; 86901; 86920; 87040; 87426; 87804; 93005; 94640; J0696; J1100; J1940; P9016; U0003; 97530-GP; 97535-GO; 99285-25; G0378

== ENCOUNTER → 2021-07-07 | Emergency (ER) | payer MEDICARE ==
[~2021-07-07] MED LIST changes: +HYDR-2761 PO; +MORPHINE SULFATE 2 MG/ML INJ. IV/SQ PRN; +NEOMY/BACITR/POLYMYXIN OINT PACKET. TP ONE; +ONDANSETRON PF 4 MG/2 ML VIAL. IVP PRN; +OSEL75CA PO
[2021-07-07 16:37] VITALS: BP 112/69
[2021-07-07 16:39] LABS: BASO # 0.1 x10^3/uL (0.0-0.2); BASO % 1 % (0-3); EOS # 0.1 x10^3/uL (0.0-0.7); EOS % 1 % (0-3); HEMATOCRIT 30.3 % (36.0-47.0); HEMOGLOBIN 9.1 g/dL (12.0-15.5); LYMPH # 0.8 x10^3/uL (1.0-4.8); LYMPH % 7 % (24-48); MEAN CORPUSCULAR HEMOGLOBIN 27 pg (25-35); MEAN CORPUSCULAR HGB CONC 30 g/dL (31-37); MEAN CORPUSCULAR VOLUME 91 fL (79-100); MONO # 0.7 x10^3/uL (0.0-1.1); MONO % 6 % (0-9); NEUT # 9.3 x10^3/uL (1.8-7.7); NEUT % 85 % (31-73); PLATELET COUNT 373 x10^3/uL (140-400); RED BLOOD COUNT 3.32 x10^6/uL (3.50-5.40); RED CELL DISTRIBUTION WIDTH 19.1 % (11.5-14.5)
[2021-07-07 16:50] LABS: PROTHROMBIN TIME PATIENT 15.5 SEC (11.7-14.0)
[2021-07-07 16:53] LABS: CALCIUM 8.1 mg/dL (8.5-10.1); CREATININE 0.8 mg/dL (0.6-1.0); GFR 68.8; POTASSIUM 4.5 mmol/L (3.5-5.1)
[2021-07-07 16:59] LABS: ALBUMIN 2.6 g/dL (3.4-5.0); ALBUMIN/GLOBULIN RATIO 0.7 (1.0-1.7); TOTAL BILIRUBIN 0.6 mg/dL (0.2-1.0); TOTAL PROTEIN 6.3 g/dL (6.4-8.2)
--- NOTE | 2021-07-07 17:07 | RAD ---
CT Head W/O Contrast: History: Reason: fall face forward, injury/pain / Spl. Instructions: / History: Comparison: none Axial images were obtained without contrast. There is moderate diffuse atrophy. There is no mass effect, extraaxial fluid collections or hydrocep halus. There is no focal loss of connor-white matter distinction to suggest acute ischemia, i.e. stroke. Is a scalp hematoma anteriorly on the left. There has been prior mastoidectomy on the left. Impression: No acute intracranial findings. End of impression CT maxillofacial without contrast History: Pain status post fall forward Axial helical images of the face were obtained without contrast. Axial and coronal reconstruction was performed. The nasal septum is mostly midline. The ostiomeatal complexes are narrow but patent. The paranasal si nuses are clear. The visualized osseous structures appear intact. The orbits appear normal. Impression: No acute findings. End of impression CT C-Spine without contrast: Clinical History: Reason: fall face forward, injury/pain / Spl. Instructions: / History: Technique: Axial helical images of the cervical spine were obtained without contrast, axial coronal and sagittal reconstruction was performed. Findings: There is no loss of vertebral body stature. There is no prevertebral soft tissue swelling. There is grade 1 anterolisthesis of C4 on C5 and C7 on T1. The C1-C2 relationship is normal. 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 Evaluation of the central canal is limited without contrast. There is multiple posterior disc bulges resulting in flattening of the thecal sac. There does not ap pear to be gross flattening of the cervical cord. There is moderate narrowing of multiple neuroforame n. Impression: Grade 1 anterolisthesis of C4 on C5 and C7 on T1. This could be chronic degenerative changes. No frac ture seen. Clinical correlation suggested. PQRS Compliance Statement: One or more of the following individualized dose reduction techniques were utilized for this examinat ion: 1. Automated exposure control 2. Adjustment of the mA and/or kV according to patient size 3. Use of iterative reconstruction technique Electronically signed by: Soren Peralta III, MD (07/07/2021 5:04 PM) [facility]
--- NOTE | 2021-07-07 17:08 | RAD ---
3. Hand HISTORY: Laceration AP lateral oblique views There is obscuration of the index finger by a pulse ox. This moderate degenerative change of the firs t metacarpal carpal joint with marginal spurring and eburnation. There is gross osteopenia which limi ts sensitivity for possible nondisplaced fractures. There is no radiopaque foreign body. IMPRESSION: No acute findings. Electronically signed by: Soren Peralta III, MD (07/07/2021 5:06 PM) [facility]
--- NOTE | 2021-07-07 18:14 | PHYS DOC ---
Past Medical History Past Medical History: Anemia, CHF, COPD, GERD, Hypertension, Hypothyroid Additional Past Medical Histor: THYROID Past Surgical History: No Surgical History Additional Past Surgical Histo: cataract, ear Smoking Status: Former Smoker Alcohol Use: None Drug Use: None General Adult EDM: Chief Complaint: TRAUMA ACTIVATION HPI: HPI: Patient is a 80 year old female with a history of COPD, CHF, hypertension, presenting to the ED today to be evaluated after falling. Patient states she was sitting on her chair, she bent down to pick a piece of ice on the floor and she fell down hitting her face on the floor. Denies any loss of consciousness. Complaining of skin tears on the left chin, right hand. Complaining of moderate pain to the right ribs. Describes the pain as sharp and constant worse on deep breaths. Denies anything relieving the pain. Denies any neck pain, mid or low back pain. Denies any hip pain, bilateral lower extremity pain. Review of Systems: Review of Systems: Constitutional: Denies fever or chills. [] Eyes: Denies change in visual acuity. [] HENT: Denies nasal congestion or sore throat. [] Respiratory: Reports right rib pain. Denies cough or shortness of breath. [] Cardiovascular: Denies chest pain or edema. [] GI: Denies abdominal pain, nausea, vomiting, bloody stools or diarrhea. [] : Denies dysuria. [] Musculoskeletal: Denies back pain or joint pain. [] Integument: Reports skin tears to the left chin, right hand Neurologic: Denies headache, focal weakness or sensory changes. [] ] Psychiatric: Denies depression or anxiety. [] Heart Score: C/O Chest Pain: N/A Risk Factors: Risk Factors: DM, Current or recent (<one month) smoker, HTN, HLP, family hist ory of CAD, obesity. Risk Scores: Score 0 - 3: 2.5% MACE over next 6 weeks - Discharge Home Score 4 - 6: 20.3% MACE over next 6 weeks - Admit for Clinical Observation Score 7 - 10: 72.7% MACE over next 6 weeks - Early Invasive Strategies Current Medications: Current Medications Medications (Trade) Dose Ordered Sig/Farhan Start Time Stop Time Status Last Admin Dose Admin Morphine Sulfate (Morphine Sulfate) 2 mg PRN Q15MIN PRN 07/07/21 16:15 07/08/21 16:14 07/07/21 17:07 2 MG Ondansetron HCl (Zofran) 4 mg PRN Q6HRS PRN 07/07/21 16:15 07/08/21 16:14 07/07/21 17:07 4 MG Allergies: Allergies: Allergies Coded Allergies Type Severity Reaction Last Updated Verified clindamycin Allergy Severe THROAT CLOSING 06/24/21 Yes Penicillins Allergy Intermediate Hives 06/24/21 Yes erythromycin base Allergy Intermediate 06/24/21 Yes latex Allergy Intermediate itching, broke out w/ hives 06/24/21 Yes metoprolol Allergy Intermediate 06/24/21 Yes Physical Exam: PE: Constitutional: Well developed, well nourished, no acute distress, non-toxic appearance. [] HENT: Normocephalic, bilateral external ears normal, oropharynx moist, no oral exudates, nose normal. [] Eyes: PERRLA, EOMI, conjunctiva normal, no discharge. [] Neck: Normal range of motion, no tenderness, supple, no stridor. [] Cardiovascular:Heart rate regular rhythm, no murmur [] Lungs & Thorax: Bilateral breath sounds clear to auscultation [] Abdomen: Bowel sounds normal, soft, no tenderness, no masses, no pulsatile masses. [] Skin: Left chin, cheek, without large skin tear roughly 7 x 5 cm, the skin is completely gone. Right dorsal hand with a skin tear roughly 5 x 4 cm. Back: No tenderness, no CVA tenderness. [] Extremities: No tenderness, no cyanosis, no clubbing, ROM intact, no edema. [] Neurologic: Left forehead with a contusion, alert and oriented X 3, normal motor function, normal sensory function, no focal deficits noted. Cranial nerves II through XII intact Psychologic: Affect normal, judgement normal, mood normal. [] Current Patient Data: Labs: Laboratory Tests Test 07/07/21 16:20 White Blood Count 11.0 x10^3/uL (4.0-11.0) Red Blood Count 3.32 x10^6/uL (3.50-5.40) L Hemoglobin 9.1 g/dL (12.0-15.5) L Hematocrit 30.3 % (36.0-47.0) L Mean Corpuscular Volume 91 fL (79-100) Mean Corpuscular Hemoglobin 27 pg (25-35) Mean Corpuscular Hemoglobin Concent 30 g/dL (31-37) L Red Cell Distribution Width 19.1 % (11.5-14.5) H Platelet Count 373 x10^3/uL (140-400) Neutrophils (%) (Auto) 85 % (31-73) H Lymphocytes (%) (Auto) 7 % (24-48) L Monocytes (%) (Auto) 6 % (0-9) Eosinophils (%) (Auto) 1 % (0-3) Basophils (%) (Auto) 1 % (0-3) Neutrophils # (Auto) 9.3 x10^3/uL (1.8-7.7) H Lymphocytes # (Auto) 0.8 x10^3/uL (1.0-4.8) L Monocytes # (Auto) 0.7 x10^3/uL (0.0-1.1) Eosinophils # (Auto) 0.1 x10^3/uL (0.0-0.7) Basophils # (Auto) 0.1 x10^3/uL (0.0-0.2) Prothrombin Time 15.5 SEC (11.7-14.0) H Prothrombin Time INR 1.3 (0.8-1.1) H Activated Partial Thromboplast Time 33 SEC (24-38) Sodium Level 138 mmol/L (136-145) Potassium Level 4.5 mmol/L (3.5-5.1) Chloride Level 105 mmol/L (98-107) Carbon Dioxide Level 24 mmol/L (21-32) Anion Gap 9 (6-14) Blood Urea Nitrogen 13 mg/dL (7-20) Creatinine 0.8 mg/dL (0.6-1.0) Estimated GFR (Cockcroft-Gault) 68.8 BUN/Creatinine Ratio 16 (6-20) Glucose Level 130 mg/dL (70-99) H Calcium Level 8.1 mg/dL (8.5-10.1) L Total Bilirubin 0.6 mg/dL (0.2-1.0) Aspartate Amino Transferase (AST) 23 U/L (15-37) Alanine Aminotransferase (ALT) 18 U/L (14-59) Alkaline Phosphatase 289 U/L (46-116) H Total Protein 6.3 g/dL (6.4-8.2) L Albumin 2.6 g/dL (3.4-5.0) L Albumin/Globulin Ratio 0.7 (1.0-1.7) L Ethyl Alcohol Level < 10 mg/dL (0-10) Laboratory Tests 07/07/21 16:20 Laboratory Tests 07/07/21 16:20 Vital Signs: Vital Signs Date Time Temp Pulse Resp B/P (MAP) Pulse Ox O2 Delivery O2 Flow Rate FiO2 07/07/21 16:37 70 Nasal Cannula EKG: EKG: [] Radiology/Procedures: Radiology/Procedures: []PROCEDURE: CT CHEST WO CONTRAST ADDENDUM ADDENDUM #1 Addendum: CT of the chest without contrast: Clinical History: Reason: fall face forward, injury/pain / Spl. Instructions: / History: . Axial helical images of the chest were obtained without contrast. COMPARISON: June 26, 2021 There are small pleural effusions and adjacent infiltrates left worse than right cyst was seen previously. There is improved aeration of the right lung base since prior study. This diffuse emphysematous changes in the lungs. The skeletal Brandon doll of the thoracic aorta without aneurysm. There are significant coronary artery ulcerations. The heart is mildly dilated. There is a moderate pericardial effusion seen previously. There is diffuse soft tissue edema. A few small mediastinal lymph nodes are seen. Impression: 1. Cardiomegaly pericardial effusion pleural effusions and cyst seen previously. 2. Diffuse soft tissue edema was not present previously and could be sepsis or anasarca. 3. No acute sequela of trauma identified. End of impression PQRS Compliance Statement: One or more of the following individualized dose reduction techniques were u tilized for this examination: 1. Automated exposure control 2. Adjustment of the mA and/or kV according to patient size 3. Use of iterative reconstruction technique Electronically signed by: Abraham Mcgrath III, MD (07/07/2021 5:31 PM) [facility] ORIGINAL REPORT CT Head W/O Contrast: History: Reason: fall face forward, injury/pain / Spl. Instructions: / History: Comparison: none Axial images were obtained without contrast. There is moderate diffuse atrophy. There is no mass effect, extraaxial fluid collections or hydrocephalus. There is no focal loss of connor-white matter distinction to suggest acute ischemia, i.e. stroke. Is a scalp hematoma anteriorly on the left. There has been prior mastoidectomy on the left. Impression: No acute intracranial findings. End of impression CT maxillofacial without contrast History: Pain status post fall forward Axial helical images of the face were obtained without contrast. Axial and coronal reconstruction was performed. The nasal septum is mostly midline. The ostiomeatal complexes are narrow but patent. The paranasal sinuses are clear. The visualized osseous structures appear intact. The orbits appear normal. Impression: No acute findings. End of impression CT C-Spine without contrast: Clinical History: Reason: fall face forward, injury/pain / Spl. Instructions: / History: Technique: Axial helical images of the cervical spine were obtained without contrast, axial coronal and sagittal reconstruction was performed. Findings: There is no loss of vertebral body stature. There is no prevertebral soft tissue swelling. There is grade 1 anterolisthesis of C4 on C5 and C7 on T1. The C1-C2 relationship is normal. There is congenital nonunion of the posterior arch of C1. Evaluation of the central canal is limited without contrast. There is multiple posterior disc bulges resulting in flattening of the thecal sac. There does not appear to be gross flattening of the cervical cord. There is moderate narrowing of multiple neuroforamen. Impression: Grade 1 anterolisthesis of C4 on C5 and C7 on T1. This could be chronic degenerative changes. No fracture seen. Clinical correlation suggested. PQRS Compliance Statement: One or more of the following individualized dose reduction techniques were utilized for this examination: 1. Automated exposure control 2. Adjustment of the mA and/or kV according to patient size 3. Use of iterative reconstruction technique Electronically signed by: Abraham Mcgrath III, MD (07/07/2021 5:04 PM) [facility] DICTATED AND SIGNED BY: ABRAHAM MCGRATH III, MD DATE: 07/07/211721 CC: IVETTE LANZA APRN; NATALIE GONCALVES APRN ~ CT Head W/O Contrast: History: Reason: fall face forward, injury/pain / Spl. Instructions: / History: Comparison: none Axial images were obtained without contrast. There is moderate diffuse atrophy. There is no mass effect, extraaxial fluid collections or hydrocephalus. There is no focal loss of connor-white matter distinction to suggest acute ischemia, i.e. stroke. Is a scalp hematoma anteriorly on the left. There has been prior mastoidectomy on the left. Impression: No acute intracranial findings. End of impression CT maxillofacial without contrast History: Pain status post fall forward Axial helical images of the face were obtained without contrast. Axial and coronal reconstruction was performed. The nasal septum is mostly midline. The ostiomeatal complexes are narrow but patent. The paranasal sinuses are clear. The visualized osseous structures appear intact. The orbits appear normal. Impression: No acute findings. End of impression CT C-Spine without contrast: Clinical History: Reason: fall face forward, injury/pain / Spl. Instructions: / History: Technique: Axial helical images of the cervical spine were obtained without contrast, axial coronal and sagittal reconstruction was performed. Findings: There is no loss of vertebral body stature. There is no prevertebral soft tissue swelling. There is grade 1 anterolisthesis of C4 on C5 and C7 on T1. The C1-C2 relationship is normal. There is congenital nonunion of the posterior arch of C1. Evaluation of the central canal is limited without contrast. There is multiple posterior disc bulges resulting in flattening of the thecal sac. There does not appear to be gross flattening of the cervical cord. There is moderate narrowing of multiple neuroforamen. Impression: Grade 1 anterolisthesis of C4 on C5 and C7 on T1. This could be chronic degenerative changes. No fracture seen. Clinical correlation suggested. PQRS Compliance Statement: One or more of the following individualized dose reduction techniques were utilized for this examination: 1. Automated exposure control 2. Adjustment of the mA and/or kV according to patient size 3. Use of iterative reconstruction technique Electronically signed by: Abraham Mcgrath III, MD (07/07/2021 5:04 PM) [facility] DICTATED and SIGNED BY: ABRAHAM MCGRATH III, MD DATE: 07/07/21 3678 Course & Med Decision Making: Course & Med Decision Making Pertinent Labs and Imaging studies reviewed. (See chart for details) This is a 80-year-old female patient presented to the ED today to be evaluated after falling today. Patient is complaining of right rib pain. Has a skin tear on the left chin and right hand. CT of the head, cervical spine, maxillofacial, chest-are negative for any acute findings, right hand x-rays are negative. Tetanus up-to-date. Discharged to home. Provided return precautions. Radha Disclaimer: Radha Disclaimer: This electronic medical record was generated, in whole or in part, using a voice recognition dictation system. Departure Departure Impression: Primary Impression: Fall Qualified Codes: W19.XXXA - Unspecified fall, initial encounter Additional Impressions: Skin tear of hand without complication Qualified Codes: S61.411A - Laceration without foreign body of right hand, initial encounter Facial laceration Qualified Codes: S01.81XA - Laceration without foreign body of other part of head, initial encounter Contusion of rib on right side Qualified Codes: S20.211A - Contusion of right front wall of thorax, initial encounter Disposition: HOME / SELF CARE / HOMELESS Condition: STABLE Referrals: NATALIE GONCALVES APRN (PCP) follow up with your doctor next week Patient Instructions: Fall Prevention and Home Safety, Rib Contusion, Skin Tear Care Additional Instructions: You were evaluated in the emergency room after falling. Your CT of the head, neck, face, and chest are negative for any acute findings, your right hand x-ray is negative for any acute findings. Try to ice and elevate the affected areas. Please apply Neosporin to the skin tears on your face and hand. Follow-up with your doctor in 1 to 2 weeks. Monitor the areas for any signs of infection including but not limited to increased redness, warmth, yellow drainage from the areas and return to the ED if they occur or see your doctor Scripts Hydrocodone Bit/Acetaminophen (HYDROCODONE-APAP 5-325 ) 1 Tab Tablet 1 TAB PO PRN Q6HRS PRN for PAIN, #12 TAB 0 Refills Prov: IVETTE LANZA APRN 07/07/21 IVETTE LANZA APRN July 07, 2021 18:14
--- NOTE | 2021-07-08 07:28 | EKG ---
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
== END | disposition home or self-care (01) ==
LOC: ER 15:55
DX: S01.81XA Laceration without foreign body of other part of head, initial encounter (principal); S61.411A Laceration without foreign body of right hand, initial encounter; S20.211A Contusion of right front wall of thorax, initial encounter; S00.83XA Contusion of other part of head, initial encounter; I11.0 Hypertensive heart disease with heart failure; I50.9 Heart failure, unspecified; J44.9 Chronic obstructive pulmonary disease, unspecified; K21.9 Gastro-esophageal reflux disease without esophagitis; E03.9 Hypothyroidism, unspecified; Z86.2 Personal history of diseases of the blood and blood-forming organs and certain disorders involving the immune mechanism; Z88.0 Allergy status to penicillin; Z88.1 Allergy status to other antibiotic agents; Z91.040 Latex allergy status; Z88.8 Allergy status to other drugs, medicaments and biological substances; W07.XXXA Fall from chair, initial encounter; Y93.89 Activity, other specified; Y92.89 Other specified places as the place of occurrence of the external cause; Y99.8 Other external cause status
CPT/HCPCS: 36415; 70450; 70486; 71250; 72125; 73130; 80053; 85025; 85610; 85730; 93005; 96374; 96375; 99285; G0480; J2270; J2405